=== PATIENT | female | born 1935 | race Two or more races ===

== ENCOUNTER → 2016-09-16 | Outpatient (CLI) | payer MEDICARE, MEDICAID | END | disposition home or self-care (01) | LOC: Rad HDHVI 11:10 | PROVIDERS: ATTEND Internal Medicine Cardiovascular Disease | DX: R06.02 Shortness of breath (principal) | CPT/HCPCS: 93306 ==

== ENCOUNTER → 2016-09-26 | Outpatient (CLI) | payer MEDICARE, MEDICAID ==
[~2016-09-26] VITALS: Ht 144.8 cm; Wt 59.0 kg
[~2016-09-26] MED LIST: D5W 5% IV ONE; DIPYRIDAMOLE (5MG/ML) 10 ML VIAL IV ONE; DIPYRIDAMOLE IV ONE
== END | disposition home or self-care (01) ==
LOC: Rad HDHVI 07:36
PROVIDERS: ATTEND Internal Medicine Cardiovascular Disease
DX: R07.9 Chest pain, unspecified (principal); I10 Essential (primary) hypertension; R06.02 Shortness of breath
CPT/HCPCS: 78452; 93005; 96374; 96375; A9500; J1245

== ENCOUNTER → 2018-08-10 | Outpatient (CLI) | payer MEDICARE, MEDICAID | END | disposition home or self-care (01) | LOC: Rad HDHVI 09:38 | PROVIDERS: ATTEND Internal Medicine | DX: I08.1 Rheumatic disorders of both mitral and tricuspid valves (principal); I10 Essential (primary) hypertension | CPT/HCPCS: 93306; 93880 ==

== ENCOUNTER → 2018-08-27 | Outpatient (CLI) | payer MEDICARE, MEDICAID ==
[~2018-08-27] VITALS: Ht 144.8 cm; Wt 58.1 kg
[~2018-08-27] MED LIST changes: +ADENOSINE 49 MG in GIVE UN-DILUTED 0 ML IV ONE; +ADENOSINE 90 MG/30 ML INJ IV ONE; -D5W 5% IV ONE; -DIPYRIDAMOLE (5MG/ML) 10 ML VIAL IV ONE; -DIPYRIDAMOLE IV ONE
[2018-08-27 12:52] LABS: Urine Blood Negative /uL (Negative); Urine Specific Gravity 1.012 (1.001-1.035)
[2018-08-27 12:53] LABS: Basophils # (auto) 0 uL; Basophils % (auto) 0.4 % (0.0-2.0); Eosinophils # (auto) 0 uL; Eosinophils % (auto) 0.7 % (0.0-7.0); Hematocrit 37.2 % (36.0-46.0); Hemoglobin 12.4 g/dL (12.2-16.2); Lymphocytes # (auto) 0.9 uL; Lymphocytes % (auto) 18.7 % (10.0-50.0); Mean Corpuscular Hemoglobin 31.8 pg (28.0-32.0); Mean Corpuscular Hgb Conc. 33.4 g/dL (32.0-36.0); Mean Corpuscular Volume 95.3 fL (80.0-100.0); Monocytes # (auto) 0.3 uL; Monocytes % (auto) 5.9 % (0.0-12.0); Neutrophils # (auto) 3.6 uL; Neutrophils % (auto) 74.3 % (37.0-80.0); Nucleated Red Blood Cells % 0.2 %; Platelet Count (auto) 233 10^3/uL (140-450); White Blood Cell 4.9 10^3/uL (4.4-10.8)
[2018-08-27 13:08] LABS: Potassium 4.2 mmol/L (3.5-5.1)
[2018-08-27 13:16] LABS: Albumin 4.2 g/dL (3.4-5.0); BUN/Creatinine Ratio 24.4; Bilirubin, Total 0.6 mg/dL (0.2-1.0); Calcium 9.7 mg/dL (8.5-10.1); Total Protein 7.7 g/dL (6.4-8.2)
[2018-08-27 13:19] LABS: Free T4 (Free Thyroxine) 1.18 ng/dL (0.89-1.76)
== END | disposition home or self-care (01) ==
LOC: Rad HDHVI 08:28
PROVIDERS: ATTEND Internal Medicine Cardiovascular Disease
DX: I10 Essential (primary) hypertension (principal); E78.5 Hyperlipidemia, unspecified; E03.9 Hypothyroidism, unspecified; E11.9 Type 2 diabetes mellitus without complications; E55.9 Vitamin D deficiency, unspecified; D51.9 Vitamin B12 deficiency anemia, unspecified; D64.9 Anemia, unspecified; N39.0 Urinary tract infection, site not specified; E78.00 Pure hypercholesterolemia, unspecified
CPT/HCPCS: 36415; 78452; 80053; 80061; 81003; 82306; 82607; 83036; 84439; 84443; 85025; 87086; 93005; 96374; 96375; A9500; J0153

== ENCOUNTER → 2019-05-02 | Outpatient (CLI) | payer MEDICARE, MEDICAID ==
[2019-05-02 12:35] LABS: Urine Blood Negative /uL (Negative); Urine Specific Gravity 1.017 (1.001-1.035)
[2019-05-02 12:54] LABS: Basophils # (auto) 0 uL; Basophils % (auto) 0.4 % (0.0-2.0); Eosinophils # (auto) 0 uL; Eosinophils % (auto) 0.8 % (0.0-7.0); Hematocrit 32.9 % (36.0-46.0); Lymphocytes % (auto) 21.1 % (10.0-50.0); Mean Corpuscular Hgb Conc. 33.4 g/dL (32.0-36.0); Mean Corpuscular Volume 95.8 fL (80.0-100.0); Monocytes # (auto) 0.3 uL; Monocytes % (auto) 7.2 % (0.0-12.0); Neutrophils # (auto) 3.2 uL; Neutrophils % (auto) 70.5 % (37.0-80.0); Nucleated Red Blood Cells % 0.1 %; Platelet Count (auto) 226 10^3/uL (140-450); Red Blood Cells 3.43 10^6/uL (4.0-5.20); Red Cell Distribution Width 13.5 % (11.8-14.3); White Blood Cell 4.5 10^3/uL (4.4-10.8)
[2019-05-02 13:01] LABS: Potassium 4.5 mmol/L (3.5-5.1)
[2019-05-02 13:21] LABS: Free T4 (Free Thyroxine) 1.05 ng/dL (0.89-1.76)
[2019-05-02 13:29] LABS: Albumin 3.7 g/dL (3.4-5.0); BUN/Creatinine Ratio 30.4; Bilirubin, Total 0.7 mg/dL (0.2-1.0); Calcium 9.5 mg/dL (8.5-10.1); Total Protein 7.2 g/dL (6.4-8.2)
== END | disposition home or self-care (01) ==
LOC: LAB 09:10
PROVIDERS: ATTEND Internal Medicine
DX: E03.9 Hypothyroidism, unspecified (principal); K90.9 Intestinal malabsorption, unspecified; N39.0 Urinary tract infection, site not specified; D51.9 Vitamin B12 deficiency anemia, unspecified; Z79.899 Other long term (current) drug therapy
CPT/HCPCS: 36415; 80053; 80061; 81003; 82306; 82607; 83036; 84439; 84443; 85025; 87086; 87088; 87186

== ENCOUNTER → 2020-03-28 | Outpatient (CLI) | payer MEDICARE, MEDICAID ==
[~2020-03-28] MED LIST changes: -ADENOSINE 49 MG in GIVE UN-DILUTED 0 ML IV ONE; -ADENOSINE 90 MG/30 ML INJ IV ONE; +IOHEXOL 350 MG/ML 100ML IJ ONE
[2020-03-28 09:45] VITALS: BP 157/64
--- NOTE | 2020-03-28 09:45 | NUR ---
Patient into clinic for scheduled CTA, AAOx4, ambulatory, breathing even and unlabored. Patient is urdu speaking has caregiver for translation at chairside.
--- NOTE | 2020-03-28 10:18 | NUR ---
IV removal IV DC'd with sterile technique, catheter fully intact. Pressure dressing applied to site. Patient tolerated procedure well.
[2020-03-28 10:20] VITALS: BP 161/51
--- NOTE | 2020-03-28 10:20 | NUR ---
[facility] Clinic Discharge Instructions See e-MAR for any mediations given with this visit. Patient education given on disease process. Patient verbalized understanding. Previous labs reviewed. Patient discharged in stable condition with after care instructions and follow up appointment. Note Patient educated to drink plenty of fluids after IV contrast, caregiver and patient verbalized understanding.
== END | disposition home or self-care (01) ==
LOC: Rad HDHVI 03-27 15:20
PROVIDERS: ATTEND Internal Medicine Cardiovascular Disease
DX: K42.0 Umbilical hernia with obstruction, without gangrene (principal); R94.4 Abnormal results of kidney function studies; R10.9 Unspecified abdominal pain; K57.10 Diverticulosis of small intestine without perforation or abscess without bleeding; K44.9 Diaphragmatic hernia without obstruction or gangrene; K43.9 Ventral hernia without obstruction or gangrene; K57.30 Diverticulosis of large intestine without perforation or abscess without bleeding; M47.816 Spondylosis without myelopathy or radiculopathy, lumbar region; K57.90 Diverticulosis of intestine, part unspecified, without perforation or abscess without bleeding; N39.0 Urinary tract infection, site not specified; D51.9 Vitamin B12 deficiency anemia, unspecified; E03.9 Hypothyroidism, unspecified; K90.9 Intestinal malabsorption, unspecified; Z79.899 Other long term (current) drug therapy
CPT/HCPCS: 36415; 74177; 80053; 80061; 82565; 82607; 83036; 84439; 84443; 84520; 85025; G0463; Q9967

== ENCOUNTER → 2020-03-28 | Outpatient (CLI) | payer MEDICARE ==
[2020-03-28 08:46] LABS: Basophils # (auto) 0 10 ^3/uL (0-0.2); Basophils % (auto) 0.4 % (0.0-2.0); Eosinophils # (auto) 0.1 10 ^3/uL (0-0.8); Eosinophils % (auto) 1.2 % (0.0-7.0); Hematocrit 32.1 % (36.0-46.0); Hemoglobin 10.8 g/dL (12.2-16.2); Lymphocytes # (auto) 1.1 10 ^3/uL (0.4-5.4); Lymphocytes % (auto) 21.4 % (10.0-50.0); Mean Corpuscular Hemoglobin 31.9 pg (28.0-32.0); Mean Corpuscular Hgb Conc. 33.6 g/dL (32.0-36.0); Mean Corpuscular Volume 95.1 fL (80.0-100.0); Monocytes # (auto) 0.4 10 ^3/uL (0-1.3); Monocytes % (auto) 7.3 % (0.0-12.0); Neutrophils # (auto) 3.5 10 ^3/uL (1.6-8.6); Neutrophils % (auto) 69.7 % (37.0-80.0); Nucleated Red Blood Cells % 0.1 %; Platelet Count (auto) 266 10^3/uL (140-450); Red Blood Cells 3.37 10^6/uL (4.0-5.20); Red Cell Distribution Width 14.4 % (11.8-14.3)
[2020-03-28 09:16] LABS: Albumin 3.6 g/dL (3.4-5.0); Calcium 9.3 mg/dL (8.5-10.1); Potassium 4.4 mmol/L (3.5-5.1)
[2020-03-28 09:20] LABS: BUN/Creatinine Ratio 28.2; Bilirubin, Total 0.6 mg/dL (0.2-1.0); Total Protein 6.8 g/dL (6.4-8.2)
[2020-03-28 09:27] LABS: Free T4 (Free Thyroxine) 1.28 ng/dL (0.89-1.76)
== END | disposition home or self-care (01) ==
LOC: CANPRECLI → LAB 08:19
PROVIDERS: ATTEND Internal Medicine
DX: E03.9 Hypothyroidism, unspecified (principal); K90.9 Intestinal malabsorption, unspecified; N39.0 Urinary tract infection, site not specified; D51.9 Vitamin B12 deficiency anemia, unspecified; Z00.00 Encounter for general adult medical examination without abnormal findings; Z79.899 Other long term (current) drug therapy
CPT/HCPCS: 36415; 80053; 80061; 82607; 83036; 84439; 84443; 85025

== ENCOUNTER → 2021-02-19 | Outpatient (CLI) | payer MEDICARE, MEDICAID ==
[~2021-02-19] VITALS: Ht 144.8 cm; Wt 54.4 kg
[~2021-02-19] MED LIST changes: +ADENOSINE 46 MG in GIVE UN-DILUTED 0 ML IV ONE; +ADENOSINE 90 MG/30 ML INJ IV ONE; -IOHEXOL 350 MG/ML 100ML IJ ONE
== END | disposition home or self-care (01) ==
LOC: Rad HDHVI 13:16
PROVIDERS: ATTEND Internal Medicine
DX: Z01.810 Encounter for preprocedural cardiovascular examination (principal); I25.10 Atherosclerotic heart disease of native coronary artery without angina pectoris; I10 Essential (primary) hypertension; I34.0 Nonrheumatic mitral (valve) insufficiency; E78.5 Hyperlipidemia, unspecified; Z91.14 Patient's other noncompliance with medication regimen; Z82.49 Family history of ischemic heart disease and other diseases of the circulatory system
CPT/HCPCS: 78452; 93005; 96374; 96375; A9500; J0153

== ENCOUNTER 2021-06-24 06:11 | Inpatient (IN) | payer MEDICARE, MEDICAID ==
[~2021-06-24] VITALS: Ht 142.2 cm; Wt 54.3 kg
[~2021-06-24 06:11] MED LIST changes: -ADENOSINE 46 MG in GIVE UN-DILUTED 0 ML IV ONE; -ADENOSINE 90 MG/30 ML INJ IV ONE; +AZIL40TA3 PO; +FER325T PO; +FOLITAB22 PO; +FURO1TAB31 PO; +MULT-927 PO; +OMEP20TA PO; +POTA1TAB61 PO
[2021-06-24] MEDS ORDERED: ACETAMINOPHEN IV 1000 MG/100ML (10MG/ML) IV ONE (07:30)
[2021-06-24] MEDS ORDERED: PREGABALIN 25 MG CAP PO ONE (07:30)
[2021-06-24] MEDS ORDERED: CELECOXIB 100 MG CAP PO ONE (07:30)
[2021-06-24] MEDS ORDERED: CELECOXIB 100 MG CAP ONE (07:31)
[2021-06-24] MEDS ORDERED: ceFAZolin 1GM/50ML 100 ML IV ONE (07:31)
[2021-06-24] MEDS ORDERED: PREGABALIN CAPSULE 75 MG CAP ONE (07:31)
[2021-06-24] MEDS ORDERED: ACETAMINOPHEN IV 100 ML IV ONE (07:31)
[2021-06-24] MEDS ORDERED: VANCOMYCIN HCL 1000 MG VL ONE (12:46)
[2021-06-24] MEDS ORDERED: TRANEXAMIC ACID 20 ML ONE (12:48)
[2021-06-24] MEDS ORDERED: BUPIVACAINE W/ EPINEPH 0.25% INJ 50ML MDV ONE ×2 (12:48→14:37)
[2021-06-24] MEDS ORDERED: MORPHINE SULF PF 2 MG/2 ML SYRG ONE (12:50)
[2021-06-24] MEDS ORDERED: KETOROLAC TROMETH 30 MG/ML 1ML VIAL ONE ×2 (12:50→14:37)
[2021-06-24] MEDS ORDERED: fentaNYL CITRATE 100 MCG/2 ML VL ONE (13:30)
[2021-06-24] MEDS ORDERED: MIDAZOLAM HCL 2MG/2ML 2ml VIAL (1mg/ml) ONE (13:30)
[2021-06-24] MEDS ORDERED: DexAMETHasone SOD PHOS 10MG/1ML VIAL INJ ONE (13:31)
[2021-06-24] MEDS ORDERED: PROPOFOL 10 MG/ML 20 ML IV ONE (13:31)
[2021-06-24] MEDS ORDERED: ePHEDrine SULFATE 50 MG/ML AMP IV PRN (14:15)
[2021-06-24] MEDS ORDERED: MIDAZOLAM HCL 2MG/2ML 2ml VIAL (1mg/ml) IV PRN (14:15)
[2021-06-24] MEDS ORDERED: MORPHINE SULFATE 4 MG/ML SYR/VIAL IV PRN (14:15)
[2021-06-24] MEDS ORDERED: ONDANSETRON HCL 4 MG/2 ML VIAL IV PRN (14:15)
[2021-06-24] MEDS ORDERED: NITROGLYCERIN 0.4 MG SL TAB SL PRN (15:45)
[2021-06-24] MEDS ORDERED: MORPHINE SULFATE INJECTION 2 MG/ML SYRG IV PRN (15:45)
[2021-06-24] MEDS ORDERED: BISACODYL 5 MG EC TAB PO PRN (15:45)
[2021-06-24] MEDS: LACTATED RINGER'S 1,000 ML IV SCH (15:45)
[2021-06-24] MEDS: ceFAZolin 1GM/50ML 50 ML IV SCH ×2 (16:24→21:44)
[2021-06-24] MEDS ORDERED: ASPI-717 PO (20:38)
[2021-06-24] MEDS: SODIUM CHLOR 0.9% PF (SALINE LOCK) 10ML VIAL/SYR IV SCH (21:44)
[2021-06-24] MEDS: DOCUSATE SOD 100 MG CAP PO SCH (21:44)
[2021-06-24] MEDS: FERROUS SULFATE 325mg EC TAB PO SCH (21:46)
[2021-06-24 22:00] VITALS: BP 121/59
[2021-06-24] MEDS: HYDROcodone-ACET 5/325MG TAB PO PRN (22:55)
[2021-06-25] VITALS (8 sets, daily range): BP systolic 108–127; BP diastolic 56–90
[2021-06-25] MEDS: LACTATED RINGER'S 1,000 ML IV SCH ×3 (01:45→21:31)
[2021-06-25] MEDS: ceFAZolin 1GM/50ML 50 ML IV SCH (03:24)
[2021-06-25 06:04] LABS: Hematocrit 22.8 % (36.0-46.0); Hemoglobin 7.8 g/dL (12.2-16.2)
[2021-06-25] MEDS: SODIUM CHLOR 0.9% PF (SALINE LOCK) 10ML VIAL/SYR IV SCH ×3 (06:23→21:13)
[2021-06-25] MEDS: FERROUS SULFATE 325mg EC TAB PO SCH ×3 (06:24→21:14)
[2021-06-25] MEDS: HYDROcodone-ACET 5/325MG TAB PO PRN (06:24)
[2021-06-25 06:27] LABS: Potassium 4.6 mmol/L (3.5-5.1)
[2021-06-25 06:33] LABS: Albumin 2.4 g/dL (3.4-5.0); Calcium 8.3 mg/dL (8.5-10.1)
[2021-06-25 06:35] LABS: Bilirubin, Total 0.7 mg/dL (0.2-1.0); Total Protein 4.9 g/dL (6.4-8.2)
[2021-06-25] MEDS: PANTOPRAZOLE 40 MG TAB PO SCH (10:00)
[2021-06-25] MEDS: CYANOCOBALAMIN PO SCH (10:00)
[2021-06-25] MEDS: MULTIPLE VITAMINS W/ MINERALS TAB PO SCH (10:00)
[2021-06-25] MEDS: ENOXAPARIN SOD 30 MG/0.3 ML SYRINGE SC SCH (10:00)
[2021-06-25] MEDS: PYRIDOXINE PO SCH (10:00)
[2021-06-25] MEDS: FOLIC ACID PO SCH (10:00)
[2021-06-25] MEDS: POTASSIUM CHL 10 Meq TABLET PO SCH (10:01)
[2021-06-25] MEDS: FUROSEMIDE 40 MG TAB PO SCH (10:01)
[2021-06-25] MEDS: DOCUSATE SOD 100 MG CAP PO SCH ×2 (10:01→21:14)
[2021-06-25] MEDS: HYDROmorphone HCL 2 MG/ML VL IV PRN (14:42)
[2021-06-26] MEDS: HYDROcodone-ACET 5/325MG TAB PO PRN ×2 (04:16→06:47)
[2021-06-26 05:00] VITALS: BP 138/77
[2021-06-26 05:55] LABS: Hematocrit 24.8 % (36.0-46.0); Hemoglobin 8.7 g/dL (12.2-16.2)
[2021-06-26] MEDS: SODIUM CHLOR 0.9% PF (SALINE LOCK) 10ML VIAL/SYR IV SCH ×3 (06:48→20:33)
[2021-06-26] MEDS: FERROUS SULFATE 325mg EC TAB PO SCH ×3 (06:49→20:33)
[2021-06-26] MEDS: LACTATED RINGER'S 1,000 ML IV SCH (07:45)
[2021-06-26 09:00] VITALS: BP 120/59
[2021-06-26] MEDS: DOCUSATE SOD 100 MG CAP PO SCH ×2 (09:45→20:33)
[2021-06-26] MEDS: MULTIPLE VITAMINS W/ MINERALS TAB PO SCH (09:45)
[2021-06-26] MEDS: PANTOPRAZOLE 40 MG TAB PO SCH (09:46)
[2021-06-26] MEDS: FUROSEMIDE 40 MG TAB PO SCH (09:47)
[2021-06-26] MEDS: POTASSIUM CHL 10 Meq TABLET PO SCH (09:47)
[2021-06-26] MEDS: HYDROmorphone HCL 2 MG/ML VL IV PRN (09:49)
[2021-06-26] MEDS: ENOXAPARIN SOD 30 MG/0.3 ML SYRINGE SC SCH (09:50)
[2021-06-26] MEDS: PYRIDOXINE PO SCH (10:00)
[2021-06-26] MEDS: CYANOCOBALAMIN PO SCH (10:00)
[2021-06-26] MEDS: FOLIC ACID PO SCH (10:00)
[2021-06-26] MEDS ORDERED: MORPHINE SULFATE INJECTION 2 MG/ML SYRG IV PRN (11:15)
[2021-06-26 12:54] LABS: Urine Bacteria FEW /hpf (None Seen); Urine Blood 2+ /uL (Negative); Urine Hyaline Cast FEW /lpf (0 - 2); Urine Mucus FEW (None Seen); Urine Specific Gravity 1.007 (1.001-1.035); Urine WBC 1 /hpf (0 - 5)
[2021-06-26 13:00] VITALS: BP 142/60
[2021-06-26] MEDS: ACETAMINOPHEN 325 MG TAB PO PRN ×2 (14:13→20:47)
[2021-06-26 17:00] VITALS: BP 115/61
[2021-06-26 22:00] VITALS: BP 164/88
[2021-06-27 05:00] VITALS: BP 126/60
[2021-06-27] MEDS: SODIUM CHLOR 0.9% PF (SALINE LOCK) 10ML VIAL/SYR IV SCH ×3 (05:25→21:10)
[2021-06-27] MEDS: FERROUS SULFATE 325mg EC TAB PO SCH ×3 (05:35→21:11)
[2021-06-27 06:39] LABS: Basophils # (auto) 0 10 ^3/uL (0-0.2); Basophils % (auto) 0.4 % (0.0-2.0); Eosinophils # (auto) 0.1 10 ^3/uL (0-0.8); Eosinophils % (auto) 0.8 % (0.0-7.0); Hematocrit 25.4 % (36.0-46.0); Hemoglobin 8.9 g/dL (12.2-16.2); Lymphocytes # (auto) 0.6 10 ^3/uL (0.4-5.4); Lymphocytes % (auto) 8.5 % (10.0-50.0); Mean Corpuscular Hemoglobin 33.5 pg (28.0-32.0); Mean Corpuscular Hgb Conc. 35.1 g/dL (32.0-36.0); Mean Corpuscular Volume 95.4 fL (80.0-100.0); Monocytes # (auto) 0.4 10 ^3/uL (0-1.3); Monocytes % (auto) 6.4 % (0.0-12.0); Neutrophils # (auto) 5.6 10 ^3/uL (1.6-8.6); Neutrophils % (auto) 83.9 % (37.0-80.0); Red Blood Cells 2.66 10^6/uL (4.0-5.20); Red Cell Distribution Width 13.8 % (11.8-14.3); White Blood Cell 6.6 10^3/uL (4.4-10.8)
[2021-06-27 06:55] LABS: BUN/Creatinine Ratio 17.2; Calcium 7.9 mg/dL (8.5-10.1); Potassium 3.8 mmol/L (3.5-5.1)
[2021-06-27] MEDS: FOLIC ACID PO SCH (09:13)
[2021-06-27] MEDS: PYRIDOXINE PO SCH (09:13)
[2021-06-27] MEDS: CYANOCOBALAMIN PO SCH (09:13)
[2021-06-27] MEDS: MULTIPLE VITAMINS W/ MINERALS TAB PO SCH (09:14)
[2021-06-27] MEDS: PANTOPRAZOLE 40 MG TAB PO SCH (09:14)
[2021-06-27] MEDS: ENOXAPARIN SOD 30 MG/0.3 ML SYRINGE SC SCH (09:14)
[2021-06-27] MEDS: DOCUSATE SOD 100 MG CAP PO SCH ×2 (09:14→21:11)
[2021-06-27 09:28] VITALS: BP 134/70
[2021-06-27] MEDS: ONDANSETRON HCL 4 MG/2 ML VIAL IV PRN (12:21)
[2021-06-27 12:38] VITALS: BP 138/111
[2021-06-27] MEDS ORDERED: METOPROLOL TARTRATE 25 MG TAB PO ONE (15:15)
[2021-06-27 16:36] VITALS: BP 126/43
[2021-06-27] MEDS: Ensure HIGH Protein Chocolate 8oz Bottle PO SCH (18:15)
[2021-06-27] MEDS: METOPROLOL TARTRATE 25 MG TAB PO SCH (21:12)
[2021-06-27 21:57] VITALS: BP 135/58
[2021-06-28] MEDS: ONDANSETRON HCL 4 MG/2 ML VIAL IV PRN (02:05)
[2021-06-28 05:00] VITALS: BP 138/64
[2021-06-28 05:58] LABS: Basophils # (auto) 0 10 ^3/uL (0-0.2); Basophils % (auto) 0.6 % (0.0-2.0); Eosinophils # (auto) 0 10 ^3/uL (0-0.8); Eosinophils % (auto) 0.9 % (0.0-7.0); Hemoglobin 8.3 g/dL (12.2-16.2); Lymphocytes # (auto) 0.5 10 ^3/uL (0.4-5.4); Lymphocytes % (auto) 8.7 % (10.0-50.0); Mean Corpuscular Hemoglobin 32.9 pg (28.0-32.0); Mean Corpuscular Hgb Conc. 34.6 g/dL (32.0-36.0); Mean Corpuscular Volume 95.2 fL (80.0-100.0); Monocytes # (auto) 0.4 10 ^3/uL (0-1.3); Monocytes % (auto) 7.5 % (0.0-12.0); Neutrophils # (auto) 4.3 10 ^3/uL (1.6-8.6); Neutrophils % (auto) 82.3 % (37.0-80.0); Nucleated Red Blood Cells % 0.1 %; Red Blood Cells 2.52 10^6/uL (4.0-5.20); Red Cell Distribution Width 13.7 % (11.8-14.3); White Blood Cell 5.2 10^3/uL (4.4-10.8)
[2021-06-28] MEDS: SODIUM CHLOR 0.9% PF (SALINE LOCK) 10ML VIAL/SYR IV SCH ×2 (06:16→10:36)
[2021-06-28] MEDS: FERROUS SULFATE 325mg EC TAB PO SCH ×2 (06:16→14:23)
[2021-06-28] MEDS: Ensure HIGH Protein Chocolate 8oz Bottle PO SCH ×2 (08:00→12:04)
[2021-06-28 09:00] VITALS: BP 140/60
[2021-06-28] MEDS: FOLIC ACID PO SCH (10:00)
[2021-06-28] MEDS: CYANOCOBALAMIN PO SCH (10:00)
[2021-06-28] MEDS: PYRIDOXINE PO SCH (10:00)
[2021-06-28] MEDS: MULTIPLE VITAMINS W/ MINERALS TAB PO SCH (10:35)
[2021-06-28] MEDS: DOCUSATE SOD 100 MG CAP PO SCH (10:36)
[2021-06-28] MEDS: PANTOPRAZOLE 40 MG TAB PO SCH (10:36)
[2021-06-28] MEDS: ENOXAPARIN SOD 30 MG/0.3 ML SYRINGE SC SCH (10:36)
[2021-06-28] MEDS: METOPROLOL TARTRATE 25 MG TAB PO SCH (10:37)
[2021-06-28 12:29] VITALS: BP 135/58
[2021-06-28 13:00] VITALS: BP 122/55
== END 2021-06-28 16:00 | disposition home health service (06) | DRG 324 ==
LOC: SUR 06:11 → WEST WING 20:22 → TELE-WESTW 06-25 03:24
PROVIDERS: ADMIT Orthopaedic Surgery Adult Reconstructive Orthopaedic Surgery; ATTEND Internal Medicine
PROC: 8E0YXBZ Computer Assisted Procedure of Lower Extremity (ICD-10-PCS; 2021-06-24)
PROC: 0SR9069 Replacement of Right Hip Joint with Oxidized Zirconium on Polyethylene Synthetic Substitute, Cemented, Open Approach (ICD-10-PCS; principal; 2021-06-24 13:37)
PROC: 30233N1 Transfusion of Nonautologous Red Blood Cells into Peripheral Vein, Percutaneous Approach (ICD-10-PCS; 2021-06-25)
DX: M16.11 Unilateral primary osteoarthritis, right hip (principal); E44.1 Mild protein-calorie malnutrition; D64.9 Anemia, unspecified; I10 Essential (primary) hypertension; Z20.822 Contact with and (suspected) exposure to COVID-19; M21.70 Unequal limb length (acquired), unspecified site
CPT/HCPCS: 36415; 72170; 80048; 80053; 81001; 85014; 85018; 85025; 86850; 86900; 86901; 86920; 93005; 97110; 97116; 97163; 97530; A4565; C1713; C1776; G0378; J0131; J0690; J1100; J1885; J2250; J2405; J2704

== ENCOUNTER → 2021-07-30 | Outpatient (CLI) | payer MEDICARE, MEDICAID ==
[~2021-07-30] MED LIST changes: +ASPI-717 PO
[2021-07-30 15:20] VITALS: BP 118/70
[2021-07-30 15:27] VITALS: BP 149/67
== END | disposition home or self-care (01) ==
LOC: Rad HDHVI 15:14
PROVIDERS: ATTEND Internal Medicine
DX: N13.30 Unspecified hydronephrosis (principal); R94.4 Abnormal results of kidney function studies
CPT/HCPCS: 36415; 82565; 84520; G0463

== ENCOUNTER 2021-08-11 00:24 | Emergency (ER) | payer MEDICARE, MEDICAID ==
[~2021-08-11] VITALS: Ht 142.2 cm; Wt 52.2 kg
[2021-08-11] MEDS ORDERED: HYDROcodone-ACET 5/325MG TAB PO ONE (04:00)
[2021-08-11 04:45] LABS: Basophils # (auto) 0 10 ^3/uL (0-0.2); Basophils % (auto) 0.6 % (0.0-2.0); Eosinophils # (auto) 0.1 10 ^3/uL (0-0.8); Eosinophils % (auto) 0.8 % (0.0-7.0); Hematocrit 30.9 % (36.0-46.0); Hemoglobin 10.2 g/dL (12.2-16.2); Lymphocytes # (auto) 0.8 10 ^3/uL (0.4-5.4); Lymphocytes % (auto) 12.1 % (10.0-50.0); Mean Corpuscular Hemoglobin 31.5 pg (28.0-32.0); Mean Corpuscular Volume 95.5 fL (80.0-100.0); Monocytes # (auto) 0.4 10 ^3/uL (0-1.3); Monocytes % (auto) 6.6 % (0.0-12.0); Neutrophils # (auto) 5.4 10 ^3/uL (1.6-8.6); Neutrophils % (auto) 79.9 % (37.0-80.0); Red Blood Cells 3.23 10^6/uL (4.0-5.20); Red Cell Distribution Width 14.1 % (11.8-14.3); White Blood Cell 6.8 10^3/uL (4.4-10.8)
[2021-08-11 05:14] LABS: Albumin 4.1 g/dL (3.4-5.0); Calcium 9.3 mg/dL (8.5-10.1); Magnesium 2.5 mg/dL (1.6-2.6); Potassium 4.2 mmol/L (3.5-5.1)
[2021-08-11 05:19] LABS: BUN/Creatinine Ratio 34.7; Bilirubin, Total 0.4 mg/dL (0.2-1.0); Total Protein 7.9 g/dL (6.4-8.2)
[2021-08-11 06:00] VITALS: BP 136/78
== END 2021-08-11 06:32 | disposition home or self-care (01) ==
LOC: ER 00:24
DX: S52.511A Displaced fracture of right radial styloid process, initial encounter for closed fracture (principal); S52.611A Displaced fracture of right ulna styloid process, initial encounter for closed fracture; I10 Essential (primary) hypertension; Z79.82 Long term (current) use of aspirin; Z79.899 Other long term (current) drug therapy; W18.39XA Other fall on same level, initial encounter; Y93.89 Activity, other specified; Y92.89 Other specified places as the place of occurrence of the external cause; Y99.8 Other external cause status
CPT/HCPCS: 36415; 70450; 71045; 72125; 72131; 73030; 73060; 73090; 73120; 80053; 83735; 83880; 84484; 85025; 85610

== ENCOUNTER → 2021-09-10 | Outpatient (CLI) | payer MEDICARE, MEDICAID ==
[2021-09-10 15:22] LABS: Basophils # (auto) 0 10 ^3/uL (0-0.2); Basophils % (auto) 0.5 % (0.0-2.0); Eosinophils # (auto) 0 10 ^3/uL (0-0.8); Eosinophils % (auto) 0.9 % (0.0-7.0); Hematocrit 27.7 % (36.0-46.0); Hemoglobin 9.3 g/dL (12.2-16.2); Lymphocytes # (auto) 1.1 10 ^3/uL (0.4-5.4); Lymphocytes % (auto) 23.3 % (10.0-50.0); Mean Corpuscular Hemoglobin 31.5 pg (28.0-32.0); Mean Corpuscular Hgb Conc. 33.6 g/dL (32.0-36.0); Mean Corpuscular Volume 93.7 fL (80.0-100.0); Monocytes # (auto) 0.3 10 ^3/uL (0-1.3); Monocytes % (auto) 6.2 % (0.0-12.0); Neutrophils # (auto) 3.3 10 ^3/uL (1.6-8.6); Neutrophils % (auto) 69.1 % (37.0-80.0); Nucleated Red Blood Cells % 0.1 %; Red Blood Cells 2.96 10^6/uL (4.0-5.20); Red Cell Distribution Width 15.1 % (11.8-14.3); White Blood Cell 4.8 10^3/uL (4.4-10.8)
[2021-09-10 15:29] LABS: Albumin 3.8 g/dL (3.4-5.0); Calcium 9.6 mg/dL (8.5-10.1); Potassium 4.3 mmol/L (3.5-5.1)
[2021-09-10 15:33] LABS: BUN/Creatinine Ratio 28.1; Bilirubin, Total 0.6 mg/dL (0.2-1.0); Total Protein 7.2 g/dL (6.4-8.2)
== END | disposition home or self-care (01) ==
LOC: LAB 12:29
PROVIDERS: ATTEND Internal Medicine
DX: D64.9 Anemia, unspecified (principal)
CPT/HCPCS: 36415; 80053; 85025

== ENCOUNTER 2021-10-01 20:11 | Inpatient (IN) | payer MEDICARE, MEDICAID ==
[~2021-10-01] VITALS: Ht 30.5 cm; Wt 51.0 kg
[~2021-10-01 20:11] MED LIST changes: -ACET-1156 PO; -MECL25TA18 PO
[2021-10-01 22:00] VITALS: BP 131/58
[2021-10-01] MEDS ORDERED: PNEUMOCOCCAL VACC POLYS 25 MCG/0.5 ML VIAL IM ONE (23:30)
[2021-10-01] MEDS ORDERED: INFLUENZA QUAD 2021-2022 0.5 ML SYRG IM ONE (23:30)
[2021-10-02] MEDS ORDERED: NITROGLYCERIN 0.4 MG SL TAB SL PRN (00:30)
[2021-10-02] MEDS ORDERED: MORPHINE SULFATE INJECTION 2 MG/ML SYRG IV PRN (00:30)
[2021-10-02] MEDS ORDERED: MECL25TA18 PO (00:44)
[2021-10-02] MEDS ORDERED: ACET-1156 PO (00:46)
[2021-10-02] MEDS: SOD CHL 0.45% 1,000 ML IV SCH ×2 (01:30→12:50)
[2021-10-02 05:00] VITALS: BP 136/82
[2021-10-02 08:26] LABS: Basophils # (auto) 0 10 ^3/uL (0-0.2); Basophils % (auto) 0.8 % (0.0-2.0); Eosinophils # (auto) 0.1 10 ^3/uL (0-0.8); Eosinophils % (auto) 2.1 % (0.0-7.0); Hematocrit 27.5 % (36.0-46.0); Hemoglobin 9.3 g/dL (12.2-16.2); Lymphocytes % (auto) 33.5 % (10.0-50.0); Mean Corpuscular Hemoglobin 30.9 pg (28.0-32.0); Mean Corpuscular Hgb Conc. 33.9 g/dL (32.0-36.0); Mean Corpuscular Volume 91.1 fL (80.0-100.0); Monocytes # (auto) 0.3 10 ^3/uL (0-1.3); Monocytes % (auto) 9.4 % (0.0-12.0); Neutrophils # (auto) 1.6 10 ^3/uL (1.6-8.6); Neutrophils % (auto) 54.2 % (37.0-80.0); Nucleated Red Blood Cells % 0.1 %; Red Blood Cells 3.02 10^6/uL (4.0-5.20); Red Cell Distribution Width 14.8 % (11.8-14.3)
[2021-10-02 08:40] LABS: Potassium 4.5 mmol/L (3.5-5.1)
[2021-10-02 08:48] LABS: INR 1.03 (0.9-1.15); Partial Thromboplastin Time 24.5 sec (23.6-33.0)
[2021-10-02 08:52] LABS: Albumin 3.2 g/dL (3.4-5.0); BUN/Creatinine Ratio 33.3; Bilirubin, Total 0.6 mg/dL (0.2-1.0)
[2021-10-02 09:00] VITALS: BP 143/61
[2021-10-02] MEDS: LOSARTAN POTASSIUM 50 MG TAB PO SCH (09:16)
[2021-10-02] MEDS ORDERED: ACETAMINOPHEN 500 MG TAB PO PRN (10:15)
[2021-10-02] MEDS ORDERED: LISINOPRIL 10 MG TAB PO ONE (10:15)
[2021-10-02] MEDS ORDERED: LIDOCAINE 2%HCL (LOCAL ANESTH.) INJ 20ML MDV ONE (11:52)
[2021-10-02] MEDS ORDERED: fentaNYL CITRATE 100 MCG/2 ML VL ONE (11:54)
[2021-10-02] MEDS ORDERED: MIDAZOLAM HCL 2MG/2ML 2ml VIAL (1mg/ml) ONE (11:54)
[2021-10-02] MEDS ORDERED: VANCOMYCIN HCL 1000 MG VL ONE (11:55)
[2021-10-02] MEDS ORDERED: VANCOMYCIN 1GM/250ML 250 ML IV ONE (11:55)
[2021-10-02 14:45] VITALS: BP 130/71
[2021-10-02 17:00] VITALS: BP 123/55
[2021-10-02 22:00] VITALS: BP 120/58
[2021-10-03] MEDS: SOD CHL 0.45% 1,000 ML IV SCH ×3 (02:10→05:05)
[2021-10-03 05:00] VITALS: BP 117/55
[2021-10-03 07:50] LABS: Basophils # (auto) 0 10 ^3/uL (0-0.2); Basophils % (auto) 0.5 % (0.0-2.0); Eosinophils # (auto) 0 10 ^3/uL (0-0.8); Hematocrit 27.3 % (36.0-46.0); Hemoglobin 9.2 g/dL (12.2-16.2); Lymphocytes # (auto) 0.8 10 ^3/uL (0.4-5.4); Lymphocytes % (auto) 19.4 % (10.0-50.0); Mean Corpuscular Hemoglobin 30.8 pg (28.0-32.0); Mean Corpuscular Hgb Conc. 33.7 g/dL (32.0-36.0); Mean Corpuscular Volume 91.4 fL (80.0-100.0); Monocytes # (auto) 0.4 10 ^3/uL (0-1.3); Monocytes % (auto) 8.5 % (0.0-12.0); Neutrophils # (auto) 2.9 10 ^3/uL (1.6-8.6); Neutrophils % (auto) 70.6 % (37.0-80.0); Red Blood Cells 2.99 10^6/uL (4.0-5.20); Red Cell Distribution Width 14.8 % (11.8-14.3); White Blood Cell 4.1 10^3/uL (4.4-10.8)
[2021-10-03 08:13] LABS: Potassium 4.4 mmol/L (3.5-5.1)
[2021-10-03 08:21] LABS: BUN/Creatinine Ratio 25.3; Calcium 8.9 mg/dL (8.5-10.1)
[2021-10-03 09:00] VITALS: BP 106/54
[2021-10-03] MEDS: LOSARTAN POTASSIUM 50 MG TAB PO SCH (09:37)
[2021-10-03] MEDS ORDERED: LISINOPRIL 10 MG TAB PO SCH (10:00)
[2021-10-03 13:00] VITALS: BP 114/70
[2021-10-03 16:57] VITALS: BP 105/73
[2021-10-03 18:07] VITALS: BP 118/79
== END 2021-10-03 19:57 | disposition home or self-care (01) | DRG 171 ==
LOC: TELE-CENTR 20:26 → TELE-WESTW 10-02 17:05
PROVIDERS: ADMIT Internal Medicine; ATTEND Internal Medicine
PROC: 0JH606Z Insertion of Pacemaker, Dual Chamber into Chest Subcutaneous Tissue and Fascia, Open Approach (ICD-10-PCS; principal; 2021-10-02)
PROC: 02H63JZ Insertion of Pacemaker Lead into Right Atrium, Percutaneous Approach (ICD-10-PCS; 2021-10-02)
PROC: 02HK3JZ Insertion of Pacemaker Lead into Right Ventricle, Percutaneous Approach (ICD-10-PCS; 2021-10-02)
DX: I44.1 Atrioventricular block, second degree (principal); U07.1 COVID-19; I11.0 Hypertensive heart disease with heart failure; I50.42 Chronic combined systolic (congestive) and diastolic (congestive) heart failure; M19.90 Unspecified osteoarthritis, unspecified site; Z23 Encounter for immunization
CPT/HCPCS: 33208; 36415; 71045; 80048; 80053; 85025; 85610; 85730; 86850; 86900; 86901; 87426; 93005; 99152; 99153; C1785; G0378; J2250

== ENCOUNTER → 2021-10-01 | Outpatient (CLI) | payer MEDICARE, MEDICAID ==
[~2021-10-01] MED LIST changes: +ACET-1156 PO; +MECL25TA18 PO
[2021-10-01 15:28] LABS: % Iron Saturation 38.3 % (15-50)
[2021-10-01 15:36] LABS: Ferritin 128.3 ng/mL (10-322)
[2021-10-01 15:55] LABS: Carcinoembryonic Antigen < 0.50 ng/mL (<5.0 OR =)
== END | disposition home or self-care (01) ==
LOC: Rad HDHVI 12:08
PROVIDERS: ATTEND Internal Medicine
DX: G31.9 Degenerative disease of nervous system, unspecified (principal); I67.2 Cerebral atherosclerosis; C79.31 Secondary malignant neoplasm of brain; I44.1 Atrioventricular block, second degree; D64.9 Anemia, unspecified; I67.82 Cerebral ischemia; R97.8 Other abnormal tumor markers; R94.5 Abnormal results of liver function studies
CPT/HCPCS: 36415; 70450; 82378; 82728; 83540; 83550; 85045

== ENCOUNTER → 2022-02-13 | Outpatient (CLI) | payer MEDICARE, MEDICAID ==
[~2022-02-13] MED LIST changes: +ACET-1156 PO; +MECL25TA18 PO
== END | disposition home or self-care (01) ==
LOC: Rad HDHVI 12:51
PROVIDERS: ATTEND Internal Medicine
DX: R07.9 Chest pain, unspecified (principal)
CPT/HCPCS: 71046

== ENCOUNTER → 2022-02-26 | Outpatient (CLI) | payer MEDICARE, MEDICAID ==
[~2022-02-26] MED LIST changes: +ACETAMINOPHEN 500 MG TAB PO ONE; +ADENOSINE 90 MG/30 ML INJ IV ONE
== END | disposition home or self-care (01) ==
LOC: Rad HDHVI 12:51
PROVIDERS: ATTEND Internal Medicine
DX: R07.89 Other chest pain (principal); I10 Essential (primary) hypertension; E78.5 Hyperlipidemia, unspecified; Z82.49 Family history of ischemic heart disease and other diseases of the circulatory system; Z95.0 Presence of cardiac pacemaker
CPT/HCPCS: 78452; 93005; 96374; 96375; A9500; J0153

== ENCOUNTER → 2022-06-23 | Outpatient (CLI) | payer MEDICARE, MEDICAID ==
[~2022-06-23] MED LIST changes: -ACETAMINOPHEN 500 MG TAB PO ONE; -ADENOSINE 90 MG/30 ML INJ IV ONE
[2022-06-23 10:55] LABS: Basophils # (auto) 0 10 ^3/uL (0-0.2); Basophils % (auto) 0.4 % (0.0-2.0); Eosinophils # (auto) 0 10 ^3/uL (0-0.8); Eosinophils % (auto) 0.6 % (0.0-7.0); Hematocrit 29.3 % (36.0-46.0); Hemoglobin 9.8 g/dL (12.2-16.2); Lymphocytes # (auto) 0.8 10 ^3/uL (0.4-5.4); Lymphocytes % (auto) 15.3 % (10.0-50.0); Mean Corpuscular Hemoglobin 32.9 pg (28.0-32.0); Mean Corpuscular Hgb Conc. 33.5 g/dL (32.0-36.0); Mean Corpuscular Volume 98.4 fL (80.0-100.0); Monocytes # (auto) 0.3 10 ^3/uL (0-1.3); Monocytes % (auto) 5.5 % (0.0-12.0); Neutrophils # (auto) 4.2 10 ^3/uL (1.6-8.6); Neutrophils % (auto) 78.2 % (37.0-80.0); Red Blood Cells 2.98 10^6/uL (4.0-5.20); Red Cell Distribution Width 13.7 % (11.8-14.3); White Blood Cell 5.4 10^3/uL (4.4-10.8)
[2022-06-23 10:59] LABS: Albumin 3.6 g/dL (3.4-5.0); Calcium 9.3 mg/dL (8.5-10.1); Potassium 5.3 mmol/L (3.5-5.1)
[2022-06-23 11:03] LABS: BUN/Creatinine Ratio 32.9; Bilirubin, Total 0.4 mg/dL (0.2-1.0); Total Protein 6.7 g/dL (6.4-8.2)
== END | disposition home or self-care (01) ==
LOC: LAB 10:00
PROVIDERS: ATTEND Internal Medicine
DX: I49.5 Sick sinus syndrome (principal)
CPT/HCPCS: 36415; 80053; 85025

== ENCOUNTER → 2022-07-17 | Outpatient (CLI) | payer MEDICARE, MEDICAID ==
[2022-07-17 11:10] LABS: Basophils # (auto) 0 10 ^3/uL (0-0.2); Basophils % (auto) 0.6 % (0.0-2.0); Eosinophils # (auto) 0 10 ^3/uL (0-0.8); Eosinophils % (auto) 0.7 % (0.0-7.0); Hematocrit 29.5 % (36.0-46.0); Lymphocytes # (auto) 1.1 10 ^3/uL (0.4-5.4); Lymphocytes % (auto) 20.6 % (10.0-50.0); Mean Corpuscular Hemoglobin 33.1 pg (28.0-32.0); Mean Corpuscular Hgb Conc. 33.9 g/dL (32.0-36.0); Mean Corpuscular Volume 97.8 fL (80.0-100.0); Monocytes # (auto) 0.3 10 ^3/uL (0-1.3); Monocytes % (auto) 6.7 % (0.0-12.0); Neutrophils # (auto) 3.7 10 ^3/uL (1.6-8.6); Neutrophils % (auto) 71.4 % (37.0-80.0); Red Blood Cells 3.02 10^6/uL (4.0-5.20); Red Cell Distribution Width 14.1 % (11.8-14.3); White Blood Cell 5.2 10^3/uL (4.4-10.8)
[2022-07-17 11:34] LABS: Albumin 3.6 g/dL (3.4-5.0); Potassium 4.8 mmol/L (3.5-5.1)
[2022-07-17 11:38] LABS: Bilirubin, Total 0.4 mg/dL (0.2-1.0); Total Protein 6.7 g/dL (6.4-8.2)
[2022-07-17 11:41] LABS: BUN/Creatinine Ratio 29.3
== END | disposition home or self-care (01) ==
LOC: LAB 10:36
PROVIDERS: ATTEND Internal Medicine
DX: I10 Essential (primary) hypertension (principal); R19.5 Other fecal abnormalities; D64.9 Anemia, unspecified
CPT/HCPCS: 36415; 80053; 85025

== ENCOUNTER → 2022-07-23 | Outpatient (CLI) | payer MEDICARE, MEDICAID | END | disposition home or self-care (01) | LOC: LAB 09:27 | PROVIDERS: ATTEND Internal Medicine | DX: I10 Essential (primary) hypertension (principal); R19.5 Other fecal abnormalities; D64.9 Anemia, unspecified | CPT/HCPCS: 82270 ==

== ENCOUNTER → 2022-09-15 | Outpatient (CLI) | payer MEDICARE, MEDICAID ==
[2022-09-15 12:38] LABS: Albumin 3.7 g/dL (3.4-5.0); Calcium 9.3 mg/dL (8.5-10.1); Potassium 4.7 mmol/L (3.5-5.1)
[2022-09-15 12:46] LABS: Bilirubin, Total 0.5 mg/dL (0.2-1.0); Total Protein 6.5 g/dL (6.4-8.2)
== END | disposition home or self-care (01) ==
LOC: LAB 09:54
PROVIDERS: ATTEND Internal Medicine
DX: I10 Essential (primary) hypertension (principal)
CPT/HCPCS: 36415; 80053

== ENCOUNTER → 2022-10-09 | Outpatient (CLI) | payer MEDICARE, MEDICAID ==
[2022-10-09 12:01] LABS: Basophils # (auto) 0 10 ^3/uL (0-0.2); Basophils % (auto) 0.4 % (0.0-2.0); Eosinophils # (auto) 0 10 ^3/uL (0-0.8); Eosinophils % (auto) 0.5 % (0.0-7.0); Hematocrit 29.7 % (36.0-46.0); Hemoglobin 10.1 g/dL (12.2-16.2); Lymphocytes # (auto) 1.1 10 ^3/uL (0.4-5.4); Lymphocytes % (auto) 23.2 % (10.0-50.0); Mean Corpuscular Hemoglobin 33.3 pg (28.0-32.0); Mean Corpuscular Hgb Conc. 34.1 g/dL (32.0-36.0); Mean Corpuscular Volume 97.6 fL (80.0-100.0); Monocytes # (auto) 0.4 10 ^3/uL (0-1.3); Monocytes % (auto) 7.7 % (0.0-12.0); Neutrophils # (auto) 3.2 10 ^3/uL (1.6-8.6); Neutrophils % (auto) 68.2 % (37.0-80.0); Red Blood Cells 3.04 10^6/uL (4.0-5.20); Red Cell Distribution Width 13.8 % (11.8-14.3); White Blood Cell 4.7 10^3/uL (4.4-10.8)
[2022-10-09 12:06] LABS: % Iron Saturation 34.8 % (15-50)
== END | disposition home or self-care (01) ==
LOC: LAB 08:56
PROVIDERS: ATTEND Internal Medicine
DX: D64.9 Anemia, unspecified (principal)
CPT/HCPCS: 36415; 83540; 83550; 85025; 85045

== ENCOUNTER → 2022-11-27 | Outpatient (CLI) | payer MEDICARE, MEDICAID ==
[2022-11-27 12:00] LABS: Basophils # (auto) 0 10 ^3/uL (0-0.2); Basophils % (auto) 0.5 % (0.0-2.0); Eosinophils # (auto) 0 10 ^3/uL (0-0.8); Eosinophils % (auto) 0.5 % (0.0-7.0); Hematocrit 30.7 % (36.0-46.0); Hemoglobin 10.4 g/dL (12.2-16.2); Lymphocytes # (auto) 1.4 10 ^3/uL (0.4-5.4); Mean Corpuscular Hemoglobin 32.5 pg (28.0-32.0); Mean Corpuscular Volume 95.5 fL (80.0-100.0); Monocytes # (auto) 0.6 10 ^3/uL (0-1.3); Monocytes % (auto) 7.8 % (0.0-12.0); Neutrophils % (auto) 71.2 % (37.0-80.0); Nucleated Red Blood Cells % 0.1 %; Red Blood Cells 3.21 10^6/uL (4.0-5.20); Red Cell Distribution Width 14.6 % (11.8-14.3); White Blood Cell 7.1 10^3/uL (4.4-10.8)
[2022-11-27 12:44] LABS: % Iron Saturation 14.4 % (15-50)
[2022-11-27 12:48] LABS: Cholesterol 214 mg/dL (< 200); HDL Cholesterol 74 mg/dL (40-59); LDL Cholesterol 124 mg/dL (< 100); Triglycerides 219 mg/dL (< 150)
== END | disposition home or self-care (01) ==
LOC: LAB 11:40
PROVIDERS: ATTEND Internal Medicine Cardiovascular Disease
DX: E11.9 Type 2 diabetes mellitus without complications (principal); I10 Essential (primary) hypertension; D64.9 Anemia, unspecified; R00.2 Palpitations; R53.1 Weakness; R30.0 Dysuria; D51.3 Other dietary vitamin B12 deficiency anemia; E55.9 Vitamin D deficiency, unspecified
CPT/HCPCS: 36415; 80061; 83540; 83550; 84443; 85025; 85045

== ENCOUNTER → 2022-12-24 | Outpatient (CLI) | payer MEDICARE, MEDICAID ==
[~2022-12-24] MED LIST changes: +FUROSEMIDE 40 MG/4 ML VIAL IV ONE; +FUROSEMIDE 40 MG/4 ML VIAL ONE; +POTASSIUM CHL 20 Meq TABLET PO ONE; +SODIUM FERR GLUC 62.5MG/5ML 125 MG in SODIUM CHL 0.9% 100 ML IV ONE; +SODIUM FERRIC GLUC CPLEX 62.5MG/5ML VIAL IV ONE
[2022-12-24 13:00] VITALS: BP 152/80
[2022-12-24 14:45] VITALS: BP 147/63
== END | disposition home or self-care (01) ==
LOC: CHF HDHVI 13:00
PROVIDERS: ATTEND Internal Medicine Cardiovascular Disease
DX: D50.9 Iron deficiency anemia, unspecified (principal); I10 Essential (primary) hypertension; E11.9 Type 2 diabetes mellitus without complications
CPT/HCPCS: 96365; 96375; G0463; J1940; J2916

== ENCOUNTER → 2022-12-26 | Outpatient (CLI) | payer MEDICARE, MEDICAID ==
[~2022-12-26] MED LIST changes: -FUROSEMIDE 40 MG/4 ML VIAL IV ONE; -FUROSEMIDE 40 MG/4 ML VIAL ONE; -POTASSIUM CHL 20 Meq TABLET PO ONE
[2022-12-26 08:52] VITALS: BP 149/49
[2022-12-26 10:04] VITALS: BP 127/55
== END | disposition home or self-care (01) ==
LOC: CHF HDHVI 08:46
PROVIDERS: ATTEND Internal Medicine Cardiovascular Disease
DX: D50.9 Iron deficiency anemia, unspecified (principal); I10 Essential (primary) hypertension; E11.9 Type 2 diabetes mellitus without complications
CPT/HCPCS: 96365; G0463; J2916; 96360

== ENCOUNTER → 2022-12-30 | Outpatient (CLI) | payer MEDICARE, MEDICAID ==
[2022-12-30 09:05] VITALS: BP 168/79
[2022-12-30 09:30] VITALS: BP 125/50
[2022-12-30 10:43] VITALS: BP 124/52
== END | disposition home or self-care (01) ==
LOC: CHF HDHVI 09:25
PROVIDERS: ATTEND Internal Medicine Cardiovascular Disease
DX: D50.9 Iron deficiency anemia, unspecified (principal); R53.83 Other fatigue; I10 Essential (primary) hypertension; E11.9 Type 2 diabetes mellitus without complications
CPT/HCPCS: 96365; G0463; J2916

== ENCOUNTER → 2023-01-02 | Outpatient (CLI) | payer MEDICARE, MEDICAID ==
[2023-01-02 09:05] VITALS: BP 139/47
[2023-01-02 10:26] VITALS: BP 127/54
== END | disposition home or self-care (01) ==
LOC: CHF HDHVI 09:02
PROVIDERS: ATTEND Internal Medicine Cardiovascular Disease
DX: D50.9 Iron deficiency anemia, unspecified (principal); R53.83 Other fatigue; I10 Essential (primary) hypertension; E11.9 Type 2 diabetes mellitus without complications
CPT/HCPCS: 96365; G0463; J2916

== ENCOUNTER → 2023-01-06 | Outpatient (CLI) | payer MEDICARE, MEDICAID ==
[~2023-01-06] VITALS: Ht 30.5 cm; Wt 0.5 kg
[2023-01-06 09:13] VITALS: BP 166/57
[2023-01-06 10:30] VITALS: BP 142/66
== END | disposition home or self-care (01) ==
LOC: CHF HDHVI 09:09
PROVIDERS: ATTEND Internal Medicine Cardiovascular Disease
DX: D50.9 Iron deficiency anemia, unspecified (principal); R53.83 Other fatigue; I10 Essential (primary) hypertension; E11.9 Type 2 diabetes mellitus without complications
CPT/HCPCS: 96365; G0463; J1642; J2916

== ENCOUNTER → 2023-01-07 | Outpatient (CLI) | payer MEDICARE, MEDICAID ==
[2023-01-07 09:05] VITALS: BP 127/64
[2023-01-07 10:14] VITALS: BP 140/65
== END | disposition home or self-care (01) ==
LOC: CHF HDHVI 08:55
PROVIDERS: ATTEND Internal Medicine Cardiovascular Disease
DX: D50.9 Iron deficiency anemia, unspecified (principal); R53.83 Other fatigue; I10 Essential (primary) hypertension; E11.9 Type 2 diabetes mellitus without complications; R00.2 Palpitations; R53.1 Weakness
CPT/HCPCS: 93925; 96365; G0463; J2916

== ENCOUNTER → 2023-01-21 | Outpatient (CLI) | payer MEDICARE, MEDICAID ==
[~2023-01-21] MED LIST changes: -SODIUM FERR GLUC 62.5MG/5ML 125 MG in SODIUM CHL 0.9% 100 ML IV ONE; -SODIUM FERRIC GLUC CPLEX 62.5MG/5ML VIAL IV ONE
[2023-01-21 10:15] LABS: Basophils # (auto) 0 10 ^3/uL (0-0.2); Basophils % (auto) 0.6 % (0.0-2.0); Eosinophils # (auto) 0 10 ^3/uL (0-0.8); Eosinophils % (auto) 0.9 % (0.0-7.0); Hematocrit 30.8 % (36.0-46.0); Hemoglobin 10.2 g/dL (12.2-16.2); Lymphocytes # (auto) 1.2 10 ^3/uL (0.4-5.4); Lymphocytes % (auto) 21.7 % (10.0-50.0); Mean Corpuscular Hgb Conc. 33.2 g/dL (32.0-36.0); Mean Corpuscular Volume 96.6 fL (80.0-100.0); Monocytes # (auto) 0.4 10 ^3/uL (0-1.3); Neutrophils # (auto) 3.7 10 ^3/uL (1.6-8.6); Neutrophils % (auto) 69.8 % (37.0-80.0); Nucleated Red Blood Cells % 0.1 %; Red Blood Cells 3.19 10^6/uL (4.0-5.20); Red Cell Distribution Width 14.5 % (11.8-14.3); White Blood Cell 5.4 10^3/uL (4.4-10.8)
[2023-01-21 10:55] LABS: BUN/Creatinine Ratio 33.3 (10.0-20.0); Calcium 9.7 mg/dL (8.5-10.1)
== END | disposition home or self-care (01) ==
LOC: LAB 09:56
PROVIDERS: ATTEND Internal Medicine Cardiovascular Disease
DX: I10 Essential (primary) hypertension (principal); D64.9 Anemia, unspecified
CPT/HCPCS: 36415; 80048; 85025

== ENCOUNTER → 2023-01-23 | Outpatient (CLI) | payer MEDICARE, MEDICAID ==
[2023-01-23 10:34] LABS: Potassium 5.3 mmol/L (3.5-5.1)
[2023-01-23 10:47] LABS: BUN/Creatinine Ratio 32.6 (10.0-20.0); Calcium 9.5 mg/dL (8.5-10.1)
== END | disposition home or self-care (01) ==
LOC: LAB 09:14
PROVIDERS: ATTEND Internal Medicine Cardiovascular Disease
DX: E87.5 Hyperkalemia (principal)
CPT/HCPCS: 36415; 80048

== ENCOUNTER → 2023-01-26 | Outpatient (CLI) | payer MEDICAID ==
[2023-01-26 10:43] LABS: Potassium 5.1 mmol/L (3.5-5.1)
[2023-01-26 11:10] LABS: BUN/Creatinine Ratio 29.3 (10.0-20.0)
== END | disposition home or self-care (01) ==
LOC: LAB 09:14
PROVIDERS: ATTEND Internal Medicine Cardiovascular Disease
DX: E87.5 Hyperkalemia (principal)
CPT/HCPCS: 36415; 80048

== ENCOUNTER → 2023-01-28 | Outpatient (CLI) | payer MEDICARE, MEDICAID ==
[~2023-01-28] MED LIST changes: +CYANOCOBALAMIN (B-12) 1000 MCG/1 ML VIAL IM ONE; +CYANOCOBALAMIN (B-12) 1000 MCG/1 ML VIAL ONE
[2023-01-28 09:12] VITALS: BP 127/42
[2023-01-28 09:19] VITALS: BP 122/52
== END | disposition home or self-care (01) ==
LOC: CHF HDHVI 09:01
PROVIDERS: ATTEND Internal Medicine Cardiovascular Disease
DX: E87.5 Hyperkalemia (principal); E78.5 Hyperlipidemia, unspecified; R60.9 Edema, unspecified; I10 Essential (primary) hypertension; D64.9 Anemia, unspecified; E11.9 Type 2 diabetes mellitus without complications; R53.83 Other fatigue
CPT/HCPCS: 96372; G0463; J3420

== ENCOUNTER → 2023-02-11 | Outpatient (CLI) | payer MEDICARE, MEDICAID ==
[~2023-02-11] MED LIST changes: -ACET-1156 PO; +ACET-1881 PO; -CYANOCOBALAMIN (B-12) 1000 MCG/1 ML VIAL IM ONE; -CYANOCOBALAMIN (B-12) 1000 MCG/1 ML VIAL ONE; +MECL1TAB32 PO; -MECL25TA18 PO
[2023-02-11 10:01] LABS: BUN/Creatinine Ratio 32.5 (10.0-20.0)
== END | disposition home or self-care (01) ==
LOC: LAB 09:06
PROVIDERS: ATTEND Internal Medicine Cardiovascular Disease
DX: I10 Essential (primary) hypertension (principal)
CPT/HCPCS: 36415; 80048

== ENCOUNTER → 2023-02-18 | Outpatient (CLI) | payer MEDICARE, MEDICAID ==
[2023-02-18 08:45] VITALS: BP 121/40
[2023-02-18 09:50] VITALS: BP 118/49
== END | disposition home or self-care (01) ==
LOC: CHF HDHVI 08:39
PROVIDERS: ATTEND Internal Medicine Cardiovascular Disease
DX: E87.5 Hyperkalemia (principal); R60.9 Edema, unspecified
CPT/HCPCS: G0463

== ENCOUNTER → 2023-04-15 | Outpatient (CLI) | payer MEDICARE, MEDICAID ==
[2023-04-15 08:19] LABS: Potassium 3.7 mmol/L (3.5-5.1)
[2023-04-15 08:29] LABS: BUN/Creatinine Ratio 31.7 (10.0-20.0); Calcium 8.2 mg/dL (8.5-10.1)
== END | disposition home or self-care (01) ==
LOC: LAB 07:40
PROVIDERS: ATTEND Internal Medicine Cardiovascular Disease
DX: I10 Essential (primary) hypertension (principal)
CPT/HCPCS: 36415; 80048

== ENCOUNTER → 2023-04-29 | Outpatient (CLI) | payer MEDICARE, MEDICAID | END | disposition home or self-care (01) | LOC: Rad HDHVI 15:18 | PROVIDERS: ATTEND Internal Medicine Cardiovascular Disease | DX: M25.511 Pain in right shoulder (principal); M19.011 Primary osteoarthritis, right shoulder | CPT/HCPCS: 73030 ==

== ENCOUNTER → 2023-08-25 | Outpatient (CLI) | payer MEDICARE, MEDICAID ==
[2023-08-25 12:12] LABS: Basophils # (auto) 0 10 ^3/uL (0-0.2); Basophils % (auto) 0.7 % (0.0-2.0); Eosinophils # (auto) 0 10 ^3/uL (0-0.8); Eosinophils % (auto) 0.4 % (0.0-7.0); Hematocrit 31.7 % (36.0-46.0); Hemoglobin 10.7 g/dL (12.2-16.2); Lymphocytes % (auto) 18.2 % (10.0-50.0); Mean Corpuscular Hemoglobin 33.1 pg (28.0-32.0); Mean Corpuscular Hgb Conc. 33.8 g/dL (32.0-36.0); Mean Corpuscular Volume 97.8 fL (80.0-100.0); Monocytes # (auto) 0.4 10 ^3/uL (0-1.3); Monocytes % (auto) 6.3 % (0.0-12.0); Neutrophils # (auto) 4.2 10 ^3/uL (1.6-8.6); Neutrophils % (auto) 74.4 % (37.0-80.0); Red Blood Cells 3.24 10^6/uL (4.0-5.20); Red Cell Distribution Width 13.8 % (11.8-14.3); White Blood Cell 5.6 10^3/uL (4.4-10.8)
[2023-08-25 12:27] LABS: Urine Blood Negative /uL (Negative); Urine Clarity Clear (Clear); Urine Protein, UAD Negative (Negative); Urine Specific Gravity 1.008 (1.001-1.035); Urine Urobilinogen Normal (Negative)
[2023-08-25 12:46] LABS: Urine Color Straw (Yellow)
[2023-08-25 12:49] LABS: Alanine Aminotransferase 21 U/L (7-40); Albumin 4.4 g/dL (3.2-4.8); Alkaline Phosphatase 99 U/L (46-116); Anion Gap 9 (5-15); Aspartate Aminotransferase 16 U/L (13-40); BUN/Creatinine Ratio 23.7 (10.0-20.0); Blood Urea Nitrogen 32 mg/dL (9-23); Calcium 9.5 mg/dL (8.5-10.1); Carbon Dioxide 29 mmol/L (20-30); Chloride 104 mmol/L (98-107); Cholesterol 226 mg/dL (< 200); Glucose 92 mg/dL (74-106); LDL Cholesterol 151 mg/dL (< 100); Potassium 4.1 mmol/L (3.5-5.1); Sodium 142 mmol/L (136-145); Triglycerides 163 mg/dL (< 150)
[2023-08-25 12:50] LABS: Bilirubin, Total 0.7 mg/dL (0.2-1.0); HDL Cholesterol 61 mg/dL (40-59); Total Protein 6.6 g/dL (5.7-8.2)
[2023-08-25 12:51] LABS: Free T4 (Free Thyroxine) 1.27 ng/dL (0.89-1.76)
== END | disposition home or self-care (01) ==
LOC: LAB 11:41
PROVIDERS: ATTEND Internal Medicine Cardiovascular Disease
DX: I10 Essential (primary) hypertension (principal); D51.3 Other dietary vitamin B12 deficiency anemia; D64.9 Anemia, unspecified; E11.9 Type 2 diabetes mellitus without complications; E55.9 Vitamin D deficiency, unspecified; R00.2 Palpitations; R53.1 Weakness; R30.0 Dysuria
CPT/HCPCS: 36415; 80053; 80061; 81003; 82607; 83036; 84439; 84443; 85025

== ENCOUNTER → 2023-08-25 | Outpatient (CLI) | payer MEDICARE, MEDICAID | END | disposition home or self-care (01) | LOC: Rad HDHVI 10:36 | PROVIDERS: ATTEND Internal Medicine Cardiovascular Disease | DX: I08.0 Rheumatic disorders of both mitral and aortic valves (principal); I10 Essential (primary) hypertension; E78.5 Hyperlipidemia, unspecified | CPT/HCPCS: 93306 ==

== ENCOUNTER → 2024-02-22 | Outpatient (CLI) | payer MEDICARE, MEDICAID ==
[2024-02-22] VITALS (12 sets, daily range): BP systolic 122–176; BP diastolic 43–66; PULSE 65–69; RESP 16; O2SAT 96
[~2024-02-22] MED LIST changes: +MECL-90 PO; -MECL1TAB32 PO; +POTA-215 PO; -POTA1TAB61 PO
[2024-02-22] MEDS: DOBUTamine 1000MCG/ML 250 ML IV SCH (10:15)
[2024-02-22] MEDS: DOBUTamine 1000MCG/ML 250 ML IV ONE (10:31)
[2024-02-22] MEDS: BUMETANIDE INJECTION 10 ML ONE (14:46)
[2024-02-22] MEDS: BUMETANIDE 2.5mg/10ml (0.25 mg/ml) INJ IV ONE (14:48)
== END | disposition home or self-care (01) ==
LOC: CHF HDHVI 10:18
PROVIDERS: ATTEND Internal Medicine Cardiovascular Disease
DX: I50.23 Acute on chronic systolic (congestive) heart failure (principal)
CPT/HCPCS: 96365; 96366; 96375; G0463; J1250; 96372

== ENCOUNTER → 2024-02-22 | Outpatient (CLI) | payer MEDICARE, MEDICAID ==
[2024-02-22 12:40] LABS: Anion Gap 4 (5-15); Calcium 9.8 mg/dL (8.5-10.1); Carbon Dioxide 24 mmol/L (20-30); Chloride 112 mmol/L (98-107); Potassium 4.8 mmol/L (3.5-5.1); Sodium 140 mmol/L (136-145)
[2024-02-22 12:46] LABS: BUN/Creatinine Ratio 26.9 (10.0-20.0); Blood Urea Nitrogen 36 mg/dL (9-23); Glucose 87 mg/dL (74-106)
== END | disposition home or self-care (01) ==
LOC: LAB 09:51
PROVIDERS: ATTEND Internal Medicine Cardiovascular Disease
DX: I50.23 Acute on chronic systolic (congestive) heart failure (principal)
CPT/HCPCS: 36415; 80048; 83880

== ENCOUNTER → 2024-02-26 | Outpatient (CLI) | payer MEDICARE, MEDICAID ==
[2024-02-26] VITALS (11 sets, daily range): BP systolic 121–152; BP diastolic 43–83; PULSE 65–75; RESP 16; O2SAT 99
[2024-02-26] MEDS: DOBUTamine 1000MCG/ML 250 ML IV ONE ×2 (09:05→09:18)
[2024-02-26] MEDS: BUMETANIDE INJECTION 10 ML ONE (12:46)
[2024-02-26] MEDS: BUMETANIDE 2.5mg/10ml (0.25 mg/ml) INJ IV ONE (12:48)
== END | disposition home or self-care (01) ==
LOC: CHF HDHVI 08:54
PROVIDERS: ATTEND Internal Medicine Cardiovascular Disease
DX: I50.23 Acute on chronic systolic (congestive) heart failure (principal)
CPT/HCPCS: 96365; 96366; 96375; G0463; J1250

== ENCOUNTER → 2024-03-02 | Outpatient (CLI) | payer MEDICARE, MEDICAID ==
[2024-03-02] VITALS (12 sets, daily range): BP systolic 109–134; BP diastolic 39–63; PULSE 65–67; RESP 16–18; O2SAT 99
[2024-03-02] MEDS: DOBUTamine 1000MCG/ML 250 ML IV ONE ×2 (08:39→08:53)
[2024-03-02] MEDS: BUMETANIDE 2.5mg/10ml (0.25 mg/ml) INJ IV ONE (10:45)
[2024-03-02] MEDS: BUMETANIDE INJECTION 10 ML ONE (10:57)
== END | disposition home or self-care (01) ==
LOC: CHF HDHVI 08:25
PROVIDERS: ATTEND Internal Medicine Cardiovascular Disease
DX: I11.0 Hypertensive heart disease with heart failure (principal); I50.23 Acute on chronic systolic (congestive) heart failure; R60.9 Edema, unspecified; E11.9 Type 2 diabetes mellitus without complications; E78.5 Hyperlipidemia, unspecified; D51.9 Vitamin B12 deficiency anemia, unspecified
CPT/HCPCS: 96365; 96366; 96375; G0463; J1250; 96374

== ENCOUNTER → 2024-03-08 | Outpatient (CLI) | payer MEDICARE, MEDICAID ==
[2024-03-08] VITALS (11 sets, daily range): BP systolic 114–160; BP diastolic 50–71; PULSE 65–72; RESP 16; O2SAT 99
[2024-03-08] MEDS: DOBUTamine 1000MCG/ML 250 ML IV ONE ×2 (09:02→09:17)
[2024-03-08] MEDS: BUMETANIDE 1mg/4ml VIAL (0.25mg/ml) ONE (11:17)
[2024-03-08] MEDS: BUMETANIDE 2.5mg/10ml (0.25 mg/ml) INJ IV ONE (11:45)
== END | disposition home or self-care (01) ==
LOC: CHF HDHVI 08:55
PROVIDERS: ATTEND Internal Medicine Cardiovascular Disease
DX: I11.0 Hypertensive heart disease with heart failure (principal); I50.9 Heart failure, unspecified; E78.5 Hyperlipidemia, unspecified; E11.9 Type 2 diabetes mellitus without complications
CPT/HCPCS: 96365; 96366; 96375; G0463; J1250; J3490

== ENCOUNTER → 2024-03-15 | Outpatient (CLI) | payer MEDICARE, MEDICAID ==
[2024-03-15] VITALS (11 sets, daily range): BP systolic 105–162; BP diastolic 46–75; PULSE 64–71; RESP 16; O2SAT 94
[2024-03-15] MEDS: DOBUTamine 1000MCG/ML 250 ML IV ONE ×2 (09:17→09:42)
[2024-03-15] MEDS: BUMETANIDE INJECTION 10 ML ONE (12:18)
[2024-03-15] MEDS: BUMETANIDE 2.5mg/10ml (0.25 mg/ml) INJ IV ONE (13:00)
[2024-03-15] MEDS: ACETAMINOPHEN 500 MG TAB PO ONE ×2 (13:02)
== END | disposition home or self-care (01) ==
LOC: CHF HDHVI 09:01
PROVIDERS: ATTEND Internal Medicine Cardiovascular Disease
DX: I11.0 Hypertensive heart disease with heart failure (principal); I50.23 Acute on chronic systolic (congestive) heart failure; E11.9 Type 2 diabetes mellitus without complications; E78.5 Hyperlipidemia, unspecified; D51.9 Vitamin B12 deficiency anemia, unspecified
CPT/HCPCS: 96365; 96366; 96375; G0463; J1250

== ENCOUNTER → 2024-03-17 | Outpatient (CLI) | payer MEDICARE, MEDICAID ==
[2024-03-17] VITALS (12 sets, daily range): BP systolic 113–135; BP diastolic 42–67; PULSE 65–68; RESP 16; O2SAT 97
[2024-03-17] MEDS: DOBUTamine 1000MCG/ML 250 ML IV ONE ×2 (08:52→09:19)
[2024-03-17] MEDS: BUMETANIDE 2.5mg/10ml (0.25 mg/ml) INJ IV ONE (11:30)
[2024-03-17] MEDS: BUMETANIDE INJECTION 10 ML ONE (11:36)
== END | disposition home or self-care (01) ==
LOC: CHF HDHVI 08:48
PROVIDERS: ATTEND Internal Medicine Cardiovascular Disease
DX: I11.0 Hypertensive heart disease with heart failure (principal); I50.23 Acute on chronic systolic (congestive) heart failure; E78.5 Hyperlipidemia, unspecified; E11.9 Type 2 diabetes mellitus without complications
CPT/HCPCS: 96365; 96366; 96375; G0463; J1250

== ENCOUNTER → 2024-03-21 | Outpatient (CLI) | payer MEDICARE, MEDICAID ==
[2024-03-21 10:35] LABS: Basophils # (auto) 0 10 ^3/uL (0-0.2); Basophils % (auto) 0.7 % (0.0-2.0); Eosinophils # (auto) 0 10 ^3/uL (0-0.8); Eosinophils % (auto) 0.5 % (0.0-7.0); Hematocrit 30.5 % (36.0-46.0); Hemoglobin 10.4 g/dL (12.2-16.2); Lymphocytes % (auto) 21.4 % (10.0-50.0); Mean Corpuscular Hemoglobin 32.6 pg (28.0-32.0); Mean Corpuscular Volume 95.7 fL (80.0-100.0); Monocytes # (auto) 0.3 10 ^3/uL (0-1.3); Monocytes % (auto) 7.5 % (0.0-12.0); Neutrophils # (auto) 3.3 10 ^3/uL (1.6-8.6); Neutrophils % (auto) 69.9 % (37.0-80.0); Red Blood Cells 3.19 10^6/uL (4.0-5.20); Red Cell Distribution Width 14.3 % (11.8-14.3); White Blood Cell 4.7 10^3/uL (4.4-10.8)
[2024-03-21 11:04] LABS: Urine Blood Negative /uL (Negative); Urine Clarity Clear (Clear); Urine Protein, UAD Negative (Negative); Urine Specific Gravity 1.006 (1.001-1.035); Urine Urobilinogen Normal (Negative)
[2024-03-21 11:05] LABS: Urine Color Light-Yellow (Yellow)
[2024-03-21 11:22] LABS: Alanine Aminotransferase 14 U/L (7-40); Albumin 4.1 g/dL (3.2-4.8); Alkaline Phosphatase 89 U/L (46-116); Anion Gap 6 (5-15); Aspartate Aminotransferase 11 U/L (13-40); BUN/Creatinine Ratio 20.8 (10.0-20.0); Bilirubin, Total 0.4 mg/dL (0.2-1.0); Blood Urea Nitrogen 27 mg/dL (9-23); Calcium 9.9 mg/dL (8.7-10.4); Carbon Dioxide 26 mmol/L (20-30); Chloride 109 mmol/L (98-107); Glucose 95 mg/dL (74-106); Magnesium 1.5 mg/dL (1.6-2.6); Potassium 4.9 mmol/L (3.5-5.1); Sodium 141 mmol/L (136-145); Total Protein 6.2 g/dL (5.7-8.2)
== END | disposition home or self-care (01) ==
LOC: LAB 10:17
PROVIDERS: ATTEND Internal Medicine Cardiovascular Disease
DX: I11.0 Hypertensive heart disease with heart failure (principal); I50.43 Acute on chronic combined systolic (congestive) and diastolic (congestive) heart failure; D64.9 Anemia, unspecified
CPT/HCPCS: 36415; 80053; 81003; 83735; 83880; 85025; 87086

== ENCOUNTER → 2024-12-20 | Outpatient (CLI) | payer MEDICARE, MEDICAID ==
[2024-12-20 11:37] LABS: Basophils # (auto) 0 10 ^3/uL (0-0.2); Basophils % (auto) 0.5 % (0.0-2.0); Eosinophils # (auto) 0 10 ^3/uL (0-0.8); Eosinophils % (auto) 0.8 % (0.0-7.0); Hematocrit 30.5 % (36.0-46.0); Hemoglobin 10.2 g/dL (12.2-16.2); Lymphocytes % (auto) 18.5 % (10.0-50.0); Mean Corpuscular Hemoglobin 31.6 pg (28.0-32.0); Mean Corpuscular Hgb Conc. 33.4 g/dL (32.0-36.0); Mean Corpuscular Volume 94.6 fL (80.0-100.0); Monocytes # (auto) 0.4 10 ^3/uL (0-1.3); Monocytes % (auto) 7.6 % (0.0-12.0); Neutrophils % (auto) 72.6 % (37.0-80.0); Nucleated Red Blood Cells % 0.1 %; Platelet Count (auto) 242 10^3/uL (140-450); Red Blood Cells 3.22 10^6/uL (4.0-5.20); White Blood Cell 5.5 10^3/uL (4.4-10.8)
[2024-12-20 11:49] LABS: Anion Gap 7 (5-15); Carbon Dioxide 28 mmol/L (20-31); Potassium 4.5 mmol/L (3.5-5.1); Sodium 143 mmol/L (136-145)
[2024-12-20 11:50] LABS: Calcium 10.1 mg/dL (8.7-10.4)
[2024-12-20 11:54] LABS: Glucose 88 mg/dL (74-106)
[2024-12-20 11:55] LABS: BUN/Creatinine Ratio 34.4 (10.0-20.0); Magnesium 1.8 mg/dL (1.6-2.6)
[2024-12-20 11:58] LABS: Blood Urea Nitrogen 43 mg/dL (9-23); Chloride 108 mmol/L (98-107)
== END | disposition home or self-care (01) ==
LOC: LAB 11:04
PROVIDERS: ATTEND Internal Medicine Cardiovascular Disease
DX: I10 Essential (primary) hypertension (principal); I49.9 Cardiac arrhythmia, unspecified; D64.9 Anemia, unspecified
CPT/HCPCS: 36415; 80048; 83735; 85025

== ENCOUNTER → 2025-03-08 | Outpatient (CLI) | payer MEDICARE, MEDICAID ==
[~2025-03-08] MED LIST changes: +IOHEXOL 350 MG/ML 100ML IJ ONE; +READI-CAT 2 (BARIUM SULF)(VANILLA SMOOTHIE) 450ML ONE
[2025-03-08 11:30] VITALS: BP 182/81; PULSE 65; RESP 16
[2025-03-08 14:07] VITALS: BP 189/74; PULSE 66; RESP 16
--- NOTE | 2025-03-08 19:26 | DVH ---
EXAM: CT CT ABD PELVIS W CON-ORAL IV HISTORY: DIVERTICULITIS TECHNIQUE: Volumetric multidetector CT images of the abdomen and pelvis were obtained after the admin istration of intravenous contrast. All CT scans at this facility use dose modulation, iterative recon struction, and/or weight based dosing when appropriate to reduce radiation dose to as low as reasonab ly achievable. COMPARISON: None FINDINGS: [LOWER CHEST]: The partially visualized lung bases are clear without a pleural effusion. Left anterio r chest cardiac device. [LIVER]: Hypoattenuating lesions of the liver with possible minimal marginal enhancement which may re present cavernous hemangiomas, incompletely characterized. Consider further evaluation with nonemerg ent CT versus MRI liver protocol if clinically indicated. [GALLBLADDER AND BILIARY TREE]: Layering cholelithiasis and/or biliary sludge. [SPLEEN]: Unremarkable. [PANCREAS]: Fatty atrophy, which may be seen in the setting of underlying metabolic derangement such as diabetes. [ADRENAL GLANDS]: Unremarkable [KIDNEYS]: No hydronephrosis. No nephroureterolithiasis. Cyst of the left kidney. Small size of the k idneys. [BLADDER]: Decompressed small calcifications anterior to the decompressed bladder, which may be seque lae of prior inflammation. [REPRODUCTIVE ORGANS]: Unremarkable. [BOWEL/MESENTERY]: Large sliding hiatal hernia. Possible air-fluid level in a duodenal diverticulum. Severe sigmoid diverticulosis without definitive CT evidence of acute diverticulitis. [ASCITES]: Absent [LYMPHADENOPATHY]: No pathologically enlarged lymph nodes by CT size criteria [VASCULATURE]: No aneurysmal dilatation. Calcification of the celiac and superior mesenteric artery o rigins. [ABDOMINAL WALL]: Small bowel and fat containing left direct inguinal hernia with 3.1 cm neck [MUSCULOSKELETAL]: No acute fracture or aggressive focal osseous lesion. Multifocal degenerative garcía ge of the visualized spine. Right hip arthroplasty. Likely chronic superior endplate height loss of T 12 and L1 and T9. IMPRESSION: 1. Severe sigmoid diverticulosis without definitive CT evidence of acute diverticulitis. Correlate fo r low-grade diverticulitis. No visualized pericolonic abscess. No intraperitoneal free air.
== END | disposition home or self-care (01) ==
LOC: Rad HDHVI 11:13
PROVIDERS: ATTEND Internal Medicine Cardiovascular Disease
DX: N28.1 Cyst of kidney, acquired (principal); K57.30 Diverticulosis of large intestine without perforation or abscess without bleeding; K55.1 Chronic vascular disorders of intestine; K40.90 Unilateral inguinal hernia, without obstruction or gangrene, not specified as recurrent; K44.9 Diaphragmatic hernia without obstruction or gangrene; K57.92 Diverticulitis of intestine, part unspecified, without perforation or abscess without bleeding; K86.89 Other specified diseases of pancreas; N32.89 Other specified disorders of bladder; N27.1 Small kidney, bilateral; K76.9 Liver disease, unspecified; M47.816 Spondylosis without myelopathy or radiculopathy, lumbar region; Z96.641 Presence of right artificial hip joint
CPT/HCPCS: 74177; G0463; Q9967

== ENCOUNTER 2025-05-17 12:19 | Outpatient (CLI) | payer MEDICARE, MEDICAID ==
[2025-05-17 12:15] VITALS: BP 142/81; PULSE 85; RESP 20; O2SAT 95
[~2025-05-17 12:19] MED LIST changes: -IOHEXOL 350 MG/ML 100ML IJ ONE; -READI-CAT 2 (BARIUM SULF)(VANILLA SMOOTHIE) 450ML ONE
[2025-05-17] MEDS: TRIAMCINOLONE 40MG/ML 1ML VIAL ONE (12:31)
[2025-05-17] MEDS: TESTOSTERONE CYPIONATE 200 MG/ML 1ML VIAL IM ONE ×2 (12:32→12:40)
[2025-05-17] MEDS: CYANOCOBALAMIN (B-12) 1000 MCG/1 ML VIAL ONE (12:32)
[2025-05-17] MEDS: CYANOCOBALAMIN (B-12) 1000 MCG/1 ML VIAL IM ONE (12:36)
[2025-05-17] MEDS: TRIAMCINOLONE 40MG/ML 1ML VIAL IM ONE (12:38)
[2025-05-17 12:46] VITALS: BP 132/61; PULSE 92; RESP 20; O2SAT 95
== END 2025-05-17 17:00 | disposition home or self-care (01) ==
LOC: CHF HDHVI 12:19
PROVIDERS: ATTEND Internal Medicine Cardiovascular Disease
DX: D64.9 Anemia, unspecified (principal); R42 Dizziness and giddiness; R64 Cachexia; I11.0 Hypertensive heart disease with heart failure; I50.43 Acute on chronic combined systolic (congestive) and diastolic (congestive) heart failure; E11.9 Type 2 diabetes mellitus without complications; E78.5 Hyperlipidemia, unspecified; E03.9 Hypothyroidism, unspecified; M19.011 Primary osteoarthritis, right shoulder; K86.89 Other specified diseases of pancreas; N32.89 Other specified disorders of bladder; I25.10 Atherosclerotic heart disease of native coronary artery without angina pectoris; Z95.0 Presence of cardiac pacemaker; Z79.899 Other long term (current) drug therapy; Z87.440 Personal history of urinary (tract) infections; Z96.641 Presence of right artificial hip joint; R53.1 Weakness; R97.8 Other abnormal tumor markers
CPT/HCPCS: 96372; G0463; J1071; J3301; J3420

== ENCOUNTER 2025-06-28 13:52 | Inpatient (IN) | payer MEDICARE, MEDICAID ==
[~2025-06-28] VITALS: Ht 132.1 cm; Wt 52.8 kg
--- NOTE | 2025-06-28 14:38 | ED.PDOC ---
History of Present Illness HPI Comments 89F who is danish speaking was BIBA w/ prior MHx HTN, DM, Bed Bound; SHx of colostomy bag, suprapubic catheter places, Pacemaker and the c/c of confusion. Family called 911 at a [facility] due from the pt having confusion associated w/ cloudy urine for the past week. Family on scene report the pt having a bladder infection 1 month ago and going to [place]. Family note that Jevon Albarran stated on the pt's Pacemaker not working correctly. En rout to the ED the pt has a HR of 120-130 AFIB. Denies any other symptoms at this time. Denies chills, fever, N/V/D, SOB, CP. Denies any other associated symptom's, modifiers, or recent injuries or sick contact at this time. Chief Complaint: Palpitations Time Seen by MD: 14:30 Reviewed Notes: Nurses Notes, Medications, Allergies Allergies: Coded Allergies: NO KNOWN ALLERGIES (Unverified , 09/26/16) Home Meds Reported Medications Acetaminophen (Acetaminophen) 325 Mg Tab, 650 MG PO HS for 30 Days, MG 0 Refills 10/02/21 Meclizine Hcl (Meclizine Hcl) 25 Mg Tab, 25 MG PO BIDP PRN for DIZZINESS for 30 Days, MG 10/02/21 Aspirin Buffered (Quinten Carb-Mag (Aspirin 325 mg) 1 Tab Tab, 1 TAB PO, TAB 06/24/21 Omeprazole (Gnp Omeprazole) 20 Mg Tab, 20 MG PO, TAB 06/20/21 Ferrous Sulfate (FERROUS SULFATE) 325 Mg Tb, 325 MG PO, TAB 06/20/21 Potassium Chloride (Klor-Con M10) 10 Meq Tab, 10 MEQ PO, TAB 06/20/21 Folic Ejut-Lxpiutdneg-Ckcivvje (Folbic) Tab, 1 TAB PO, TAB 06/20/21 Folic Wpvr-Ylpejzxawz-Wucwwdkg (Folbic) Tab, 1 TAB PO DAILY, #90 TAB 3 Refills 06/20/21 Multiple Vitamins W/ Minerals (Centrum Silver 50+Women) 1 Tab Tab, 1 TAB PO, TAB 06/20/21 Furosemide (Lasix) 40 Mg Tab, 40 MG PO, TAB 06/20/21 Azilsartan Medoxomil-Chlorthal (Edarbyclor 40-25 mg) 1 Tab Tab, 1 TAB PO, TAB 06/20/21 Information Source: Patient Mode of Arrival: EMS Severity: Moderate Timing: Days Duration: Since onset, Days Prehospital treatment: None Past Medical History PAST MEDICAL HISTORY: Arthritis, DM, HTN Past Medical History (Other): Bed Bound Surgical History: Pacemaker Surgical History (Other): Suprapubic Catheter, colonostomy bag UPPER DOUBLER History: No Pertinent UPPER DOUBLER History Family History Family History: Reviewed,noncontributory to illness, Unknown Social History Smoker: Non-Smoker Alcohol: Denies ETOH Use Drugs: Denies Drug Use Lives In: Home Constitutional: reports: others (confusion, cloudy urine); denies: chills, diaphoresis, fatigue, fever, malaise, sweats, weakness EENTM: denies: blurred vision, double vision, ear bleeding, ear discharge, ear drainage, ear pain, ear ringing, eye pain, eye redness, hearing loss, mouth pain, mouth swelling, nasal discharge, nose bleeding, nose congestion, nose pain, photophobia, tearing, throat pain, throat swelling, voice changes, others Respiratory: denies: cough, hemoptysis, orthopnea, SOB at rest, shortness of breath, SOB with excertion, stridor, wheezing, others Cardiovascular: denies: chest pain, dizzy spells, diaphoresis, Dyspnea on exertion, edema, irregular heart beat, left arm pain, lightheadedness, palpitations, PND, syncope, others Gastrointestinal: denies: abdomen distended, abdominal pain, blood streaked bowels, constipated, diarrhea, dysphagia, difficulty swallowing, hematemesis, melena, nausea, poor appetite, poor fluid intake, rectal bleeding, rectal pain, vomiting, others Genitourinary: denies: abnormal vagina bleeding, burning, dyspareunia, dysuria, flank pain, frequency, hematuria, incontinence, pain, , vagina discharge, urgency, others Neurological: denies: dizziness, fainting, headache, left sided numbness, left sided weakness, numbness, paresthesia, pre-existing deficit, right sided numbness, right sided weakness, seizure, speech problems, tingling, tremors, weakness, others Musculoskeletal: denies: back pain, gout, joint pain, joint swelling, muscle pain, muscle stiffness, neck pain, others Integumetry: denies: bruises, change in color, change in hair/nails, dryness, laceration, lesions, lumps, rash, wounds, others Allergic/Immunocompromised: denies: Difficulty Healing, Frequent Infections, Hives, Itching, others Hematologic/Lymphatic: denies: anemia, blood clots, easy bleeding, easy bruising, swollen glands, others Endocrine: denies: excessive hunger, excessive sweating, excessive thirst, excessive urination, flushing, intolerance to cold, intolerance to heat, unexplained weight gain, unexplained weight loss, others Psychiatric: denies: anxiety, bipolar disorder, depression, hopeless, panic disorder, schizophrenia, sleepless, suicidal, others All Other Systems: Reviewed and Negative Physical Exam General Appearance: Moderate Distress, Obese HEENT: Normal ENT Inspection, Pharynx Normal, TMs Normal Neck: Full Range of Motion, Non-Tender, Normal, Normal Inspection Respiratory: Chest Non-Tender, Lungs Clear, No Accessory Muscle Use, No Respiratory Distress, Normal Breath Sounds Cardiovascular: No Edema, No JVD, No Murmur, No Gallop, Normal Peripheral Pulses, Regular Rate/Rhythm Breast Exam: Deferred Gastrointestinal: No Organomegaly, No Pulsatile Mass, Normal Bowel Sounds, Soft, Other (Colostomy bag in place as well as a suprapubic catheter) Genitalia: Deferred Pelvic: Deferred Rectal: Deferred Extremities: No calf tenderness, Normal capillary refill, No pedal edema Musculoskeletal : Apperance: Normal Neurologic: after school program director II-XII nml as Tested, Motor Weakness, Normal Affect, Normal Mood, No Sensory Deficits Cerebellar Function: Normal Reflexes: Normal Skin: Dry, Pallor, Warm Lymphatic: No Adenopathy Was a procedure done? Was a procedure done?: No Differential Dx Considerations may include: Sepsis, generalized weakness, electrolyte imbalance, dehydration X-Ray, Labs, Meds, VS Vital Signs Date Time Temp Pulse Resp B/P (MAP) Pulse Ox O2 Delivery O2 Flow Rate FiO2 06/28/25 13:56 97.6 136 18 112/87 94 97.6 Lab Test 06/28/25 14:45 Range/Units White Blood Count 7.7 4.4-10.8 10^3/uL Red Blood Count 3.51 L 4.0-5.20 10^6/uL Hemoglobin 11.2 L 12.2-16.2 g/dL Hematocrit 33.8 L 36.0-46.0 % Mean Corpuscular Volume 96.4 80.0-100.0 fL Mean Corpuscular Hemoglobin 31.9 28.0-32.0 pg Mean Corpuscular Hemoglobin Concent 33.1 32.0-36.0 g/dL Red Cell Distribution Width 18.5 H 11.8-14.3 % Platelet Count 297 140-450 10^3/uL Mean Platelet Volume 7.3 6.9-10.8 fL Neutrophils (%) (Auto) 78.6 37.0-80.0 % Lymphocytes (%) (Auto) 15.3 10.0-50.0 % Monocytes (%) (Auto) 5.1 0.0-12.0 % Eosinophils (%) (Auto) 0.5 0.0-7.0 % Basophils (%) (Auto) 0.5 0.0-2.0 % Neutrophils # (Auto) 6.0 1.6-8.6 10 ^3/uL Lymphocytes # (Auto) 1.2 0.4-5.4 10 ^3/uL Monocytes # (Auto) 0.4 0-1.3 10 ^3/uL Eosinophils # (Auto) 0 0-0.8 10 ^3/uL Basophils # (Auto) 0 0-0.2 10 ^3/uL Nucleated Red Blood Cells 0.0 % Sodium Level 139 136-145 mmol/L Potassium Level 3.9 3.5-5.1 mmol/L Chloride Level 104 98-107 mmol/L Carbon Dioxide Level 19 L 20-31 mmol/L Anion Gap 16 H 5-15 Blood Urea Nitrogen 27 H 9-23 mg/dL Creatinine 0.97 0.550-1.02 mg/dL Glomerular Filtration Rate Calc 56 >90 mL/min BUN/Creatinine Ratio 27.8 H 10.0-20.0 Serum Glucose 97 74-106 mg/dL Lactic Acid Level 1.3 0.4-2.0 mmol/L Calcium Level 9.5 8.7-10.4 mg/dL IV Hep-Lock was established The patient's CBC is within normal limits The chemistry panel shows a CO2 level of 19 The BUN is 27 the creatinine is 0.97 The patient's urine test is pending The patient will be admitted at this time Chest x-ray shows: IMPRESSION: Left basilar opacity, likely atelectasis/ small pleural effusion. At this time, there is a concern that this may be an ammonia. The patient will be started on vancomycin as well as Levaquin Images Reviewed?: Images reviewed and evaluated by me Time of 1ST Reevaluation: 15:00 Reevaluation 1ST: Unchanged Patient Education/Counseling: Diagnosis, Treatment, Prognosis Family Education/Counseling: No Family Present SEPSIS Sepsis Screen Physician Orders Chest Portable (06/28/25 14:34) Heplock Iv (06/28/25 14:34) Dump Grounds Checker (06/28/25 14:34) Blood Pressure (06/28/25 14:34) Pulse Oximetry (06/28/25 14:34) Sodium Chloride 0.9% (06/28/25 14:45) Urinalysis (06/28/25 14:34) Electrocardigram (06/28/25 14:34) Blood Culture (06/28/25 14:34) Vital Signs Date Time Temp Pulse Resp B/P (MAP) Pulse Ox O2 Delivery O2 Flow Rate FiO2 06/28/25 13:56 97.6 136 18 112/87 94 97.6 Laboratory Tests Test 06/28/25 14:45 Lactic Acid Level 1.3 mmol/L (0.4-2.0) White Blood Count 7.7 10^3/uL (4.4-10.8) Departure 1 Departure Time of Disposition: 16:59 Impression: Primary Impression: Left lower lobe pneumonia Qualified Codes: J18.9 - Pneumonia, unspecified organism Disposition: 09 ADMITTED INPATIENT Admit to: [facility] Condition: Fair Critical Care Note Critical Care Time?: Yes (45 min-critical care time only) Stability Stability form required: Yes Unstable for transfer: Telemetry monitoring (Telemetry monitoring required), ED Physician Assesment (Clinical assesment) Heart Score Heart Score: Heart Score Response (Comments) Value History Moderate Suspicious 1 EKG Normal 0 Age >65 2 Risk Factors 1 or 2 risk factors 1 Troponin N/A 0 Total 4 I personally scribed for PAULO VILLAFUERTE MD ([email or web address]) on 06/28/25 at 14:38. Electronically submitted by Robinson Orozco ([email or web address]). PAULO VILLAFUERTE MD Jun 28, 2025 14:38
[2025-06-28 15:38] LABS: Hematocrit 33.8 % (36.0-46.0); Hemoglobin 11.2 g/dL (12.2-16.2); Mean Corpuscular Hemoglobin 31.9 pg (28.0-32.0); Mean Corpuscular Volume 96.4 fL (80.0-100.0); Nucleated Red Blood Cells % 0.0 %
[2025-06-28 15:43] LABS: Chloride 104 mmol/L (98-107); Potassium 3.9 mmol/L (3.5-5.1); Sodium 139 mmol/L (136-145)
[2025-06-28 15:44] LABS: Calcium 9.5 mg/dL (8.7-10.4)
[2025-06-28 15:45] LABS: Anion Gap 16 (5-15); Carbon Dioxide 19 mmol/L (20-31)
[2025-06-28 15:49] LABS: BUN/Creatinine Ratio 27.8 (10.0-20.0); Glucose 97 mg/dL (74-106)
[2025-06-28 15:50] LABS: Blood Urea Nitrogen 27 mg/dL (9-23)
--- NOTE | 2025-06-28 16:33 | DVH ---
CLINICAL HISTORY: weakness TECHNIQUE: Single view of the chest was obtained. COMPARISON: ECHOCARDIOGRAM STANDARD on DOS: 04/05/25, XRAY CHEST 1 VIEW on DOS: 04/01/25, XRAY CHEST AP PORTABLE on DOS: 03/15/25, XRAY CHEST AP PORTABLE on DOS: 03/15/25, CHEST TWO VIEWS ROUTINE on DOS: FINDINGS: The heart size and pulmonary vasculature are normal. There is a left basilar opacity. There is a dual lead left chest wall pacing device. IMPRESSION: Left basilar opacity, likely atelectasis/ small pleural effusion.
[2025-06-28] MEDS: SODIUM CHLORIDE 0.9% 1,000 ML IV ONE (17:00)
[2025-06-28 17:33] VITALS: PULSE 113; RESP 23; O2SAT 98
[2025-06-28 18:17] LABS: Urine Budding Yeast MANY /hpf (None Seen); Urine Protein, UAD 1+ (Negative); Urine WBC Clumps PRESENT /hpf (None Seen)
[2025-06-28] MEDS: VANCOMYCIN 1GM/250ML KIT 250 ML IV ONE (18:20)
[2025-06-28 21:01] VITALS: PULSE 112; RESP 18; O2SAT 99
[2025-06-28] MEDS ORDERED: HYDROcodone-ACET 5/325MG TAB PO PRN (22:15)
[2025-06-28] MEDS ORDERED: ONDANSETRON HCL 4 MG/2 ML VIAL IV PRN (22:15)
[2025-06-28] MEDS ORDERED: MECLIZINE HCL 25 MG TAB PO PRN (22:15)
[2025-06-28] MEDS: NYSTATIN-TRIAMCINOLONE TOPICAL CRE 15GM TOP ONE (22:30)
[2025-06-28 23:01] LABS: Alanine Aminotransferase 18.0 U/L (7-40); Albumin 3.5 g/dL (3.2-4.8); Alkaline Phosphatase 101.0 U/L (46-116); Bilirubin, Direct 0.3 mg/dL (<0.3); Bilirubin, Total 0.6 mg/dL (0.2-1.0); Total Protein 6.0 g/dL (5.7-8.2)
--- NOTE | 2025-06-28 23:47 | DVHHPRES ---
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 Patient is Nepali- speaking and translation was done by her daughter who was with her. The patient's daughter reports that today the patient went to Dr. Zazueta, who is her primary care physician for outpatient visit and was told that the patient is dehydrated and to visit the emergency room. She also reports that the patient has been in a detention for the past 1 month due to colostomy bag placement and sacral wound ([facility]) and the past week when she visited, the patient has been increasingly confused ( different from her baseline as patient sees her grandchildren when they are not there and has been saying things that make no sense). As per the daughter, patient underwent a colonoscopy in [facility], and during the procedure, her mother' s colon ripped which is why a colostomy bag has been placed since March 15, 2025 and patient was given TPN for a long while. Right now the patient has low appetite and is only able to take soft food and ensure. Patient also went to [place] 1 month ago due to bladder infection and was told there that she had a fungal infection of the heart. This was the reason why the patient also had gone to follow up with Dr. Zazueta. En route to the ED the patient had heart rate of 120-130 AFib. Patient denies any chills, fever, nausea, vomiting, diarrhea, shortness of breath or chest pain. She has not had any sick contacts recently. She reports the Spann's catheter gets changed but can not remember when the last time it was done. Patient is tachycardic on admission with pulse of 136, respiratory rate 21, temperature 97.9, blood pressure 111/41 mmHg, SpO2 99% on room air. Chest x-ray shows left basilar obesity, likely atelectasis /small pleural effusion. We are admitting the patient for further evaluation and treatment. Past medical history: As stated above past surgical history: Right hip arthroplasty, family history: Reviewed and noncontributory to the management of this case Social history: denies smoking, alcohol, and illicit drugs Allergies: Levofloxacin PCP: Dr. Zazueta Code status: Do not resuscitate, okay to intubate and give medicines as well as shock Review of Systems Constitutional: No: Fever, Chills, Sweats, Weakness, Malaise, Other Eyes: No: Pain, Vision change, Conjunctivae inflammation, Eyelid inflammation, Other, Redness ENT: No: Ear pain, Ear discharge, Nose pain, Nose discharge, Nose congestion, Mouth pain, Mouth swelling, Throat pain, Throat swelling, Other Respiratory: No: Cough, Dry, Shortness of breath, SOB with excertion, Wheezing, Hemoptysis, Pleuritic Pain, Sputum, Wheezing, Other Cardiovascular: No: Chest Pain, Palpitations, Orthopnea, Paroxysmal Noc. Dyspnea, Edema, Lt Headedness, Other Genitourinary: No Dysuria, No Frequency, No Incontinence, No Hematuria, No Retention; Other (Cloudy urine in Spann's catheter) Musculoskeletal: No: other, neck pain, shoulder pain, arm pain, back pain, hand pain, leg pain, foot pain Skin: No: Rash, Lesions, Jaundice, Bruising, Other Neurological: Confusion; No: Weakness, Numbness, Incoordination, Change in speech, Seizures, Other Allergies: Coded Allergies: Levofloxacin (Verified Allergy, Unknown, 06/28/25) Medications Current Medications Medications Dose Ordered Sig/Cristy Route Start Time Stop Time Status Last Admin Dose Admin Acetaminophen/ Hydrocodone Bitart 1 tab Q4HP PRN PO 06/28/25 22:15 Ondansetron HCl 4 mg Q4HP PRN IV 06/28/25 22:15 Acetaminophen 650 mg Q6HP PRN PO 06/28/25 22:15 Enoxaparin Sodium 50 mg Q12HR SC 06/29/25 10:00 Ceftriaxone Sodium 50 ml @ 100 mls/hr DAILY@09 IV 06/29/25 09:00 Ferrous Sulfate 325 mg DAILY PO 06/29/25 10:00 Meclizine HCl 25 mg BIDP PRN PO 06/28/25 22:15 Enteral Nutritional Formula 240 ml BIDWM PO 06/29/25 08:00 Aspirin 81 mg DAILY PO 06/29/25 10:00 Pantoprazole Sodium 40 mg DAILY IV 06/29/25 10:00 Exam Vital Signs Vital Signs Date Time Temp Pulse Resp B/P (MAP) Pulse Ox O2 Delivery O2 Flow Rate FiO2 06/28/25 23:00 113 17 107/44 (65) 97 06/28/25 21:01 Room Air* 0 21 06/28/25 19:30 97.9 97.9 Exam Pt is lying on bed General Appearance: Alert, Oriented X3, Cooperative, Not in acute distress HEENT: Atraumatic, Mucous membranes moist/pink Respiratory: Clear to auscultation, Normal air movement, No added sounds Cardiovascular: Regular rate, Normal S1, Normal S2, No murmurs Abdominal: Active bowel sounds, Soft, no distention, presence of colostomy bag draining stool Extremities: No edema, Normal pulses, No tenderness/swelling Skin: No Significant rash, except past surgical scars, presence of Spann's Neuro: Normal speech, sensorimotor deficits none Psych/Mental Status: Mental status NL, Mood NL Labs/Xrays Labs Test 06/28/25 17:16 06/28/25 14:45 Range/Units Urine Color Yellow Yellow Urine Clarity Ex.turbid Clear Urine pH 5.5 5.0-9.0 Urine Specific Foster 1.017 1.001-1.035 Urine Protein 1+ H Negative Urine Ketones Trace Negative Urine Blood Negative Negative /uL Urine Nitrite Negative Negative Urine Bilirubin Negative Negative Urine Urobilinogen Normal Negative mg/dL Urine Leukocyte Esterase 3+ Negative /uL Urine RBC <1 0 - 4 /hpf Urine WBC Clumps Present None Seen /hpf Urine Microscopic WBC 574 H 0-5 /HPF Urine Squamous Epithelial Cells Few <5 /hpf Urine Calcium Oxalate Crystals Few None Seen Urine Bacteria Few H None Seen /hpf Urine Yeast (Budding) Many None Seen /hpf Urine Glucose Normal Normal mg/dL White Blood Count 7.7 4.4-10.8 10^3/uL Red Blood Count 3.51 L 4.0-5.20 10^6/uL Hemoglobin 11.2 L 12.2-16.2 g/dL Hematocrit 33.8 L 36.0-46.0 % Mean Corpuscular Volume 96.4 80.0-100.0 fL Mean Corpuscular Hemoglobin 31.9 28.0-32.0 pg Mean Corpuscular Hemoglobin Concent 33.1 32.0-36.0 g/dL Red Cell Distribution Width 18.5 H 11.8-14.3 % Platelet Count 297 140-450 10^3/uL Mean Platelet Volume 7.3 6.9-10.8 fL Neutrophils (%) (Auto) 78.6 37.0-80.0 % Lymphocytes (%) (Auto) 15.3 10.0-50.0 % Monocytes (%) (Auto) 5.1 0.0-12.0 % Eosinophils (%) (Auto) 0.5 0.0-7.0 % Basophils (%) (Auto) 0.5 0.0-2.0 % Neutrophils # (Auto) 6.0 1.6-8.6 10 ^3/uL Lymphocytes # (Auto) 1.2 0.4-5.4 10 ^3/uL Monocytes # (Auto) 0.4 0-1.3 10 ^3/uL Eosinophils # (Auto) 0 0-0.8 10 ^3/uL Basophils # (Auto) 0 0-0.2 10 ^3/uL Nucleated Red Blood Cells 0.0 % Sodium Level 139 136-145 mmol/L Potassium Level 3.9 3.5-5.1 mmol/L Chloride Level 104 98-107 mmol/L Carbon Dioxide Level 19 L 20-31 mmol/L Anion Gap 16 H 5-15 Blood Urea Nitrogen 27 H 9-23 mg/dL Creatinine 0.97 0.550-1.02 mg/dL Glomerular Filtration Rate Calc 56 >90 mL/min BUN/Creatinine Ratio 27.8 H 10.0-20.0 Serum Glucose 97 74-106 mg/dL Lactic Acid Level 1.3 0.4-2.0 mmol/L Calcium Level 9.5 8.7-10.4 mg/dL Total Bilirubin 0.6 0.2-1.0 mg/dL Direct Bilirubin 0.3 <0.3 mg/dL Aspartate Amino Transferase (AST) 30 13-40 U/L Alanine Aminotransferase (ALT) 18 7-40 U/L Alkaline Phosphatase 101 46-116 U/L Total Protein 6.0 5.7-8.2 g/dL Albumin 3.5 3.2-4.8 g/dL SEPSIS Sepsis Screen Date sepsis recognized/suspect: Jun 28, 2025 Time Sepsis recognized/suspect: 1929 Recent Procedure: No On Antibiotic Therapy: Yes Respiratory Rate >20: No Heart Rate >90: Yes Temp<36 C (96.8 F) or >38.3 C: No SBP <90 or MAP <65 mmHG: No New Acute Mental Status Change: No Is the patient on CPAP, BIPAP,: No Physician Orders Admit (06/28/25 22:11) Code Status (06/28/25 22:11) Hydrocodone-Acet 5/325mg Tab (Turin 5/32 (06/28/25 22:15) Ondansetron Hcl (Zofran) (06/28/25 22:15) Complete Blood Count (06/29/25 04:00) Comprehensive Metabolic Panel (06/29/25 04:00) Condition: Unstable (06/28/25 22:11) Acetaminophen Tablet (Tylenol Tablet) (06/28/25 22:15) Notify Md Of Changes From Base (06/28/25 22:11) Stat Ekg For Chest Pain (06/28/25 22:11) Supervisor Lead Burning For 24 Hours (06/28/25 22:11) Enoxaparin Sodium (Lovenox) (06/29/25 10:00) Ok To Change Spann (06/28/25 22:11) Urine Bacterial Culture (06/28/25 22:11) Communication Order (06/28/25 22:11) Ceftriaxone 1gm/50ml (Rocephin) (06/29/25 09:00) Echo 2d Mode Cardiac Dop (06/28/25 22:11) * Cardiology Consult (06/28/25 22:11) * Wound Consult (06/28/25 ) Pureed (06/29/25 Breakfast) Ferrous Sulfate Tablet (06/29/25 10:00) Meclizine Tablet (Antivert Tablet) (06/28/25 22:15) Nutritional Supplements (Ensure High Pro (06/29/25 08:00) Aspirin Tablet (06/29/25 10:00) Pantoprazole (Protonix) (06/29/25 10:00) Vital Signs Date Time Temp Pulse Resp B/P (MAP) Pulse Ox O2 Delivery O2 Flow Rate FiO2 06/28/25 23:00 113 17 107/44 (65) 97 06/28/25 22:00 110 06/28/25 21:01 112 18 99 Room Air* 0 21 06/28/25 21:00 107 19 99/42 (61) 97 06/28/25 19:30 97.9 112 18 111/41 (64) 99 97.9 06/28/25 17:33 113 23 98 Room Air* 0 21 06/28/25 17:33 98.1 114 21 137/61 (86) 99 98.1 06/28/25 17:15 131 Laboratory Tests Test 06/28/25 14:45 Lactic Acid Level 1.3 mmol/L (0.4-2.0) White Blood Count 7.7 10^3/uL (4.4-10.8) Medications Medications Dose Ordered Sig/Cristy Route Start Time Stop Time Status Last Admin Dose Admin Ceftriaxone Sodium 50 ml @ 100 mls/hr ONCE ONCE IV 06/28/25 18:00 06/28/25 18:29 DC 06/28/25 17:54 100 MLS/HR Sodium Chloride 1,000 ml @ 150 mls/hr Q6H40M ONCE IV 06/28/25 14:45 06/28/25 21:24 DC 06/28/25 17:00 150 MLS/HR Vancomycin HCl 250 ml @ 250 mls/hr ONCE ONCE IV 06/28/25 17:15 06/28/25 18:14 DC 06/28/25 18:20 250 MLS/HR Assessment/Plan Assessment/Plan #Sepsis due to UTI -Change Spann's catheter -Urinary culture -blood culture -lactic acid 1.3 -ceftriaxone 1 g IV daily -Fluid 1000 mL bolus given -ondansetron 4 mg q.4 PRN IV -pain management with acetaminophen 650 mg q.6 PRN per orally and Turin 5/325 mg q.4 PRN -ct abd/pelvis without contrast, pending #atrial fibrillation with RVR #status post pacemaker dual leads #chronic systolic/diastolic heart failure, not under exacerbation -ekg -consulted cardiology/ Dr. Zazueta -repeat echo as last echo was done on 08/25/2023 #H/o bowel perforation due to colonoscopy s/p colostomy # hypertension - medication held now as BP is normal # type 2 diabetes mellitus - A1c, pending - insulin held for now as serum glucose was 97 #normocytic, normochromic anemia - monitor H&H - continued home medication ferrous sulfate #left small pleural effusion -Seen in chest x-ray - MRSA screen #sacral wound stage I present on admission -Wound consult done -nystatin tamsulosin topical cream daily GI prophylaxis: pantoprazole 40 mg IV daily DVT prophylaxis: Therapeutic dose Lovenox subcutaneously given daily twice a day Diet: pureed diet, ensure powder Goals of care discussed with the patient for more than 27 minutes: DNR status Case discussed with Dr. Miller, patient and nurse. Plan discussed with: Patient, Daughter My Orders Orders - NAHOMI DUARTE RESIDENT Procedure Category Date Status Time Admit ADMIT 06/28/25 Transmitted 22:11 Code Status CODE 06/28/25 Transmitted 22:11 Hydrocodone-Acet PHA 06/28/25 In Process 5/325mg Tab (Turin 22:15 Ondansetron Hcl PHA 06/28/25 In Process (Zofran) 22:15 Complete Blood Count LAB 06/29/25 Verified 04:00 Comprehensive LAB 06/29/25 Verified Metabolic Panel 04:00 Condition: Unstable MARCELO 06/28/25 In Process 22:11 Acetaminophen Tablet PHA 06/28/25 In Process (Tylenol Tablet) 22:15 Notify Of Changes MARCELO 06/28/25 In Process From Base 22:11 Stat Ekg For Chest MARCELO 06/28/25 In Process Pain 22:11 Supervisor Lead Burning For MARCELO 06/28/25 In Process 24 Hours 22:11 Enoxaparin Sodium PHA 06/29/25 In Process (Lovenox) 10:00 Ok To Change Spann ORDERS 06/28/25 Transmitted 22:11 Urine Bacterial KEAGAN 06/28/25 In Process Culture 22:11 Communication Order ORDERS 06/28/25 Transmitted 22:11 Ceftriaxone 1gm/50ml PHA 06/29/25 In Process (Rocephin) 09:00 Echo 2d Mode Cardiac US 06/28/25 Logged DOP 22:11 * Cardiology Consult CONS 06/28/25 Transmitted 22:11 * Wound Consult CONS 06/28/25 Transmitted Pureed DIET 06/29/25 Transmitted Breakfast Ferrous Sulfate Tablet PHA 06/29/25 In Process 10:00 Meclizine Tablet PHA 06/28/25 In Process (Antivert Tablet) 22:15 Nutritional PHA 06/29/25 In Process Supplements (Ensure 08:00 Aspirin Tablet PHA 06/29/25 In Process 10:00 Pantoprazole PHA 06/29/25 In Process (Protonix) 10:00 Date of Service: Jun 29, 2025 Billing Provider: ASHLEIGH MILLER MD Common Visit Codes: 40710-SVHXOEU INP/OBS CARE (HIGH) Secondary Visit Codes: [id number] CARE PLAN 30 MINUTES NAHOMI DUARTE RESIDENT Jun 28, 2025 23:47 FAYE WEINSTEIN RESIDENT Jun 29, 2025 08:14 ASHLEIGH MILLER MD Jun 29, 2025 08:45
[2025-06-29] MEDS: SODIUM CHLORIDE 0.9% 1,000 ML IV ONE (04:06)
[2025-06-29 07:44] LABS: Hematocrit 29.8 % (36.0-46.0); Hemoglobin 9.9 g/dL (12.2-16.2); Mean Corpuscular Hemoglobin 32.1 pg (28.0-32.0); Mean Corpuscular Volume 96.9 fL (80.0-100.0); Nucleated Red Blood Cells % 0.1 %
--- NOTE | 2025-06-29 07:51 | DVHPN2 ---
Progress Note - Dictate Date Seen: Jun 29, 2025 Medical Necessity Reason Pt with a Central, PICC or Fol: Yes The following are medically ne: Spann Catheter Subjective PT WELL KNOWN TO ME WITH SSS S/P PPI DIABETES VASCULOPATHY ANTIONE NOW UNDERWENT COLONOSCOPY AT AN OUTSIDE FACILITY COMPLICATED BY PERFORATION REQUIRING COLOSTOMY NOW WITH RECURRENT UTI DECUB ULCER SEVERELY MALNOURISHED CACHECTIC SEVERE VOL DEPLETION AND CLINICAL PRESENTATION FOR SEPSIS vital signs Vital Sign Date Time Temp Pulse Resp B/P (MAP) Pulse Ox O2 Delivery O2 Flow Rate FiO2 06/29/25 01:28 Room Air* 0 21 06/28/25 23:00 113 17 107/44 (65) 97 06/28/25 19:30 97.9 97.9 Total Intake and Output 06/28/25 06/28/25 06/29/25 15:00 23:00 07:00 Intake Total 400 ml 1200 ml Output Total 2500 ml Balance 400 ml -1300 ml medications Current Medications Medications Dose Ordered Sig/Cristy Route Start Time Stop Time Status Last Admin Dose Admin Acetaminophen/ Hydrocodone Bitart 1 tab Q4HP PRN PO 06/28/25 22:15 Ondansetron HCl 4 mg Q4HP PRN IV 06/28/25 22:15 Acetaminophen 650 mg Q6HP PRN PO 06/28/25 22:15 Enoxaparin Sodium 50 mg Q12HR SC 06/29/25 10:00 Ceftriaxone Sodium 50 ml @ 100 mls/hr DAILY@09 IV 06/29/25 09:00 Ferrous Sulfate 325 mg DAILY PO 06/29/25 10:00 Meclizine HCl 25 mg BIDP PRN PO 06/28/25 22:15 Enteral Nutritional Formula 240 ml BIDWM PO 06/29/25 08:00 Aspirin 81 mg DAILY PO 06/29/25 10:00 Pantoprazole Sodium 40 mg DAILY IV 06/29/25 10:00 laboratory and microbiology Test 06/29/25 05:32 Range/Units Serum Glucose Pending Problem List SSS S/P PPI DIABETES VASCULOPATHY ANTIONE NOW UNDERWENT COLONOSCOPY AT AN OUTSIDE FACILITY COMPLICATED BY PERFORATION REQUIRING COLOSTOMY NOW WITH RECURRENT UTI DECUB ULCER SEVERELY MALNOURISHED CACHECTIC SEVERE VOL DEPLETION AND CLINICAL PRESENTATION FOR SEPSIS INABILITY TO MOUNT AN WBC RESPONSE/ IMMUNOSUPPRESSED BACTERIAL AND YEAST INFECTION Assessment/Plan IV FLUID CONTROL AFIB 'TREAT BOTH BACTERIAL AND YEAST INFECTION NUTRITIONAL SUPPLEMENT PT ECHO WOUND CARE Plan discussed with: Patient, Daughter Critical Care Time(min): 35 YASMEEN CHAVEZ MD Jun 29, 2025 07:51
[2025-06-29 07:58] LABS: Alanine Aminotransferase 14 U/L (7-40); Anion Gap 13 (5-15); BUN/Creatinine Ratio 23.1 (10.0-20.0); Bilirubin, Total 0.4 mg/dL (0.2-1.0); Blood Urea Nitrogen 21 mg/dL (9-23); Calcium 8.8 mg/dL (8.7-10.4); Glucose 74 mg/dL (74-106); Sodium 139 mmol/L (136-145)
[2025-06-29] MEDS: Ensure HIGH Protein Chocolate 8oz Bottle PO SCH ×2 (08:00→10:54)
[2025-06-29 08:38] LABS: Carbon Dioxide 17 mmol/L (20-31); Chloride 109 mmol/L (98-107); Potassium 3.3 mmol/L (3.5-5.1)
[2025-06-29 08:39] LABS: Albumin 3.0 g/dL (3.2-4.8); Total Protein 5.4 g/dL (5.7-8.2)
[2025-06-29 09:00] VITALS: BP 104/63; PULSE 102; RESP 18; TEMP 98.2; O2SAT 97
--- NOTE | 2025-06-29 09:00 | DVH ---
CLINICAL INFORMATION: Abdominal pain. TECHNIQUE: Axial CT images of the abdomen and pelvis were obtained without IV contrast. Coronal and s agittal reformatted images were obtained, reviewed, and stored. Evaluation of the parenchymal organs is limited without IV contrast. Evaluation of the bowel and mesentery is limited without oral contras t. All CT scans at this medical facility are performed using dose modulation techniques as appropriat e to a performed exam including the following: Automated exposure control was utilized; adjustment of the MA and/or KV according to patient size; and use of iterative reconstruction technique. CTDIvol = 7.01 mGy DLP = 302.24 mGy-cm COMPARISON: CT ABDOMEN + PELVIS WITHOUT CONTRAST on DOS: 03/30/25, CT ABDOMEN + PELVIS WITH CONTRAST o n DOS: 03/29/25, CT ABDOMEN + PELVIS WITHOUT CONTRAST on DOS: 03/15/25 FINDINGS: Motion artifact limits evaluation. There is also prominent beam hardening artifact limitin g evaluation, particularly in the pelvis. Lung bases: Atelectasis in the lung bases. Partially visualized large hiatal hernia. Partially visual ized moderate cardiomegaly and pacemaker leads. Moderate coronary artery calcification and dense mitr al annular calcification. Liver: Grossly unremarkable in its noncontrast enhanced appearance. No abnormal density or focal lesi on identified. Biliary: Pneumobilia. Multiple calcified gallstones and likely sludge in the gallbladder. Spleen: Unremarkable. Pancreas: Moderate atrophy. Adrenal glands: Unremarkable. No mass. Kidneys: No hydronephrosis. No renal or ureteral calculi. 3.3 cm fluid density lesion in the left kid yadi, likely a cyst. Aorta/Vascular: Dense atherosclerotic calcification. No abdominal aortic aneurysm. Lymph nodes: No mass or lymphadenopathy identified given the limitations of the exam. Bowel/mesentery: Nonspecific nondilated fluid-filled small bowel loops. No small bowel obstruction. N o free air or free fluid visualized. Appendix is not visualized. No Pelvic organs: There are calcifications in the uterus. Bladder: Spann catheter extends into the bladder. Abdominal wall: Open surgical wound in the ventral pelvic body wall subcutaneous tissues with closure of the underlying fascia, new compared to the prior exam. There is a surgical drain extending throug h the right lower ventral abdominal wall into the right hemipelvis. Left lower quadrant colostomy aga in noted. Bones: No evidence of acute fracture. Chronic appearing compression fractures of the T9, T12, and L1 vertebral bodies with up to 50% loss of height. There appears to be slight progressive loss of height in the L1 vertebral body compared to the prior CT with increased sclerosis. The T12 and T9 compressi on fractures appear stable. Mild grade 1 anterolisthesis of L4 on L5 is unchanged. Prominent Schmorl' s node at the superior endplate of L4 is unchanged. Postsurgical changes of prior right total hip art hroplasty with associated beam hardening artifact which limits evaluation of adjacent structures. IMPRESSION: 1. Interval postsurgical changes as described above. 2. Nonspecific nondilated fluid-filled small bowel loops. Findings may be seen with ileus or enteriti s in the appropriate clinical setting. No small bowel obstruction. 3. No free air or free fluid. 4. Cholelithiasis and pneumobilia. 5. Large hiatal hernia. 6. Chronic appearing compression fractures in the lower thoracic and upper lumbar spine with slight p rogressive loss of height of the L1 compression fracture compared to the prior exam and increased scl erosis. 7. Additional findings as detailed above
[2025-06-29] MEDS: SODIUM CHLORIDE 0.9% 1,000 ML IV SCH (10:00)
[2025-06-29] MEDS: AMIODARONE HCL 200 MG TAB PO SCH (10:27)
[2025-06-29] MEDS: ENOXAPARIN SOD 100 MG/1 ML SYRINGE SC SCH (10:27)
[2025-06-29] MEDS: PANTOPRAZOLE 40 MG/10 ML VIAL INJ IV SCH (10:27)
[2025-06-29] MEDS: FERROUS SULFATE 325mg EC TAB PO SCH (10:37)
[2025-06-29] MEDS: POTASSIUM EFFERVESENT TAB 25 MEQ PO ONE (10:50)
[2025-06-29] MEDS: MEROPENEM 1GM IVPB 50 ML IV ONE (12:58)
[2025-06-29] MEDS: DOXYCYCLINE 100MG/100ML 100 ML IV SCH (12:58)
[2025-06-29 13:00] VITALS: BP 114/57; PULSE 92; RESP 17; TEMP 98.8; O2SAT 100
[2025-06-29] MEDS: MICAFUNGIN SODIUM 100 MG in SODIUM CHL 0.9% 100 ML IV SCH (13:20)
[2025-06-29] MEDS ORDERED: MEROPENEM 1GM IVPB 50 ML IV SCH (14:00)
[2025-06-29 15:56] LABS: Alkaline Phosphatase 85 U/L (46-116)
[2025-06-29 17:00] VITALS: BP 101/80; PULSE 107; RESP 18; TEMP 98.8; O2SAT 99
[2025-06-29] MEDS: ACETAMINOPHEN 325 MG TAB PO PRN (17:46)
[2025-06-29 20:00] VITALS: PULSE 89; PULSE 94
[2025-06-29 20:48] VITALS: BP 114/81; PULSE 89; RESP 18; TEMP 98.9; O2SAT 99
--- NOTE | 2025-06-29 22:56 | DVHPNRES ---
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 Patient is Ecuadorean-speaking and translation was done by her daughter who was with her. The patient's daughter reports that today the patient went to Dr. Zazueta, who is her primary care physician for outpatient visit and was told that the patient is dehydrated and to visit the emergency room. She also reports that the patient has been in a shelter for the past 1 month due to colostomy bag placement and sacral wound ([facility]) and the past week when she visited, the patient has been increasingly confused ( different from her baseline as patient sees her grandchildren when they are not there and has been saying things that make no sense). As per the daughter, patient underwent a colonoscopy in [facility], and during the procedure, her mother' s colon ripped which is why a colostomy bag has been placed since March 15, 2025 and patient was given TPN for a long while. Right now the patient has low appetite and is only able to take soft food and ensure. Patient also went to [place] 1 month ago due to bladder infection and was told there that she had a fungal infection of the heart. This was the reason why the patient also had gone to follow up with Dr. Zazueta. En route to the ED the patient had heart rate of 120-130 AFib. Patient denies any chills, fever, nausea, vomiting, diarrhea, shortness of breath or chest pain. She has not had any sick contacts recently. She reports the Spann's catheter gets changed but can not remember when the last time it was done. Chest x-ray shows left basilar obesity, likely atelectasis /small pleural effusion. Past medical history: As stated above past surgical history: Right hip arthroplasty, family history: Reviewed and noncontributory to the management of this case Social history: denies smoking, alcohol, and illicit drugs Allergies: Levofloxacin PCP: Dr. Zazueta Code status: Do not resuscitate, okay to intubate and give medicines as well as shock Constitutional: No: Fever, Chills, Sweats, Weakness, Malaise Eyes: No: Pain, Vision change, Conjunctivae inflammation, Eyelid inflammation, Other, Redness ENT: No: Ear pain, Ear discharge, Nose pain, Nose discharge, Nose congestion, Mouth pain, Mouth swelling, Throat pain, Throat swelling Respiratory: No: Cough, Dry, Shortness of breath, SOB with excertion, Wheezing, Hemoptysis, Pleuritic Pain, Sputum, Wheezing Cardiovascular: No: Chest Pain, Palpitations, Orthopnea, Paroxysmal Noc. Dyspnea, Edema, Lt Headedness Genitourinary: No Dysuria, No Frequency, No Incontinence, No Hematuria, No Retention; Other (Cloudy urine in Spann's catheter) Musculoskeletal: No: other, neck pain, shoulder pain, arm pain, back pain, hand pain, leg pain, foot pain Skin: No: Rash, Lesions, Jaundice, Bruising Neurological: Confusion; No: Weakness, Numbness, Incoordination, Change in speech, Seizures Allergies: Coded Allergies: Levofloxacin (Verified Allergy, Unknown, 06/28/25) Objective vital signs Vital Sign Date Time Temp Pulse Resp B/P (MAP) Pulse Ox O2 Delivery O2 Flow Rate FiO2 06/29/25 20:48 98.9 89 18 114/81 (92) 99 98.9 06/29/25 20:00 Room Air* 0 21 Total Intake and Output 06/29/25 06/29/25 06/29/25 02:30 10:30 18:30 Intake Total 400 ml 1200 ml 200 ml Output Total 2500 ml 325 ml Balance 400 ml -1300 ml -125 ml medications Current Medications Medications Dose Ordered Sig/Cristy Route Start Time Stop Time Status Last Admin Dose Admin Acetaminophen/ Hydrocodone Bitart 1 tab Q4HP PRN PO 06/28/25 22:15 Ondansetron HCl 4 mg Q4HP PRN IV 06/28/25 22:15 Acetaminophen 650 mg Q6HP PRN PO 06/28/25 22:15 06/29/25 17:46 650 MG Enoxaparin Sodium 50 mg Q12HR SC 06/29/25 10:00 06/29/25 21:16 50 MG Ferrous Sulfate 325 mg DAILY PO 06/29/25 10:00 06/29/25 10:37 325 MG Meclizine HCl 25 mg BIDP PRN PO 06/28/25 22:15 Enteral Nutritional Formula 240 ml BIDWM PO 06/29/25 08:00 06/29/25 18:00 240 ML Pantoprazole Sodium 40 mg DAILY IV 06/29/25 10:00 06/29/25 10:27 40 MG Micafungin Sodium 100 mg/Sodium Chloride 100 ml @ 100 mls/hr DAILY IV 06/29/25 10:00 06/29/25 13:20 100 MLS/HR Amiodarone HCl 400 mg Q12HR PO 06/29/25 10:00 06/29/25 21:16 400 MG Enteral Nutritional Formula 240 ml TIDWM PO 06/29/25 08:00 06/29/25 13:04 240 ML Meropenem 50 ml @ 17 mls/hr Q8HR IV 06/29/25 14:00 UNV Sodium Chloride 1,000 ml @ 75 mls/hr [id number] IV 06/29/25 10:00 06/29/25 10:00 75 MLS/HR Doxycycline Hyclate 100 ml @ 50 mls/hr Q12H IV 06/29/25 10:00 06/29/25 21:14 50 MLS/HR Meropenem 50 ml @ 17 mls/hr Q12H IV 06/29/25 23:00 Examination Pt is lying on bed. Patient has a grade 1 sacral ulcer. General Appearance: Alert, Oriented X3, Cooperative, Not in acute distress HEENT: Atraumatic, Mucous membranes moist/pink Respiratory: Clear to auscultation, Normal air movement, No added sounds Cardiovascular: Regular rate, Normal S1, Normal S2, No murmurs Abdominal: Active bowel sounds, Soft, no distention, presence of colostomy bag draining stool with 2 drains Extremities: No edema, Normal pulses, No tenderness/swelling Skin: No Significant rash, except past surgical scars, presence of Spann's Neuro: Normal speech, sensorimotor deficits none Psych/Mental Status: Mental status NL, Mood NL Nurse was present as industrial chemicals supervisor during the examination laboratory and microbiology Laboratory Tests 06/29/25 05:32 Test 10/23/25 05:32 Range/Units Serum Glucose 74 74-106 mg/dL Microbiology Date/Time Source Procedure Growth Status 06/29/25 05:29 Nose MRSA Screen - Final Complete 06/28/25 14:45 Blood Blood Culture - Preliminary NO GROWTH AFTER 24 HOURS OF INCUBATION. Resulted Labs and/or images reviewed: Labs reviewed by me, Image(s) reviewed by me Problem List/Assessment/Plan Problem List/Assessment/Plan #Septicemia due to pneumonia,,,gram positive vs negative -CXR showed Left basilar opacity, likely atelectasis/ small pleural effusion. # Complicated cystitis -U/A showed UTI Urinary culture -no growth till now -blood culture -started on meropenem -IV fluids continued -ondansetron 4 mg q.4 PRN IV -pain management with acetaminophen 650 mg q.6 PRN per orally and [place] 5/325 mg q.4 PRN -ct abd/pelvis without contrast showed ileus/enteritis, cholelithiasis -the patient on micafungin #Atrial fibrillation with RVR #status post pacemaker dual leads #chronic systolic/diastolic heart failure, not under exacerbation -patient being followed up by Dr. Zazueta -Echo report pending #H/o bowel perforation due to colonoscopy s/p colostomy # Hypertensive heart disease - medication held now as BP is normal # Type 2 diabetes mellitus hyperglycemia and neuropathy - A1c, pending - insulin held for now as serum glucose was 97 #Normocytic, normochromic anemia - monitor H&H - continued home medication ferrous sulfate #Pulmonary edema -Seen in chest x-ray - MRSA screen #Sacral wound stage I present on admission -Wound consult done -nystatin topical cream daily GI prophylaxis: pantoprazole 40 mg IV daily DVT prophylaxis: Therapeutic dose Lovenox subcutaneously given daily twice a day Diet: pureed diet, ensure powder Goals of care: Full code, discussed for >23 minutes Plan discussed with Dr Miller Plan discussed with: Patient, Daughter Date of Service: Jun 29, 2025 Billing Provider: ASHLEIGH MILLER MD Common Visit Codes: [id number] INP/OBS CARE(HIGH) CARMELITA ALATORRE RESIDENT Jun 29, 2025 22:56
[2025-06-29] MEDS: MEROPENEM 500MG IVPB 50 ML IV SCH (23:22)
[2025-06-30] VITALS (10 sets, daily range): BP systolic 117–190; BP diastolic 60–87; PULSE 56–114; RESP 15–19; TEMP 97.5–98.6; O2SAT 96–99
[2025-06-30 07:01] LABS: Hematocrit 27.7 % (36.0-46.0); Hemoglobin 9.1 g/dL (12.2-16.2); Mean Corpuscular Hemoglobin 32.1 pg (28.0-32.0); Mean Corpuscular Volume 97.2 fL (80.0-100.0); Nucleated Red Blood Cells % 0.1 %
[2025-06-30 07:15] LABS: Anion Gap 13 (5-15); Calcium 8.9 mg/dL (8.7-10.4); Potassium 3.7 mmol/L (3.5-5.1); Sodium 139 mmol/L (136-145)
[2025-06-30 07:21] LABS: BUN/Creatinine Ratio 22.2 (10.0-20.0); Blood Urea Nitrogen 18 mg/dL (9-23); Glucose 87 mg/dL (74-106)
[2025-06-30 07:22] LABS: Carbon Dioxide 17 mmol/L (20-31); Chloride 109 mmol/L (98-107)
[2025-06-30 10:36] LABS: INR 1.08 (0.9-1.15); Partial Thromboplastin Time 32.0 SEC (24.5-34.5); Prothrombin Time 11.4 sec (9.3-11.8)
[2025-06-30 11:10] LABS: Iron 18.0 ug/dL (50-170)
[2025-06-30 11:16] LABS: Total Iron Binding Capacity 118.0 ug/dL (250-425)
--- NOTE | 2025-06-30 14:33 | DVHPN2 ---
Progress Note - Dictate Date Seen: Jun 30, 2025 Medical Necessity Reason Pt with a Central, PICC or Fol: Yes The following are medically ne: Spann Catheter Subjective PT WELL KNOWN TO ME WITH SSS S/P PPI DIABETES VASCULOPATHY ANTIONE NOW UNDERWENT COLONOSCOPY AT AN OUTSIDE FACILITY COMPLICATED BY PERFORATION REQUIRING COLOSTOMY NOW WITH RECURRENT UTI DECUB ULCER SEVERELY MALNOURISHED CACHECTIC SEVERE VOL DEPLETION AND CLINICAL PRESENTATION FOR SEPSIS vital signs Vital Sign Date Time Temp Pulse Resp B/P (MAP) Pulse Ox O2 Delivery O2 Flow Rate FiO2 06/30/25 09:00 97.9 83 17 122/67 (85) 98 97.9 06/30/25 08:00 Room Air* 0 21 Total Intake and Output 06/29/25 06/29/25 06/30/25 15:00 23:00 07:00 Intake Total 200 ml 600 ml 270 ml Output Total 325 ml 700 ml Balance 200 ml 275 ml -430 ml medications Current Medications Medications Dose Ordered Sig/Cristy Route Start Time Stop Time Status Last Admin Dose Admin Acetaminophen/ Hydrocodone Bitart 1 tab Q4HP PRN PO 06/28/25 22:15 Ondansetron HCl 4 mg Q4HP PRN IV 06/28/25 22:15 Acetaminophen 650 mg Q6HP PRN PO 06/28/25 22:15 06/29/25 17:46 650 MG Enoxaparin Sodium 50 mg Q12HR SC 06/29/25 10:00 Hold 06/30/25 09:56 50 MG Ferrous Sulfate 325 mg DAILY PO 06/29/25 10:00 06/30/25 09:55 325 MG Meclizine HCl 25 mg BIDP PRN PO 06/28/25 22:15 Enteral Nutritional Formula 240 ml BIDWM PO 06/29/25 08:00 06/30/25 09:57 240 ML Pantoprazole Sodium 40 mg DAILY IV 06/29/25 10:00 06/30/25 09:55 40 MG Micafungin Sodium 100 mg/Sodium Chloride 100 ml @ 100 mls/hr DAILY IV 06/29/25 10:00 06/29/25 13:20 100 MLS/HR Amiodarone HCl 400 mg Q12HR PO 06/29/25 10:00 06/30/25 09:55 400 MG Enteral Nutritional Formula 240 ml TIDWM PO 06/29/25 08:00 06/30/25 12:18 240 ML Meropenem 50 ml @ 17 mls/hr Q8HR IV 06/29/25 14:00 UNV Sodium Chloride 1,000 ml @ 75 mls/hr [id number] IV 06/29/25 10:00 06/30/25 12:53 75 MLS/HR Doxycycline Hyclate 100 ml @ 50 mls/hr Q12H IV 06/29/25 10:00 06/30/25 09:55 50 MLS/HR Meropenem 50 ml @ 17 mls/hr Q12H IV 06/29/25 23:00 06/30/25 13:12 17 MLS/HR laboratory and microbiology Laboratory Tests 06/30/25 06:14 Test 06/30/25 06:14 Range/Units Serum Glucose 87 74-106 mg/dL Problem List SSS S/P PPI DIABETES VASCULOPATHY ANTIONE NOW UNDERWENT COLONOSCOPY AT AN OUTSIDE FACILITY COMPLICATED BY PERFORATION REQUIRING COLOSTOMY NOW WITH RECURRENT UTI DECUB ULCER SEVERELY MALNOURISHED CACHECTIC SEVERE VOL DEPLETION AND CLINICAL PRESENTATION FOR SEPSIS INABILITY TO MOUNT AN WBC RESPONSE/ IMMUNOSUPPRESSED BACTERIAL AND YEAST INFECTION Assessment/Plan IV FLUID CONTROL AFIB 'TREAT BOTH BACTERIAL AND YEAST INFECTION NUTRITIONAL SUPPLEMENT PT ECHO WOUND CARE CT ABD PELVIS Nonspecific nondilated fluid-filled small bowel loops. Findings may be seen with ileus or enteritis in the appropriate clinical setting. No small bowel obstruction. No free air or free fluid. Cholelithiasis and pneumobilia. Large hiatal hernia. Chronic appearing compression fractures in the lower thoracic and upper lumbar spine with slight progressive loss of height of the L1 compression fracture compared to the prior exam and increased sclerosis. START IRON WITH EPOGEN Dietary Evaluation Review Comments: 1) Consider Ensure enlive 240ml TID 2) Monitor PO intake, lab values, weight trend, and I/O Expected Outcomes/Goals: Intake to meet >75% estimated needs Fu 3-5 days Plan discussed with: Patient, Daughter YASMEEN CHAVEZ MD Jun 30, 2025 14:33
[2025-06-30] MEDS ORDERED: PATIENTS OWN MEDICATION (EPOGEN 10,000 UNITS) SUBCUT ONE (14:45)
[2025-06-30] MEDS: EPOETIN ALFA-EPBX 10,000 UNIT/1ML VIAL SC ONE (16:39)
--- NOTE | 2025-06-30 16:51 | DVHPNRES ---
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 Patient is Belgian-speaking and translation was done by her daughter who was with her. The patient's daughter reports that today the patient went to Dr. Zazueta, who is her primary care physician for outpatient visit and was told that the patient is dehydrated and to visit the emergency room. She also reports that the patient has been in a correction for the past 1 month due to colostomy bag placement and sacral wound ([facility]) and the past week when she visited, the patient has been increasingly confused ( different from her baseline as patient sees her grandchildren when they are not there and has been saying things that make no sense). As per the daughter, patient underwent a colonoscopy in [facility], and during the procedure, her mother' s colon ripped which is why a colostomy bag has been placed since March 15, 2025 and patient was given TPN for a long while. Right now the patient has low appetite and is only able to take soft food and ensure. Patient also went to [place] 1 month ago due to bladder infection and was told there that she had a fungal infection of the heart. This was the reason why the patient also had gone to follow up with Dr. Zazueta. En route to the ED the patient had heart rate of 120-130 AFib. Patient denies any chills, fever, nausea, vomiting, diarrhea, shortness of breath or chest pain. She has not had any sick contacts recently. She reports the Spann's catheter gets changed but can not remember when the last time it was done. Chest x-ray shows left basilar obesity, likely atelectasis /small pleural effusion. Past medical history: As stated above past surgical history: Right hip arthroplasty, family history: Reviewed and noncontributory to the management of this case Social history: denies smoking, alcohol, and illicit drugs Allergies: Levofloxacin PCP: Dr. Zazueta Code status: Modified code including intubation, ACLS drugs/vasopressors, BiPAP, cardioversion Constitutional: No: Fever, Chills, Sweats, Weakness, Malaise Eyes: No: Pain, Vision change, Conjunctivae inflammation, Eyelid inflammation, Other, Redness ENT: No: Ear pain, Ear discharge, Nose pain, Nose discharge, Nose congestion, Mouth pain, Mouth swelling, Throat pain, Throat swelling Respiratory: No: Cough, Dry, Shortness of breath, SOB with excertion, Wheezing, Hemoptysis, Pleuritic Pain, Sputum, Wheezing Cardiovascular: No: Chest Pain, Palpitations, Orthopnea, Paroxysmal Noc. Dyspnea, Edema, Lt Headedness Genitourinary: No Dysuria, No Frequency, No Incontinence, No Hematuria, No Retention; Other (Cloudy urine in Spann's catheter) Musculoskeletal: No: other, neck pain, shoulder pain, arm pain, back pain, hand pain, leg pain, foot pain Skin: No: Rash, Lesions, Jaundice, Bruising Neurological: Confusion; No: Weakness, Numbness, Incoordination, Change in speech, Seizures Allergies: Coded Allergies: Levofloxacin (Verified Allergy, Unknown, 06/28/25) 06/30/25- patient was seen at bedside. All labs and charts were reviewed . A new colostomy bag was placed on the patient. IV antibiotics were continued. Stool occult, iron panel, ferritin were ordered. Goals of care were discussed with the family they stated they want modified resuscitative measures. Surgical consult was done for the patient and they recommended to keep the patient NPO and start her on TPN to reduce the stool burden. Objective vital signs Vital Sign Date Time Temp Pulse Resp B/P (MAP) Pulse Ox O2 Delivery O2 Flow Rate FiO2 06/30/25 13:00 97.7 114 16 132/71 (91) 99 97.7 06/30/25 08:00 Room Air* 0 21 Total Intake and Output 06/29/25 06/29/25 06/30/25 15:00 23:00 07:00 Intake Total 200 ml 600 ml 270 ml Output Total 325 ml 700 ml Balance 200 ml 275 ml -430 ml medications Current Medications Medications Dose Ordered Sig/Cristy Route Start Time Stop Time Status Last Admin Dose Admin Acetaminophen/ Hydrocodone Bitart 1 tab Q4HP PRN PO 06/28/25 22:15 Ondansetron HCl 4 mg Q4HP PRN IV 06/28/25 22:15 Acetaminophen 650 mg Q6HP PRN PO 06/28/25 22:15 06/29/25 17:46 650 MG Enoxaparin Sodium 50 mg Q12HR SC 06/29/25 10:00 Hold 06/30/25 09:56 50 MG Ferrous Sulfate 325 mg DAILY PO 06/29/25 10:00 06/30/25 09:55 325 MG Meclizine HCl 25 mg BIDP PRN PO 06/28/25 22:15 Pantoprazole Sodium 40 mg DAILY IV 06/29/25 10:00 06/30/25 09:55 40 MG Micafungin Sodium 100 mg/Sodium Chloride 100 ml @ 100 mls/hr DAILY IV 06/29/25 10:00 06/30/25 16:17 100 MLS/HR Amiodarone HCl 400 mg Q12HR PO 06/29/25 10:00 06/30/25 09:55 400 MG Meropenem 50 ml @ 17 mls/hr Q8HR IV 06/29/25 14:00 UNV Sodium Chloride 1,000 ml @ 75 mls/hr [id number] IV 06/29/25 10:00 06/30/25 12:53 75 MLS/HR Doxycycline Hyclate 100 ml @ 50 mls/hr Q12H IV 06/29/25 10:00 06/30/25 09:55 50 MLS/HR Meropenem 50 ml @ 17 mls/hr Q12H IV 06/29/25 23:00 06/30/25 13:12 17 MLS/HR Iron Sucrose 110 ml @ 110 mls/hr DAILY@1200 IV 07/01/25 12:00 07/05/25 12:59 Examination Pt is lying on bed. Patient has a grade 1 sacral ulcer. Bruises seen all over the body. General Appearance: Alert, Oriented X3, Cooperative, Not in acute distress HEENT: Atraumatic, Mucous membranes moist/pink Respiratory: Clear to auscultation, Normal air movement, No added sounds Cardiovascular: Regular rate, Normal S1, Normal S2, No murmurs Abdominal: Active bowel sounds, Soft, no distention, presence of colostomy bag draining stool with 2 drains Extremities: No edema, Normal pulses, No tenderness/swelling Skin: No Significant rash, except past surgical scars, presence of Spann's Neuro: Normal speech, sensorimotor deficits none Psych/Mental Status: Mental status NL, Mood NL Nurse was present as [id number] tank driver during the examination laboratory and microbiology Laboratory Tests 06/30/25 06:14 Test 06/30/25 06:14 Range/Units Serum Glucose 87 74-106 mg/dL Microbiology Date/Time Source Procedure Growth Status 06/29/25 05:29 Nose MRSA Screen - Final Complete 06/28/25 17:16 Urine - Spann [place] Urine Culture - Preliminary Resulted 06/28/25 14:45 Blood Blood Culture - Preliminary NO GROWTH AFTER 48 HOURS OF INCUBATION. Resulted Labs and/or images reviewed: Labs reviewed by me, Image(s) reviewed by me Problem List/Assessment/Plan Problem List/Assessment/Plan #Septicemia due to aspiration pneumonia # Complicated cystitis -U/A showed UTI Urinary culture -no growth till now -blood culture -started on meropenem -IV fluids continued -ondansetron 4 mg q.4 PRN IV -pain management with acetaminophen 650 mg q.6 PRN per orally and [place] 5/325 mg q.4 PRN -ct abd/pelvis without contrast showed ileus/enteritis, cholelithiasis -the patient on micafungin #Atrial fibrillation with RVR #status post pacemaker dual leads #chronic systolic/diastolic heart failure, not under exacerbation -patient being followed up by Dr. 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 H/o bowel perforation due to colonoscopy s/p colostomy # Hypertensive heart disease - medication held now as BP is normal # Type 2 diabetes mellitus hyperglycemia and neuropathy - A1c, pending - insulin held for now as serum glucose was 97 #Normocytic, normochromic anemia - monitor H&H - continued home medication ferrous sulfate #Pulmonary edema -Seen in chest x-ray - MRSA screen #Sacral wound stage I present on admission -Wound consult done -nystatin topical cream daily GI prophylaxis: pantoprazole 40 mg IV daily DVT prophylaxis: Therapeutic dose Lovenox subcutaneously given daily twice a day Diet: pureed diet, ensure powder Goals of care: Full code, discussed for >23 minutes Plan discussed with Plan discussed with: Patient Dietary Evaluation Review Comments: 1) Consider Ensure enlive 240ml TID 2) Monitor PO intake, lab values, weight trend, and I/O Expected Outcomes/Goals: Intake to meet >75% estimated needs Fu 3-5 days Date of Service: Jun 30, 2025 Billing Provider: TOSHIA MCQUEEN MD Common Visit Codes: [id number] INP/OBS CARE(HIGH) Date of Service: Jun 30, 2025 Billing Provider: TOSHIA MQCUEEN MD Common Visit Codes: [id number] INP/OBS CARE(HIGH) CARMELITA ALATORRE RESIDENT Jun 30, 2025 16:51 TOSHIA MCQUEEN MD Jun 30, 2025 22:29
--- NOTE | 2025-06-30 17:12 | DVHINCON2 ---
Date of service: Jun 30, 2025 Referring Physician Vaibhavdous Reason for Consultation History of colonic perforation History of colostomy History of Present Illness The patient is an 89-year-old female with a past medical history significant for hypertension, diabetes, history of pacemaker, history of CHF, who underwent a colonoscopy several months ago at an outside facility and had a perforation. Patient is status post colostomy. Patient was admitted with a UTI, possible sepsis. She has a history of decubitus ulcer, history of hiatal hernia. Per the patient's family member at bedside she has not been herself as of late and is having memory issues. Patient also noted to have issues with the colostomy and her family member states that the colostomy is not where the stool is coming from anymore but from an area nearby, likely indicative of fistula. There has not been any significant blood per the ostomy bag. Patient noted to have pneumonia. GI consultation was obtained for evaluation. Past Medical History As above Past Surgical History As above History of hip surgery on the right Family History: FH: heart attack G8 SISTER Family History Not a good historian Social History No current tobacco alcohol or recreational drug use Allergies: Coded Allergies: Levofloxacin (Verified Allergy, Unknown, 06/28/25) Home Meds Reported Medications Acetaminophen (Acetaminophen) 325 Mg Tab, 650 MG PO HS for 30 Days, MG 0 Refills 10/02/21 Meclizine Hcl (Meclizine Hcl) 25 Mg Tab, 25 MG PO BIDP PRN for DIZZINESS for 30 Days, MG 10/02/21 Aspirin Buffered (Quinten Carb-Mag (Aspirin 325 mg) 1 Tab Tab, 1 TAB PO, TAB 06/24/21 Omeprazole (Gnp Omeprazole) 20 Mg Tab, 20 MG PO, TAB 06/20/21 Ferrous Sulfate (FERROUS SULFATE) 325 Mg Tb, 325 MG PO, TAB 06/20/21 Potassium Chloride (Klor-Con M10) 10 Meq Tab, 10 MEQ PO, TAB 06/20/21 Folic Kaxu-Hgasrkfoss-Okqfmzqk (Folbic) Tab, 1 TAB PO, TAB 06/20/21 Folic Genr-Huzfpztddp-Plzwbmbr (Folbic) Tab, 1 TAB PO DAILY, #90 TAB 3 Refills 06/20/21 Multiple Vitamins W/ Minerals (Centrum Silver 50+Women) 1 Tab Tab, 1 TAB PO, TAB 06/20/21 Furosemide (Lasix) 40 Mg Tab, 40 MG PO, TAB 06/20/21 Azilsartan Medoxomil-Chlorthal (Edarbyclor 40-25 mg) 1 Tab Tab, 1 TAB PO, TAB 06/20/21 Current Medications Current Medications Medications (Trade) Dose Ordered Sig/Cristy Route PRN Reason Start Time Stop Time Status Last Admin Meropenem 50 ml @ 17 mls/hr Q12H IV 06/29/25 23:00 06/30/25 13:12 Iron Sucrose 110 ml @ 110 mls/hr DAILY@1200 IV 07/01/25 12:00 07/05/25 12:59 Review of Systems As per HPI Vital Signs Vital Signs Date Time Temp Pulse Resp B/P (MAP) Pulse Ox O2 Delivery O2 Flow Rate FiO2 06/30/25 13:00 97.7 114 16 132/71 (91) 99 97.7 06/30/25 08:00 Room Air* 0 21 Physical Exam Alert elderly female lying in bed no distress chronically ill-appearing NC/AT EOMI PERRLA Regular rate and rhythm Soft mild tenderness to palpation, ostomy bag in place No clubbing cyanosis or edema Labs/Diagnostic Data Labs Test 06/30/25 06:14 06/29/25 05:32 06/28/25 17:16 06/28/25 14:45 Range/Units White Blood Count 4.7 4.4-10.8 10^3/uL Red Blood Count 2.85 L 4.0-5.20 10^6/uL Hemoglobin 9.1 L 12.2-16.2 g/dL Hematocrit 27.7 L 36.0-46.0 % Mean Corpuscular Volume 97.2 80.0-100.0 fL Mean Corpuscular Hemoglobin 32.1 H 28.0-32.0 pg Mean Corpuscular Hemoglobin Concent 33.0 32.0-36.0 g/dL Red Cell Distribution Width 18.3 H 11.8-14.3 % Platelet Count 228 140-450 10^3/uL Mean Platelet Volume 7.2 6.9-10.8 fL Neutrophils (%) (Auto) 69.7 37.0-80.0 % Lymphocytes (%) (Auto) 21.1 10.0-50.0 % Monocytes (%) (Auto) 7.0 0.0-12.0 % Eosinophils (%) (Auto) 1.4 0.0-7.0 % Basophils (%) (Auto) 0.8 0.0-2.0 % Neutrophils # (Auto) 3.3 1.6-8.6 10 ^3/uL Lymphocytes # (Auto) 1.0 0.4-5.4 10 ^3/uL Monocytes # (Auto) 0.3 0-1.3 10 ^3/uL Eosinophils # (Auto) 0.1 0-0.8 10 ^3/uL Basophils # (Auto) 0 0-0.2 10 ^3/uL Nucleated Red Blood Cells 0.1 % Prothrombin Time 11.4 9.3-11.8 sec Prothrombin Time INR 1.08 0.9-1.15 Activated Partial Thromboplast Time 32.0 24.5-34.5 SEC Sodium Level 139 136-145 mmol/L Potassium Level 3.7 3.5-5.1 mmol/L Chloride Level 109 H 98-107 mmol/L Carbon Dioxide Level 17 L 20-31 mmol/L Anion Gap 13 5-15 Blood Urea Nitrogen 18 9-23 mg/dL Creatinine 0.81 0.550-1.02 mg/dL Glomerular Filtration Rate Calc 70 >90 mL/min BUN/Creatinine Ratio 22.2 H 10.0-20.0 Serum Glucose 87 74-106 mg/dL Calcium Level 8.9 8.7-10.4 mg/dL Iron Level 18 L 50-170 ug/dL Total Iron Binding Capacity 118 L 250-425 ug/dL Percent Iron Saturation 15.3 15-50 % Ferritin 318.2 H 10-291 ng/mL Hemoglobin A1c 4.6 <5.7 % A1C Magnesium Level 1.9 1.6-2.6 mg/dL Total Bilirubin 0.4 0.2-1.0 mg/dL Aspartate Amino Transferase (AST) 26 13-40 U/L Alanine Aminotransferase (ALT) 14 7-40 U/L Alkaline Phosphatase 85 46-116 U/L Total Protein 5.4 L 5.7-8.2 g/dL Albumin 3.0 L 3.2-4.8 g/dL Urine Color Yellow Yellow Urine Clarity Ex.turbid Clear Urine pH 5.5 5.0-9.0 Urine Specific [place] 1.017 1.001-1.035 Urine Protein 1+ H Negative Urine Ketones Trace Negative Urine Blood Negative Negative /uL Urine Nitrite Negative Negative Urine Bilirubin Negative Negative Urine Urobilinogen Normal Negative mg/dL Urine Leukocyte Esterase 3+ Negative /uL Urine RBC <1 0 - 4 /hpf Urine WBC Clumps Present None Seen /hpf Urine Microscopic WBC 574 H 0-5 /HPF Urine Squamous Epithelial Cells Few <5 /hpf Urine Calcium Oxalate Crystals Few None Seen Urine Bacteria Few H None Seen /hpf Urine Yeast (Budding) Many None Seen /hpf Urine Glucose Normal Normal mg/dL Lactic Acid Level 1.3 0.4-2.0 mmol/L Direct Bilirubin 0.3 <0.3 mg/dL Microbiology Date/Time Source Procedure Growth Status 06/29/25 05:29 Nose MRSA Screen - Final Complete 06/28/25 17:16 Urine - [place] Urine Culture - Preliminary Resulted 06/28/25 14:45 Blood Blood Culture - Preliminary NO GROWTH AFTER 48 HOURS OF INCUBATION. Resulted Problems(with codes): (1) Radial styloid fracture (2) Distal radial epiphysitis (3) Fall (4) Left lower lobe pneumonia Plan/Recommendation 1. Continue with current medications 2. Obtain surgical consultation for evaluation. Not sure that the patient is a good surgical candidate for anything at this time however if she has ostomy issues and possible fistula surgical evaluation would be helpful. 3. Anti-reflux precautions 4. No endoscopy or colonoscopy indicated this time Plan discussed with: BIA Wills MD Jun 30, 2025 17:12
--- NOTE | 2025-06-30 17:34 | DVHINCON2 ---
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 According to the daughter who has power of fine wire drawer, patient has had an open wound and stool leakage from the wounds approximately a week after surgery and there was no stool output from the colostomy site. Past Medical History As mentioned Past Surgical History Please see HPI Family History: FH: heart attack G8 SISTER Family History Noncontributory Social History No alcohol, tobacco, IV drug use Allergies: Coded Allergies: Levofloxacin (Verified Allergy, Unknown, 06/28/25) Home Meds Reported Medications Acetaminophen (Acetaminophen) 325 Mg Tab, 650 MG PO HS for 30 Days, MG 0 Refills 10/02/21 Meclizine Hcl (Meclizine Hcl) 25 Mg Tab, 25 MG PO BIDP PRN for DIZZINESS for 30 Days, MG 10/02/21 Aspirin Buffered (Quinten Carb-Mag (Aspirin 325 mg) 1 Tab Tab, 1 TAB PO, TAB 06/24/21 Omeprazole (Gnp Omeprazole) 20 Mg Tab, 20 MG PO, TAB 06/20/21 Ferrous Sulfate (FERROUS SULFATE) 325 Mg Tb, 325 MG PO, TAB 06/20/21 Potassium Chloride (Klor-Con M10) 10 Meq Tab, 10 MEQ PO, TAB 06/20/21 Folic Gykn-Vvaqzdimvq-Bhejtkbw (Folbic) Tab, 1 TAB PO, TAB 06/20/21 Folic Ilgc-Qwolxlbvbn-Takrhbyg (Folbic) Tab, 1 TAB PO DAILY, #90 TAB 3 Refills 06/20/21 Multiple Vitamins W/ Minerals (Centrum Silver 50+Women) 1 Tab Tab, 1 TAB PO, TAB 06/20/21 Furosemide (Lasix) 40 Mg Tab, 40 MG PO, TAB 06/20/21 Azilsartan Medoxomil-Chlorthal (Edarbyclor 40-25 mg) 1 Tab Tab, 1 TAB PO, TAB 06/20/21 Current Medications Current Medications Medications (Trade) Dose Ordered Sig/Cristy Route PRN Reason Start Time Stop Time Status Last Admin Meropenem 50 ml @ 17 mls/hr Q12H IV 06/29/25 23:00 06/30/25 13:12 Iron Sucrose 110 ml @ 110 mls/hr DAILY@1200 IV 07/01/25 12:00 07/05/25 12:59 Vital Signs Vital Signs Date Time Temp Pulse Resp B/P (MAP) Pulse Ox O2 Delivery O2 Flow Rate FiO2 06/30/25 13:00 97.7 114 16 132/71 (91) 99 97.7 06/30/25 08:00 Room Air* 0 21 Physical Exam GEN: Elderly female in no acute distress. HEENT: Normocephalic atraumatic. Moist mucous membranes. Anicteric sclerae. CV: RRR Respiratory: Coarse breath sounds ABD: There is a proximally 10 by 10 cm open wound covered in fecal material. However once the fecal material it was removed, there was relatively clean granulation tissue underneath. There is a drain in the right lateral edge of the wound with fecal material in the bulb. The exact source of the fecal leakage is unknown however the two area most likely are around the drain which has been in place since March or at the left lateral edge next to the previous colostomy site which now has been closed up. CT of the abdomen and pelvis: Abdominal wall: Open surgical wound in the ventral pelvic body wall subcutaneous tissues with closure of the underlying fascia, new compared to the prior exam. There is a surgical drain extending through the right lower ventral abdominal wall into the right hemipelvis. Left lower quadrant colostomy again noted. 1. Interval postsurgical changes as described above. 2. Nonspecific nondilated fluid-filled small bowel loops. Findings may be seen with ileus or enteritis in the appropriate clinical setting. No small bowel obstruction. 3. No free air or free fluid. 4. Cholelithiasis and pneumobilia. 5. Large hiatal hernia. 6. Chronic appearing compression fractures in the lower thoracic and upper lumbar spine with slight progressive loss of height of the L1 compression fracture compared to the prior exam and increased sclerosis. Labs/Diagnostic Data Labs Test 06/30/25 06:14 06/29/25 05:32 06/28/25 17:16 06/28/25 14:45 Range/Units White Blood Count 4.7 4.4-10.8 10^3/uL Red Blood Count 2.85 L 4.0-5.20 10^6/uL Hemoglobin 9.1 L 12.2-16.2 g/dL Hematocrit 27.7 L 36.0-46.0 % Mean Corpuscular Volume 97.2 80.0-100.0 fL Mean Corpuscular Hemoglobin 32.1 H 28.0-32.0 pg Mean Corpuscular Hemoglobin Concent 33.0 32.0-36.0 g/dL Red Cell Distribution Width 18.3 H 11.8-14.3 % Platelet Count 228 140-450 10^3/uL Mean Platelet Volume 7.2 6.9-10.8 fL Neutrophils (%) (Auto) 69.7 37.0-80.0 % Lymphocytes (%) (Auto) 21.1 10.0-50.0 % Monocytes (%) (Auto) 7.0 0.0-12.0 % Eosinophils (%) (Auto) 1.4 0.0-7.0 % Basophils (%) (Auto) 0.8 0.0-2.0 % Neutrophils # (Auto) 3.3 1.6-8.6 10 ^3/uL Lymphocytes # (Auto) 1.0 0.4-5.4 10 ^3/uL Monocytes # (Auto) 0.3 0-1.3 10 ^3/uL Eosinophils # (Auto) 0.1 0-0.8 10 ^3/uL Basophils # (Auto) 0 0-0.2 10 ^3/uL Nucleated Red Blood Cells 0.1 % Prothrombin Time 11.4 9.3-11.8 sec Prothrombin Time INR 1.08 0.9-1.15 Activated Partial Thromboplast Time 32.0 24.5-34.5 SEC Sodium Level 139 136-145 mmol/L Potassium Level 3.7 3.5-5.1 mmol/L Chloride Level 109 H 98-107 mmol/L Carbon Dioxide Level 17 L 20-31 mmol/L Anion Gap 13 5-15 Blood Urea Nitrogen 18 9-23 mg/dL Creatinine 0.81 0.550-1.02 mg/dL Glomerular Filtration Rate Calc 70 >90 mL/min BUN/Creatinine Ratio 22.2 H 10.0-20.0 Serum Glucose 87 74-106 mg/dL Calcium Level 8.9 8.7-10.4 mg/dL Iron Level 18 L 50-170 ug/dL Total Iron Binding Capacity 118 L 250-425 ug/dL Percent Iron Saturation 15.3 15-50 % Ferritin 318.2 H 10-291 ng/mL Hemoglobin A1c 4.6 <5.7 % A1C Magnesium Level 1.9 1.6-2.6 mg/dL Total Bilirubin 0.4 0.2-1.0 mg/dL Aspartate Amino Transferase (AST) 26 13-40 U/L Alanine Aminotransferase (ALT) 14 7-40 U/L Alkaline Phosphatase 85 46-116 U/L Total Protein 5.4 L 5.7-8.2 g/dL Albumin 3.0 L 3.2-4.8 g/dL Urine Color Yellow Yellow Urine Clarity Ex.turbid Clear Urine pH 5.5 5.0-9.0 Urine Specific [place] 1.017 1.001-1.035 Urine Protein 1+ H Negative Urine Ketones Trace Negative Urine Blood Negative Negative /uL Urine Nitrite Negative Negative Urine Bilirubin Negative Negative Urine Urobilinogen Normal Negative mg/dL Urine Leukocyte Esterase 3+ Negative /uL Urine RBC <1 0 - 4 /hpf Urine WBC Clumps Present None Seen /hpf Urine Microscopic WBC 574 H 0-5 /HPF Urine Squamous Epithelial Cells Few <5 /hpf Urine Calcium Oxalate Crystals Few None Seen Urine Bacteria Few H None Seen /hpf Urine Yeast (Budding) Many None Seen /hpf Urine Glucose Normal Normal mg/dL Lactic Acid Level 1.3 0.4-2.0 mmol/L Direct Bilirubin 0.3 <0.3 mg/dL Microbiology Date/Time Source Procedure Growth Status 06/29/25 05:29 Nose MRSA Screen - Final Complete 06/28/25 17:16 Urine - [place] Urine Culture - Preliminary Resulted 06/28/25 14:45 Blood Blood Culture - Preliminary NO GROWTH AFTER 48 HOURS OF INCUBATION. 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 Previous colostomy site has been closed up Plan/Recommendation 1. This is a very complicated case. I think the 1st treatment she would be focused on minimizing the stool burden. We will keep the patient NPO and started on TPN. Hopefully this will minimize the output from the colocutaneous fistula. Because the previous colostomy site has now closed up, the colocutaneous fistula opening is the only draining opening for the patient. However by controlling the output and minimizing it, hopefully the open wound we will heal up and closed. Realistically, I think the only viable solution we will end up being a surgical re-exploration and given her another colostomy to establish a permanent exit for the luminal contents. However she is currently DNR status with the family only agreed to intubation and IV meds. Plan discussed with: Daughter JOLENE HOLDEN Wilmer MILLER Jun 30, 2025 17:34
[2025-06-30] MEDS ORDERED: TPN PER PHARMACY 0 ML IV SCH (18:45)
[2025-06-30] MEDS ORDERED: DEXTROSE (50%) 50ML SYRG IV SCH (19:00)
[2025-06-30] MEDS: AMINO ACID INFUSION IN D10W 1,000 ML IV SCH (23:26)
[2025-07-01] VITALS (9 sets, daily range): BP systolic 104–144; BP diastolic 59–87; PULSE 75–109; RESP 16–17; TEMP 97.3–98.1; O2SAT 97–99
[2025-07-01] MEDS: ACCU-CHEK COMFORT CURVE STRIP VI SCH
[2025-07-01] MEDS: InsuLIN REG 1unit/0.01ml Soln (100units/ml) SC SCH (01:30)
[2025-07-01 06:47] LABS: Hematocrit 26.7 % (36.0-46.0); Hemoglobin 8.9 g/dL (12.2-16.2); Mean Corpuscular Hemoglobin 32.0 pg (28.0-32.0); Mean Corpuscular Volume 96.3 fL (80.0-100.0); Nucleated Red Blood Cells % 0.1 %
[2025-07-01 07:08] LABS: Alanine Aminotransferase 13 U/L (7-40); Alkaline Phosphatase 78 U/L (46-116); Anion Gap 11 (5-15); BUN/Creatinine Ratio 21.8 (10.0-20.0); Blood Urea Nitrogen 17 mg/dL (9-23); Sodium 138 mmol/L (136-145); Triglycerides 136 mg/dL (< 150)
[2025-07-01 07:10] LABS: Albumin 2.9 g/dL (3.2-4.8); Bilirubin, Total 0.3 mg/dL (0.2-1.0); Calcium 8.7 mg/dL (8.7-10.4); Carbon Dioxide 19 mmol/L (20-31); Chloride 108 mmol/L (98-107); Glucose 128 mg/dL (74-106); Magnesium 1.5 mg/dL (1.6-2.6); Potassium 3.2 mmol/L (3.5-5.1); Total Protein 5.2 g/dL (5.7-8.2)
[2025-07-01] MEDS: POTASSIUM CHL 20MEQ/100ML 100 ML IV SCH (08:28)
[2025-07-01] MEDS: MAGNESIUM SULFATE 1GM/100ML 100 ML IV SCH (08:29)
--- NOTE | 2025-07-01 11:52 | DVHPN2 ---
Progress Note - Dictate Date Seen: Jul 01, 2025 Medical Necessity Reason Pt with a Central, PICC or Fol: No The following are medically ne: Spann Catheter Subjective E: no major events o/n. no complaints. vital signs Vital Sign Date Time Temp Pulse Resp B/P (MAP) Pulse Ox O2 Delivery O2 Flow Rate FiO2 07/01/25 09:00 98.1 84 16 141/73 (95) 97 98.1 07/01/25 08:00 Room Air* 0 21 Total Intake and Output 06/30/25 06/30/25 07/01/25 15:00 23:00 07:00 Intake Total 100 ml 270 ml 200 ml Output Total 250 ml 555 ml Balance 100 ml 20 ml -355 ml medications Current Medications Medications Dose Ordered Sig/Cristy Route Start Time Stop Time Status Last Admin Dose Admin Acetaminophen/ Hydrocodone Bitart 1 tab Q4HP PRN PO 06/28/25 22:15 Ondansetron HCl 4 mg Q4HP PRN IV 06/28/25 22:15 Acetaminophen 650 mg Q6HP PRN PO 06/28/25 22:15 06/29/25 17:46 650 MG Enoxaparin Sodium 50 mg Q12HR SC 06/29/25 10:00 Hold 06/30/25 09:56 50 MG Ferrous Sulfate 325 mg DAILY PO 06/29/25 10:00 07/01/25 09:17 325 MG Meclizine HCl 25 mg BIDP PRN PO 06/28/25 22:15 Pantoprazole Sodium 40 mg DAILY IV 06/29/25 10:00 07/01/25 09:17 40 MG Micafungin Sodium 100 mg/Sodium Chloride 100 ml @ 100 mls/hr DAILY IV 06/29/25 10:00 06/30/25 16:17 100 MLS/HR Amiodarone HCl 400 mg Q12HR PO 06/29/25 10:00 07/01/25 09:17 400 MG Meropenem 50 ml @ 17 mls/hr Q8HR IV 06/29/25 14:00 UNV Sodium Chloride 1,000 ml @ 75 mls/hr [id number] IV 06/29/25 10:00 06/30/25 12:53 75 MLS/HR Doxycycline Hyclate 100 ml @ 50 mls/hr Q12H IV 06/29/25 10:00 06/30/25 21:07 50 MLS/HR Meropenem 50 ml @ 17 mls/hr Q12H IV 06/29/25 23:00 06/30/25 23:22 17 MLS/HR Iron Sucrose 110 ml @ 110 mls/hr DAILY@1200 IV 07/01/25 12:00 07/05/25 12:59 Amino Acids 0 ml @ 0 mls/hr PER PHARMACY IV 06/30/25 18:45 Amino Acids/ Electrolytes/ Dextrose 1,000 ml @ 41 mls/hr DAILY@2200 IV 06/30/25 22:00 06/30/25 23:26 41 MLS/HR Diagnostic Test (Pha) 1 strip Q6HR 07/01/25 00:00 07/01/25 06:00 1 STRIP Insulin Human Regular FOLLOW SLIDING SCALE Q6HR SC 07/01/25 00:00 07/01/25 06:33 2 UNITS Dextrose 50 ml UD IV 06/30/25 19:00 objective GEN: NAD ABD: feculent drainage from abdominal wound unchanged. 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 Previous colostomy site has been closed up P: 1. family wants higher level of care for possible surgery Dietary Evaluation Review Comments: 1) Consider Ensure enlive 240ml TID 2) Monitor PO intake, lab values, weight trend, and I/O Expected Outcomes/Goals: Intake to meet >75% estimated needs Fu 3-5 days Plan discussed with: Patient, Daughter JOLENE HOLDEN MD Jul 01, 2025 11:51
[2025-07-01] MEDS: MAGNESIUM SULFATE 1GM/100ML 100 ML IV ONE (12:15)
[2025-07-01] MEDS: IRON SUCROSE COMPLEX 110 ML IV SCH (12:23)
--- NOTE | 2025-07-01 16:02 | DVHPNRES ---
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 Patient is Citizen Of [place]-speaking and translation was done by her daughter who was with her. The patient's daughter reports that today the patient went to Dr. Zazueta, who is her primary care physician for outpatient visit and was told that the patient is dehydrated and to visit the emergency room. She also reports that the patient has been in a fdc for the past 1 month due to colostomy bag placement and sacral wound ([facility]) and the past week when she visited, the patient has been increasingly confused ( different from her baseline as patient sees her grandchildren when they are not there and has been saying things that make no sense). As per the daughter, patient underwent a colonoscopy in [facility], and during the procedure, her mother' s colon ripped which is why a colostomy bag has been placed since March 15, 2025 and patient was given TPN for a long while. Right now the patient has low appetite and is only able to take soft food and ensure. Patient also went to [place] 1 month ago due to bladder infection and was told there that she had a fungal infection of the heart. This was the reason why the patient also had gone to follow up with Dr. Zazueta. En route to the ED the patient had heart rate of 120-130 AFib. Patient denies any chills, fever, nausea, vomiting, diarrhea, shortness of breath or chest pain. She has not had any sick contacts recently. She reports the Spann's catheter gets changed but can not remember when the last time it was done. Chest x-ray shows left basilar obesity, likely atelectasis /small pleural effusion. Past medical history: As stated above past surgical history: Right hip arthroplasty, family history: Reviewed and noncontributory to the management of this case Social history: denies smoking, alcohol, and illicit drugs Allergies: Levofloxacin PCP: Dr. Zazueta Code status: Modified code including intubation, ACLS drugs/vasopressors, BiPAP, cardioversion Constitutional: No: Fever, Chills, Sweats, Weakness, Malaise Eyes: No: Pain, Vision change, Conjunctivae inflammation, Eyelid inflammation, Other, Redness ENT: No: Ear pain, Ear discharge, Nose pain, Nose discharge, Nose congestion, Mouth pain, Mouth swelling, Throat pain, Throat swelling Respiratory: No: Cough, Dry, Shortness of breath, SOB with excertion, Wheezing, Hemoptysis, Pleuritic Pain, Sputum, Wheezing Cardiovascular: No: Chest Pain, Palpitations, Orthopnea, Paroxysmal Noc. Dyspnea, Edema, Lt Headedness Genitourinary: No Dysuria, No Frequency, No Incontinence, No Hematuria, No Retention; Other (Cloudy urine in Spann's catheter) Musculoskeletal: No: other, neck pain, shoulder pain, arm pain, back pain, hand pain, leg pain, foot pain Skin: No: Rash, Lesions, Jaundice, Bruising Neurological: Confusion; No: Weakness, Numbness, Incoordination, Change in speech, Seizures Allergies: Coded Allergies: Levofloxacin (Verified Allergy, Unknown, 06/28/25) 06/30/25- patient was seen at bedside. All labs and charts were reviewed . A new colostomy bag was placed on the patient. IV antibiotics were continued. Stool occult, iron panel, ferritin were ordered. Goals of care were discussed with the family they stated they want modified resuscitative measures. Surgical consult was done for the patient and they recommended to keep the patient NPO and start her on TPN to reduce the stool burden. 07/01/25- the patient was seen at bedside today. All labs and charts were reviewed. Potassium, phosphate and magnesium were repleted. IV antibiotics were continued. Surgical follow up was done and transfer to higher level of care was recommended for possible reexploration and new colostomy. manager office services consult for the same was placed. Pending response from them. Objective vital signs Vital Sign Date Time Temp Pulse Resp B/P (MAP) Pulse Ox O2 Delivery O2 Flow Rate FiO2 07/01/25 13:00 97.5 83 16 139/73 (95) 99 97.5 07/01/25 08:00 Room Air* 0 21 Total Intake and Output 06/30/25 06/30/25 07/01/25 15:00 23:00 07:00 Intake Total 100 ml 270 ml 200 ml Output Total 250 ml 555 ml Balance 100 ml 20 ml -355 ml medications Current Medications Medications Dose Ordered Sig/Cristy Route Start Time Stop Time Status Last Admin Dose Admin Acetaminophen/ Hydrocodone Bitart 1 tab Q4HP PRN PO 06/28/25 22:15 Ondansetron HCl 4 mg Q4HP PRN IV 06/28/25 22:15 Acetaminophen 650 mg Q6HP PRN PO 06/28/25 22:15 06/29/25 17:46 650 MG Enoxaparin Sodium 50 mg Q12HR SC 06/29/25 10:00 Hold 06/30/25 09:56 50 MG Ferrous Sulfate 325 mg DAILY PO 06/29/25 10:00 07/01/25 09:17 325 MG Meclizine HCl 25 mg BIDP PRN PO 06/28/25 22:15 Pantoprazole Sodium 40 mg DAILY IV 06/29/25 10:00 07/01/25 09:17 40 MG Micafungin Sodium 100 mg/Sodium Chloride 100 ml @ 100 mls/hr DAILY IV 06/29/25 10:00 07/01/25 11:20 100 MLS/HR Amiodarone HCl 400 mg Q12HR PO 06/29/25 10:00 07/01/25 09:17 400 MG Meropenem 50 ml @ 17 mls/hr Q8HR IV 06/29/25 14:00 UNV Sodium Chloride 1,000 ml @ 75 mls/hr [id number] IV 06/29/25 10:00 06/30/25 12:53 75 MLS/HR Doxycycline Hyclate 100 ml @ 50 mls/hr Q12H IV 06/29/25 10:00 07/01/25 13:25 50 MLS/HR Meropenem 50 ml @ 17 mls/hr Q12H IV 06/29/25 23:00 07/01/25 11:00 17 MLS/HR Iron Sucrose 110 ml @ 110 mls/hr DAILY@1200 IV 07/01/25 12:00 07/05/25 12:59 07/01/25 12:23 110 MLS/HR Amino Acids 0 ml @ 0 mls/hr PER PHARMACY IV 06/30/25 18:45 Amino Acids/ Electrolytes/ Dextrose 1,000 ml @ 41 mls/hr DAILY@2200 IV 06/30/25 22:00 07/02/25 21:59 06/30/25 23:26 41 MLS/HR Diagnostic Test (Pha) 1 strip Q6HR 07/01/25 00:00 07/01/25 06:00 1 STRIP Insulin Human Regular FOLLOW SLIDING SCALE Q6HR SC 07/01/25 00:00 07/01/25 06:33 2 UNITS Dextrose 50 ml UD IV 06/30/25 19:00 Examination Pt is lying on bed. Patient has a grade 1 sacral ulcer. Bruises seen all over the body. General Appearance: Alert, Oriented X3, Cooperative, Not in acute distress HEENT: Atraumatic, Mucous membranes moist/pink Respiratory: Clear to auscultation, Normal air movement, No added sounds Cardiovascular: Regular rate, Normal S1, Normal S2, No murmurs Abdominal: Active bowel sounds, Soft, no distention, presence of colostomy bag draining stool with 2 drains Extremities: No edema, Normal pulses, No tenderness/swelling Skin: No Significant rash, except past surgical scars, presence of Spann's Neuro: Normal speech, sensorimotor deficits none Psych/Mental Status: Mental status NL, Mood NL Nurse was present as technicians and trades workers during the examination laboratory and microbiology Laboratory Tests 07/01/25 05:10 Test 07/01/25 05:10 Range/Units Serum Glucose 128 H 74-106 mg/dL Microbiology Date/Time Source Procedure Growth Status 06/29/25 05:29 Nose MRSA Screen - Final Complete 06/28/25 17:16 Urine - Spann Port Urine Culture - Preliminary Resulted 06/28/25 14:45 Blood Blood Culture - Preliminary NO GROWTH AFTER 72 HOURS OF INCUBATION. Resulted Labs and/or images reviewed: Labs reviewed by me, Image(s) reviewed by me Problem List/Assessment/Plan Problem List/Assessment/Plan #Septicemia due to aspiration pneumonia # Acute complicated cystitis -U/A showed UTI Urinary culture -no growth till now -blood culture no growth after 72 hrs -started on meropenem on 06/29/25 -IV fluids continued -ondansetron 4 mg q.4 PRN IV -pain management with acetaminophen 650 mg q.6 PRN per orally and [place] 5/325 mg q.4 PRN -ct abd/pelvis without contrast showed ileus/enteritis, cholelithiasis -micafungin 100mg iv daily -TPN per pharmacy #Atrial fibrillation with RVR #status post pacemaker dual leads #chronic systolic/diastolic heart failure, not under exacerbation -patient being followed up by Dr. 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 - MRSA screen #Sacral wound stage I present on admission -Wound consult done -nystatin topical cream daily GI prophylaxis: pantoprazole 40 mg IV daily DVT prophylaxis: Therapeutic dose Lovenox subcutaneously given daily twice a day Diet: NPO, on TPN Goals of care: Full code, discussed for >23 minutes Plan discussed with Dr Mcqueen ATTENDING NOTE: Per daughter, she has paperwork from [facility] where the patient had surgery for her perforate bowel that patient need to be seen in tertiary hospital for further management of her colocutaneous fistula draining into the abdominal open wound. Appreciate Dr Farr input. Will put in request to transfer to higher level of care for colorectal surgeon. Plan discussed with: Patient, Daughter My Orders My Orders Orders - CARMELITA ALATORRE RESIDENT Procedure Category Date Status Time * Camera Supervisor CONS 07/01/25 Transmitted Consult Dietary Evaluation Review Comments: 1) Consider Ensure enlive 240ml TID 2) Monitor PO intake, lab values, weight trend, and I/O Expected Outcomes/Goals: Intake to meet >75% estimated needs Fu 3-5 days Date of Service: Jul 01, 2025 Billing Provider: TOSHIA MCQUEEN MD Common Visit Codes: [id number] INP/OBS CARE(HIGH) CARMELITA ALATORRE Jul 01, 2025 16:02 TOSHIA MCQUEEN MD Jul 01, 2025 17:56
[2025-07-01] MEDS: POTASSIUM PHOSPHATE 44 MEQ in D5W 5% 250 ML IV ONE (17:55)
[2025-07-02] VITALS (7 sets, daily range): BP systolic 122–142; BP diastolic 61–71; PULSE 77–87; RESP 16–18; TEMP 97.6–98.6; O2SAT 96–99
[2025-07-02 06:32] LABS: Hematocrit 26.7 % (36.0-46.0); Hemoglobin 8.8 g/dL (12.2-16.2); Mean Corpuscular Hemoglobin 31.7 pg (28.0-32.0); Mean Corpuscular Volume 96.3 fL (80.0-100.0); Nucleated Red Blood Cells % 0.0 %
[2025-07-02 06:46] LABS: Alkaline Phosphatase 75 U/L (46-116); Anion Gap 13 (5-15); BUN/Creatinine Ratio 22.4 (10.0-20.0); Blood Urea Nitrogen 15 mg/dL (9-23); Glucose 91 mg/dL (74-106); Magnesium 2.0 mg/dL (1.6-2.6); Potassium 4.1 mmol/L (3.5-5.1); Sodium 139 mmol/L (136-145)
[2025-07-02 06:51] LABS: Alanine Aminotransferase < 9 U/L (7-40); Albumin 2.8 g/dL (3.2-4.8); Bilirubin, Total 0.3 mg/dL (0.2-1.0); Calcium 8.3 mg/dL (8.7-10.4); Carbon Dioxide 17 mmol/L (20-31); Chloride 109 mmol/L (98-107); Total Protein 5.2 g/dL (5.7-8.2)
[2025-07-02] MEDS: diphenhydrAMINE HCL 50 MG/1 ML VL IV ONE (09:37)
--- NOTE | 2025-07-02 11:44 | DVHDSRES ---
Discharge Summary Date of Admission Resident Creating Document: JACOB REDMAN RESIDENT Jun 28, 2025 at 22:11 Date of Discharge: Jul 02, 2025 Admitting Diagnosis Generalized weakness in the setting of sepsis likely due to left-sided pneumonia and complicated UTI Wounds: Patient has colostomy bag in the abdomen. No additional significant wounds. Labs/Diagnostic Data: Laboratory Results Test 07/02/25 06:19 07/02/25 04:21 07/01/25 05:10 06/30/25 16:49 POC Glucose 111 mg/dl (70-106) White Blood Count 4.7 10^3/uL (4.4-10.8) Red Blood Count 2.78 10^6/uL (4.0-5.20) Hemoglobin 8.8 g/dL (12.2-16.2) Hematocrit 26.7 % (36.0-46.0) Mean Corpuscular Volume 96.3 fL (80.0-100.0) Mean Corpuscular Hemoglobin 31.7 pg (28.0-32.0) Mean Corpuscular Hemoglobin Concent 32.9 g/dL (32.0-36.0) Red Cell Distribution Width 18.3 % (11.8-14.3) Platelet Count 242 10^3/uL (140-450) Mean Platelet Volume 6.9 fL (6.9-10.8) Neutrophils (%) (Auto) 66.4 % (37.0-80.0) Lymphocytes (%) (Auto) 23.4 % (10.0-50.0) Monocytes (%) (Auto) 8.4 % (0.0-12.0) Eosinophils (%) (Auto) 1.3 % (0.0-7.0) Basophils (%) (Auto) 0.5 % (0.0-2.0) Neutrophils # (Auto) 3.2 10 ^3/uL (1.6-8.6) Lymphocytes # (Auto) 1.1 10 ^3/uL (0.4-5.4) Monocytes # (Auto) 0.4 10 ^3/uL (0-1.3) Eosinophils # (Auto) 0.1 10 ^3/uL (0-0.8) Basophils # (Auto) 0 10 ^3/uL (0-0.2) Nucleated Red Blood Cells 0.0 % Sodium Level 139 mmol/L (136-145) Potassium Level 4.1 mmol/L (3.5-5.1) Chloride Level 109 mmol/L (98-107) Carbon Dioxide Level 17 mmol/L (20-31) Anion Gap 13 (5-15) Blood Urea Nitrogen 15 mg/dL (9-23) Creatinine 0.67 mg/dL (0.550-1.02) Glomerular Filtration Rate Calc 84 mL/min (>90) BUN/Creatinine Ratio 22.4 (10.0-20.0) Serum Glucose 91 mg/dL (74-106) Calcium Level 8.3 mg/dL (8.7-10.4) Phosphorus Level 3.4 mg/dL (2.4-5.1) Magnesium Level 2.0 mg/dL (1.6-2.6) Total Bilirubin 0.3 mg/dL (0.2-1.0) Aspartate Amino Transferase (AST) 13 U/L (13-40) Alanine Aminotransferase (ALT) < 9 U/L (7-40) Alkaline Phosphatase 75 U/L (46-116) Total Protein 5.2 g/dL (5.7-8.2) Albumin 2.8 g/dL (3.2-4.8) Triglycerides Level 136 mg/dL (< 150) Stool Occult Blood Negative (Negative) Stool Occult Blood Sample #3 (Negative) Test 06/30/25 06:14 06/29/25 05:32 06/28/25 17:16 06/28/25 14:45 Prothrombin Time 11.4 sec (9.3-11.8) Prothrombin Time INR 1.08 (0.9-1.15) Activated Partial Thromboplast Time 32.0 SEC (24.5-34.5) Iron Level 18 ug/dL (50-170) Total Iron Binding Capacity 118 ug/dL (250-425) Percent Iron Saturation 15.3 % (15-50) Ferritin 318.2 ng/mL (10-291) Hemoglobin A1c 4.6 % A1C (<5.7) Urine Color Yellow (Yellow) Urine Clarity Ex.turbid (Clear) Urine pH 5.5 (5.0-9.0) Urine Specific [place] 1.017 (1.001-1.035) Urine Protein 1+ (Negative) Urine Ketones Trace (Negative) Urine Blood Negative /uL (Negative) Urine Nitrite Negative (Negative) Urine Bilirubin Negative (Negative) Urine Urobilinogen Normal mg/dL (Negative) Urine Leukocyte Esterase 3+ /uL (Negative) Urine RBC <1 /hpf (0 - 4) Urine WBC Clumps Present /hpf (None Seen) Urine Microscopic WBC 574 /HPF (0-5) Urine Squamous Epithelial Cells Few /hpf (<5) Urine Calcium Oxalate Crystals Few (None Seen) Urine Bacteria Few /hpf (None Seen) Urine Yeast (Budding) Many /hpf (None Seen) Urine Glucose Normal mg/dL (Normal) Lactic Acid Level 1.3 mmol/L (0.4-2.0) Direct Bilirubin 0.3 mg/dL (<0.3) Other Laboratory Tests 07/02/25 04:21 Brief Hx & Hospital Course: This is 89-year-old female with past medical history of hypertension, diabetes mellitus, bilateral knee osteoarthritis, chronic systolic/ diastolic heart failure, recurrent UTI, COVID in 2021, 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 The patient's daughter reports that before admission, the patient went to Dr. Zazueta, who is her primary care physician for outpatient visit and was told that the patient is dehydrated and to visit the emergency room. She also reported that the patient has been in a fpc for the past 1 month due to colostomy bag placement and sacral wound ([facility]). As per the daughter, patient underwent a colonoscopy in [facility], and during the procedure, her mother' s colon ripped which is why a colostomy bag has been placed since March 15, 2025 and patient was given TPN for a long while. Upon admission chest xray showed possible left-sided pleural effusion associated with possible aspiration pneumonia. Urinalysis also came back suggesting complicated UTI which urine cultures are showing Enterococcus. Patient was started on IV meropenem and doxycycline as well as micafungin for possible fungal infection reported by his PCP in the past. Colostomy bag was replaced during hospitalization and clean by nurse and wound nurse as well. Surgery was consulted which recommended patient need colorectal surgery, family requested transfer to higher level of care. Social service was consulted and transferred to higher level of care was placed. [facility] seem to have accepted the patient for colorectal surgery Patient is currently hemodynamically stable, patient today denies fever/chills, abdominal pain, chest pain, shortness of breath or any other associated symptoms. Patient will be transferred to higher level of care for further assessment and management. Medications will be continued upon discharge. Consults/Reason for consult Surgical consult GI consult Operations or Procedures CLINICAL HISTORY: weakness TECHNIQUE: Single view of the chest was obtained. COMPARISON: ECHOCARDIOGRAM STANDARD on DOS: 04/05/25, XRAY CHEST 1 VIEW on DOS: 04/01/25, XRAY CHEST AP PORTABLE on DOS: 03/15/25, XRAY CHEST AP PORTABLE on DOS: 03/15/25, CHEST TWO VIEWS ROUTINE on DOS: 02/13/22 FINDINGS: The heart size and pulmonary vasculature are normal. There is a left basilar opacity. There is a dual lead left chest wall pacing device. IMPRESSION: Left basilar opacity, likely atelectasis/ small pleural effusion. CLINICAL INFORMATION: Abdominal pain. TECHNIQUE: Axial CT images of the abdomen and pelvis were obtained without IV contrast. Coronal and sagittal reformatted images were obtained, reviewed, and stored. Evaluation of the parenchymal organs is limited without IV contrast. Evaluation of the bowel and mesentery is limited without oral contrast. All CT scans at this medical facility are performed using dose modulation techniques as appropriate to a performed exam including the following: Automated exposure control was utilized; adjustment of the MA and/or KV according to patient size; and use of iterative reconstruction technique. CTDIvol = 7.01 mGy DLP = 302.24 mGy-cm COMPARISON: CT ABDOMEN + PELVIS WITHOUT CONTRAST on DOS: 03/30/25, CT ABDOMEN + PELVIS WITH CONTRAST on DOS: 03/29/25, CT ABDOMEN + PELVIS WITHOUT CONTRAST on DOS: 03/15/25 FINDINGS: Motion artifact limits evaluation. There is also prominent beam hardening artifact limiting evaluation, particularly in the pelvis. Lung bases: Atelectasis in the lung bases. Partially visualized large hiatal hernia. Partially visualized moderate cardiomegaly and pacemaker leads. Moderate coronary artery calcification and dense mitral annular calcification. Liver: Grossly unremarkable in its noncontrast enhanced appearance. No abnormal density or focal lesion identified. Biliary: Pneumobilia. Multiple calcified gallstones and likely sludge in the gallbladder. Spleen: Unremarkable. Pancreas: Moderate atrophy. Adrenal glands: Unremarkable. No mass. Kidneys: No hydronephrosis. No renal or ureteral calculi. 3.3 cm fluid density lesion in the left kidney, likely a cyst. Aorta/Vascular: Dense atherosclerotic calcification. No abdominal aortic aneurysm. Lymph nodes: No mass or lymphadenopathy identified given the limitations of the exam. Bowel/mesentery: Nonspecific nondilated fluid-filled small bowel loops. No small bowel obstruction. No free air or free fluid visualized. Appendix is not visualized. No Pelvic organs: There are calcifications in the uterus. Bladder: Spann catheter extends into the bladder. Abdominal wall: Open surgical wound in the ventral pelvic body wall subcutaneous tissues with closure of the underlying fascia, new compared to the prior exam. There is a surgical drain extending through the right lower ventral abdominal wall into the right hemipelvis. Left lower quadrant colostomy again noted. Bones: No evidence of acute fracture. Chronic appearing compression fractures of the T9, T12, and L1 vertebral bodies with up to 50% loss of height. There appears to be slight progressive loss of height in the L1 vertebral body compared to the prior CT with increased sclerosis. The T12 and T9 compression fractures appear stable. Mild grade 1 anterolisthesis of L4 on L5 is unchanged. Prominent Schmorl's node at the superior endplate of L4 is unchanged. Postsurgical changes of prior right total hip arthroplasty with associated beam hardening artifact which limits evaluation of adjacent structures. IMPRESSION: 1. Interval postsurgical changes as described above. 2. Nonspecific nondilated fluid-filled small bowel loops. Findings may be seen with ileus or enteritis in the appropriate clinical setting. No small bowel obstruction. 3. No free air or free fluid. 4. Cholelithiasis and pneumobilia. 5. Large hiatal hernia. 6. Chronic appearing compression fractures in the lower thoracic and upper lumbar spine with slight progressive loss of height of the L1 compression fracture compared to the prior exam and increased sclerosis. 7. Additional findings as detailed above Condition at Discharge: Higher Level of Care Final Diagnosis/Problems List Sepsis due to aspiration pneumonia Acute complicated cystitis Atrial fibrillation with RVR chronic systolic/diastolic heart failure, not under exacerbation Hx of fungal infection on the heart? 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 Normocytic, normochromic anemia Left sided Pleural effusion Sacral wound stage I present on admission Discharge Disposition: Acute Care Facility Discharge Instruct/Medications Follow Up/Referral: F/U with PCP after discharge from [facility] Medications: Cont meds upon ransfer to [facility] Scheduled Acetaminophen (Acetaminophen), 650 MG PO HS, (Reported) Folic Byyn-Pqvvihlkgv-Gljiygju (Folbic), 1 TAB PO DAILY, (Reported) Scheduled PRN Meclizine Hcl (Meclizine Hcl), 25 MG PO BIDP PRN for DIZZINESS, (Reported) Miscellaneous Medications Aspirin Buffered (Quinten Carb-Mag (Aspirin 325 mg), 1 TAB PO, (Reported) Azilsartan Medoxomil-Chlorthal (Edarbyclor 40-25 mg), 1 TAB PO, (Reported) Ferrous Sulfate (Ferrous Sulfate), 325 MG PO, (Reported) Folic Hitm-Eajxqtnyyj-Siftbcnh (Folbic), 1 TAB PO, (Reported) Furosemide (Lasix), 40 MG PO, (Reported) Multiple Vitamins W/ Minerals (Centrum Silver 50+Women), 1 TAB PO, (Reported) Omeprazole (Gnp Omeprazole), 20 MG PO, (Reported) Potassium Chloride (Klor-Con M10), 10 MEQ PO, (Reported) Discharge Statement: "Patient was advised to return to the ER or call 911 if any headaches, dizziness, shortness of breath, chest pain, abdominal pain, bleeding, fevers, or worsening of medical condition. Patient was counseled about treatment plan, medications, possible side effects, patientverbalized understanding. All questions were answered to the best of my ability. This discharge took greater then 30 minutes in planning, reviewing documentation, counseling the patient, and discussing with other team members." ASSESSMENT ASSESSMENT Assessment Date of Service: Jul 02, 2025 Billing Provider: TOSHIA MCQUEEN MD Common Visit Codes: 67171-OYW/OBS DISCH DAY >30min JACOB REDMAN RESIDENT Jul 02, 2025 11:44 TOSHIA MCQUEEN MD Jul 02, 2025 23:36
--- NOTE | 2025-07-03 11:51 | ECG ---
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
== END 2025-07-02 18:00 | disposition short-term general hospital (02) | DRG 871 ==
LOC: EDBD 13:52 → ER 14:01 → OVERFLOW 22:11 → TELE-CENTR 23:45
PROVIDERS: ADMIT Internal Medicine; ATTEND Internal Medicine
PROC: 0T2BX0Z Change Drainage Device in Bladder, External Approach (ICD-10-PCS; principal; 2025-06-29)
DX: A41.81 Sepsis due to Enterococcus (principal); J18.9 Pneumonia, unspecified organism; J69.0 Pneumonitis due to inhalation of food and vomit; I50.42 Chronic combined systolic (congestive) and diastolic (congestive) heart failure; K63.2 Fistula of intestine; N30.00 Acute cystitis without hematuria; J98.11 Atelectasis; J90 Pleural effusion, not elsewhere classified; I48.91 Unspecified atrial fibrillation; I11.0 Hypertensive heart disease with heart failure; B37.9 Candidiasis, unspecified; E11.65 Type 2 diabetes mellitus with hyperglycemia; D64.9 Anemia, unspecified; Z79.899 Other long term (current) drug therapy; M17.0 Bilateral primary osteoarthritis of knee; Z66 Do not resuscitate; Z82.49 Family history of ischemic heart disease and other diseases of the circulatory system; Z86.16 Personal history of COVID-19; Z87.440 Personal history of urinary (tract) infections; Z93.3 Colostomy status; Z95.0 Presence of cardiac pacemaker; E11.40 Type 2 diabetes mellitus with diabetic neuropathy, unspecified; E86.0 Dehydration; S31.000A Unspecified open wound of lower back and pelvis without penetration into retroperitoneum, initial encounter; X58.XXXA Exposure to other specified factors, initial encounter; Y93.89 Activity, other specified; Y92.89 Other specified places as the place of occurrence of the external cause; Y99.8 Other external cause status
CPT/HCPCS: 36415; 71045; 74176; 80048; 80053; 80076; 81001; 82270; 82728; 82962; 83036; 83540; 83550; 83605; 83735; 84100; 84478; 85025; 85610; 85730; 87040; 87081; 87086; 93005; 93306; 96361; 96365; 96368; 97110; 97163; 99291; G0378; J1756; J1815; J1956; J2185; J2248; J2470; J3480; J7060

== ENCOUNTER 2025-07-08 11:59 | Inpatient (IN) | payer MEDICARE, MEDICAID ==
[~2025-07-08] VITALS: Ht 142.2 cm; Wt 52.2 kg
[2025-07-08 19:00] VITALS: BP 134/78; PULSE 95; RESP 16; O2SAT 100
[2025-07-08 19:43] VITALS: PULSE 99; RESP 17; O2SAT 98
[2025-07-08 20:00] VITALS: PULSE 99; RESP 17; O2SAT 98
[2025-07-08] MEDS ORDERED: MORPHINE SULFATE INJ 2 MG/ml SYRG IV PRN (20:30)
--- NOTE | 2025-07-08 20:39 | DVHHPRES ---
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 Patient was sent back to original center to evaluate discharge to specialized nursing facility versus home health. Currently has no new complaints. 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 Surgical history: 03/2025 colon resection with colostomy bag post colonoscopy, right hip surgery, 2020 pacemaker placement Family history: Noncontributory Social history: Lives in [place] before colon resection she was living with daughter, since March 2025 she has been living in assisted living facility. Next of kin is daughter. Denies current tobacco, alcohol and other drug abuse Allergies: Levofloxacin Home medication: Fluconazole, apixaban, folic acid, furosemide, multivitamins PCP: Dr. Zazueta Patient seen and examined at bedside. Currently has no new complaints. Patient admitted for further evaluation and planning on discharge disposition. Past Medical History Per HPI Past Surgical History Per HPI Family History Per HPI Past Social History Per HPI Review of Systems Review of Systems Per HPI Allergies: Coded Allergies: Levofloxacin (Verified Allergy, Unknown, 06/28/25) Medications Current Medications Medications Dose Ordered Sig/Cristy Route Start Time Stop Time Status Last Admin Dose Admin Acetaminophen 325 mg Q4HP PRN PO 07/08/25 20:30 UNV Morphine Sulfate 2 mg Q4HPRN PRN IV 07/08/25 20:30 UNV Fluconazole 400 mg HS PO 07/09/25 22:00 UNV Enoxaparin Sodium 50 mg Q12HR SC 07/08/25 22:00 UNV Ferrous Sulfate 325 mg BIDWM PO 07/09/25 08:00 UNV Famotidine 20 mg DAILY PO 07/09/25 10:00 UNV Lidocaine 1 patch DAILY TOP 07/09/25 10:00 UNV Multivitamins 1 tab DAILY PO 07/09/25 10:00 UNV Mirtazapine 15 mg HS PO 07/08/25 22:00 UNV Olanzapine 2.5 mg DAILY PO 07/09/25 10:00 UNV Metoprolol Succinate 50 mg DAILY PO 07/09/25 10:00 UNV Exam Exam Patient lying in bed, in no acute distress General: Lucid, afebrile, mucosae are moist Cardiovascular: Normal S1 and S2. No murmurs, gallops or rubs. Pacemaker generator in left subclavian region Respiratory: Normal ventilation mechanics. Clear lung sounds on auscultation Abdomen: Soft, nontender, no organomegaly, reduced bowel sounds, colostomy bag occupying lower quadrants with feces loss pericolostomy bag from colorectal fistula tract. MSK/skin: Mobilizes 4 limbs. Skin is dry and warm. Sacral decubitus ulcer grade 1 present on admission Neurological: Oriented in 3 spheres. No motor no sensitive deficits. Pupils are isocoric and reactive SEPSIS Sepsis Screen Physician Orders Vitamin D, 25-Hydroxy (07/08/25 20:14) Vitamin B12 (07/08/25 20:14) Urinalysis (07/08/25 20:14) Thyroid Stimulating Hormone (07/08/25 20:14) Phosphorus (07/08/25 20:14) PTPTT (07/08/25 20:14) Magnesium (07/08/25 20:14) Lipid Panel (07/08/25 20:14) Lipase (07/08/25 20:14) Lactic Acid W/ Reflex Order (07/08/25 20:14) Drug Screen (07/08/25 20:14) Complete Blood Count (07/08/25 20:14) Comprehensive Metabolic Panel (07/08/25 20:14) Blood Culture (07/08/25 20:14) Urine Bacterial Culture (07/08/25 20:14) Respiratory Culture W/ Gs (07/08/25 20:14) Chest Xray 1 View (07/08/25 20:14) Admit (07/08/25 20:18) Code Status (07/08/25 20:18) Acetaminophen Tablet (Tylenol Tablet) (07/08/25 20:30) Cardiac Diet-2gna,Lofat,Lochol (07/09/25 Breakfast) Morphine Sulfate Injection (07/08/25 20:30) Oxygen By Nasal Cannula (07/08/25 20:18) Stat Ekg For Chest Pain (07/08/25 20:18) Notify Md Of Changes From Base (07/08/25 20:18) Dairy Farmworker For 24 Hours (07/08/25 20:18) Emergency Dysrhythmia Protocol (07/08/25 20:18) Rhythm Strips Once Every Shift (07/08/25 20:18) Fluconazole Tablet (Diflucan Tablet) (07/09/25 22:00) Fluconazole Tablet (Diflucan Tablet) (07/08/25 20:30) Enoxaparin Sodium (Lovenox) (07/08/25 22:00) Ferrous Sulfate Tablet (07/09/25 08:00) Famotidine Tablet (Pepcid Tablet) (07/09/25 10:00) Lidocaine 5% Topical Patch (Lidoderm 5% (07/08/25 20:30) Lidocaine 5% Topical Patch (Lidoderm 5% (07/09/25 10:00) Multiple Vitamin Tablet (Mvi Tab) (07/09/25 10:00) Mirtazapine Tablet (Remeron Tablet) (07/08/25 22:00) Olanzapine Tablet (Zyprexa Tablet) (07/09/25 10:00) Metoprolol Xl Succinate (Toprol Xl) (07/09/25 10:00) Assessment/Plan Assessment/Plan ASSESSMENT 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 She was evaluated by colorectal surgeon to repair colorectal cutaneous fistulas, who determined the patient's to fail to receive surgery at this point. Decided conservative management. Patient was transferred back to original Center to determine discharge disposition. Physical therapy on board to determine whether patient should be discharged to SNF we will with home health. Continue with fluconazole Ordered panculture Ordered laboratory workup Currently patient on pureed diet/ensure Ordered Spann placement Goals of care discussed with patient and family (both daughters) for over 26 minutes: Patient is a modified code (no chest compressions, defibrillations or cardioversion, she agrees with rest of ACLS maneuvers including endotracheal intubation, BiPAP, ACLS drugs) Discussed plan with Dr. Miller, patient, family and nurses: Patient currently on telemetry status. Evaluating discharge disposition, PT evaluation underway. Patient has poor prognosis, have discussed with family. Plan discussed with: Patient, Daughter, Other (Nurses) My Orders Orders - RADHA RING RESIDENT Procedure Category Date Status Time Vitamin D, 25-Hydroxy LAB 07/08/25 Logged 20:14 Vitamin B12 LAB 07/08/25 Logged 20:14 Urinalysis LAB 07/08/25 Logged 20:14 Thyroid Stimulating LAB 07/08/25 Logged Hormone 20:14 Phosphorus LAB 07/08/25 Logged 20:14 PTPTT LAB 07/08/25 Logged 20:14 Magnesium LAB 07/08/25 Logged 20:14 Lipid Panel LAB 07/08/25 Logged 20:14 Lipase LAB 07/08/25 Logged 20:14 Lactic Acid W/ Reflex LAB 07/08/25 Logged Order 20:14 Drug Screen LAB 07/08/25 Logged 20:14 Complete Blood Count LAB 07/08/25 Logged 20:14 Comprehensive LAB 07/08/25 Logged Metabolic Panel 20:14 Blood Culture KEAGAN 07/08/25 Logged 20:14 Urine Bacterial KEAGAN 07/08/25 Logged Culture 20:14 Respiratory Culture KEAGAN 07/08/25 Logged W/ Gs 20:14 Chest Xray 1 View XY 07/08/25 Logged 20:14 Admit ADMIT 07/08/25 Transmitted 20:18 Code Status CODE 07/08/25 Transmitted 20:18 Acetaminophen Tablet PHA 07/08/25 Logged (Tylenol Tablet) 20:30 Cardiac DIET 07/09/25 Transmitted Diet-2gna,Lofat,Lochol Breakfast Morphine Sulfate PHA 07/08/25 Logged Injection 20:30 Oxygen By Nasal RT 07/08/25 Transmitted Cannula 20:18 Stat Ekg For Chest MARCELO 07/08/25 In Process Pain 20:18 Notify Of Changes MARCELO 07/08/25 In Process From Base 20:18 Dairy Farmworker For MARCELO 07/08/25 In Process 24 Hours 20:18 Emergency Dysrhythmia MARCELO 07/08/25 In Process Protocol 20:18 Rhythm Strips Once BANNER 07/08/25 In Process Every Shift 20:18 Fluconazole Tablet PHA 07/09/25 Logged (Diflucan Tablet) 22:[address] [facility] 07/08/25 Logged (Diflucan Tablet) 20:30 Enoxaparin Sodium PHA 07/08/25 Logged (Lovenox) 22:00 Ferrous Sulfate Tablet PHA 07/09/25 Logged 08:00 Famotidine Tablet PHA 07/09/25 Logged (Pepcid Tablet) 10:00 Lidocaine 5% Topical PHA 07/08/25 Logged Patch (Lidoderm 5% 20:30 Lidocaine 5% Topical PHA 07/09/25 Logged Patch (Lidoderm 5% 10:00 Multiple Vitamin PHA 07/09/25 Logged Tablet (Mvi Tab) 10:[address] Mirta[address] [facility] 07/08/25 Logged (Remeron Tablet) 22:00 Olanzapine Tablet PHA 07/09/25 Logged (Zyprexa Tablet) 10:00 Metoprolol Xl PHA 07/09/25 Logged Succinate (Toprol Xl) 10:00 Date of Service: Jul 08, 2025 Billing Provider: ASHLEIGH MILLER MD Common Visit Codes: [id number] INP/OBS CARE (HIGH) Secondary Visit Codes: [id number] CARE PLAN 30 MINUTES RADHA RING RESIDENT Jul 08, 2025 20:39
[2025-07-08 21:00] VITALS: BP 114/83; PULSE 99; RESP 17; TEMP 97.2; O2SAT 98
--- NOTE | 2025-07-08 21:15 | DVH ---
CHEST RADIOGRAPH Indication: SOB Technique: Single frontal view of the chest was obtained COMPARISON: XY CHEST PORTABLE on DOS: 06/28/25 FINDINGS: Lines and Tubes: Dual-lead pacemaker again noted overlying left chest wall. Lungs: Mild subsegmental atelectasis/consolidation at left lung base which was also present on the pr ior chest x-ray from 06/28/25. Right lung is clear. Pleura: No pleural effusion or pneumothorax. Cardiomediastinal contours: Unremarkable IMPRESSION: Mild subsegmental atelectasis/consolidation at left lung base which was also present on the prior art st x-ray from 06/28/25.
[2025-07-08] MEDS: LIDOCAINE 5% TOPICAL PATCH TOP ONE (22:02)
[2025-07-08] MEDS: ENOXAPARIN SOD 100 MG/1 ML SYRINGE SC SCH (22:02)
[2025-07-08] MEDS: FLUCONAZOLE 100 MG TAB PO ONE (22:03)
[2025-07-08] MEDS: MIRTAZAPINE 30 MG TAB PO SCH (22:03)
[2025-07-08 22:21] LABS: Hematocrit 32.8 % (36.0-46.0); Hemoglobin 10.7 g/dL (12.2-16.2); INR 1.0 (0.9-1.15); Mean Corpuscular Hemoglobin 32.2 pg (28.0-32.0); Mean Corpuscular Volume 98.6 fL (80.0-100.0); Nucleated Red Blood Cells % 0.1 %; Partial Thromboplastin Time 26.8 SEC (24.5-34.5); Prothrombin Time 10.6 sec (9.3-11.8)
[2025-07-08 22:22] LABS: Alanine Aminotransferase 15 U/L (7-40); Anion Gap 12 (5-15); BUN/Creatinine Ratio 11.3 (10.0-20.0); Blood Urea Nitrogen 11 mg/dL (9-23); Calcium 8.8 mg/dL (8.7-10.4); Carbon Dioxide 21 mmol/L (20-31); Glucose 96 mg/dL (74-106); Potassium 3.8 mmol/L (3.5-5.1); Sodium 144 mmol/L (136-145); Total Protein 5.9 g/dL (5.7-8.2); Triglycerides 133 mg/dL (< 150)
[2025-07-08 22:23] LABS: Albumin 3.2 g/dL (3.2-4.8); Alkaline Phosphatase 121 U/L (46-116); Chloride 111 mmol/L (98-107); Magnesium 1.6 mg/dL (1.6-2.6)
[2025-07-08 22:24] LABS: Cholesterol 168 mg/dL (< 200)
[2025-07-08 22:25] LABS: Bilirubin, Total 0.3 mg/dL (0.2-1.0); HDL Cholesterol 37 mg/dL (40-59)
[2025-07-08] MEDS: ACETAMINOPHEN 325 MG TAB PO PRN (22:32)
[2025-07-08 22:35] LABS: Lipase 47 U/L (12-53)
[2025-07-09] VITALS (8 sets, daily range): BP systolic 121–152; BP diastolic 65–92; PULSE 76–101; RESP 14–20; TEMP 97.2–98.2; O2SAT 98–100
[2025-07-09] MEDS ORDERED: POTASSIUM PHOSPHATE 22 MEQ in SODIUM CHL 0.9% 100 ML IV ONE (06:15)
[2025-07-09] MEDS: MAGNESIUM SULFATE 1GM/100ML 100 ML IV SCH ×2 (06:46→13:17)
[2025-07-09 08:04] LABS: Hematocrit 29.4 % (36.0-46.0); Hemoglobin 9.8 g/dL (12.2-16.2); Mean Corpuscular Hemoglobin 32.2 pg (28.0-32.0); Mean Corpuscular Volume 96.9 fL (80.0-100.0); Nucleated Red Blood Cells % 0.0 %
[2025-07-09 08:13] LABS: Potassium 3.6 mmol/L (3.5-5.1); Sodium 143 mmol/L (136-145)
[2025-07-09 08:14] LABS: Anion Gap 11 (5-15); Carbon Dioxide 21 mmol/L (20-31)
[2025-07-09 08:15] LABS: Calcium 8.8 mg/dL (8.7-10.4)
[2025-07-09 08:19] LABS: BUN/Creatinine Ratio 13.5 (10.0-20.0); Blood Urea Nitrogen 13 mg/dL (9-23); Glucose 96 mg/dL (74-106)
[2025-07-09 08:21] LABS: Chloride 111 mmol/L (98-107)
[2025-07-09] MEDS: FAMOTIDINE 20 MG TAB PO SCH (11:46)
[2025-07-09] MEDS: METOPROLOL SUCCINATE XL 50 MG TAB PO SCH (11:46)
[2025-07-09] MEDS: MULTIPLE VITAMIN TAB PO SCH (11:47)
[2025-07-09] MEDS: FERROUS SULFATE 325mg EC TAB PO SCH (11:47)
[2025-07-09] MEDS: OLANZapine 5 MG TAB PO SCH (11:48)
[2025-07-09] MEDS: Ensure HIGH Protein Chocolate 8oz Bottle PO SCH (13:18)
[2025-07-09] MEDS: LIDOCAINE 5% TOPICAL PATCH TOP SCH (13:18)
--- NOTE | 2025-07-09 16:18 | DVHPNRES ---
Progress Note Date Seen: Jul 09, 2025 Resident Creating Document: CARMELITA ALATORRE RESIDENT Medical Necessity Reason Pt with a Central, PICC or Fol: No Subjective Review of Systems Pily Jarrell is a 89-year-old female patient with past medical history of hypertension, diabetes mellitus, bilateral knee osteoarthritis, chronic systolic/ diastolic heart failure, recurrent UTI, COVID in 2021, second-degree AV block status post pacemaker placed on 2021, colostomy bag who presented to the ED after being transferred from higher level of care ([place]) for evaluation of a colocutaneous fistula by colorectal surgeon, but she was evaluated to be not a good surgical candidate due to multiple comorbidities. She was sent back to original center to evaluate discharge home with home health or SNF for nutritional support. She has no new complaints at this time. 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 Surgical history: 03/2025 colon resection with colostomy bag post colonoscopy, right hip surgery, 2020 pacemaker placement Family history: Noncontributory Social history: Lives in [place] before colon resection she was living with daughter, since March 2025 she has been living in assisted living facility. Next of kin is daughter. Denies current tobacco, alcohol and other drug abuse Allergies: Levofloxacin Home medication: Fluconazole, apixaban, folic acid, furosemide, multivitamins PCP: Dr. Zazueta Patient seen and examined at bedside. Patient is alert and oriented to time, place person and responding to all questions. Eyes: No Pain, No Vision change, No Conjunctivae inflammation, No Eyelid inflammation, No Redness ENT: No Ear pain, No Ear discharge, No Nose pain, No Nose discharge, No Nose congestion, No Mouth pain, No Mouth swelling, No Throat pain, No Throat swelling Cardiovascular: No Chest Pain, No Palpitations, No Orthopnea, No Paroxysmal No Dyspnea, No Edema, No Lt Headedness Respiratory: No Cough, No Dry, No Shortness of breath, No SOB with exertion, No Wheezing, No Hemoptysis, No Pleuritic Pain, No Sputum Gastrointestinal: No Nausea, No Vomiting, No Abdominal Pain, No Diarrhea, No Constipation, No Melena, No Hematochezia Genitourinary: No Dysuria, No Frequency, No Incontinence, No Hematuria, No Retention Objective vital signs Vital Sign Date Time Temp Pulse Resp B/P (MAP) Pulse Ox O2 Delivery O2 Flow Rate FiO2 07/09/25 13:00 98.2 101 20 129/75 (93) 98 98.2 07/08/25 20:00 Room Air* 0 21 Total Intake and Output 07/08/25 07/08/25 07/09/25 15:00 23:00 07:00 Intake Total 200 ml Balance 200 ml medications Current Medications Medications Dose Ordered Sig/Cristy Route Start Time Stop Time Status Last Admin Dose Admin Acetaminophen 325 mg Q4HP PRN PO 07/08/25 20:30 07/09/25 11:45 325 MG Morphine Sulfate 2 mg Q4HPRN PRN IV 07/08/25 20:30 Fluconazole 400 mg HS PO 07/09/25 22:00 Enoxaparin Sodium 50 mg Q12HR SC 07/08/25 22:00 07/09/25 11:46 50 MG Ferrous Sulfate 325 mg BIDWM PO 07/09/25 08:00 07/09/25 11:47 325 MG Famotidine 20 mg DAILY PO 07/09/25 10:00 07/09/25 11:46 20 MG Lidocaine 1 patch DAILY TOP 07/09/25 10:00 07/09/25 13:18 1 PATCH Multivitamins 1 tab DAILY PO 07/09/25 10:00 07/09/25 11:47 1 TAB Mirtazapine 15 mg HS PO 07/08/25 22:00 07/08/25 22:03 15 MG Olanzapine 2.5 mg DAILY PO 07/09/25 10:00 07/09/25 11:48 2.5 MG Metoprolol Succinate 50 mg DAILY PO 07/09/25 10:00 07/09/25 11:46 50 MG Enteral Nutritional Formula 240 ml TIDWM PO 07/09/25 12:00 07/09/25 13:18 240 ML Examination Patient lying in bed, in no acute distress. General: Lucid, afebrile, mucosae are moist Cardiovascular: Normal S1 and S2. No murmurs, gallops or rubs. Pacemaker generator in left subclavian region Respiratory: Normal ventilation mechanics. Clear lung sounds on auscultation Abdomen: Soft, nontender, no organomegaly, reduced bowel sounds, colostomy bag with 2 drains occupying lower quadrants with feces loss MSK/skin: Mobilizes 4 limbs. Skin is dry and warm. Sacral decubitus ulcer grade 1 present on admission Neurological: Oriented in 3 spheres. No motor no sensitive deficits. Pupils are isocoric and reactive laboratory and microbiology Laboratory Tests 07/09/25 07:51 Test 07/09/25 07:51 Range/Units Serum Glucose 96 74-106 mg/dL Microbiology Date/Time Source Procedure Growth Status 07/08/25 22:20 Nose MRSA Screen - Final Complete Labs and/or images reviewed: Labs reviewed by me, Image(s) reviewed by me Problem List/Assessment/Plan Problem List/Assessment/Plan #[place]-cutaneous fistula #History of perforated colon status post colectomy and colostomy bag placement -continue with colostomy care #History of infective endocarditis probably secondary to candidemia on chronic fluconazole -continue fluconazole #Atrial fibrillation with RVR #chronic systolic/diastolic heart failure, not under exacerbation #status post permanent pacemaker placement #Hypertensive heart disease -continue metoprolol 50mg po daily #Bilateral knee osteoarthritis -pain medication as needed #History of aspiration pneumonia #Sacral wound stage 1, present on admission -Partially bed-bound -wound care consult #Dyslipidemia #Normocytic, normochromic anemia -continue ferrous sulphate 325 mg po #History of Diabetes mellitus -HbA1c on 06/29/25 is 4.6 -monitor blood glucose #Failure to thrive -started ensure 240ml tid Goals of care: Full code, discussed for >23 minutes Plan discussed with patient Plan discussed with Dr Mcqueen Plan discussed with: Patient Dietary Evaluation Review Comments: 1) Consider changing Ensure High Protein to Glucerna tid 2) Encourage optimal PO intake 3) Initiate vitamin C @ 500 mg bid for 7 days 4) Follow-up with gastroenterology and cardiology 5) Continue to monitor I&O, labs, and skin integrity Expected Outcomes/Goals: 1) appetite and labs to improve 2) GI symptoms to improve 3) f/u in 3-5 days Date of Service: Jul 09, 2025 Billing Provider: TOSHIA MCQUEEN MD Common Visit Codes: [id number] INP/OBS CARE(HIGH) CARMELITA ALATORRE RESIDENT Jul 09, 2025 16:18 TOSHIA MCQUEEN MD Jul 09, 2025 22:33
[2025-07-09] MEDS: POTASSIUM PHOSPHATE 22 MEQ in SODIUM CHL 0.9% 100 ML IV ONE (17:52)
[2025-07-09] MEDS: FLUCONAZOLE 100 MG TAB PO SCH (22:07)
[2025-07-10] VITALS (7 sets, daily range): BP systolic 100–143; BP diastolic 61–96; PULSE 83–110; RESP 18–21; TEMP 97–98; O2SAT 96–99
[2025-07-10 07:55] LABS: Hematocrit 27.9 % (36.0-46.0); Hemoglobin 9.2 g/dL (12.2-16.2); Mean Corpuscular Hemoglobin 32.3 pg (28.0-32.0); Mean Corpuscular Volume 98.2 fL (80.0-100.0); Nucleated Red Blood Cells % 0.0 %
[2025-07-10 08:15] LABS: Potassium 3.8 mmol/L (3.5-5.1); Sodium 143 mmol/L (136-145)
[2025-07-10 08:16] LABS: Anion Gap 10 (5-15); Carbon Dioxide 22 mmol/L (20-31)
[2025-07-10 08:18] LABS: Calcium 8.7 mg/dL (8.7-10.4); Chloride 111 mmol/L (98-107)
[2025-07-10 08:21] LABS: Glucose 82 mg/dL (74-106)
[2025-07-10 08:22] LABS: BUN/Creatinine Ratio 14.6 (10.0-20.0); Blood Urea Nitrogen 12 mg/dL (9-23)
[2025-07-10] MEDS: Ensure HIGH Protein Chocolate 8oz Bottle PO SCH (12:00)
--- NOTE | 2025-07-10 16:20 | DVHPNRES ---
Progress Note Date Seen: Jul 10, 2025 Resident Creating Document: CARMELITA ALATORRE RESIDENT Medical Necessity Reason Pt with a Central, PICC or Fol: No Subjective Review of Systems Pily Jarrell is a 89-year-old female patient with past medical history of hypertension, diabetes mellitus, bilateral knee osteoarthritis, chronic systolic/ diastolic heart failure, recurrent UTI, COVID in 2021, second-degree AV block status post pacemaker placed on 2021, colostomy bag who presented to the ED after being transferred from higher level of care ([place]) for evaluation of a colocutaneous fistula by colorectal surgeon, but she was evaluated to be not a good surgical candidate due to multiple comorbidities. She was sent back to original center to evaluate discharge home with home health or SNF for nutritional support. She has no new complaints at this time. 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 Surgical history: 03/2025 colon resection with colostomy bag post colonoscopy, right hip surgery, 2020 pacemaker placement Family history: Noncontributory Social history: Lives in [place] before colon resection she was living with daughter, since March 2025 she has been living in assisted living facility. Next of kin is daughter. Denies current tobacco, alcohol and other drug abuse Allergies: Levofloxacin Home medication: Fluconazole, apixaban, folic acid, furosemide, multivitamins PCP: Dr. Zazueta Patient seen and examined at bedside. Patient is alert and oriented to time, place person and responding to all questions. Eyes: No Pain, No Vision change, No Conjunctivae inflammation, No Eyelid inflammation, No Redness ENT: No Ear pain, No Ear discharge, No Nose pain, No Nose discharge, No Nose congestion, No Mouth pain, No Mouth swelling, No Throat pain, No Throat swelling Cardiovascular: No Chest Pain, No Palpitations, No Orthopnea, No Paroxysmal No Dyspnea, No Edema, No Lt Headedness Respiratory: No Cough, No Dry, No Shortness of breath, No SOB with exertion, No Wheezing, No Hemoptysis, No Pleuritic Pain, No Sputum Gastrointestinal: No Nausea, No Vomiting, No Abdominal Pain, No Diarrhea, No Constipation, No Melena, No Hematochezia Genitourinary: No Dysuria, No Frequency, No Incontinence, No Hematuria, No Retention 07/10/25- The patient was seen at bedside today. Patient has low phosphorus of 2, it was repleted with potassium phosphate 22mEq. resident services manager was consulted for home health for PT, safety evaluation, colostomy care and management of medication and oral intake, colostomy bag supplies and air loss mattress. Orthopedic consult was placed for possible corticosteroid injection for bilateral knee osteoarthritis. Objective vital signs Vital Sign Date Time Temp Pulse Resp B/P (MAP) Pulse Ox O2 Delivery O2 Flow Rate FiO2 07/10/25 13:00 97.7 92 21 140/82 (101) 97 97.7 07/10/25 08:00 Room Air* 0 21 Total Intake and Output 07/09/25 07/09/25 07/10/25 15:00 23:00 07:00 Intake Total 1380 ml 100 ml Balance 1380 ml 100 ml medications Current Medications Medications Dose Ordered Sig/Cristy Route Start Time Stop Time Status Last Admin Dose Admin Acetaminophen 325 mg Q4HP PRN PO 07/08/25 20:30 07/09/25 11:45 325 MG Morphine Sulfate 2 mg Q4HPRN PRN IV 07/08/25 20:30 Fluconazole 400 mg HS PO 07/09/25 22:00 07/09/25 22:07 400 MG Ferrous Sulfate 325 mg BIDWM PO 07/09/25 08:00 07/10/25 10:55 325 MG Famotidine 20 mg DAILY PO 07/09/25 10:00 07/10/25 10:54 20 MG Lidocaine 1 patch DAILY TOP 07/09/25 10:00 07/10/25 11:34 1 PATCH Multivitamins 1 tab DAILY PO 07/09/25 10:00 07/10/25 10:54 1 TAB Mirtazapine 15 mg HS PO 07/08/25 22:00 07/09/25 22:08 15 MG Olanzapine 2.5 mg DAILY PO 07/09/25 10:00 07/09/25 11:48 2.5 MG Metoprolol Succinate 50 mg DAILY PO 07/09/25 10:00 07/10/25 10:59 50 MG Enteral Nutritional Formula 240 ml TIDWM PO 07/10/25 12:00 07/10/25 12:00 240 ML Enoxaparin Sodium 50 mg Q12HR SC 07/10/25 22:00 Examination Patient lying in bed, in no acute distress. General: Lucid, afebrile, mucosae are moist Cardiovascular: Normal S1 and S2. No murmurs, gallops or rubs. Pacemaker generator in left subclavian region Respiratory: Normal ventilation mechanics. Clear lung sounds on auscultation Abdomen: Soft, nontender, no organomegaly, reduced bowel sounds, colostomy bag occupying lower quadrants with no feces collection MSK/skin: Mobilizes 4 limbs. Skin is dry and warm. Sacral decubitus ulcer grade 1 present on admission Neurological: Oriented in 3 spheres. No motor no sensitive deficits. Pupils are isocoric and reactive. laboratory and microbiology Laboratory Tests 07/10/25 07:36 Test 07/10/25 07:36 Range/Units Serum Glucose 82 74-106 mg/dL Microbiology Date/Time Source Procedure Growth Status 07/08/25 22:20 Nose MRSA Screen - Final Complete 07/08/25 21:32 Blood Blood Culture - Preliminary NO GROWTH AFTER 24 HOURS OF INCUBATION. Resulted Labs and/or images reviewed: Labs reviewed by me, Image(s) reviewed by me Problem List/Assessment/Plan Problem List/Assessment/Plan #[place]-cutaneous fistula #History of perforated colon status post colectomy and colostomy bag placement -continue with colostomy care -social services specialist consult placed for health with PT, safety evaluation, colostomy care and management of medication and oral intake, colostomy bag supplies and air loss mattress -CT abdomen without contrast ordered #History of infective endocarditis probably secondary to candidemia on chronic fluconazole -continue fluconazole #Atrial fibrillation with RVR #chronic systolic/diastolic heart failure, not under exacerbation #status post permanent pacemaker placement #Hypertensive heart disease -continue metoprolol 50mg po daily #Bilateral knee osteoarthritis -pain medication as needed -orthopedic consult ordered for possible corticosteroid injection #History of aspiration pneumonia #Sacral wound stage 1, present on admission -Partially bed-bound -wound care consult #Dyslipidemia #Normocytic, normochromic anemia -continue ferrous sulphate 325 mg po #Hypophosphatemia -ordered potassium phosphate 22 mEq #Diabetes mellitus,controlled -HbA1c on 06/29/25 is 4.6 -monitor blood glucose #Failure to thrive -started ensure 240ml tid Goals of care: Full code, discussed for >23 minutes Plan discussed with patient Plan discussed with Dr Alcaraz Plan discussed with: Patient, Daughter My Orders My Orders Orders - CARMELITA ALATORRE Procedure Category Date Status Time Pt Request For Service PT 07/10/25 Logged 06:45 * Field Instructor CONS 07/10/25 Transmitted Consult * Field Instructor CONS 07/10/25 Transmitted Consult * Field Instructor CONS 07/10/25 Transmitted Consult 15:08 * Field Instructor CONS 07/10/25 Transmitted Consult 15:33 Dietary Evaluation Review Comments: 1) Consider changing Ensure High Protein to Glucerna tid 2) Encourage optimal PO intake 3) Initiate vitamin C @ 500 mg bid for 7 days 4) Follow-up with gastroenterology and cardiology 5) Continue to monitor I&O, labs, and skin integrity Expected Outcomes/Goals: 1) appetite and labs to improve 2) GI symptoms to improve 3) f/u in 3-5 days Date of Service: Jul 10, 2025 Billing Provider: CANDELARIO LYNN MD Common Visit Codes: [id number] INP/OBS CARE(HIGH) CARMELITA ALATORRE RESIDENT Jul 10, 2025 16:20
--- NOTE | 2025-07-10 17:30 | DVH ---
CLINICAL HISTORY: acute removal of LEONARD drain, acute abd pain TECHNIQUE: CT of the abdomen and pelvis was performed without intravenous contrast. This exam was per formed according to our departmental dose optimization program. Up-to-date CT equipment and radiation dose reduction techniques are utilized as appropriate. CTDI: 8.3 DLP: 430.56 WID: COMPARISON: CT CT AB PEL WO CON-NO ORAL OR IV on DOS: 06/29/25 FINDINGS: Lower Thorax: Linear bibasilar scarring or atelectasis. Small left pleural effusion. There is a ash aleah pack in the left anterior chest wall with a dual lead pacemaker with lead tips terminating in the right atrial appendage and right ventricle. Moderate mitral annular calcifications. Calcified medias tinal lymph nodes. Mild cardiomegaly. Small to moderate-sized hiatal hernia. Mild aortic valve and m ild coronary artery calcifications. Liver and Biliary system: Normal-sized liver. There is a small well-defined hypodensity in segment 3 of the liver not optimally evaluated without intravenous contrast, although unchanged. Cholelithiasis in a normal caliber gallbladder. There is no biliary ductal dilatation. Spleen: Unremarkable. Adrenal Glands and Kidneys: Normal adrenal glands. Unchanged hypodense lesion in the midpole left kid yadi likely a cyst although not optimally evaluated without intravenous contrast. Slightly small bilat eral kidneys. No hydronephrosis or nephrolithiasis. Pancreas and Retroperitoneum: Atrophic pancreas. No retroperitoneal lymphadenopathy. Aorta and Major Vessels: Aortoiliac vessels are normal in caliber with mild calcified atherosclerotic plaque. Bowel, Mesentery and Peritoneal space: Removal of the drain that was previously seen from Right abdom inal approach. There is a Issa's pouch. There is mild colonic diverticulosis. Normal caliber juan david ining small and large bowel loops. There is a colostomy in the low abdominal wall to the left of midl ine. There is a left lower quadrant anterior abdominal wall hernia containing nonobstructed left lowe r quadrant small bowel loops (series 601, image 41). No free air or fluid collection. Pelvis: Moderate distention of the urinary bladder. There is an atrophic uterus and ovaries. Myometri al vascular calcifications. No pelvic lymphadenopathy. Abdominal wall and Osseous Structures: There is dehiscence of the pelvic anterior abdominal wall with defect measures approximately 7.9 cm transverse on series 5, image 130. Prior right hip arthroplasty . Chondrocalcinosis of the bilateral hips and pubic symphysis in the bilateral sacroiliac joints. Gra de 1 anterolisthesis at L4-L5 and L5-S1. There is a moderate height loss compression fracture of L1 w ith sclerosis of the vertebral body. Moderate chronic appearing compression fractures at T9 and T12. Multilevel lower thoracic and lumbar spondylosis. IMPRESSION: 1. Removal of right lower quadrant drain. No drainable fluid collection. 2. There is a low left anterior abdominal wall colostomy and a Issa's pouch. No bowel obstruction . 3. Dehiscence of the infraumbilical anterior abdominal wall with defect measuring at least 7.9 cm tra nsverse. 4. Subacute appearing moderate height loss compression fracture of L1 with greater than 50% height lo ss. Chronic appearing Moderate height loss compression fractures of T9 and T12. 5. Cholelithiasis. 6. Mild cardiomegaly. At least mild aortic valve and coronary artery calcifications. 7. Moderate-sized hiatal hernia.
[2025-07-10] MEDS: POTASSIUM PHOSPHATE 22 MEQ in SODIUM CHL 0.9% 100 ML IV ONE (18:06)
--- NOTE | 2025-07-10 18:46 | DVHINCON2 ---
Consult Note Consult Consult Note Subjective : The patient is admitted for colostomy bag complications. She also reports bilateral knee pain, which she describes as chronic in nature. She has a known history of bilateral knee osteoarthritis. She denies any new injury, falls, or acute trauma. She reports no ambulation for the past three months due to colostomy-related complications. No worsening of pain is noted with passive or active knee range of motion. Objective: General: Alert, oriented, wheelchair-bound / non-ambulatory. Knee Examination: Inspection: No erythema, no deformity. Minimal edema noted bilaterally. Palpation: Tenderness to palpation along the medial joint line bilaterally. Warmth: Present over both knees. Range of Motion (ROM): Reduced; approximately 0 to 90, limited secondary to pain. Strength: Weakness of bilateral knees noted during extension and flexion testing, consistent with chronic disuse and pain limitation. Neurovascular: Grossly intact distally. Pulses palpable. Capillary refill <2 seconds. Skin: Intact, no lesions or ulcerations. Imaging: Bilateral knee X-rays ordered today to assess for progression of osteoarthritis. Assessment : 1. Chronic bilateral knee osteoarthritis 2. Non-ambulatory status x3 months secondary to colostomy-related complications 3. Colostomy bag malfunction (primary admission diagnosis) Plan : Awaiting bilateral knee X-ray results, ordered. Bed side Nurse to contact Ortho once Bilateral knee xray are completed and available for review. Continue pain management per hospitalist at this time Physical therapy evaluation for ROM exercises, strengthening, and transfer safety once medically cleared. Positioning and offloading precautions to prevent pressure ulcers and joint contractures. Consider intraarticular corticosteroid injection or viscosupplementation once medically stable and cleared by hospitalist and indicated based on Xray and exam. Follow-up after imaging to review findings and adjust treatment plan. Plan discussed with: Patient, Other (bedside nurse) Visit Coding Surgery Date of Service if different f: Jul 10, 2025 Billing Provider: ATTILA IBANEZ Surgery Visit Codes: [id number] - INP CONSULT <55 MIN ATTILA IBANEZ Jul 10, 2025 18:46
--- NOTE | 2025-07-10 20:45 | DVH ---
EXAM: XY R KNEE 3V XRAY INDICATION: eval for bilateral knee pain TECHNIQUE: 3 views of the right knee COMPARISON: XY L KNEE 3V XRAY on DOS: 07/10/25 FINDINGS/IMPRESSION: No radiographic evidence of an acute osseous abnormality. There is no acute fracture, osseous malalig nment, or aggressive focal osseous lesion. Severe lateral weight-bearing compartment joint space loss . Tricompartmental marginal osteophytosis. Severe patellofemoral compartment joint space loss. Mild -to-moderate medial weight-bearing compartment joint space loss. Vascular calcifications. Diffusely d ecreased bone mineral density. Intra-articular bodies in the suprapatellar recess.
--- NOTE | 2025-07-10 20:46 | DVH ---
EXAM: XY L KNEE 3V XRAY INDICATION: eval for bilateral knee pain TECHNIQUE: 3 views of the left knee COMPARISON: XY R KNEE 3V XRAY on DOS: 07/10/25 FINDINGS/IMPRESSION: No radiographic evidence of an acute osseous abnormality. There is no acute fracture, osseous malalig nment, or aggressive focal osseous lesion. Medial and lateral weight-bearing compartment joint space loss with chondrocalcinosis. Tricompartmental marginal osteophytosis. Trace suprapatellar knee joint effusion.
[2025-07-10] MEDS: ENOXAPARIN SOD 60 MG/0.6 ML SYRINGE SC SCH (22:13)
[2025-07-11] VITALS (8 sets, daily range): BP systolic 126–151; BP diastolic 69–88; PULSE 92–107; RESP 16–20; TEMP 97.8–98.7; O2SAT 97–99
[2025-07-11 06:32] LABS: Hematocrit 28.3 % (36.0-46.0); Hemoglobin 9.5 g/dL (12.2-16.2); Mean Corpuscular Hemoglobin 32.2 pg (28.0-32.0); Mean Corpuscular Volume 96.1 fL (80.0-100.0); Nucleated Red Blood Cells % 0.0 %
[2025-07-11 06:46] LABS: Calcium 8.8 mg/dL (8.7-10.4); Potassium 4.1 mmol/L (3.5-5.1); Sodium 143 mmol/L (136-145)
[2025-07-11 06:47] LABS: Anion Gap 11 (5-15); Carbon Dioxide 22 mmol/L (20-31)
[2025-07-11 06:52] LABS: Glucose 82 mg/dL (74-106)
[2025-07-11 06:53] LABS: BUN/Creatinine Ratio 13.6 (10.0-20.0); Blood Urea Nitrogen 11 mg/dL (9-23); Chloride 110 mmol/L (98-107)
--- NOTE | 2025-07-11 18:42 | DVHPNRES ---
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 She was sent back to original center to evaluate discharge home with home health or SNF for nutritional support. She has no new complaints at this time. 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 Surgical history: 03/2025 colon resection with colostomy bag post colonoscopy, right hip surgery, 2020 pacemaker placement Family history: Noncontributory Social history: Lives in [place] before colon resection she was living with daughter, since March 2025 she has been living in assisted living facility. Next of kin is daughter. Denies current tobacco, alcohol and other drug abuse Allergies: Levofloxacin Home medication: Fluconazole, apixaban, folic acid, furosemide, multivitamins PCP: Dr. Zazueta Patient seen and examined at bedside. Patient is alert and oriented to time, place person and responding to all questions. Eyes: No Pain, No Vision change, No Conjunctivae inflammation, No Eyelid inflammation, No Redness ENT: No Ear pain, No Ear discharge, No Nose pain, No Nose discharge, No Nose congestion, No Mouth pain, No Mouth swelling, No Throat pain, No Throat swelling Cardiovascular: No Chest Pain, No Palpitations, No Orthopnea, No Paroxysmal No Dyspnea, No Edema, No Lt Headedness Respiratory: No Cough, No Dry, No Shortness of breath, No SOB with exertion, No Wheezing, No Hemoptysis, No Pleuritic Pain, No Sputum Gastrointestinal: No Nausea, No Vomiting, No Abdominal Pain, No Diarrhea, No Constipation, No Melena, No Hematochezia Genitourinary: No Dysuria, No Frequency, No Incontinence, No Hematuria, No Retention 07/10/25- The patient was seen at bedside today. Patient has low phosphorus of 2, it was repleted with potassium phosphate 22mEq. career services representative was consulted for home health for PT, safety evaluation, colostomy care and management of medication and oral intake, colostomy bag supplies and air loss mattress. Orthopedic consult was placed for possible corticosteroid injection for bilateral knee osteoarthritis. 07/11/25- patient was seen at bedside today. All labs, charts vitals were reviewed. Bilateral knee Xrays showed no radiographic evidence of an acute osseous abnormality. There is no acute fracture, osseous malalignment, or aggressive focal osseous lesion, medial and lateral weight-bearing compartment joint space loss with chondrocalcinosis, tricompartmental marginal osteophytosis, trace suprapatellar knee joint effusion. Wound care was consulted to evaluate the sacral wound. The patient will be discharged home once her colostomy bag is arranged. Objective vital signs Vital Sign Date Time Temp Pulse Resp B/P (MAP) Pulse Ox O2 Delivery O2 Flow Rate FiO2 07/11/25 17:00 98.0 92 20 126/75 (92) 98 98.0 07/11/25 07:59 Room Air* 0 21 Total Intake and Output 07/10/25 07/10/25 07/11/25 15:00 23:00 07:00 Intake Total 300 ml 100 ml Output Total 100 ml Balance 300 ml 0 ml medications Current Medications Medications Dose Ordered Sig/Cristy Route Start Time Stop Time Status Last Admin Dose Admin Acetaminophen 325 mg Q4HP PRN PO 07/08/25 20:30 07/09/25 11:45 325 MG Morphine Sulfate 2 mg Q4HPRN PRN IV 07/08/25 20:30 Fluconazole 400 mg HS PO 07/09/25 22:00 07/10/25 22:03 400 MG Ferrous Sulfate 325 mg BIDWM PO 07/09/25 08:00 07/11/25 18:01 325 MG Famotidine 20 mg DAILY PO 07/09/25 10:00 07/11/25 10:12 20 MG Lidocaine 1 patch DAILY TOP 07/09/25 10:00 07/11/25 10:12 1 PATCH Multivitamins 1 tab DAILY PO 07/09/25 10:00 07/11/25 10:11 1 TAB Mirtazapine 15 mg HS PO 07/08/25 22:00 07/10/25 22:03 15 MG Olanzapine 2.5 mg DAILY PO 07/09/25 10:00 07/11/25 10:12 2.5 MG Metoprolol Succinate 50 mg DAILY PO 07/09/25 10:00 07/11/25 10:12 50 MG Enteral Nutritional Formula 240 ml TIDWM PO 07/10/25 12:00 07/11/25 18:01 240 ML Enoxaparin Sodium 50 mg Q12HR SC 07/10/25 22:00 07/10/25 22:13 50 MG Examination Patient lying in bed, in no acute distress. General: Lucid, afebrile, mucosae are moist Cardiovascular: Normal S1 and S2. No murmurs, gallops or rubs. Pacemaker generator in left subclavian region Respiratory: Normal ventilation mechanics. Clear lung sounds on auscultation Abdomen: Soft, nontender, no organomegaly, reduced bowel sounds, colostomy bag occupying lower quadrants with no feces collection MSK/skin: Mobilizes 4 limbs. Skin is dry and warm. Sacral decubitus ulcer grade 1 present on admission Neurological: Oriented in 3 spheres. No motor no sensitive deficits. Pupils are isocoric and reactive. laboratory and microbiology Laboratory Tests 07/11/25 05:23 Test 07/11/25 05:23 Range/Units Serum Glucose 82 74-106 mg/dL Microbiology Date/Time Source Procedure Growth Status 07/08/25 22:20 Nose MRSA Screen - Final Complete 07/08/25 21:32 Blood Blood Culture - Preliminary NO GROWTH AFTER 48 HOURS OF INCUBATION. 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 Removal of right lower quadrant drain. No drainable fluid collection. 2. There is a low left anterior abdominal wall colostomy and a Issa's pouch. No bowel obstruction. 3. Dehiscence of the infraumbilical anterior abdominal wall with defect measuring at least 7.9 cm transverse. 4. Subacute appearing moderate height loss compression fracture of L1 with greater than 50% height loss. Chronic appearing Moderate height loss compression fractures of T9 and T12. 5. Cholelithiasis. 6. Mild cardiomegaly. At least mild aortic valve and coronary artery calcifications. 7. Moderate-sized hiatal hernia. #History of infective endocarditis probably secondary to candidemia on chronic fluconazole -continue fluconazole #Atrial fibrillation with RVR #chronic systolic/diastolic heart failure, not under exacerbation #status post permanent pacemaker placement #Hypertensive heart disease -continue metoprolol 50mg po daily #Bilateral knee osteoarthritis -pain medication as needed -orthopedic consult ordered for possible corticosteroid injection -Bilateral knee Xrays showed no radiographic evidence of an acute osseous abnormality, there is no acute fracture, osseous malalignment, or aggressive focal osseous lesion, medial and lateral weight-bearing compartment joint space loss with chondrocalcinosis, tricompartmental marginal osteophytosis and trace suprapatellar knee joint effusion. #Sacral wound stage 1, present on admission -Partially bed-bound -wound care consult placed #Dyslipidemia #Normocytic, normochromic anemia -continue ferrous sulphate 325 mg po #Hypophosphatemia -ordered potassium phosphate 22 mEq #Diabetes mellitus,controlled -HbA1c on 06/29/25 is 4.6 -monitor blood glucose #Failure to thrive -started ensure 240ml tid Goals of care: Full code, discussed for >23 minutes Plan discussed with patient Plan discussed with Dr Alcaraz Plan discussed with: Patient, Daughter My Orders My Orders Orders - CARMELITA ALATORRE RESIDENT Procedure Category Date Status Time * Data Management Specialist CONS 07/11/25 Transmitted Consult 18:29 Dietary Evaluation Review Comments: 1) Consider changing Ensure High Protein to Glucerna tid 2) Encourage optimal PO intake 3) Initiate vitamin C @ 500 mg bid for 7 days 4) Follow-up with gastroenterology and cardiology 5) Continue to monitor I&O, labs, and skin integrity Expected Outcomes/Goals: 1) appetite and labs to improve 2) GI symptoms to improve 3) f/u in 3-5 days Date of Service: Jul 11, 2025 Billing Provider: CANDELARIO LYNN MD Common Visit Codes: [id number] INP/OBS CARE(HIGH) CARMELITA ALATORRE RESIDENT Jul 11, 2025 18:42
[2025-07-12] VITALS (7 sets, daily range): BP systolic 120–152; BP diastolic 66–87; PULSE 77–100; RESP 14–19; TEMP 97.7–98.5; O2SAT 95–98
[2025-07-12 07:05] LABS: Anion Gap 11 (5-15); Carbon Dioxide 22 mmol/L (20-31); Hematocrit 28.6 % (36.0-46.0); Hemoglobin 9.6 g/dL (12.2-16.2); Mean Corpuscular Hemoglobin 32.5 pg (28.0-32.0); Mean Corpuscular Volume 96.9 fL (80.0-100.0); Nucleated Red Blood Cells % 0.0 %; Potassium 4.1 mmol/L (3.5-5.1); Sodium 142 mmol/L (136-145)
[2025-07-12 07:07] LABS: Calcium 9.2 mg/dL (8.7-10.4)
[2025-07-12 07:11] LABS: BUN/Creatinine Ratio 17.4 (10.0-20.0); Blood Urea Nitrogen 15 mg/dL (9-23); Glucose 92 mg/dL (74-106)
[2025-07-12 07:14] LABS: Chloride 109 mmol/L (98-107)
--- NOTE | 2025-07-12 16:50 | DVHPN2 ---
Progress Note - Dictate Date Seen: Jul 11, 2025 Medical Necessity Reason Pt with a Central, PICC or Fol: No Subjective PT WELL KNOWN TO ME WITH SSS S/P PPI DIABETES VASCULOPATHY ANTIONE NOW UNDERWENT COLONOSCOPY AT AN OUTSIDE FACILITY COMPLICATED BY PERFORATION REQUIRING COLOSTOMY NOW WITH RECURRENT UTI DECUB ULCER SEVERELY MALNOURISHED CACHECTIC SEVERE VOL DEPLETION AND CLINICAL PRESENTATION FOR SEPSIS ENDOCARDITIS? COLO CUTANEOUS FISTULA vital signs Vital Sign Date Time Temp Pulse Resp B/P (MAP) Pulse Ox O2 Delivery O2 Flow Rate FiO2 07/12/25 12:42 98.3 77 15 131/77 (95) 98 98.3 07/12/25 08:00 Room Air* 0 21 Total Intake and Output 07/11/25 07/11/25 07/12/25 15:00 23:00 07:00 Intake Total 680 ml 100 ml Balance 680 ml 100 ml medications Current Medications Medications Dose Ordered Sig/Cristy Route Start Time Stop Time Status Last Admin Dose Admin Acetaminophen 325 mg Q4HP PRN PO 07/08/25 20:30 07/09/25 11:45 325 MG Morphine Sulfate 2 mg Q4HPRN PRN IV 07/08/25 20:30 Ferrous Sulfate 325 mg BIDWM PO 07/09/25 08:00 07/12/25 09:55 325 MG Lidocaine 1 patch DAILY TOP 07/09/25 10:00 07/12/25 09:56 1 PATCH Multivitamins 1 tab DAILY PO 07/09/25 10:00 07/12/25 09:55 1 TAB Mirtazapine 15 mg HS PO 07/08/25 22:00 07/11/25 21:25 15 MG Olanzapine 2.5 mg DAILY PO 07/09/25 10:00 07/12/25 09:56 2.5 MG Metoprolol Succinate 50 mg DAILY PO 07/09/25 10:00 07/12/25 10:03 50 MG Enteral Nutritional Formula 240 ml TIDWM PO 07/10/25 12:00 07/12/25 08:00 240 ML Enoxaparin Sodium 50 mg Q12HR SC 07/10/25 22:00 07/12/25 09:56 50 MG Fluconazole 200 mg HS PO 07/12/25 22:00 Famotidine 20 mg Q48H PO 07/14/25 10:00 laboratory and microbiology Laboratory Tests 07/12/25 05:58 Test 07/12/25 05:58 Range/Units Serum Glucose 92 74-106 mg/dL Problem List SSS S/P PPI DIABETES VASCULOPATHY ANTIONE NOW UNDERWENT COLONOSCOPY AT AN OUTSIDE FACILITY COMPLICATED BY PERFORATION REQUIRING COLOSTOMY NOW WITH RECURRENT UTI DECUB ULCER SEVERELY MALNOURISHED CACHECTIC SEVERE VOL DEPLETION AND CLINICAL PRESENTATION FOR SEPSIS INABILITY TO MOUNT AN WBC RESPONSE/ IMMUNOSUPPRESSED BACTERIAL AND YEAST INFECTION CUTANEOUS COLONIC FISTULA I Assessment/Plan IV FLUID CONTROL AFIB 'TREAT BOTH BACTERIAL AND YEAST INFECTION CONSIDER TPN FOR MANAGEMENT OF FISTULA PT WOUND CARE/ STAGE I DECUB CT ABD PELVIS 1. Removal of right lower quadrant drain. No drainable fluid collection. 2. There is a low left anterior abdominal wall colostomy and a Issa's pouch. No bowel obstruction. 3. Dehiscence of the infraumbilical anterior abdominal wall with defect measuring at least 7.9 cm transverse. 4. Subacute appearing moderate height loss compression fracture of L1 with greater than 50% height loss. Chronic appearing Moderate height loss compression fractures of T9 and T12. 5. Cholelithiasis. 6. Mild cardiomegaly. At least mild aortic valve and coronary artery calcifications. 7. Moderate-sized hiatal hernia. Dietary Evaluation Review Comments: 1) Consider changing Ensure High Protein to Glucerna tid 2) Encourage optimal PO intake 3) Initiate vitamin C @ 500 mg bid for 7 days 4) Follow-up with gastroenterology and cardiology 5) Continue to monitor I&O, labs, and skin integrity Expected Outcomes/Goals: 1) appetite and labs to improve 2) GI symptoms to improve 3) f/u in 3-5 days Plan discussed with: Patient, Daughter YASMEEN CHAVEZ MD Jul 12, 2025 16:50
--- NOTE | 2025-07-12 16:55 | DVHPN2 ---
Progress Note - Dictate Date Seen: Jul 12, 2025 Medical Necessity Reason Pt with a Central, PICC or Fol: No Subjective PT WELL KNOWN TO ME WITH SSS S/P PPI DIABETES VASCULOPATHY ANTIONE NOW UNDERWENT COLONOSCOPY AT AN OUTSIDE FACILITY COMPLICATED BY PERFORATION REQUIRING COLOSTOMY NOW WITH RECURRENT UTI DECUB ULCER SEVERELY MALNOURISHED CACHECTIC SEVERE VOL DEPLETION AND CLINICAL PRESENTATION FOR SEPSIS ENDOCARDITIS? COLO CUTANEOUS FISTULA vital signs Vital Sign Date Time Temp Pulse Resp B/P (MAP) Pulse Ox O2 Delivery O2 Flow Rate FiO2 07/12/25 12:42 98.3 77 15 131/77 (95) 98 98.3 07/12/25 08:00 Room Air* 0 21 Total Intake and Output 07/11/25 07/11/25 07/12/25 15:00 23:00 07:00 Intake Total 680 ml 100 ml Balance 680 ml 100 ml medications Current Medications Medications Dose Ordered Sig/Cristy Route Start Time Stop Time Status Last Admin Dose Admin Acetaminophen 325 mg Q4HP PRN PO 07/08/25 20:30 07/09/25 11:45 325 MG Morphine Sulfate 2 mg Q4HPRN PRN IV 07/08/25 20:30 Ferrous Sulfate 325 mg BIDWM PO 07/09/25 08:00 07/12/25 09:55 325 MG Lidocaine 1 patch DAILY TOP 07/09/25 10:00 07/12/25 09:56 1 PATCH Multivitamins 1 tab DAILY PO 07/09/25 10:00 07/12/25 09:55 1 TAB Mirtazapine 15 mg HS PO 07/08/25 22:00 07/11/25 21:25 15 MG Olanzapine 2.5 mg DAILY PO 07/09/25 10:00 07/12/25 09:56 2.5 MG Metoprolol Succinate 50 mg DAILY PO 07/09/25 10:00 07/12/25 10:03 50 MG Enteral Nutritional Formula 240 ml TIDWM PO 07/10/25 12:00 07/12/25 08:00 240 ML Enoxaparin Sodium 50 mg Q12HR SC 07/10/25 22:00 07/12/25 09:56 50 MG Fluconazole 200 mg HS PO 07/12/25 22:00 Famotidine 20 mg Q48H PO 07/14/25 10:00 laboratory and microbiology Laboratory Tests 07/12/25 05:58 Test 07/12/25 05:58 Range/Units Serum Glucose 92 74-106 mg/dL Problem List SSS S/P PPI DIABETES VASCULOPATHY ANTIONE NOW UNDERWENT COLONOSCOPY AT AN OUTSIDE FACILITY COMPLICATED BY PERFORATION REQUIRING COLOSTOMY NOW WITH RECURRENT UTI DECUB ULCER SEVERELY MALNOURISHED CACHECTIC SEVERE VOL DEPLETION AND CLINICAL PRESENTATION FOR SEPSIS INABILITY TO MOUNT AN WBC RESPONSE/ IMMUNOSUPPRESSED BACTERIAL AND YEAST INFECTION CUTANEOUS COLONIC FISTULA I Assessment/Plan IV FLUID CONTROL AFIB 'TREAT BOTH BACTERIAL AND YEAST INFECTION CONSIDER TPN FOR MANAGEMENT OF FISTULA PT WOUND CARE/ STAGE I DECUB CT ABD PELVIS 1. Removal of right lower quadrant drain. No drainable fluid collection. 2. There is a low left anterior abdominal wall colostomy and a Issa's pouch. No bowel obstruction. 3. Dehiscence of the infraumbilical anterior abdominal wall with defect measuring at least 7.9 cm transverse. 4. Subacute appearing moderate height loss compression fracture of L1 with greater than 50% height loss. Chronic appearing Moderate height loss compression fractures of T9 and T12. 5. Cholelithiasis. 6. Mild cardiomegaly. At least mild aortic valve and coronary artery calcifications. 7. Moderate-sized hiatal hernia. NO CT EVIDENCE FOR FISTULA Dietary Evaluation Review Comments: 1) Consider changing Ensure High Protein to Glucerna tid 2) Encourage optimal PO intake 3) Initiate vitamin C @ 500 mg bid for 7 days 4) Follow-up with gastroenterology and cardiology 5) Continue to monitor I&O, labs, and skin integrity Expected Outcomes/Goals: 1) appetite and labs to improve 2) GI symptoms to improve 3) f/u in 3-5 days Plan discussed with: Patient YASMEEN CHAVEZ MD Jul 12, 2025 16:55
--- NOTE | 2025-07-12 20:10 | DVHDSRES ---
Discharge Summary Date of Admission Resident Creating Document: CARMELITA ALATORRE RESIDENT Jul 08, 2025 at 19:09 Date of Discharge: Jul 12, 2025 Admitting Diagnosis Colocutaneous fistula, failure to thrive Labs/Diagnostic Data: Laboratory Results Test 07/12/25 05:58 07/10/25 07:36 07/08/25 21:32 White Blood Count 4.6 10^3/uL (4.4-10.8) Red Blood Count 2.95 10^6/uL (4.0-5.20) Hemoglobin 9.6 g/dL (12.2-16.2) Hematocrit 28.6 % (36.0-46.0) Mean Corpuscular Volume 96.9 fL (80.0-100.0) Mean Corpuscular Hemoglobin 32.5 pg (28.0-32.0) Mean Corpuscular Hemoglobin Concent 33.6 g/dL (32.0-36.0) Red Cell Distribution Width 18.5 % (11.8-14.3) Platelet Count 336 10^3/uL (140-450) Mean Platelet Volume 6.8 fL (6.9-10.8) Neutrophils (%) (Auto) 67.5 % (37.0-80.0) Lymphocytes (%) (Auto) 22.2 % (10.0-50.0) Monocytes (%) (Auto) 7.8 % (0.0-12.0) Eosinophils (%) (Auto) 1.8 % (0.0-7.0) Basophils (%) (Auto) 0.7 % (0.0-2.0) Neutrophils # (Auto) 3.1 10 ^3/uL (1.6-8.6) Lymphocytes # (Auto) 1.0 10 ^3/uL (0.4-5.4) Monocytes # (Auto) 0.4 10 ^3/uL (0-1.3) Eosinophils # (Auto) 0.1 10 ^3/uL (0-0.8) Basophils # (Auto) 0 10 ^3/uL (0-0.2) Nucleated Red Blood Cells 0.0 % Sodium Level 142 mmol/L (136-145) Potassium Level 4.1 mmol/L (3.5-5.1) Chloride Level 109 mmol/L (98-107) Carbon Dioxide Level 22 mmol/L (20-31) Anion Gap 11 (5-15) Blood Urea Nitrogen 15 mg/dL (9-23) Creatinine 0.86 mg/dL (0.550-1.02) Glomerular Filtration Rate Calc 65 mL/min (>90) BUN/Creatinine Ratio 17.4 (10.0-20.0) Serum Glucose 92 mg/dL (74-106) Calcium Level 9.2 mg/dL (8.7-10.4) Phosphorus Level 2.0 mg/dL (2.4-5.1) Prothrombin Time 10.6 sec (9.3-11.8) Prothrombin Time INR 1.00 (0.9-1.15) Activated Partial Thromboplast Time 26.8 SEC (24.5-34.5) Lactic Acid Level 1.4 mmol/L (0.4-2.0) Magnesium Level 1.6 mg/dL (1.6-2.6) Total Bilirubin 0.3 mg/dL (0.2-1.0) Aspartate Amino Transferase (AST) 20 U/L (13-40) Alanine Aminotransferase (ALT) 15 U/L (7-40) Alkaline Phosphatase 121 U/L (46-116) Total Protein 5.9 g/dL (5.7-8.2) Albumin 3.2 g/dL (3.2-4.8) Triglycerides Level 133 mg/dL (< 150) Cholesterol Level 168 mg/dL (< 200) LDL Cholesterol 115 mg/dL (< 100) HDL Cholesterol 37 mg/dL (40-59) Lipase 47 U/L (12-53) Vitamin B12 Level 936 pg/mL (211-911) Vitamin D 25-Hydroxy 65.3 ng/mL (30.0-100) Thyroid Stimulating Hormone (TSH) 3.21 uIU/mL (0.55-4.78) Other Laboratory Tests 07/12/25 05:58 Brief Hx & Hospital Course: Pily Jarrell is an 89-year-old female patient with past medical history of hypertension, diabetes mellitus, bilateral knee osteoarthritis, chronic diastolic heart failure, recurrent UTI, COVID in 2021, Afib,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 She was sent back to original center to evaluate discharge home with home health or SNF for nutritional support. During the course of hospitalization, she had low phosphorus which was repleted with potassium phosphate. Bilateral knee Xrays showed no radiographic evidence of an acute osseous abnormality. There is no acute fracture, osseous malalignment, or aggressive focal osseous lesion, medial and lateral weight-bearing compartment joint space loss with chondrocalcinosis, tricompartmental marginal osteophytosis, trace suprapatellar knee joint effusion. financial services technician was consulted for home health for PT, safety evaluation, colostomy care and management of medication and oral intake, colostomy bag supplies and air loss mattress. Patient will be discharged home with home health once supplies are arranged. Patient will follow up with PCP. 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 Surgical history: 03/2025 colon resection with colostomy bag post colonoscopy, right hip surgery, 2020 pacemaker placement Family history: Noncontributory Social history: Lives in [place] before colon resection she was living with daughter, since March 2025 she has been living in assisted living facility. Next of kin is daughter. Denies current tobacco, alcohol and other drug abuse Allergies: Levofloxacin Home medication: Fluconazole, apixaban, folic acid, furosemide, multivitamins PCP: Dr. Zazueta Operations or Procedures 1.PROCEDURE(s): CXR1 - CHEST XRAY 1 VIEW REASON: SOB ORDER NUMBER(s): [id number], ACCESSION NUMBER(s): [id number] CHEST RADIOGRAPH Indication: SOB Technique: Single frontal view of the chest was obtained COMPARISON: XY CHEST PORTABLE on DOS: 06/28/25 FINDINGS: Lines and Tubes: Dual-lead pacemaker again noted overlying left chest wall. Lungs: Mild subsegmental atelectasis/consolidation at left lung base which was also present on the prior chest x-ray from 06/28/25. Right lung is clear. Pleura: No pleural effusion or pneumothorax. Cardiomediastinal contours: Unremarkable IMPRESSION: Mild subsegmental atelectasis/consolidation at left lung base which was also present on the prior chest x-ray from 06/28/25. 2.PROCEDURE(s): ABD2C - ABDOMEN WITHOUT CONTRAST REASON: acute removal of LEONARD drain, acute abd pain ORDER NUMBER(s): [id number], ACCESSION NUMBER(s): [id number] CLINICAL HISTORY: acute removal of LEONARD drain, acute abd pain TECHNIQUE: CT of the abdomen and pelvis was performed without intravenous contrast. This exam was performed according to our departmental dose optimization program. Up-to-date CT equipment and radiation dose reduction techniques are utilized as appropriate. CTDI: 8.3 DLP: 430.56 WID: COMPARISON: CT CT AB PEL WO CON-NO ORAL OR IV on DOS: 06/29/25 FINDINGS: Lower Thorax: Linear bibasilar scarring or atelectasis. Small left pleural effusion. There is a battery pack in the left anterior chest wall with a dual lead pacemaker with lead tips terminating in the right atrial appendage and right ventricle. Moderate mitral annular calcifications. Calcified mediastinal lymph nodes. Mild cardiomegaly. Small to moderate-sized hiatal hernia. Mild aortic valve and mild coronary artery calcifications. Liver and Biliary system: Normal-sized liver. There is a small well-defined hypodensity in segment 3 of the liver not optimally evaluated without intravenous contrast, although unchanged. Cholelithiasis in a normal caliber gallbladder. There is no biliary ductal dilatation. Spleen: Unremarkable. Adrenal Glands and Kidneys: Normal adrenal glands. Unchanged hypodense lesion in the midpole left kidney likely a cyst although not optimally evaluated without intravenous contrast. Slightly small bilateral kidneys. No hydronephrosis or nephrolithiasis. Pancreas and Retroperitoneum: Atrophic pancreas. No retroperitoneal lymphadenopathy. Aorta and Major Vessels: Aortoiliac vessels are normal in caliber with mild calcified atherosclerotic plaque. Bowel, Mesentery and Peritoneal space: Removal of the drain that was previously seen from Right abdominal approach. There is a Issa's pouch. There is mild colonic diverticulosis. Normal caliber remaining small and large bowel loops. There is a colostomy in the low abdominal wall to the left of midline. There is a left lower quadrant anterior abdominal wall hernia containing nonobstructed left lower quadrant small bowel loops (series 601, image 41). No free air or fluid collection. Pelvis: Moderate distention of the urinary bladder. There is an atrophic uterus and ovaries. Myometrial vascular calcifications. No pelvic lymphadenopathy. Abdominal wall and Osseous Structures: There is dehiscence of the pelvic anterior abdominal wall with defect measures approximately 7.9 cm transverse on series 5, image 130. Prior right hip arthroplasty. Chondrocalcinosis of the bilateral hips and pubic symphysis in the bilateral sacroiliac joints. Grade 1 anterolisthesis at L4-L5 and L5-S1. There is a moderate height loss compression fracture of L1 with sclerosis of the vertebral body. Moderate chronic appearing compression fractures at T9 and T12. Multilevel lower thoracic and lumbar spondylosis. IMPRESSION: 1. Removal of right lower quadrant drain. No drainable fluid collection. 2. There is a low left anterior abdominal wall colostomy and a Issa's pouch. No bowel obstruction. 3. Dehiscence of the infraumbilical anterior abdominal wall with defect measuring at least 7.9 cm transverse. 4. Subacute appearing moderate height loss compression fracture of L1 with greater than 50% height loss. Chronic appearing Moderate height loss compression fractures of T9 and T12. 5. Cholelithiasis. 6. Mild cardiomegaly. At least mild aortic valve and coronary artery calcifications. 7. Moderate-sized hiatal hernia. 3.PROCEDURE(s): RKN3 - R KNEE 3V XRAY REASON: eval for bilateral knee pain ORDER NUMBER(s): [id number], ACCESSION NUMBER(s): [id number] EXAM: XY R KNEE 3V XRAY INDICATION: eval for bilateral knee pain TECHNIQUE: 3 views of the right knee COMPARISON: XY L KNEE 3V XRAY on DOS: 07/10/25 FINDINGS/IMPRESSION: No radiographic evidence of an acute osseous abnormality. There is no acute fracture, osseous malalignment, or aggressive focal osseous lesion. Severe lateral weight-bearing compartment joint space loss. Tricompartmental marginal osteophytosis. Severe patellofemoral compartment joint space loss. Giai-ea-ofkswkan medial weight-bearing compartment joint space loss. Vascular calcifications. Diffusely decreased bone mineral density. Intra-articular bodies in the suprapatellar recess. 4.PROCEDURE(s): LKNE3 - L KNEE 3V XRAY REASON: eval for bilateral knee pain ORDER NUMBER(s): [id number], ACCESSION NUMBER(s): [id number] EXAM: XY L KNEE 3V XRAY INDICATION: eval for bilateral knee pain TECHNIQUE: 3 views of the left knee COMPARISON: XY R KNEE 3V XRAY on DOS: 07/10/25 FINDINGS/IMPRESSION: No radiographic evidence of an acute osseous abnormality. There is no acute fracture, osseous malalignment, or aggressive focal osseous lesion. Medial and lateral weight-bearing compartment joint space loss with chondrocalcinosis. Tricompartmental marginal osteophytosis. Trace suprapatellar knee joint effusion. Condition at Discharge: Fair Final Diagnosis/Problems List [place]-cutaneous fistula after perforated colon status post colectomy and colostomy bag placement infective endocarditis Chronic Atrial fibrillation Chronic diastolic heart failure with EF>65%, not under exacerbation status post permanent pacemaker placement Hypertensive heart disease Bilateral knee osteoarthritis Sacral wound stage 1, present on admission Dyslipidemia Normocytic, normochromic anemia Hypophosphatemia,resolved Diabetes mellitus,controlled Failure to thrive Discharge Disposition: Home with Health Services Discharge Instruct/Medications Diet: Cardiac 2g Na,low cholest Activity: No Restrictions, As Tolerated Follow Up/Referral: follow up with PCP in 2 weeks Scheduled Acetaminophen (Acetaminophen), 650 MG PO HS, (Reported) Folic Trux-Cifvtjapof-Iffyydpi (Folbic), 1 TAB PO DAILY, (Reported) Scheduled PRN Meclizine Hcl (Meclizine Hcl), 25 MG PO BIDP PRN for DIZZINESS, (Reported) Miscellaneous Medications Aspirin Buffered (Quinten Carb-Mag (Aspirin 325 mg), 1 TAB PO, (Reported) Azilsartan Medoxomil-Chlorthal (Edarbyclor 40-25 mg), 1 TAB PO, (Reported) Ferrous Sulfate (Ferrous Sulfate), 325 MG PO, (Reported) Folic Tbip-Gsftekedgo-Amabuaye (Folbic), 1 TAB PO, (Reported) Furosemide (Lasix), 40 MG PO, (Reported) Multiple Vitamins W/ Minerals (Centrum Silver 50+Women), 1 TAB PO, (Reported) Omeprazole (Gnp Omeprazole), 20 MG PO, (Reported) Potassium Chloride (Klor-Con M10), 10 MEQ PO, (Reported) Discharge Statement: "Patient was advised to return to the ER or call 911 if any headaches, dizziness, shortness of breath, chest pain, abdominal pain, bleeding, fevers, or worsening of medical condition. Patient was counseled about treatment plan, medications, possible side effects, patientverbalized understanding. All questions were answered to the best of my ability. This discharge took greater then 30 minutes in planning, reviewing documentation, counseling the patient, and discussing with other team members." ASSESSMENT ASSESSMENT Assessment [place]-cutaneous fistula History of perforated colon status post colectomy and colostomy bag placement Atrial fibrillation with RVR chronic systolic/diastolic heart failure, not under exacerbation status post permanent pacemaker placement Hypertensive heart disease Bilateral knee osteoarthritis Sacral wound stage 1, present on admission Normocytic, normochromic anemia Hypophosphatemia Diabetes mellitus,controlled Failure to thrive Date of Service: Jul 12, 2025 Billing Provider: ASHLEIGH SHORT MD Common Visit Codes: 50492-VGK/OBS DISCH DAY >30min CARMELITA ALATORRE RESIDENT Jul 12, 2025 20:10
[2025-07-12] MEDS: FLUCONAZOLE 100 MG TAB PO SCH (21:37)
[2025-07-13 01:00] VITALS: BP 116/71; PULSE 102; RESP 16; TEMP 97.8; O2SAT 98
[2025-07-13 05:00] VITALS: BP 140/83; PULSE 72; RESP 16; TEMP 98.3; O2SAT 98
--- NOTE | 2025-07-13 08:39 | DVHPN2 ---
Progress Note - Dictate Date Seen: Jul 13, 2025 Medical Necessity Reason Pt with a Central, PICC or Fol: No Subjective PT WELL KNOWN TO ME WITH SSS S/P PPI DIABETES VASCULOPATHY ANTIONE NOW UNDERWENT COLONOSCOPY AT AN OUTSIDE FACILITY COMPLICATED BY PERFORATION REQUIRING COLOSTOMY NOW WITH RECURRENT UTI DECUB ULCER SEVERELY MALNOURISHED CACHECTIC SEVERE VOL DEPLETION AND CLINICAL PRESENTATION FOR SEPSIS ENDOCARDITIS? COLO CUTANEOUS FISTULA vital signs Vital Sign Date Time Temp Pulse Resp B/P (MAP) Pulse Ox O2 Delivery O2 Flow Rate FiO2 07/13/25 05:00 98.3 72 16 140/83 (102) 98 98.3 07/12/25 20:00 Room Air* 0 21 Total Intake and Output 07/12/25 07/12/25 07/13/25 15:00 23:00 07:00 Intake Total 500 ml 250 ml Balance 500 ml 250 ml medications Current Medications Medications Dose Ordered Sig/Cristy Route Start Time Stop Time Status Last Admin Dose Admin Acetaminophen 325 mg Q4HP PRN PO 07/08/25 20:30 07/09/25 11:45 325 MG Morphine Sulfate 2 mg Q4HPRN PRN IV 07/08/25 20:30 Ferrous Sulfate 325 mg BIDWM PO 07/09/25 08:00 07/12/25 18:20 325 MG Lidocaine 1 patch DAILY TOP 07/09/25 10:00 07/12/25 09:56 1 PATCH Multivitamins 1 tab DAILY PO 07/09/25 10:00 07/12/25 09:55 1 TAB Mirtazapine 15 mg HS PO 07/08/25 22:00 07/12/25 21:37 15 MG Olanzapine 2.5 mg DAILY PO 07/09/25 10:00 07/12/25 09:56 2.5 MG Metoprolol Succinate 50 mg DAILY PO 07/09/25 10:00 07/12/25 10:03 50 MG Enteral Nutritional Formula 240 ml TIDWM PO 07/10/25 12:00 07/12/25 18:20 240 ML Enoxaparin Sodium 50 mg Q12HR SC 07/10/25 22:00 07/12/25 21:37 50 MG Fluconazole 200 mg HS PO 07/12/25 22:00 07/12/25 21:37 200 MG Famotidine 20 mg Q48H PO 07/14/25 10:00 laboratory and microbiology Laboratory Tests 07/12/25 05:58 Test 07/12/25 05:58 Range/Units Serum Glucose 92 74-106 mg/dL Problem List SSS S/P PPI DIABETES VASCULOPATHY ANTIONE NOW UNDERWENT COLONOSCOPY AT AN OUTSIDE FACILITY COMPLICATED BY PERFORATION REQUIRING COLOSTOMY NOW WITH RECURRENT UTI DECUB ULCER SEVERELY MALNOURISHED CACHECTIC SEVERE VOL DEPLETION AND CLINICAL PRESENTATION FOR SEPSIS INABILITY TO MOUNT AN WBC RESPONSE/ IMMUNOSUPPRESSED BACTERIAL AND YEAST INFECTION CUTANEOUS COLONIC FISTULA I Assessment/Plan IV FLUID CONTROL AFIB 'TREAT BOTH BACTERIAL AND YEAST INFECTION CONSIDER TPN FOR MANAGEMENT OF FISTULA PT WOUND CARE/ STAGE I DECUB CT ABD PELVIS 1. Removal of right lower quadrant drain. No drainable fluid collection. 2. There is a low left anterior abdominal wall colostomy and a Issa's pouch. No bowel obstruction. 3. Dehiscence of the infraumbilical anterior abdominal wall with defect measuring at least 7.9 cm transverse. 4. Subacute appearing moderate height loss compression fracture of L1 with greater than 50% height loss. Chronic appearing Moderate height loss compression fractures of T9 and T12. 5. Cholelithiasis. 6. Mild cardiomegaly. At least mild aortic valve and coronary artery calcifications. 7. Moderate-sized hiatal hernia. NO CT EVIDENCE FOR FISTULA NUTRITIONAL SUPPOST CX NEGATIVE FAILURE TO THRIVE CONSIDER HORMONE REPLACEMENT THERAOU Dietary Evaluation Review Comments: 1) Consider changing Ensure High Protein to Glucerna tid 2) Encourage optimal PO intake 3) Initiate vitamin C @ 500 mg bid for 7 days 4) Follow-up with gastroenterology and cardiology 5) Continue to monitor I&O, labs, and skin integrity Expected Outcomes/Goals: 1) appetite and labs to improve 2) GI symptoms to improve 3) f/u in 3-5 days Plan discussed with: Patient, Daughter YASMEEN CHAVEZ MD Jul 13, 2025 08:39
[2025-07-13 09:00] VITALS: BP 134/76; PULSE 89; RESP 16; TEMP 97.4; O2SAT 99
--- NOTE | 2025-07-13 10:31 | DVHPNRES ---
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 She was sent back to original center to evaluate discharge home with home health or SNF for nutritional support. She has no new complaints at this time. 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 Surgical history: 03/2025 colon resection with colostomy bag post colonoscopy, right hip surgery, 2020 pacemaker placement Family history: Noncontributory Social history: Lives in [place] before colon resection she was living with daughter, since March 2025 she has been living in assisted living facility. Next of kin is daughter. Denies current tobacco, alcohol and other drug abuse Allergies: Levofloxacin Home medication: Fluconazole, apixaban, folic acid, furosemide, multivitamins PCP: Dr. Zazueta Patient seen and examined at bedside. Patient is alert and oriented to time, place person and responding to all questions. Eyes: No Pain, No Vision change, No Conjunctivae inflammation, No Eyelid inflammation, No Redness ENT: No Ear pain, No Ear discharge, No Nose pain, No Nose discharge, No Nose congestion, No Mouth pain, No Mouth swelling, No Throat pain, No Throat swelling Cardiovascular: No Chest Pain, No Palpitations, No Orthopnea, No Paroxysmal No Dyspnea, No Edema, No Lt Headedness Respiratory: No Cough, No Dry, No Shortness of breath, No SOB with exertion, No Wheezing, No Hemoptysis, No Pleuritic Pain, No Sputum Gastrointestinal: No Nausea, No Vomiting, No Abdominal Pain, No Diarrhea, No Constipation, No Melena, No Hematochezia Genitourinary: No Dysuria, No Frequency, No Incontinence, No Hematuria, No Retention 07/10/25- The patient was seen at bedside today. Patient has low phosphorus of 2, it was repleted with potassium phosphate 22mEq. social and human services assistant was consulted for home health for PT, safety evaluation, colostomy care and management of medication and oral intake, colostomy bag supplies and air loss mattress. Orthopedic consult was placed for possible corticosteroid injection for bilateral knee osteoarthritis. 07/11/25- patient was seen at bedside today. All labs, charts vitals were reviewed. Bilateral knee Xrays showed no radiographic evidence of an acute osseous abnormality. There is no acute fracture, osseous malalignment, or aggressive focal osseous lesion, medial and lateral weight-bearing compartment joint space loss with chondrocalcinosis, tricompartmental marginal osteophytosis, trace suprapatellar knee joint effusion. Wound care was consulted to evaluate the sacral wound. The patient will be discharged home once her colostomy bag is arranged. 07/12/25- patient was seen at bedside today. All labs and charts were reviewed. Continued with the same management. Patient was seen by Dr. Zazueta who is her PCP. 07/13/25- The patient was seen at bedside today. All charts were reviewed. Patient was discharged home with home health in a stable condition. Objective vital signs Vital Sign Date Time Temp Pulse Resp B/P (MAP) Pulse Ox O2 Delivery O2 Flow Rate FiO2 07/13/25 09:28 89 134/76 07/13/25 09:00 97.4 16 99 97.4 07/12/25 20:00 Room Air* 0 21 Total Intake and Output 07/12/25 07/12/25 07/13/25 15:00 23:00 07:00 Intake Total 500 ml 250 ml Balance 500 ml 250 ml medications Current Medications Medications Dose Ordered Sig/Cristy Route Start Time Stop Time Status Last Admin Dose Admin Acetaminophen 325 mg Q4HP PRN PO 07/08/25 20:30 07/09/25 11:45 325 MG Morphine Sulfate 2 mg Q4HPRN PRN IV 07/08/25 20:30 Ferrous Sulfate 325 mg BIDWM PO 07/09/25 08:00 07/13/25 09:25 325 MG Lidocaine 1 patch DAILY TOP 07/09/25 10:00 07/13/25 09:41 1 PATCH Multivitamins 1 tab DAILY PO 07/09/25 10:00 07/13/25 09:25 1 TAB Mirtazapine 15 mg HS PO 07/08/25 22:00 07/12/25 21:37 15 MG Olanzapine 2.5 mg DAILY PO 07/09/25 10:00 07/13/25 09:28 2.5 MG Metoprolol Succinate 50 mg DAILY PO 07/09/25 10:00 07/13/25 09:28 50 MG Enteral Nutritional Formula 240 ml TIDWM PO 07/10/25 12:00 07/13/25 08:00 240 ML Enoxaparin Sodium 50 mg Q12HR SC 07/10/25 22:00 07/13/25 09:25 50 MG Fluconazole 200 mg HS PO 07/12/25 22:00 07/12/25 21:37 200 MG Famotidine 20 mg Q48H PO 07/14/25 10:00 Examination Patient lying in bed, in no acute distress. General: Lucid, afebrile, mucosae are moist Cardiovascular: Normal S1 and S2. No murmurs, gallops or rubs. Pacemaker generator in left subclavian region Respiratory: Normal ventilation mechanics. Clear lung sounds on auscultation Abdomen: Soft, nontender, no organomegaly, reduced bowel sounds, colostomy bag occupying lower quadrants with no feces collection MSK/skin: Mobilizes 4 limbs. Skin is dry and warm. Sacral decubitus ulcer grade 1 present on admission Neurological: Oriented in 3 spheres. No motor no sensitive deficits. Pupils are isocoric and reactive. laboratory and microbiology Laboratory Tests 07/12/25 05:58 Test 07/12/25 05:58 Range/Units Serum Glucose 92 74-106 mg/dL Microbiology Date/Time Source Procedure Growth Status 07/08/25 22:20 Nose MRSA Screen - Final Complete 07/08/25 21:32 Blood Blood Culture - Preliminary NO GROWTH AFTER 72 HOURS OF INCUBATION. 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 No bowel obstruction. - Dehiscence of the infraumbilical anterior abdominal wall with defect measuring at least 7.9 cm transverse. #infective endocarditis probably secondary to candidemia on chronic fluconazole -continue fluconazole #Atrial fibrillation with RVR #chronic systolic/diastolic heart failure, not under exacerbation #status post permanent pacemaker placement #Hypertensive heart disease -continue metoprolol 50mg po daily #Bilateral knee osteoarthritis -pain medication as needed -orthopedic consult ordered for possible corticosteroid injection -Bilateral knee Xrays showed no radiographic evidence of an acute osseous abnormality, there is no acute fracture, osseous malalignment, or aggressive focal osseous lesion, medial and lateral weight-bearing compartment joint space loss with chondrocalcinosis, tricompartmental marginal osteophytosis and trace suprapatellar knee joint effusion. #Sacral wound stage 1, present on admission -Partially bed-bound -wound care consult placed #Dyslipidemia #Normocytic, normochromic anemia -continue ferrous sulphate 325 mg po #Hypophosphatemia -ordered potassium phosphate 22 mEq #Diabetes mellitus,controlled -HbA1c on 06/29/25 is 4.6 -monitor blood glucose #Failure to thrive -started ensure 240ml tid Goals of care: Full code, discussed for >23 minutes Plan discussed with patient Plan discussed with Dr Miller Plan discussed with: Patient My Orders My Orders Orders - CARMELITA ALATORRE RESIDENT Procedure Category Date Status Time * Wound Consult CONS 07/12/25 Transmitted Dietary Evaluation Review Comments: 1) Consider changing Ensure High Protein to Glucerna tid 2) Encourage optimal PO intake 3) Initiate vitamin C @ 500 mg bid for 7 days 4) Follow-up with gastroenterology and cardiology 5) Continue to monitor I&O, labs, and skin integrity Expected Outcomes/Goals: 1) appetite and labs to improve 2) GI symptoms to improve 3) f/u in 3-5 days Date of Service: Jul 13, 2025 Billing Provider: ASHLEIGH MILLER MD Common Visit Codes: [id number] INP/OBS CARE(HIGH) LANDRYCARMELITA BARRERAUR RESIDENT Jul 13, 2025 10:31
[2025-07-13 13:00] VITALS: BP 125/83; PULSE 103; RESP 16; TEMP 97.4; O2SAT 98
[2025-07-13] MEDS ORDERED: METO-289 PO (13:58)
[2025-07-13] MEDS ORDERED: FLUC200T50 PO (13:58)
[2025-07-13] MEDS ORDERED: FAMO20TA10 PO (13:58)
[2025-07-13] MEDS ORDERED: OLAN1TAB7 PO (13:58)
[2025-07-13] MEDS ORDERED: MIRT-93 PO (13:58)
[2025-07-13 17:00] VITALS: BP 130/83; PULSE 92; RESP 16; TEMP 97.3; O2SAT 98
[2025-07-14] MEDS ORDERED: FAMOTIDINE 20 MG TAB PO SCH (10:00)
== END 2025-07-13 18:00 | disposition home health service (06) | DRG 393 ==
LOC: WEST WING 19:09 → TELE-WESTW 07-09 00:33 → WEST WING 07-12 10:15
PROVIDERS: ADMIT Internal Medicine; ATTEND Internal Medicine
DX: K63.2 Fistula of intestine (principal); I33.0 Acute and subacute infective endocarditis; K63.1 Perforation of intestine (nontraumatic); I44.2 Atrioventricular block, complete; L89.151 Pressure ulcer of sacral region, stage 1; I50.42 Chronic combined systolic (congestive) and diastolic (congestive) heart failure; K94.03 Colostomy malfunction; R62.7 Adult failure to thrive; I11.0 Hypertensive heart disease with heart failure; E83.39 Other disorders of phosphorus metabolism; F44.4 Conversion disorder with motor symptom or deficit; B96.89 Other specified bacterial agents as the cause of diseases classified elsewhere; D64.9 Anemia, unspecified; E11.9 Type 2 diabetes mellitus without complications; M48.54XA Collapsed vertebra, not elsewhere classified, thoracic region, initial encounter for fracture; M48.56XA Collapsed vertebra, not elsewhere classified, lumbar region, initial encounter for fracture; K60.40 Rectal fistula, unspecified; M17.0 Bilateral primary osteoarthritis of knee; E78.5 Hyperlipidemia, unspecified; I25.10 Atherosclerotic heart disease of native coronary artery without angina pectoris; M11.252 Other chondrocalcinosis, left hip; M11.251 Other chondrocalcinosis, right hip; M25.461 Effusion, right knee; K80.20 Calculus of gallbladder without cholecystitis without obstruction; K44.9 Diaphragmatic hernia without obstruction or gangrene; I48.0 Paroxysmal atrial fibrillation; Z87.440 Personal history of urinary (tract) infections; Z87.01 Personal history of pneumonia (recurrent); Z79.01 Long term (current) use of anticoagulants; Z95.0 Presence of cardiac pacemaker; Z88.1 Allergy status to other antibiotic agents; Z90.49 Acquired absence of other specified parts of digestive tract; Z74.01 Bed confinement status; Z68.26 Body mass index [BMI] 26.0-26.9, adult
CPT/HCPCS: 36415; 71045; 73562; 74150; 80048; 80053; 80061; 82306; 82607; 83605; 83690; 83735; 84100; 84443; 85025; 85610; 85730; 87040; 87081; 97163; G0378

== ENCOUNTER 2025-07-20 15:41 | Inpatient (IN) | payer MEDICARE, MEDICAID ==
[~2025-07-20] VITALS: Ht 142.2 cm; Wt 60.0 kg
[~2025-07-20 15:41] MED LIST changes: -ACET-1881 PO; -AZIL40TA3 PO; +FAMO20TA10 PO; +FLUC200T50 PO; -FURO1TAB31 PO; -MECL-90 PO; +METO-289 PO; +MIRT-93 PO; +OLAN1TAB7 PO; -OMEP20TA PO; -POTA-215 PO
[2025-07-20 18:30] VITALS: BP 110/57; PULSE 84; RESP 14; TEMP 97.5; O2SAT 97
[2025-07-20 19:23] LABS: Hematocrit 33.8 % (36.0-46.0); Hemoglobin 10.9 g/dL (12.2-16.2); Mean Corpuscular Hemoglobin 31.6 pg (28.0-32.0); Mean Corpuscular Volume 97.8 fL (80.0-100.0); Nucleated Red Blood Cells % 0.1 %
--- NOTE | 2025-07-20 19:32 | DVH ---
CHEST RADIOGRAPH REASON FOR EXAM: Pain COMPARISON: XY CHEST XRAY 1 VIEW on DOS: 07/08/25, XY CHEST PORTABLE on DOS: 06/28/25, XRAY CHEST 1 VIEW on DOS: 04/01/25, XRAY CHEST AP PORTABLE on DOS: 03/15/25, XRAY CHEST AP PORTABLE on DOS: 03/15/25 TECHNIQUE: One view of the chest is provided FINDINGS: The cardiomediastinal silhouette is stable. There is a 2 lead cardiac pacer. There is aortic atherosclerosis. There is similar appearance of subsegmental airspace disease at the left lung base, likely atelectasis. There is no significant pleural effusion. There is no pneumothorax no acute osseous abnormality is identified. IMPRESSION: Similar appearance of left basilar subsegmental airspace disease, likely atelectasis.
[2025-07-20 19:37] LABS: Alanine Aminotransferase 31 U/L (7-40); Albumin 3.4 g/dL (3.2-4.8); Anion Gap 13 (5-15); BUN/Creatinine Ratio 42.7 (10.0-20.0); Calcium 9.5 mg/dL (8.7-10.4); Carbon Dioxide 21 mmol/L (20-31); Chloride 107 mmol/L (98-107); Glucose 103 mg/dL (74-106); Potassium 4.0 mmol/L (3.5-5.1); Sodium 141 mmol/L (136-145); Total Protein 5.8 g/dL (5.7-8.2)
[2025-07-20 19:44] LABS: Alkaline Phosphatase 123 U/L (46-116); Bilirubin, Total 0.2 mg/dL (0.2-1.0); Blood Urea Nitrogen 41 mg/dL (9-23)
[2025-07-20 20:00] VITALS: PULSE 95; RESP 16; O2SAT 99
[2025-07-20 21:00] VITALS: BP 100/59; PULSE 95; RESP 16; TEMP 98.1; O2SAT 99
[2025-07-20] MEDS ORDERED: CLINIMIX PER PHARMACY 0 ML IV SCH (21:15)
[2025-07-20] MEDS: FLUCONAZOLE 200MG/100ML 100 ML IV ONE (21:23)
[2025-07-20] MEDS ORDERED: AMINO ACID INFUSION IN D10W 1,000 ML IV SCH (22:00)
[2025-07-21] VITALS (8 sets, daily range): BP systolic 110–130; BP diastolic 60–74; PULSE 63–100; RESP 14–18; TEMP 97.4–98.8; O2SAT 96–99
[2025-07-21] MEDS: AMINO ACID INFUSION IN D10W 1,000 ML IV SCH ×2 (01:35→21:50)
[2025-07-21 06:31] LABS: Alanine Aminotransferase 31 U/L (7-40); Anion Gap 15 (5-15); BUN/Creatinine Ratio 37.0 (10.0-20.0); Calcium 9.7 mg/dL (8.7-10.4); Carbon Dioxide 20 mmol/L (20-31); Chloride 106 mmol/L (98-107); Magnesium 1.8 mg/dL (1.6-2.6); Sodium 141 mmol/L (136-145); Total Protein 6.6 g/dL (5.7-8.2)
[2025-07-21 06:32] LABS: Albumin 3.7 g/dL (3.2-4.8)
[2025-07-21 06:34] LABS: Alkaline Phosphatase 123 U/L (46-116); Bilirubin, Total 0.3 mg/dL (0.2-1.0); Blood Urea Nitrogen 34 mg/dL (9-23); Glucose 106 mg/dL (74-106); Potassium 3.4 mmol/L (3.5-5.1)
[2025-07-21] MEDS: FLUCONAZOLE 200MG/100ML 100 ML IV SCH (09:40)
--- NOTE | 2025-07-21 13:09 | DVHPN2 ---
Progress Note - Dictate Date Seen: Jul 21, 2025 Medical Necessity Reason Pt with a Central, PICC or Fol: Yes The following are medically ne: Spann Catheter Subjective SSS S/P PPI DIABETES VASCULOPATHY ANTIONE NOW UNDERWENT COLONOSCOPY AT AN OUTSIDE FACILITY COMPLICATED BY PERFORATION REQUIRING COLOSTOMY NOW WITH RECURRENT UTI DECUB ULCER SEVERELY MALNOURISHED CACHECTIC SEVERE VOL DEPLETION AND CLINICAL PRESENTATION FOR SEPSIS ENDOCARDITIS? COLO CUTANEOUS FISTULA I vital signs Vital Sign Date Time Temp Pulse Resp B/P (MAP) Pulse Ox O2 Delivery O2 Flow Rate FiO2 07/21/25 09:00 97.9 63 16 116/71 (86) 99 97.9 07/20/25 20:00 Room Air* 0 21 Total Intake and Output 07/20/25 07/20/25 07/21/25 15:00 23:00 07:00 Intake Total 150 ml Output Total 550 ml Balance -400 ml medications Current Medications Medications Dose Ordered Sig/Cristy Route Start Time Stop Time Status Last Admin Dose Admin Fluconazole 100 ml @ 100 mls/hr DAILY IV 07/21/25 10:00 07/21/25 09:40 100 MLS/HR Ceftriaxone Sodium 50 ml @ 100 mls/hr DAILY@09 IV 07/21/25 09:00 07/21/25 08:43 100 MLS/HR Amino Acids 0 ml @ 0 mls/hr PER PHARMACY IV 07/20/25 21:15 Amino Acids/ Electrolytes/ Dextrose 1,000 ml @ 41 mls/hr DAILY@0130 IV 07/21/25 01:30 07/21/25 01:35 41 MLS/HR laboratory and microbiology Laboratory Tests 07/21/25 05:18 07/20/25 19:08 Test 07/21/25 05:18 Range/Units Serum Glucose 106 74-106 mg/dL Problem List SSS S/P PPI DIABETES VASCULOPATHY ANTIONE NOW UNDERWENT COLONOSCOPY AT AN OUTSIDE FACILITY COMPLICATED BY PERFORATION REQUIRING COLOSTOMY NOW WITH RECURRENT UTI DECUB ULCER SEVERELY MALNOURISHED CACHECTIC SEVERE VOL DEPLETION AND CLINICAL PRESENTATION FOR SEPSIS INABILITY TO MOUNT AN WBC RESPONSE/ IMMUNOSUPPRESSED BACTERIAL AND YEAST INFECTION CUTANEOUS COLONIC FISTULA HX OF FUNGAL ENDOCARDITIS Assessment/Plan IV FLUID CONTROL AFIB 'TREAT BOTH BACTERIAL AND YEAST INFECTION CONSIDER TPN FOR MANAGEMENT OF FISTULA PT WOUND CARE/ STAGE I DECUB CT ABD PELVIS 1. Removal of right lower quadrant drain. No drainable fluid collection. 2. There is a low left anterior abdominal wall colostomy and a Issa's pouch. No bowel obstruction. 3. Dehiscence of the infraumbilical anterior abdominal wall with defect measuring at least 7.9 cm transverse. 4. Subacute appearing moderate height loss compression fracture of L1 with greater than 50% height loss. Chronic appearing Moderate height loss compression fractures of T9 and T12. 5. Cholelithiasis. 6. Mild cardiomegaly. At least mild aortic valve and coronary artery calcifications. 7. Moderate-sized hiatal hernia. NO CT EVIDENCE FOR FISTULA NUTRITIONAL SUPPOST CX NEGATIVE FAILURE TO THRIVE CONSIDER HORMONE REPLACEMENT THERAPY ECHO TO RULE OUT ENDOCARDITIS Plan discussed with: Patient Critical Care Time(min): 35 YASMEEN CHAVEZ MD Jul 21, 2025 13:09
--- NOTE | 2025-07-21 14:47 | DVHSR ---
APPROVED REPORT EXAM: Two-dimensional and M-mode echocardiogram with Doppler and color Doppler. Blood Pressure: 110/60 mmHg INDICATION Heart Function RISK FACTORS Height: 4'8, DIMENSIONS LVDd 4.0 (3.8-5.7cm) LA (2D) 3.2 (1.9-4.0cm) Aortic Root 2.5 (2.0-3.7cm) LVDs 2.3 (2.5-4.0cm) LA (MM) (1.9-4.0cm) Aortic Cusp Exc 1.4 (1.5-2.0cm) EF (%) 72.0 (55-70%) Rt. Atrium (1.9-4.0cm) Asc. Aorta 2.8 cm IVSd 1.4 (0.7-1.1cm) RV (D) (1.8-2.4cm) PWd 0.9 (0.7-1.1cm) Mitral Valve Mitral Mitral Stenosis A wave m/s MV Peak GR. 96mmHg E/A ratio 0.0 2D MVA cm2 Aortic Valve Aortic Valve Aortic Stenosis V1 0.95m/s AO Mean GR. 2mmHg V2 1.06m/s AO Peak GR. 4mmHg LVOT Diameter 1.8 (1.8-2.4cm) Doppler STEPHANIE 2.28cm2 Pulmonic Valve V2 1.29m/s Other Information Technically limited study due to body habitus. Conclusion conc lvh mod mac mild av calcification no obvious vegetation seen in mitral, aortc valves
[2025-07-21 14:56] LABS: INR 0.97 (0.9-1.15); Partial Thromboplastin Time 26.7 SEC (24.5-34.5); Prothrombin Time 10.3 sec (9.3-11.8)
[2025-07-21] MEDS ORDERED: DEXTROSE (50%) 50ML SYRG IV SCH (22:00)
[2025-07-22] VITALS (7 sets, daily range): BP systolic 105–122; BP diastolic 64–82; PULSE 58–114; RESP 15–18; TEMP 96.7–98.4; O2SAT 98–99
[2025-07-22] MEDS: ACCU-CHEK COMFORT CURVE STRIP VI SCH
[2025-07-22] MEDS: POTASSIUM PHOSPHATE 26.4 MEQ in SODIUM CHL 0.9% 100 ML IV ONE (00:39)
[2025-07-22] MEDS: InsuLIN REG 1unit/0.01ml Soln (100units/ml) SC SCH (00:44)
[2025-07-22 08:01] LABS: Alanine Aminotransferase 26 U/L (7-40); Albumin 3.3 g/dL (3.2-4.8); Alkaline Phosphatase 110 U/L (46-116); Anion Gap 13 (5-15); BUN/Creatinine Ratio 30.5 (10.0-20.0); Calcium 9.2 mg/dL (8.7-10.4); Potassium 3.5 mmol/L (3.5-5.1); Sodium 140 mmol/L (136-145); Total Protein 6.1 g/dL (5.7-8.2)
[2025-07-22 08:03] LABS: Blood Urea Nitrogen 29 mg/dL (9-23); Carbon Dioxide 19 mmol/L (20-31); Chloride 108 mmol/L (98-107); Glucose 140 mg/dL (74-106)
[2025-07-22 08:04] LABS: Bilirubin, Total 0.2 mg/dL (0.2-1.0); Magnesium 1.4 mg/dL (1.6-2.6); Triglycerides 224 mg/dL (< 150)
[2025-07-22] MEDS: MAGNESIUM SULFATE 1GM/100ML 100 ML IV ONE (14:12)
[2025-07-22 15:55] LABS: Urine Protein, UAD TRACE (Negative)
[2025-07-23] VITALS (8 sets, daily range): BP systolic 98–131; BP diastolic 54–88; PULSE 90–105; RESP 14–18; TEMP 97.2–100.8; O2SAT 96–99
[2025-07-23 09:09] LABS: Alanine Aminotransferase 24 U/L (7-40); Alkaline Phosphatase 104 U/L (46-116); Anion Gap 12 (5-15); BUN/Creatinine Ratio 27.7 (10.0-20.0); Calcium 9.1 mg/dL (8.7-10.4); Magnesium 1.7 mg/dL (1.6-2.6); Sodium 136 mmol/L (136-145); Total Protein 5.7 g/dL (5.7-8.2)
[2025-07-23 09:11] LABS: Albumin 3.2 g/dL (3.2-4.8); Bilirubin, Total 0.2 mg/dL (0.2-1.0); Blood Urea Nitrogen 23 mg/dL (9-23); Carbon Dioxide 17 mmol/L (20-31); Chloride 107 mmol/L (98-107); Glucose 148 mg/dL (74-106); Potassium 3.1 mmol/L (3.5-5.1)
[2025-07-23] MEDS: POTASSIUM CHL 20MEQ/100ML 100 ML IV SCH (11:30)
[2025-07-23] MEDS ORDERED: POTASSIUM PHOSPHATE 26.4 MEQ in SODIUM CHL 0.9% 100 ML IV ONE (11:30)
[2025-07-23] MEDS ORDERED: TPN PER PHARMACY 0 ML IV SCH (11:30)
[2025-07-23] MEDS ORDERED: POTASSIUM CHL 20 Meq TABLET PO ONE (16:45)
[2025-07-23] MEDS ORDERED: POTASSIUM EFFERVESENT TAB 25 MEQ PO ONE (17:00)
[2025-07-23] MEDS: POTASSIUM EFFERVESENT TAB 25 MEQ PO ONE (17:17)
[2025-07-24] VITALS (8 sets, daily range): BP systolic 107–119; BP diastolic 58–80; PULSE 72–109; RESP 15–18; TEMP 97–97.8; O2SAT 98–99
[2025-07-24 06:21] LABS: Alanine Aminotransferase 27 U/L (7-40); Anion Gap 11 (5-15); BUN/Creatinine Ratio 29.7 (10.0-20.0); Blood Urea Nitrogen 22 mg/dL (9-23); Calcium 9.4 mg/dL (8.7-10.4); Chloride 106 mmol/L (98-107); Magnesium 1.8 mg/dL (1.6-2.6); Potassium 4.4 mmol/L (3.5-5.1); Sodium 137 mmol/L (136-145); Total Protein 6.1 g/dL (5.7-8.2)
[2025-07-24 06:22] LABS: Albumin 3.4 g/dL (3.2-4.8)
[2025-07-24 06:24] LABS: Alkaline Phosphatase 123 U/L (46-116); Bilirubin, Total 0.3 mg/dL (0.2-1.0); Carbon Dioxide 20 mmol/L (20-31); Glucose 127 mg/dL (74-106)
[2025-07-24] MEDS ORDERED: POTASSIUM PHOSPHATE 44 MEQ in D5W 5% 250 ML IV ONE (11:00)
--- NOTE | 2025-07-24 13:40 | DVHPN2 ---
Progress Note - Dictate Date Seen: Jul 22, 2025 Medical Necessity Reason Pt with a Central, PICC or Fol: Yes The following are medically ne: Spann Catheter Subjective SSS S/P PPI DIABETES VASCULOPATHY ANTIONE NOW UNDERWENT COLONOSCOPY AT AN OUTSIDE FACILITY COMPLICATED BY PERFORATION REQUIRING COLOSTOMY NOW WITH RECURRENT UTI DECUB ULCER SEVERELY MALNOURISHED CACHECTIC SEVERE VOL DEPLETION AND CLINICAL PRESENTATION FOR SEPSIS ENDOCARDITIS? COLO CUTANEOUS FISTULA I vital signs Vital Sign Date Time Temp Pulse Resp B/P (MAP) Pulse Ox O2 Delivery O2 Flow Rate FiO2 07/24/25 13:00 97.8 94 16 119/71 (87) 99 97.8 07/24/25 08:00 Room Air* 0 21 Total Intake and Output 07/23/25 07/23/25 07/24/25 15:00 23:00 07:00 Intake Total 483 ml 328 ml Balance 483 ml 328 ml medications Current Medications Medications Dose Ordered Sig/Cristy Route Start Time Stop Time Status Last Admin Dose Admin Fluconazole 100 ml @ 100 mls/hr DAILY IV 07/21/25 10:00 07/24/25 10:06 100 MLS/HR Ceftriaxone Sodium 50 ml @ 100 mls/hr DAILY@09 IV 07/21/25 09:00 07/24/25 09:20 100 MLS/HR Amino Acids/ Electrolytes/ Dextrose 1,000 ml @ 41 mls/hr DAILY@2200 IV 07/21/25 18:52 07/24/25 19:00 07/23/25 22:32 41 MLS/HR Diagnostic Test (Pha) 1 strip Q6HR 07/22/25 00:00 07/24/25 11:36 1 STRIP Insulin Human Regular FOLLOW SLIDING SCALE Q6HR SC 07/22/25 00:00 07/24/25 06:00 2 UNITS Dextrose 50 ml UD IV 07/21/25 22:00 Amino Acids 0 ml @ 0 mls/hr PER PHARMACY IV 07/23/25 11:30 Fat Emulsion Intravenous 50 ml/ Sodium Acetate 20 meq/Potassium Phosphate 20 meq/ Calcium Gluconate 2.3 meq/Magnesium Sulfate 8 meq/ Multivitamins 10 ml/Chromium/ Copper/Manganese/ Zinc 1 ml/Sodium Phosphate 10 meq/ Amino Acids/ Dextrose/Purified Water 784.9917 ml @ 32 mls/hr [id number] IV 07/24/25 22:00 07/25/25 21:59 laboratory and microbiology Laboratory Tests 07/24/25 05:07 07/20/25 19:08 Test 07/24/25 05:07 Range/Units Serum Glucose 127 H 74-106 mg/dL Problem List SSS S/P PPI DIABETES VASCULOPATHY ANTIONE NOW UNDERWENT COLONOSCOPY AT AN OUTSIDE FACILITY COMPLICATED BY PERFORATION REQUIRING COLOSTOMY NOW WITH RECURRENT UTI DECUB ULCER SEVERELY MALNOURISHED CACHECTIC SEVERE VOL DEPLETION AND CLINICAL PRESENTATION FOR SEPSIS INABILITY TO MOUNT AN WBC RESPONSE/ IMMUNOSUPPRESSED BACTERIAL AND YEAST INFECTION CUTANEOUS COLONIC FISTULA HX OF FUNGAL ENDOCARDITIS Assessment/Plan IV FLUID CONTROL AFIB 'TREAT BOTH BACTERIAL AND YEAST INFECTION CONSIDER TPN FOR MANAGEMENT OF FISTULA PT WOUND CARE/ STAGE [address] ABD PELVIS 1. Removal of right lower quadrant drain. No drainable fluid collection. 2. There is a low left anterior abdominal wall colostomy and a Issa's pouch. No bowel obstruction. 3. Dehiscence of the infraumbilical anterior abdominal wall with defect measuring at least 7.9 cm transverse. 4. Subacute appearing moderate height loss compression fracture of L1 with greater than 50% height loss. Chronic appearing Moderate height loss compression fractures of T9 and T12. 5. Cholelithiasis. 6. Mild cardiomegaly. At least mild aortic valve and coronary artery calcifications. 7. Moderate-sized hiatal hernia. NO CT EVIDENCE FOR FISTULA NUTRITIONAL SUPPOST CX NEGATIVE FAILURE TO THRIVE CONSIDER HORMONE REPLACEMENT THERAPY ECHO TO RULE OUT ENDOCARDITIS Dietary Evaluation Review Comments: Nutrition Recommendation 1) Advance diet as medically feasible 2) Jose 1 pk BID 3) Continue PN supplementation 4) Monitor PO intake, lab values, weight trend, and I/O Expected Outcomes/Goals: Wound to improve FU 2-3 days Plan discussed with: Patient Critical Care Time(min): 35 YASMEEN CHAVEZ MD Jul 24, 2025 13:40
--- NOTE | 2025-07-24 13:42 | DVHPN2 ---
Progress Note - Dictate Date Seen: Jul 24, 2025 Medical Necessity Reason Pt with a Central, PICC or Fol: Yes The following are medically ne: Spann Catheter Subjective SSS S/P PPI DIABETES VASCULOPATHY ANTIONE NOW UNDERWENT COLONOSCOPY AT AN OUTSIDE FACILITY COMPLICATED BY PERFORATION REQUIRING COLOSTOMY NOW WITH RECURRENT UTI DECUB ULCER SEVERELY MALNOURISHED CACHECTIC SEVERE VOL DEPLETION AND CLINICAL PRESENTATION FOR SEPSIS ENDOCARDITIS? COLO CUTANEOUS FISTULA I vital signs Vital Sign Date Time Temp Pulse Resp B/P (MAP) Pulse Ox O2 Delivery O2 Flow Rate FiO2 07/24/25 13:00 97.8 94 16 119/71 (87) 99 97.8 07/24/25 08:00 Room Air* 0 21 Total Intake and Output 07/23/25 07/23/25 07/24/25 15:00 23:00 07:00 Intake Total 483 ml 328 ml Balance 483 ml 328 ml medications Current Medications Medications Dose Ordered Sig/Cristy Route Start Time Stop Time Status Last Admin Dose Admin Fluconazole 100 ml @ 100 mls/hr DAILY IV 07/21/25 10:00 07/24/25 10:06 100 MLS/HR Ceftriaxone Sodium 50 ml @ 100 mls/hr DAILY@09 IV 07/21/25 09:00 07/24/25 09:20 100 MLS/HR Amino Acids/ Electrolytes/ Dextrose 1,000 ml @ 41 mls/hr DAILY@2200 IV 07/21/25 18:52 07/24/25 19:00 07/23/25 22:32 41 MLS/HR Diagnostic Test (Pha) 1 strip Q6HR 07/22/25 00:00 07/24/25 11:36 1 STRIP Insulin Human Regular FOLLOW SLIDING SCALE Q6HR SC 07/22/25 00:00 07/24/25 06:00 2 UNITS Dextrose 50 ml UD IV 07/21/25 22:00 Amino Acids 0 ml @ 0 mls/hr PER PHARMACY IV 07/23/25 11:30 Fat Emulsion Intravenous 50 ml/ Sodium Acetate 20 meq/Potassium Phosphate 20 meq/ Calcium Gluconate 2.3 meq/Magnesium Sulfate 8 meq/ Multivitamins 10 ml/Chromium/ Copper/Manganese/ Zinc 1 ml/Sodium Phosphate 10 meq/ Amino Acids/ Dextrose/Purified Water 784.9917 ml @ 32 mls/hr [id number] IV 07/24/25 22:00 07/25/25 21:59 laboratory and microbiology Laboratory Tests 07/24/25 05:07 07/20/25 19:08 Test 07/24/25 05:07 Range/Units Serum Glucose 127 H 74-106 mg/dL Problem List SSS S/P PPI DIABETES VASCULOPATHY ANTIONE NOW UNDERWENT COLONOSCOPY AT AN OUTSIDE FACILITY COMPLICATED BY PERFORATION REQUIRING COLOSTOMY NOW WITH RECURRENT UTI DECUB ULCER SEVERELY MALNOURISHED CACHECTIC SEVERE VOL DEPLETION AND CLINICAL PRESENTATION FOR SEPSIS INABILITY TO MOUNT AN WBC RESPONSE/ IMMUNOSUPPRESSED BACTERIAL AND YEAST INFECTION CUTANEOUS COLONIC FISTULA HX OF FUNGAL ENDOCARDITIS Assessment/Plan IV FLUID CONTROL AFIB 'TREAT BOTH BACTERIAL AND YEAST INFECTION CONSIDER TPN FOR MANAGEMENT OF FISTULA PT WOUND CARE/ STAGE [address] ABD PELVIS 1. Removal of right lower quadrant drain. No drainable fluid collection. 2. There is a low left anterior abdominal wall colostomy and a Issa's pouch. No bowel obstruction. 3. Dehiscence of the infraumbilical anterior abdominal wall with defect measuring at least 7.9 cm transverse. 4. Subacute appearing moderate height loss compression fracture of L1 with greater than 50% height loss. Chronic appearing Moderate height loss compression fractures of T9 and T12. 5. Cholelithiasis. 6. Mild cardiomegaly. At least mild aortic valve and coronary artery calcifications. 7. Moderate-sized hiatal hernia. NO CT EVIDENCE FOR FISTULA NUTRITIONAL SUPPOST CX NEGATIVE FAILURE TO THRIVE CONSIDER HORMONE REPLACEMENT THERAPY ECHO TO RULE OUT ENDOCARDITIS ECHO NO VEGETATION NOTED CONSIDER [facility] CENTRAL ACCESS FOR TPN UNABLE TO PLACE PICC LINE SECONDARY TO SMALL CALIBER OF VEINS Dietary Evaluation Review Comments: Nutrition Recommendation 1) Advance diet as medically feasible 2) Jose 1 pk BID 3) Continue PN supplementation 4) Monitor PO intake, lab values, weight trend, and I/O Expected Outcomes/Goals: Wound to improve FU 2-3 days Plan discussed with: Patient, Daughter Critical Care Time(min): 35 YASMEEN CHAVEZ MD Jul 24, 2025 13:42
[2025-07-24 19:04] LABS: Hematocrit 31.5 % (36.0-46.0); Hemoglobin 10.6 g/dL (12.2-16.2); Mean Corpuscular Hemoglobin 32.2 pg (28.0-32.0); Mean Corpuscular Volume 95.8 fL (80.0-100.0); Nucleated Red Blood Cells % 0.1 %
[2025-07-24 19:24] LABS: INR 0.96 (0.9-1.15); Partial Thromboplastin Time 27.3 SEC (24.5-34.5); Prothrombin Time 10.2 sec (9.3-11.8)
[2025-07-24 19:27] LABS: Alanine Aminotransferase 28 U/L (7-40); Albumin 3.3 g/dL (3.2-4.8); Anion Gap 10 (5-15); BUN/Creatinine Ratio 32.9 (10.0-20.0); Calcium 9.6 mg/dL (8.7-10.4); Carbon Dioxide 20 mmol/L (20-31); Chloride 107 mmol/L (98-107); Potassium 3.9 mmol/L (3.5-5.1); Sodium 137 mmol/L (136-145); Total Protein 5.9 g/dL (5.7-8.2)
[2025-07-24 19:29] LABS: Alkaline Phosphatase 128 U/L (46-116); Bilirubin, Total 0.2 mg/dL (0.2-1.0); Blood Urea Nitrogen 24 mg/dL (9-23); Glucose 141 mg/dL (74-106)
[2025-07-24] MEDS: AMINO ACID INFUSION IN D10W 1,000 ML IV SCH (21:46)
[2025-07-25] VITALS (7 sets, daily range): BP systolic 116–139; BP diastolic 58–75; PULSE 80–101; RESP 16–18; TEMP 97.7–98.8; O2SAT 96–100
[2025-07-25 06:31] LABS: Alanine Aminotransferase 26 U/L (7-40); Anion Gap 11 (5-15); BUN/Creatinine Ratio 32.4 (10.0-20.0); Calcium 9.5 mg/dL (8.7-10.4); Carbon Dioxide 20 mmol/L (20-31); Chloride 106 mmol/L (98-107); Potassium 3.8 mmol/L (3.5-5.1); Sodium 137 mmol/L (136-145); Total Protein 6.0 g/dL (5.7-8.2)
[2025-07-25 06:32] LABS: Albumin 3.3 g/dL (3.2-4.8)
[2025-07-25 06:38] LABS: Alkaline Phosphatase 128 U/L (46-116); Bilirubin, Total 0.2 mg/dL (0.2-1.0); Blood Urea Nitrogen 23 mg/dL (9-23); Glucose 130 mg/dL (74-106); Magnesium 1.6 mg/dL (1.6-2.6)
--- NOTE | 2025-07-25 11:12 | DVHINCON2 ---
Date of service: Jul 25, 2025 Family History: FH: heart attack G8 SISTER FH: heart attack G8 SISTER Allergies: Coded Allergies: Levofloxacin (Verified Allergy, Unknown, 06/28/25) Home Meds Active Scripts Famotidine (PEPCID TABLET) 20 Mg Tb, 1 TAB PO BID for 30 Days, #60 TAB Prov:[facility]25 Mirtazapine (Remeron) 15 Mg Tab, 1 TAB PO QPM for 30 Days, #30 TAB 2 [facility]25 Metoprolol Succinate (Metoprolol Succinate Er) 50 Mg Tab, 1 TAB PO DAILY for 30 Days, #30 TAB 3 Refills Prov[facility] 07/13/25 Olanzapine (OLANZAPINE) 5 Mg Tab, 2.5 TAB PO DAILY for 30 Days, #15 TAB 2 Refills Prov[facility] 07/13/25 Fluconazole (Fluconazole) 200 Mg Tab, 200 MG PO HS for 30 Days, #30 TAB Prov[facility] 07/13/25 Reported Medications Aspirin Buffered (Quinten Carb-Mag (Aspirin 325 mg) 1 Tab Tab, 1 TAB PO, TAB 06/24/21 Ferrous Sulfate (FERROUS SULFATE) 325 Mg Tb, 325 MG PO, TAB 06/20/21 Folic Wwdq-Ikwvnppyep-Fowlcscu (Folbic) Tab, 1 TAB PO DAILY, #90 TAB 3 Refills 06/20/21 Multiple Vitamins W/ Minerals (Centrum Silver 50+Women) 1 Tab Tab, 1 TAB PO, TAB 06/20/21 Current Medications Current Medications Medications (Trade) Dose Ordered Sig/Cristy Route PRN Reason Start Time Stop Time Status Last Admin Fat Emulsion Intravenous 50 ml/ Sodium Acetate 20 meq/Potassium Phosphate 20 meq/ Calcium Gluconate 2.3 meq/Magnesium Sulfate 8 meq/ Multivitamins 10 ml/Chromium/ Copper/Manganese/ Zinc 1 ml/Sodium Phosphate 10 meq/ Amino Acids/ Dextrose/Purified Water 784.9917 ml @ 32 mls/hr [id number] IV 07/24/25 22:00 07/25/25 21:59 Cancel Amino Acids/ Electrolytes/ Dextrose 1,000 ml @ 41 mls/hr DAILY@2200 IV 07/24/25 22:00 07/24/25 21:46 Fat Emulsion Intravenous 50 ml/ Potassium Phosphate 22 meq/ Magnesium Sulfate 8 meq/ Multivitamins 10 ml/Chromium/ Copper/Manganese/ Zinc 1 ml/Sodium Acetate 20 meq/ Amino Acids/ Dextrose/Purified Water 1,328 ml @ 55 mls/hr [id number] IV 07/25/25 22:00 07/26/25 21:59 Vital Signs Vital Signs Date Time Temp Pulse Resp B/P (MAP) Pulse Ox O2 Delivery O2 Flow Rate FiO2 07/25/25 08:42 98.8 80 16 139/70 (93) 96 98.8 07/24/25 20:00 Room Air* 0 21 Labs/Diagnostic Data Labs Test 07/25/25 05:39 07/25/25 05:34 07/24/25 18:46 07/22/25 15:20 Range/Units Sodium Level 137 136-145 mmol/L Potassium Level 3.8 3.5-5.1 mmol/L Chloride Level 106 98-107 mmol/L Carbon Dioxide Level 20 20-31 mmol/L Anion Gap 11 5-15 Blood Urea Nitrogen 23 9-23 mg/dL Creatinine 0.71 0.550-1.02 mg/dL Glomerular Filtration Rate Calc 82 >90 mL/min BUN/Creatinine Ratio 32.4 H 10.0-20.0 Serum Glucose 130 H 74-106 mg/dL Calcium Level 9.5 8.7-10.4 mg/dL Phosphorus Level 1.5 L 2.4-5.1 mg/dL Magnesium Level 1.6 1.6-2.6 mg/dL Total Bilirubin 0.2 0.2-1.0 mg/dL Aspartate Amino Transferase (AST) 32 13-40 U/L Alanine Aminotransferase (ALT) 26 7-40 U/L Alkaline Phosphatase 128 H 46-116 U/L Total Protein 6.0 5.7-8.2 g/dL Albumin 3.3 3.2-4.8 g/dL POC Glucose 136 H 70-106 mg/dl White Blood Count 5.5 4.4-10.8 10^3/uL Red Blood Count 3.29 L 4.0-5.20 10^6/uL Hemoglobin 10.6 L 12.2-16.2 g/dL Hematocrit 31.5 L 36.0-46.0 % Mean Corpuscular Volume 95.8 80.0-100.0 fL Mean Corpuscular Hemoglobin 32.2 H 28.0-32.0 pg Mean Corpuscular Hemoglobin Concent 33.6 32.0-36.0 g/dL Red Cell Distribution Width 17.3 H 11.8-14.3 % Platelet Count 211 140-450 10^3/uL Mean Platelet Volume 7.6 6.9-10.8 fL Neutrophils (%) (Auto) 69.1 37.0-80.0 % Lymphocytes (%) (Auto) 15.8 10.0-50.0 % Monocytes (%) (Auto) 7.7 0.0-12.0 % Eosinophils (%) (Auto) 6.8 0.0-7.0 % Basophils (%) (Auto) 0.6 0.0-2.0 % Neutrophils # (Auto) 3.8 1.6-8.6 10 ^3/uL Lymphocytes # (Auto) 0.9 0.4-5.4 10 ^3/uL Monocytes # (Auto) 0.4 0-1.3 10 ^3/uL Eosinophils # (Auto) 0.4 0-0.8 10 ^3/uL Basophils # (Auto) 0 0-0.2 10 ^3/uL Nucleated Red Blood Cells 0.1 % Prothrombin Time 10.2 9.3-11.8 sec Prothrombin Time INR 0.96 0.9-1.15 Activated Partial Thromboplast Time 27.3 24.5-34.5 SEC Urine Color Yellow Yellow Urine Clarity Clear Clear Urine pH 5.5 5.0-9.0 Urine Specific [place] 1.020 1.001-1.035 Urine Protein Trace H Negative Urine Ketones Negative Negative Urine Blood Negative Negative /uL Urine Nitrite Negative Negative Urine Bilirubin Negative Negative Urine Urobilinogen Normal Negative mg/dL Urine Leukocyte Esterase Negative Negative /uL Urine RBC 1 0 - 4 /hpf Urine Microscopic WBC 3 0-5 /HPF Urine Squamous Epithelial Cells Few <5 /hpf Urine Bacteria Few H None Seen /hpf Urine Glucose Normal Normal mg/dL Test 07/22/25 06:18 Range/Units Triglycerides Level 224 H < 150 mg/dL Assessment 89 year old frail female with body covered with echymoses, I am requested to place a Portacath. daughter at bedside. patient has a left arm PICC, i explained Portacath placement and risks and complications in great detail. Plan discussed with: Patient, Daughter MIKE PINK MD Jul 25, 2025 11:12
--- NOTE | 2025-07-25 14:04 | DVHPN2 ---
Progress Note - Dictate Date Seen: Jul 25, 2025 Medical Necessity Reason Pt with a Central, PICC or Fol: Yes The following are medically ne: Spann Catheter Subjective SSS S/P PPI DIABETES VASCULOPATHY ANTIONE NOW UNDERWENT COLONOSCOPY AT AN OUTSIDE FACILITY COMPLICATED BY PERFORATION REQUIRING COLOSTOMY NOW WITH RECURRENT UTI DECUB ULCER SEVERELY MALNOURISHED CACHECTIC SEVERE VOL DEPLETION AND CLINICAL PRESENTATION FOR SEPSIS ENDOCARDITIS? COLO CUTANEOUS FISTULA I vital signs Vital Sign Date Time Temp Pulse Resp B/P (MAP) Pulse Ox O2 Delivery O2 Flow Rate FiO2 07/25/25 13:00 98.0 99 16 121/66 (84) 99 98.0 07/24/25 20:00 Room Air* 0 21 Total Intake and Output 07/24/25 07/24/25 07/25/25 15:00 23:00 07:00 Intake Total 200 ml 0 ml 175 ml Balance 200 ml 0 ml 175 ml medications Current Medications Medications Dose Ordered Sig/Cristy Route Start Time Stop Time Status Last Admin Dose Admin Fluconazole 100 ml @ 100 mls/hr DAILY IV 07/21/25 10:00 07/25/25 12:27 100 MLS/HR Ceftriaxone Sodium 50 ml @ 100 mls/hr DAILY@09 IV 07/21/25 09:00 07/25/25 11:27 100 MLS/HR Diagnostic Test (Pha) 1 strip Q6HR 07/22/25 00:00 07/25/25 12:27 1 STRIP Insulin Human Regular FOLLOW SLIDING SCALE Q6HR SC 07/22/25 00:00 07/25/25 05:43 2 UNITS Dextrose 50 ml UD IV 07/21/25 22:00 Amino Acids 0 ml @ 0 mls/hr PER PHARMACY IV 07/23/25 11:30 Fat Emulsion Intravenous 50 ml/ Sodium Acetate 20 meq/Potassium Phosphate 20 meq/ Calcium Gluconate 2.3 meq/Magnesium Sulfate 8 meq/ Multivitamins 10 ml/Chromium/ Copper/Manganese/ Zinc 1 ml/Sodium Phosphate 10 meq/ Amino Acids/ Dextrose/Purified Water 784.9917 ml @ 32 mls/hr [id number] IV 07/24/25 22:00 07/25/25 21:59 Cancel Amino Acids/ Electrolytes/ Dextrose 1,000 ml @ 41 mls/hr DAILY@2200 IV 07/24/25 22:00 07/25/25 21:59 07/24/25 21:46 41 MLS/HR Fat Emulsion Intravenous 50 ml/ Potassium Phosphate 22 meq/ Magnesium Sulfate 8 meq/ Multivitamins 10 ml/Chromium/ Copper/Manganese/ Zinc 1 ml/Sodium Acetate 20 meq/ Amino Acids/ Dextrose/Purified Water 1,328 ml @ 55 mls/hr [id number] IV 07/25/25 22:00 07/26/25 21:59 laboratory and microbiology Laboratory Tests 07/25/25 05:39 07/24/25 18:46 Test 07/25/25 05:39 Range/Units Serum Glucose 130 H 74-106 mg/dL Problem List SSS S/P PPI DIABETES VASCULOPATHY ANTIONE NOW UNDERWENT COLONOSCOPY AT AN OUTSIDE FACILITY COMPLICATED BY PERFORATION REQUIRING COLOSTOMY NOW WITH RECURRENT UTI DECUB ULCER SEVERELY MALNOURISHED CACHECTIC SEVERE VOL DEPLETION AND CLINICAL PRESENTATION FOR SEPSIS INABILITY TO MOUNT AN WBC RESPONSE/ IMMUNOSUPPRESSED BACTERIAL AND YEAST INFECTION CUTANEOUS COLONIC FISTULA HX OF FUNGAL ENDOCARDITIS Assessment/Plan IV FLUID CONTROL AFIB 'TREAT BOTH BACTERIAL AND YEAST INFECTION CONSIDER TPN FOR MANAGEMENT OF FISTULA PT WOUND CARE/ STAGE I DECUB CT ABD PELVIS 1. Removal of right lower quadrant drain. No drainable fluid collection. 2. There is a low left anterior abdominal wall colostomy and a Issa's pouch. No bowel obstruction. 3. Dehiscence of the infraumbilical anterior abdominal wall with defect measuring at least 7.9 cm transverse. 4. Subacute appearing moderate height loss compression fracture of L1 with greater than 50% height loss. Chronic appearing Moderate height loss compression fractures of T9 and T12. 5. Cholelithiasis. 6. Mild cardiomegaly. At least mild aortic valve and coronary artery calcifications. 7. Moderate-sized hiatal hernia. NO CT EVIDENCE FOR FISTULA NUTRITIONAL SUPPOST CX NEGATIVE FAILURE TO THRIVE CONSIDER HORMONE REPLACEMENT THERAPY ECHO TO RULE OUT ENDOCARDITIS ECHO NO VEGETATION NOTED CONSIDER TALHA CENTRAL ACCESS FOR TPN UNABLE TO PLACE PICC LINE SECONDARY TO SMALL CALIBER OF VEINS morris cath insertion Dietary Evaluation Review Comments: Nutrition Recommendation 1) Advance diet as medically feasible 2) Jose 1 pk BID 3) Continue PN supplementation 4) Monitor PO intake, lab values, weight trend, and I/O Expected Outcomes/Goals: Wound to improve FU 2-3 days Plan discussed with: Patient, Daughter Critical Care Time(min): 35 YASMEEN CHAVEZ MD Jul 25, 2025 14:04
[2025-07-25] MEDS: SODIUM PHOSPHATES 24 MEQ in SODIUM CHL 0.9% 100 ML IV ONE (22:08)
[2025-07-25] MEDS: PPN PER PHARMACY IV NR (22:08)
[2025-07-26] VITALS (7 sets, daily range): BP systolic 108–130; BP diastolic 60–78; PULSE 88–105; RESP 12–21; TEMP 97.5–98.3; O2SAT 97–100
[2025-07-26 05:52] LABS: Alanine Aminotransferase 35 U/L (7-40); Albumin 3.2 g/dL (3.2-4.8); Anion Gap 14 (5-15); BUN/Creatinine Ratio 33.8 (10.0-20.0); Calcium 9.1 mg/dL (8.7-10.4); Sodium 140 mmol/L (136-145); Total Protein 5.8 g/dL (5.7-8.2)
[2025-07-26 05:58] LABS: Alkaline Phosphatase 137 U/L (46-116); Bilirubin, Total 0.2 mg/dL (0.2-1.0); Blood Urea Nitrogen 23 mg/dL (9-23); Carbon Dioxide 18 mmol/L (20-31); Chloride 108 mmol/L (98-107); Glucose 127 mg/dL (74-106); Magnesium 1.6 mg/dL (1.6-2.6); Potassium 3.3 mmol/L (3.5-5.1)
[2025-07-26] MEDS ORDERED: POTASSIUM CHL 20MEQ/100ML 100 ML IV ONE (10:15)
[2025-07-26] MEDS: MAGNESIUM SULFATE 1GM/100ML 100 ML IV ONE (11:40)
[2025-07-26] MEDS: ceFAZolin 2 GM/D5W50ml 50 ML IV ONE (13:26)
[2025-07-26] MEDS: ceFAZolin 1GM VL ONE (13:47)
[2025-07-26] MEDS: HEPARIN 1,000 UNITS/ml 1ML VIAL ONE (13:52)
[2025-07-26] MEDS: HEPARIN SODIUM (PORCINE) 5000 UNITS/ML 1ML VIAL ONE (13:52)
--- NOTE | 2025-07-26 13:52 | DVHPN2 ---
Progress Note - Dictate Date Seen: Jul 26, 2025 Medical Necessity Reason Pt with a Central, PICC or Fol: Yes The following are medically ne: Spann Catheter Subjective SSS S/P PPI DIABETES VASCULOPATHY ANTIONE NOW UNDERWENT COLONOSCOPY AT AN OUTSIDE FACILITY COMPLICATED BY PERFORATION REQUIRING COLOSTOMY NOW WITH RECURRENT UTI DECUB ULCER SEVERELY MALNOURISHED CACHECTIC SEVERE VOL DEPLETION AND CLINICAL PRESENTATION FOR SEPSIS ENDOCARDITIS? COLO CUTANEOUS FISTULA I vital signs Vital Sign Date Time Temp Pulse Resp B/P (MAP) Pulse Ox O2 Delivery O2 Flow Rate FiO2 07/26/25 09:19 98.0 105 21 130/78 (95) 99 98.0 07/26/25 08:00 Room Air* 0 21 Total Intake and Output 07/25/25 07/25/25 07/26/25 15:00 23:00 07:00 Intake Total 1530 ml 645 ml Balance 1530 ml 645 ml medications Current Medications Medications Dose Ordered Sig/Cristy Route Start Time Stop Time Status Last Admin Dose Admin Fluconazole 100 ml @ 100 mls/hr DAILY IV 07/21/25 10:00 07/26/25 10:02 100 MLS/HR Ceftriaxone Sodium 50 ml @ 100 mls/hr DAILY@09 IV 07/21/25 09:00 07/26/25 08:28 100 MLS/HR Diagnostic Test (Pha) 1 strip Q6HR 07/22/25 00:00 07/26/25 12:16 1 STRIP Insulin Human Regular FOLLOW SLIDING SCALE Q6HR SC 07/22/25 00:00 07/26/25 12:34 4 UNITS Dextrose 50 ml UD IV 07/21/25 22:00 Amino Acids 0 ml @ 0 mls/hr PER PHARMACY IV 07/23/25 11:30 Fat Emulsion Intravenous 50 ml/ Sodium Acetate 20 meq/Potassium Phosphate 20 meq/ Calcium Gluconate 2.3 meq/Magnesium Sulfate 8 meq/ Multivitamins 10 ml/Chromium/ Copper/Manganese/ Zinc 1 ml/Sodium Phosphate 10 meq/ Amino Acids/ Dextrose/Purified Water 784.9917 ml @ 32 mls/hr [id number] IV 07/24/25 22:00 07/25/25 21:59 Cancel Fat Emulsion Intravenous 50 ml/ Potassium Phosphate 22 meq/ Magnesium Sulfate 8 meq/ Multivitamins 10 ml/Chromium/ Copper/Manganese/ Zinc 1 ml/Sodium Acetate 20 meq/ Amino Acids/ Dextrose/Purified Water 1,328 ml @ 55 mls/hr [id number] IV 07/25/25 22:00 07/26/25 21:59 07/25/25 22:08 55 MLS/HR Fat Emulsion Intravenous 50 ml/ Potassium Acetate 20 meq/Magnesium Sulfate 12 meq/ Multivitamins 10 ml/Chromium/ Copper/Manganese/ Zinc 1 ml/Amino Acids/Dextrose/ Purified Water 1,574 ml @ 65 mls/hr [id number] IV 07/26/25 22:00 07/27/25 21:59 laboratory and microbiology Laboratory Tests 07/26/25 05:01 07/24/25 18:46 Test 07/26/25 05:01 Range/Units Serum Glucose 127 H 74-106 mg/dL Problem List SSS S/P PPI DIABETES VASCULOPATHY ANTIONE NOW UNDERWENT COLONOSCOPY AT AN OUTSIDE FACILITY COMPLICATED BY PERFORATION REQUIRING COLOSTOMY NOW WITH RECURRENT UTI DECUB ULCER SEVERELY MALNOURISHED CACHECTIC SEVERE VOL DEPLETION AND CLINICAL PRESENTATION FOR SEPSIS INABILITY TO MOUNT AN WBC RESPONSE/ IMMUNOSUPPRESSED BACTERIAL AND YEAST INFECTION CUTANEOUS COLONIC FISTULA HX OF FUNGAL ENDOCARDITIS Assessment/Plan IV FLUID CONTROL AFIB 'TREAT BOTH BACTERIAL AND YEAST INFECTION CONSIDER TPN FOR MANAGEMENT OF FISTULA PT WOUND CARE/ STAGE [address] ABD PELVIS 1. Removal of right lower quadrant drain. No drainable fluid collection. 2. There is a low left anterior abdominal wall colostomy and a Issa's pouch. No bowel obstruction. 3. Dehiscence of the infraumbilical anterior abdominal wall with defect measuring at least 7.9 cm transverse. 4. Subacute appearing moderate height loss compression fracture of L1 with greater than 50% height loss. Chronic appearing Moderate height loss compression fractures of T9 and T12. 5. Cholelithiasis. 6. Mild cardiomegaly. At least mild aortic valve and coronary artery calcifications. 7. Moderate-sized hiatal hernia. NO CT EVIDENCE FOR FISTULA NUTRITIONAL SUPPOST CX NEGATIVE FAILURE TO THRIVE CONSIDER HORMONE REPLACEMENT THERAPY ECHO TO RULE OUT ENDOCARDITIS ECHO NO VEGETATION NOTED CONSIDER TALHA CENTRAL ACCESS FOR TPN UNABLE TO PLACE PICC LINE SECONDARY TO SMALL CALIBER OF VEINS morris cath insertion Dietary Evaluation Review Comments: Nutrition Recommendation 1) Advance diet as medically feasible 2) Jose 1 pk BID 3) Continue PN supplementation 4) Monitor PO intake, lab values, weight trend, and I/O Expected Outcomes/Goals: Wound to improve FU 2-3 days Plan discussed with: Patient Critical Care Time(min): 35 YASMEEN CHAVEZ MD Jul 26, 2025 13:52
[2025-07-26] MEDS ORDERED: ONDANSETRON HCL 4 MG/2 ML VIAL ONE (13:56)
[2025-07-26] MEDS ORDERED: PROPOFOL 10 MG/ML 20 ML IV ONE (13:56)
[2025-07-26] MEDS ORDERED: SODIUM CHLORIDE LOCK 10 ML ONE (13:56)
[2025-07-26] MEDS ORDERED: LIDOCAINE 1% INJ PF 5ML AMP ONE (13:56)
[2025-07-26] MEDS ORDERED: MIDAZOLAM HCL 2MG/2ML 2ml VIAL (1mg/ml) ONE (13:56)
[2025-07-26] MEDS ORDERED: KETAMINE 50mg/ML 1ml syringe ONE (13:56)
[2025-07-26] MEDS ORDERED: fentaNYL CITRATE 100 MCG/2 ML VL ONE (13:56)
[2025-07-26] MEDS ORDERED: MORPHINE SULFATE 4 MG/ML SYR/VIAL IV PRN (14:15)
[2025-07-26] MEDS: ACCU-CHEK COMFORT CURVE STRIP VI ONE (14:15)
[2025-07-26] MEDS ORDERED: HYDROmorphone HCL 2 MG/ML VL/or syr IV PRN ×3 (14:15→15:30)
[2025-07-26] MEDS ORDERED: MORPHINE SULFATE INJ 2 MG/ml SYRG IV PRN (14:15)
[2025-07-26] MEDS ORDERED: METOCLOPRAMIDE HCL 5MG/ml INJ 2ml VIAL IV PRN (14:15)
[2025-07-26] MEDS: BUPIVACAINE HCL 0.25% P/F 10 ML VIAL ONE (15:07)
[2025-07-26] MEDS: Lidocaine/Epinephrine 1%-1:100,000 30ML VL ONE (15:08)
[2025-07-26] MEDS ORDERED: ONDANSETRON HCL 4 MG/2 ML VIAL IV PRN (15:30)
--- NOTE | 2025-07-26 15:36 | DVHOP ---
DATE OF SURGERY: 07/26/2025 PREOPERATIVE DIAGNOSIS: Malnutrition, need for intravenous access. POSTOPERATIVE DIAGNOSIS: Malnutrition, need for intravenous access. SURGEON: Devang Ambriz MD TWO WAY RADIO INSTALLER: Davey Moulton NP ANESTHESIA: Local with IV sedation. ANESTHESIOLOGIST: Dr. Cade PROCEDURE: Insertion of right subclavian Port-A-Cath. DESCRIPTION OF PROCEDURE: Under adequate anesthesia with the patient's skin prepped and draped (please note, the patient's skin is extremely fragile and friable, and tears at the least manipulation. She is covered with ecchymosis despite normal coag studies), the patient's skin was infiltrated with 0.25% Marcaine, 0.5% Xylocaine, and a localizing needle was inserted into the right subclavian vein requiring two passes. The guidewire was passed through the localizing needle. The localizing needle was removed. The guidewire was left in place. The tubing for the Port-A-Cath was foreshortened for the patient's short stature and the tubing had been previously soaked in antibiotic solution and it was heparinized. The introducer peel-away sheath was then advanced over the guidewire. A small incision was made approximately 5 cm caudal to the insertion site and through the small incision, a subcutaneous pocket was developed for the port infusion chamber. The infusion chamber was then connected to the tubing and the tubing was tunneled from the port site to the insertion site. At the insertion site, the tubing was advanced through the peel-away sheath to its final position. The system was heparin flushed using a Sidhu needle. Incisions were irrigated with antibiotic solution. Chest x-ray is ordered at this time and pending at the time of this dictation. The wounds were closed using 3-0 Monocryl sutures, Dermabond glue and Steri-Strips. The patient remained in stable condition throughout the procedure and left the operating room following an accurate needle and sponge count. Family was not in the waiting room. Devang Ambriz MD PF/SUB TID: [id number] RECEIPT: [id number]
--- NOTE | 2025-07-26 16:05 | DVH ---
CHEST RADIOGRAPH Indication: s/p right subclavian portacath insert Technique: Single frontal view of the chest was obtained. Comparison: XY CHEST XRAY 1 VIEW on DOS: 07/20/25 Findings: Left chest wall pacemaker. Right central venous catheter with tip terminating near cavoatrial junction. Mild pulmonary vascular congestion. Left basilar atelectasis. No significant pleural effusion. No pneumothorax. Stable cardiomediastinal silhouette. IMPRESSION: Right central venous catheter insertion. No visible pneumothorax.
[2025-07-26] MEDS: PPN PER PHARMACY IV NR (22:39)
[2025-07-27] VITALS (7 sets, daily range): BP systolic 99–140; BP diastolic 65–93; PULSE 96–109; RESP 18–19; TEMP 97.1–98.9; O2SAT 95–98
[2025-07-27 07:04] LABS: Alanine Aminotransferase 34 U/L (7-40); Anion Gap 11 (5-15); BUN/Creatinine Ratio 50.9 (10.0-20.0); Carbon Dioxide 20 mmol/L (20-31); Chloride 107 mmol/L (98-107); Glucose 96 mg/dL (74-106); Magnesium 2.0 mg/dL (1.6-2.6); Potassium 3.6 mmol/L (3.5-5.1); Sodium 138 mmol/L (136-145)
[2025-07-27 07:12] LABS: Albumin 2.9 g/dL (3.2-4.8); Alkaline Phosphatase 148 U/L (46-116); Bilirubin, Total < 0.2 mg/dL (0.2-1.0); Blood Urea Nitrogen 29 mg/dL (9-23); Calcium 8.5 mg/dL (8.7-10.4); Total Protein 5.1 g/dL (5.7-8.2)
[2025-07-27 12:50] LABS: Triglycerides 204 mg/dL (< 150)
--- NOTE | 2025-07-27 14:05 | DVHPN2 ---
Progress Note Date Seen: Jul 27, 2025 Medical Necessity Reason Pt with a Central, PICC or Fol: Yes The following are medically ne: Spann Catheter Objective vital signs Vital Sign Date Time Temp Pulse Resp B/P (MAP) Pulse Ox O2 Delivery O2 Flow Rate FiO2 07/27/25 09:00 98.1 104 18 99/69 (79) 97 98.1 07/27/25 07:57 Room Air* 0 21 Total Intake and Output 07/26/25 07/26/25 07/27/25 15:00 23:00 07:00 Intake Total 275 ml 660 ml 0 ml Balance 275 ml 660 ml 0 ml medications Current Medications Medications Dose Ordered Sig/Cristy Route Start Time Stop Time Status Last Admin Dose Admin Fluconazole 100 ml @ 100 mls/hr DAILY IV 07/21/25 10:00 07/27/25 09:56 100 MLS/HR Ceftriaxone Sodium 50 ml @ 100 mls/hr DAILY@09 IV 07/21/25 09:00 07/27/25 09:12 100 MLS/HR Diagnostic Test (Pha) 1 strip Q6HR 07/22/25 00:00 07/27/25 11:41 1 STRIP Insulin Human Regular FOLLOW SLIDING SCALE Q6HR SC 07/22/25 00:00 07/26/25 23:57 2 UNITS Dextrose 50 ml UD IV 07/21/25 22:00 Amino Acids 0 ml @ 0 mls/hr PER PHARMACY IV 07/23/25 11:30 Fat Emulsion Intravenous 50 ml/ Sodium Acetate 20 meq/Potassium Phosphate 20 meq/ Calcium Gluconate 2.3 meq/Magnesium Sulfate 8 meq/ Multivitamins 10 ml/Chromium/ Copper/Manganese/ Zinc 1 ml/Sodium Phosphate 10 meq/ Amino Acids/ Dextrose/Purified Water 784.9917 ml @ 32 mls/hr [id number] IV 07/24/25 22:00 07/25/25 21:59 Cancel Fat Emulsion Intravenous 50 ml/ Potassium Acetate 20 meq/Magnesium Sulfate 12 meq/ Multivitamins 10 ml/Chromium/ Copper/Manganese/ Zinc 1 ml/Amino Acids/Dextrose/ Purified Water 1,574 ml @ 65 mls/hr [id number] IV 07/26/25 22:00 07/27/25 21:59 07/26/25 22:39 65 MLS/HR Heparin Sodium (Porcine) 500 units BID IV 07/27/25 10:15 11/20/25 11:52 500 UNITS Fat Emulsion Intravenous 50 ml/ Sodium Acetate 10 meq/Potassium Acetate 30 meq/ Potassium Phosphate 11 meq/ Magnesium Sulfate 10 meq/ Multivitamins 10 ml/Chromium/ Copper/Manganese/ Zinc 1 ml/Amino Acids/Dextrose/ Purified Water 1,336 ml @ 55 mls/hr [id number] IV 07/27/25 22:00 07/28/25 21:59 laboratory and microbiology Laboratory Tests 07/27/25 05:11 07/24/25 18:46 Test 07/27/25 05:11 Range/Units Serum Glucose 96 74-106 mg/dL Problem List/Assessment/Plan Problem List/Assessment/Plan 07/27/25 portacath site ecchymotic( present prior to insertion), wounds clean and well approximated. explained to nurses that the port needs to be flushed according to protocol unless it is being used for continuous infusion. explained that unless the port is properly flushed and heparinized it will occluded and become useless. I will sign off, please recall if needed Plan discussed with: Patient, Other Dietary Evaluation Review Comments: Nutrition Recommendation 1) Advance diet as medically feasible 2) Jose 1 pk BID 3) Continue PN supplementation 4) Monitor PO intake, lab values, weight trend, and I/O Expected Outcomes/Goals: Wound to improve FU 2-3 days MIKE PINK MD Jul 27, 2025 14:05
[2025-07-27] MEDS: HYDROcodone-ACET 10/325MG TAB PO PRN (17:46)
[2025-07-27] MEDS: TPN PER PHARMACY IV NR (22:49)
[2025-07-27] MEDS: ACETAMINOPHEN 325 MG TAB PO PRN (23:25)
[2025-07-28] VITALS (8 sets, daily range): BP systolic 100–134; BP diastolic 59–75; PULSE 81–105; RESP 14–18; TEMP 97.8–98.7; O2SAT 97–100
[2025-07-28 07:49] LABS: Alanine Aminotransferase 28 U/L (7-40); Anion Gap 12 (5-15); BUN/Creatinine Ratio 46.0 (10.0-20.0); Calcium 8.9 mg/dL (8.7-10.4); Chloride 107 mmol/L (98-107); Magnesium 2.0 mg/dL (1.6-2.6); Potassium 3.8 mmol/L (3.5-5.1); Sodium 139 mmol/L (136-145)
[2025-07-28 07:51] LABS: Albumin 2.9 g/dL (3.2-4.8); Alkaline Phosphatase 169 U/L (46-116); Bilirubin, Total 0.2 mg/dL (0.2-1.0); Blood Urea Nitrogen 29 mg/dL (9-23); Carbon Dioxide 20 mmol/L (20-31); Glucose 123 mg/dL (74-106); Total Protein 5.1 g/dL (5.7-8.2)
--- NOTE | 2025-07-28 09:35 | DVHPN2 ---
Progress Note Date Seen: Jul 28, 2025 Medical Necessity Reason Pt with a Central, PICC or Fol: Yes The following are medically ne: Spann Catheter Objective vital signs Vital Sign Date Time Temp Pulse Resp B/P (MAP) Pulse Ox O2 Delivery O2 Flow Rate FiO2 07/28/25 05:00 97.8 105 17 100/72 (81) 98 97.8 07/27/25 20:00 Room Air* 0 21 Total Intake and Output 07/27/25 07/27/25 07/28/25 15:00 23:00 07:00 Intake Total 150 ml 120 ml 450 ml Balance 150 ml 120 ml 450 ml medications Current Medications Medications Dose Ordered Sig/Cristy Route Start Time Stop Time Status Last Admin Dose Admin Fluconazole 100 ml @ 100 mls/hr DAILY IV 07/21/25 10:00 07/27/25 09:56 100 MLS/HR Ceftriaxone Sodium 50 ml @ 100 mls/hr DAILY@09 IV 07/21/25 09:00 07/28/25 09:25 100 MLS/HR Diagnostic Test (Pha) 1 strip Q6HR 07/22/25 00:00 07/28/25 06:05 1 STRIP Insulin Human Regular FOLLOW SLIDING SCALE Q6HR SC 07/22/25 00:00 07/28/25 06:05 2 UNITS Dextrose 50 ml UD IV 07/21/25 22:00 Amino Acids 0 ml @ 0 mls/hr PER PHARMACY IV 07/23/25 11:30 Fat Emulsion Intravenous 50 ml/ Sodium Acetate 20 meq/Potassium Phosphate 20 meq/ Calcium Gluconate 2.3 meq/Magnesium Sulfate 8 meq/ Multivitamins 10 ml/Chromium/ Copper/Manganese/ Zinc 1 ml/Sodium Phosphate 10 meq/ Amino Acids/ Dextrose/Purified Water 784.9917 ml @ 32 mls/hr [id number] IV 07/24/25 22:00 07/25/25 21:59 Cancel Heparin Sodium (Porcine) 500 units BID IV 07/27/25 10:15 07/27/25 11:52 500 UNITS Fat Emulsion Intravenous 50 ml/ Sodium Acetate 10 meq/Potassium Acetate 30 meq/ Potassium Phosphate 11 meq/ Magnesium Sulfate 10 meq/ Multivitamins 10 ml/Chromium/ Copper/Manganese/ Zinc 1 ml/Amino Acids/Dextrose/ Purified Water 1,336 ml @ 55 mls/hr [id number] IV 07/27/25 22:00 07/28/25 21:59 07/27/25 22:49 55 MLS/HR Acetaminophen/ Hydrocodone Bitart 1 tab Q6HP PRN PO 07/27/25 17:30 Acetaminophen 650 mg Q6HP PRN PO 07/27/25 23:15 07/27/25 23:25 650 MG Fat Emulsion Intravenous 50 ml/ Sodium Acetate 10 meq/Sodium Phosphate 10 meq/ Potassium Acetate 30 meq/Potassium Phosphate 33 meq/ Magnesium Sulfate 10 meq/ Multivitamins 10 ml/Chromium/ Copper/Manganese/ Zinc 1 ml/Amino Acids/Dextrose/ Purified Water 1,243.5 ml @ 51 mls/hr [id number] IV 07/28/25 22:00 07/29/25 21:59 laboratory and microbiology Laboratory Tests 07/28/25 05:30 07/24/25 18:46 Test 07/28/25 05:30 Range/Units Serum Glucose 123 H 74-106 mg/dL Problem List/Assessment/Plan Problem List/Assessment/Plan 07/27/25 portacath site ecchymotic( present prior to insertion), wounds clean and well approximated. explained to nurses that the port needs to be flushed according to protocol unless it is being used for continuous infusion. explained that unless the port is properly flushed and heparinized it will occluded and become useless. I will sign off, please recall if needed 07/28/25 awake comfortable, cooperative, wounds OK, Portacath infusing well, will sign off, please recall if needed Plan discussed with: Patient Dietary Evaluation Review Comments: Nutrition Recommendation 1) Advance diet as medically feasible 2) Jose 1 pk BID 3) Continue PN supplementation 4) Monitor PO intake, lab values, weight trend, and I/O Expected Outcomes/Goals: Wound to improve FU 2-3 days MIKE PINK MD Jul 28, 2025 09:35
[2025-07-28] MEDS: SODIUM PHOSPHATES 20 MEQ in SODIUM CHL 0.9% 100 ML IV ONE (12:23)
[2025-07-28] MEDS: TPN PER PHARMACY IV NR (21:36)
[2025-07-29] VITALS (8 sets, daily range): BP systolic 115–128; BP diastolic 56–76; PULSE 85–110; RESP 17–20; TEMP 97.7–98.4; O2SAT 96–99
[2025-07-29 07:38] LABS: Alanine Aminotransferase 24 U/L (7-40); Anion Gap 12 (5-15); BUN/Creatinine Ratio 54.8 (10.0-20.0); Calcium 8.9 mg/dL (8.7-10.4); Carbon Dioxide 22 mmol/L (20-31); Chloride 104 mmol/L (98-107); Magnesium 2.1 mg/dL (1.6-2.6); Potassium 3.7 mmol/L (3.5-5.1); Sodium 138 mmol/L (136-145); Triglycerides 149 mg/dL (< 150)
[2025-07-29 07:45] LABS: Albumin 3.1 g/dL (3.2-4.8); Alkaline Phosphatase 179 U/L (46-116); Bilirubin, Total 0.2 mg/dL (0.2-1.0); Blood Urea Nitrogen 34 mg/dL (9-23); Glucose 147 mg/dL (74-106); Total Protein 5.6 g/dL (5.7-8.2)
[2025-07-29] MEDS: POTASSIUM PHOSPHATE 26.4 MEQ in SODIUM CHL 0.9% 100 ML IV ONE (14:05)
[2025-07-29] MEDS: TPN PER PHARMACY IV NR (22:19)
[2025-07-30] VITALS (8 sets, daily range): BP systolic 108–150; BP diastolic 59–77; PULSE 85–102; RESP 18–20; TEMP 97.4–98.4; O2SAT 67–99
[2025-07-30 14:16] LABS: Alanine Aminotransferase 36 U/L (7-40); Anion Gap 10 (5-15); BUN/Creatinine Ratio 44.3 (10.0-20.0); Calcium 9.0 mg/dL (8.7-10.4); Carbon Dioxide 24 mmol/L (20-31); Chloride 106 mmol/L (98-107); Magnesium 2.1 mg/dL (1.6-2.6); Potassium 4.4 mmol/L (3.5-5.1); Sodium 140 mmol/L (136-145)
[2025-07-30 14:19] LABS: Albumin 2.9 g/dL (3.2-4.8); Alkaline Phosphatase 208 U/L (46-116); Bilirubin, Total 0.2 mg/dL (0.2-1.0); Blood Urea Nitrogen 27 mg/dL (9-23); Glucose 164 mg/dL (74-106); Total Protein 5.5 g/dL (5.7-8.2)
--- NOTE | 2025-07-30 15:45 | MEDREC ---
[facility] Intervention Section I [facility] Intervention: Review courses of therapy (PLEASE CONSIDER REVIEWING COURSE OF THERAPY BASED ON CULTURE RESULTS IF CLINICALLY RELEVANT ) ZOË DEMPSEY PHARMACIST Jul 30, 2025 15:45
[2025-07-30] MEDS: SODIUM PHOSPHATES 20 MEQ in SODIUM CHL 0.9% 100 ML IV ONE (16:15)
[2025-07-30] MEDS: AMINO ACID INFUSION IN D10W 1,000 ML IV SCH (21:34)
[2025-07-31 01:00] VITALS: BP 110/63; PULSE 78; RESP 17; TEMP 97.7; O2SAT 98
[2025-07-31 05:00] VITALS: BP 137/95; PULSE 96; RESP 18; TEMP 97.8; O2SAT 98
[2025-07-31 06:52] LABS: Alanine Aminotransferase 38 U/L (7-40); Anion Gap 12 (5-15); BUN/Creatinine Ratio 49.2 (10.0-20.0); Calcium 9.3 mg/dL (8.7-10.4); Carbon Dioxide 22 mmol/L (20-31); Chloride 106 mmol/L (98-107); Magnesium 2.0 mg/dL (1.6-2.6); Potassium 4.1 mmol/L (3.5-5.1); Sodium 140 mmol/L (136-145)
[2025-07-31 06:55] LABS: Albumin 3.0 g/dL (3.2-4.8); Alkaline Phosphatase 212 U/L (46-116); Bilirubin, Total 0.2 mg/dL (0.2-1.0); Blood Urea Nitrogen 29 mg/dL (9-23); Glucose 116 mg/dL (74-106); Total Protein 5.6 g/dL (5.7-8.2)
[2025-07-31 09:00] VITALS: BP 146/88; PULSE 94; RESP 18; TEMP 98.1; O2SAT 94
--- NOTE | 2025-07-31 11:26 | DVHPN2 ---
Progress Note - Dictate Date Seen: Jul 29, 2025 Medical Necessity Reason Pt with a Central, PICC or Fol: Yes The following are medically ne: Spann Catheter Subjective SSS S/P PPI DIABETES VASCULOPATHY ANTIONE NOW UNDERWENT COLONOSCOPY AT AN OUTSIDE FACILITY COMPLICATED BY PERFORATION REQUIRING COLOSTOMY NOW WITH RECURRENT UTI DECUB ULCER SEVERELY MALNOURISHED CACHECTIC SEVERE VOL DEPLETION AND CLINICAL PRESENTATION FOR SEPSIS ENDOCARDITIS? COLO CUTANEOUS FISTULA I vital signs Vital Sign Date Time Temp Pulse Resp B/P (MAP) Pulse Ox O2 Delivery O2 Flow Rate FiO2 07/31/25 09:00 98.1 94 18 146/88 (107) 94 98.1 07/31/25 08:00 Room Air* 0 21 Total Intake and Output 07/30/25 07/30/25 07/31/25 15:00 23:00 07:00 Intake Total 150 ml 200 ml 500 ml Output Total 500 ml Balance 150 ml 200 ml 0 ml medications Current Medications Medications Dose Ordered Sig/Cristy Route Start Time Stop Time Status Last Admin Dose Admin Fluconazole 100 ml @ 100 mls/hr DAILY IV 07/21/25 10:00 07/30/25 10:23 100 MLS/HR Ceftriaxone Sodium 50 ml @ 100 mls/hr DAILY@09 IV 07/21/25 09:00 07/31/25 09:36 100 MLS/HR Diagnostic Test (Pha) 1 strip Q6HR 07/22/25 00:00 07/31/25 06:43 1 STRIP Insulin Human Regular FOLLOW SLIDING SCALE Q6HR SC 07/22/25 00:00 07/31/25 06:45 2 UNITS Dextrose 50 ml UD IV 07/21/25 22:00 Amino Acids 0 ml @ 0 mls/hr PER PHARMACY IV 07/23/25 11:30 Fat Emulsion Intravenous 50 ml/ Sodium Acetate 20 meq/Potassium Phosphate 20 meq/ Calcium Gluconate 2.3 meq/Magnesium Sulfate 8 meq/ Multivitamins 10 ml/Chromium/ Copper/Manganese/ Zinc 1 ml/Sodium Phosphate 10 meq/ Amino Acids/ Dextrose/Purified Water 784.9917 ml @ 32 mls/hr [id number] IV 07/24/25 22:00 07/25/25 21:59 Cancel Heparin Sodium (Porcine) 500 units BID IV 07/27/25 10:15 07/31/25 09:05 500 UNITS Acetaminophen/ Hydrocodone Bitart 1 tab Q6HP PRN PO 07/27/25 17:30 Acetaminophen 650 mg Q6HP PRN PO 07/27/25 23:15 07/27/25 23:25 650 MG Amino Acids/ Electrolytes/ Dextrose 1,000 ml @ 41 mls/hr DAILY@2200 IV 07/30/25 22:00 07/31/25 21:59 07/30/25 21:34 41 MLS/HR Fat Emulsion Intravenous 50 ml/ Sodium Acetate 20 meq/Potassium Acetate 10 meq/ Potassium Phosphate 22 meq/ Magnesium Sulfate 6 meq/ Multivitamins 10 ml/Chromium/ Copper/Manganese/ Zinc 1 ml/Amino Acids/Dextrose/ Purified Water 1,332.5 ml @ 56 mls/hr [id number] IV 07/31/25 22:00 08/01/25 21:59 laboratory and microbiology Laboratory Tests 07/31/25 05:32 07/24/25 18:46 Test 07/31/25 05:32 Range/Units Serum Glucose 116 H 74-106 mg/dL Problem List SSS S/P PPI DIABETES VASCULOPATHY ANTIONE NOW UNDERWENT COLONOSCOPY AT AN OUTSIDE FACILITY COMPLICATED BY PERFORATION REQUIRING COLOSTOMY NOW WITH RECURRENT UTI DECUB ULCER SEVERELY MALNOURISHED CACHECTIC SEVERE VOL DEPLETION AND CLINICAL PRESENTATION FOR SEPSIS INABILITY TO MOUNT AN WBC RESPONSE/ IMMUNOSUPPRESSED BACTERIAL AND YEAST INFECTION CUTANEOUS COLONIC FISTULA HX OF FUNGAL ENDOCARDITIS Assessment/Plan IV FLUID CONTROL AFIB 'TREAT BOTH BACTERIAL AND YEAST INFECTION CONSIDER TPN FOR MANAGEMENT OF FISTULA PT WOUND CARE/ STAGE [address] ABD PELVIS 1. Removal of right lower quadrant drain. No drainable fluid collection. 2. There is a low left anterior abdominal wall colostomy and a Issa's pouch. No bowel obstruction. 3. Dehiscence of the infraumbilical anterior abdominal wall with defect measuring at least 7.9 cm transverse. 4. Subacute appearing moderate height loss compression fracture of L1 with greater than 50% height loss. Chronic appearing Moderate height loss compression fractures of T9 and T12. 5. Cholelithiasis. 6. Mild cardiomegaly. At least mild aortic valve and coronary artery calcifications. 7. Moderate-sized hiatal hernia. NO CT EVIDENCE FOR FISTULA NUTRITIONAL SUPPOST CX NEGATIVE FAILURE TO THRIVE CONSIDER HORMONE REPLACEMENT THERAPY ECHO TO RULE OUT ENDOCARDITIS ECHO NO VEGETATION NOTED CONSIDER TALHA CENTRAL ACCESS FOR TPN UNABLE TO PLACE PICC LINE SECONDARY TO SMALL CALIBER OF VEINS morris cath insertion Dietary Evaluation Review Comments: Nutrition Recommendation 1) Advance diet as medically feasible 2) Jose 1 pk BID 3) Continue PN supplementation 4) Monitor PO intake, lab values, weight trend, and I/O Expected Outcomes/Goals: Wound to improve FU 2-3 days Plan discussed with: Patient Critical Care Time(min): 35 YASMEEN CAHVEZ MD Jul 31, 2025 11:26
[2025-07-31 12:49] VITALS: BP 126/62; PULSE 108; RESP 14; TEMP 97.2; O2SAT 98
[2025-07-31 16:58] VITALS: BP 26/66; PULSE 98; RESP 16; TEMP 97.4; O2SAT 97
[2025-07-31 21:00] VITALS: BP_SYST 123; BP_SYST 125; BP_DIAS 63; BP_DIAS 65; PULSE 102; PULSE 92; RESP 17; RESP 19; TEMP 97.5; TEMP 98.4; O2SAT 96; O2SAT 98
[2025-07-31] MEDS: TPN PER PHARMACY IV NR (23:20)
[2025-08-01 01:00] VITALS: BP 125/61; PULSE 89; RESP 18; TEMP 97.4; O2SAT 100
[2025-08-01 05:00] VITALS: BP 147/72; PULSE 98; RESP 17; TEMP 97.5; O2SAT 96
[2025-08-01 07:21] LABS: Alanine Aminotransferase 36 U/L (7-40); Anion Gap 9 (5-15); BUN/Creatinine Ratio 45.7 (10.0-20.0); Calcium 9.6 mg/dL (8.7-10.4); Carbon Dioxide 25 mmol/L (20-31); Chloride 104 mmol/L (98-107); Magnesium 1.8 mg/dL (1.6-2.6); Potassium 3.9 mmol/L (3.5-5.1); Sodium 138 mmol/L (136-145); Total Protein 5.9 g/dL (5.7-8.2)
[2025-08-01 07:22] LABS: Albumin 3.2 g/dL (3.2-4.8)
[2025-08-01 07:25] LABS: Alkaline Phosphatase 227 U/L (46-116); Bilirubin, Total 0.2 mg/dL (0.2-1.0); Blood Urea Nitrogen 32 mg/dL (9-23); Glucose 135 mg/dL (74-106)
[2025-08-01 09:00] VITALS: BP 142/87; PULSE 103; RESP 18; TEMP 98.7; O2SAT 100
[2025-08-01 12:58] VITALS: BP 114/77; PULSE 106; RESP 18; TEMP 98.6; O2SAT 98
--- NOTE | 2025-08-01 13:18 | DVHPN2 ---
Progress Note - Dictate Date Seen: Aug 01, 2025 Medical Necessity Reason Pt with a Central, PICC or Fol: Yes The following are medically ne: Spann Catheter Subjective SSS S/P PPI DIABETES VASCULOPATHY ANTIONE NOW UNDERWENT COLONOSCOPY AT AN OUTSIDE FACILITY COMPLICATED BY PERFORATION REQUIRING COLOSTOMY NOW WITH RECURRENT UTI DECUB ULCER SEVERELY MALNOURISHED CACHECTIC SEVERE VOL DEPLETION AND CLINICAL PRESENTATION FOR SEPSIS ENDOCARDITIS? COLO CUTANEOUS FISTULA I vital signs Vital Sign Date Time Temp Pulse Resp B/P (MAP) Pulse Ox O2 Delivery O2 Flow Rate FiO2 08/01/25 12:58 98.6 106 18 114/77 (89) 98 98.6 08/01/25 08:10 Room Air* 0 21 Total Intake and Output 07/31/25 07/31/25 08/01/25 15:00 23:00 07:00 Intake Total 150 ml 300 ml 1602 ml Balance 150 ml 300 ml 1602 ml medications Current Medications Medications Dose Ordered Sig/Cristy Route Start Time Stop Time Status Last Admin Dose Admin Diagnostic Test (Pha) 1 strip Q6HR 07/22/25 00:00 08/01/25 12:13 1 STRIP Insulin Human Regular FOLLOW SLIDING SCALE Q6HR SC 07/22/25 00:00 08/01/25 06:18 2 UNITS Dextrose 50 ml UD IV 07/21/25 22:00 Amino Acids 0 ml @ 0 mls/hr PER PHARMACY IV 07/23/25 11:30 Fat Emulsion Intravenous 50 ml/ Sodium Acetate 20 meq/Potassium Phosphate 20 meq/ Calcium Gluconate 2.3 meq/Magnesium Sulfate 8 meq/ Multivitamins 10 ml/Chromium/ Copper/Manganese/ Zinc 1 ml/Sodium Phosphate 10 meq/ Amino Acids/ Dextrose/Purified Water 784.9917 ml @ 32 mls/hr [id number] IV 07/24/25 22:00 07/25/25 21:59 Cancel Heparin Sodium (Porcine) 500 units BID IV 07/27/25 10:15 07/31/25 23:22 500 UNITS Acetaminophen/ Hydrocodone Bitart 1 tab Q6HP PRN PO 07/27/25 17:30 Acetaminophen 650 mg Q6HP PRN PO 07/27/25 23:15 07/27/25 23:25 650 MG Fat Emulsion Intravenous 50 ml/ Sodium Acetate 20 meq/Potassium Acetate 10 meq/ Potassium Phosphate 22 meq/ Magnesium Sulfate 6 meq/ Multivitamins 10 ml/Chromium/ Copper/Manganese/ Zinc 1 ml/Amino Acids/Dextrose/ Purified Water 1,332.5 ml @ 56 mls/hr [id number] IV 07/31/25 22:00 08/01/25 21:59 07/31/25 23:20 56 MLS/HR Fat Emulsion Intravenous 50 ml/ Sodium Chloride 10 meq/Sodium Acetate 20 meq/ Potassium Acetate 20 meq/Potassium Phosphate 33 meq/ Magnesium Sulfate 10 meq/ Multivitamins 10 ml/Chromium/ Copper/Manganese/ Zinc 1 ml/Amino Acids/Dextrose/ Purified Water 1,443.5 ml @ 60 mls/hr Q24H4M IV 08/01/25 22:00 08/02/25 21:59 laboratory and microbiology Laboratory Tests 08/01/25 05:20 07/24/25 18:46 Test 08/01/25 05:20 Range/Units Serum Glucose 135 H 74-106 mg/dL Problem List SSS S/P PPI DIABETES VASCULOPATHY ANTIONE NOW UNDERWENT COLONOSCOPY AT AN OUTSIDE FACILITY COMPLICATED BY PERFORATION REQUIRING COLOSTOMY NOW WITH RECURRENT UTI DECUB ULCER SEVERELY MALNOURISHED CACHECTIC SEVERE VOL DEPLETION AND CLINICAL PRESENTATION FOR SEPSIS INABILITY TO MOUNT AN WBC RESPONSE/ IMMUNOSUPPRESSED BACTERIAL AND YEAST INFECTION CUTANEOUS COLONIC FISTULA HX OF FUNGAL ENDOCARDITIS Assessment/Plan IV FLUID CONTROL AFIB 'TREAT BOTH BACTERIAL AND YEAST INFECTION CONSIDER TPN FOR MANAGEMENT OF FISTULA PT WOUND CARE/ STAGE [address] ABD PELVIS 1. Removal of right lower quadrant drain. No drainable fluid collection. 2. There is a low left anterior abdominal wall colostomy and a Issa's pouch. No bowel obstruction. 3. Dehiscence of the infraumbilical anterior abdominal wall with defect measuring at least 7.9 cm transverse. 4. Subacute appearing moderate height loss compression fracture of L1 with greater than 50% height loss. Chronic appearing Moderate height loss compression fractures of T9 and T12. 5. Cholelithiasis. 6. Mild cardiomegaly. At least mild aortic valve and coronary artery calcifications. 7. Moderate-sized hiatal hernia. NO CT EVIDENCE FOR FISTULA NUTRITIONAL SUPPOST CX NEGATIVE FAILURE TO THRIVE CONSIDER HORMONE REPLACEMENT THERAPY ECHO TO RULE OUT ENDOCARDITIS ECHO NO VEGETATION NOTED CONSIDER TALHA CENTRAL ACCESS FOR TPN UNABLE TO PLACE PICC LINE SECONDARY TO SMALL CALIBER OF VEINS morris cath insertion CONT TPN PHYSICAL THERAPY Dietary Evaluation Review Comments: Nutrition Recommendation 1) Advance diet as medically feasible 2) Jose 1 pk BID 3) Continue PN supplementation 4) Monitor PO intake, lab values, weight trend, and I/O Expected Outcomes/Goals: Wound to improve FU 2-3 days Plan discussed with: Patient, Daughter Critical Care Time(min): 35 YASMEEN CHAVEZ MD Aug 01, 2025 13:18
[2025-08-01 17:00] VITALS: BP 132/75; PULSE 105; RESP 15; TEMP 97.8; O2SAT 99
[2025-08-01] MEDS: POTASSIUM PHOSPHATE 26.4 MEQ in SODIUM CHL 0.9% 100 ML IV ONE (17:20)
[2025-08-01 21:00] VITALS: BP 120/69; PULSE 104; RESP 19; TEMP 97.8; O2SAT 97
[2025-08-01] MEDS: TPN PER PHARMACY IV NR (23:11)
[2025-08-02] VITALS (7 sets, daily range): BP systolic 109–137; BP diastolic 59–81; PULSE 82–98; RESP 14–16; TEMP 98–98.7; O2SAT 96–100
[2025-08-02 07:02] LABS: Alanine Aminotransferase 36 U/L (7-40); Albumin 3.2 g/dL (3.2-4.8); Anion Gap 10 (5-15); BUN/Creatinine Ratio 56.7 (10.0-20.0); Calcium 9.3 mg/dL (8.7-10.4); Carbon Dioxide 25 mmol/L (20-31); Chloride 105 mmol/L (98-107); Glucose 106 mg/dL (74-106); Magnesium 1.8 mg/dL (1.6-2.6); Potassium 4.4 mmol/L (3.5-5.1); Sodium 140 mmol/L (136-145); Total Protein 5.8 g/dL (5.7-8.2)
[2025-08-02 07:03] LABS: Alkaline Phosphatase 222 U/L (46-116); Bilirubin, Total 0.2 mg/dL (0.2-1.0); Blood Urea Nitrogen 34 mg/dL (9-23)
[2025-08-02] MEDS: diphenhydrAMINE HCL 50 MG/1 ML VL IV PRN (13:59)
--- NOTE | 2025-08-02 15:42 | DVHPN2 ---
Progress Note - Dictate Date Seen: Aug 02, 2025 Medical Necessity Reason Pt with a Central, PICC or Fol: Yes The following are medically ne: Spann Catheter Subjective SSS S/P PPI DIABETES VASCULOPATHY ANTIONE NOW UNDERWENT COLONOSCOPY AT AN OUTSIDE FACILITY COMPLICATED BY PERFORATION REQUIRING COLOSTOMY NOW WITH RECURRENT UTI DECUB ULCER SEVERELY MALNOURISHED CACHECTIC SEVERE VOL DEPLETION AND CLINICAL PRESENTATION FOR SEPSIS ENDOCARDITIS? COLO CUTANEOUS FISTULA I vital signs Vital Sign Date Time Temp Pulse Resp B/P (MAP) Pulse Ox O2 Delivery O2 Flow Rate FiO2 08/02/25 12:39 98.1 94 16 114/81 (92) 99 98.1 08/02/25 08:00 Room Air* 0 21 Total Intake and Output 08/01/25 08/01/25 08/02/25 15:00 23:00 07:00 Intake Total 150 ml 275 ml 300 ml Balance 150 ml 275 ml 300 ml medications Current Medications Medications Dose Ordered Sig/Cristy Route Start Time Stop Time Status Last Admin Dose Admin Diagnostic Test (Pha) 1 strip Q6HR 07/22/25 00:00 08/02/25 12:14 1 STRIP Insulin Human Regular FOLLOW SLIDING SCALE Q6HR SC 07/22/25 00:00 08/02/25 12:19 2 UNITS Dextrose 50 ml UD IV 07/21/25 22:00 Amino Acids 0 ml @ 0 mls/hr PER PHARMACY IV 07/23/25 11:30 Fat Emulsion Intravenous 50 ml/ Sodium Acetate 20 meq/Potassium Phosphate 20 meq/ Calcium Gluconate 2.3 meq/Magnesium Sulfate 8 meq/ Multivitamins 10 ml/Chromium/ Copper/Manganese/ Zinc 1 ml/Sodium Phosphate 10 meq/ Amino Acids/ Dextrose/Purified Water 784.9917 ml @ 32 mls/hr [id number] IV 07/24/25 22:00 07/25/25 21:59 Cancel Heparin Sodium (Porcine) 500 units BID IV 07/27/25 10:15 08/01/25 23:11 500 UNITS Acetaminophen/ Hydrocodone Bitart 1 tab Q6HP PRN PO 07/27/25 17:30 Acetaminophen 650 mg Q6HP PRN PO 07/27/25 23:15 07/27/25 23:25 650 MG Fat Emulsion Intravenous 50 ml/ Sodium Chloride 10 meq/Sodium Acetate 20 meq/ Potassium Acetate 20 meq/Potassium Phosphate 33 meq/ Magnesium Sulfate 10 meq/ Multivitamins 10 ml/Chromium/ Copper/Manganese/ Zinc 1 ml/Amino Acids/Dextrose/ Purified Water 1,443.5 ml @ 60 mls/hr Q24H4M IV 08/01/25 22:00 08/02/25 21:59 08/01/25 23:11 60 MLS/HR Fat Emulsion Intravenous 50 ml/ Sodium Acetate 20 meq/Potassium Acetate 20 meq/ Potassium Phosphate 22 meq/ Magnesium Sulfate 12 meq/ Multivitamins 10 ml/Chromium/ Copper/Manganese/ Zinc 1 ml/Amino Acids/Dextrose/ Purified Water 1,439 ml @ 60 mls/hr [id number] IV 08/02/25 22:00 08/03/25 21:59 Diphenhydramine HCl 25 mg Q6HP PRN IV 08/02/25 13:30 08/02/25 13:59 25 MG Hydrocortisone 1 applic BIDPRN PRN TOP 08/02/25 15:00 laboratory and microbiology Laboratory Tests 08/02/25 05:02 07/24/25 18:46 Test 08/02/25 05:02 Range/Units Serum Glucose 106 74-106 mg/dL Problem List SSS S/P PPI DIABETES VASCULOPATHY ANTIONE NOW UNDERWENT COLONOSCOPY AT AN OUTSIDE FACILITY COMPLICATED BY PERFORATION REQUIRING COLOSTOMY NOW WITH RECURRENT UTI DECUB ULCER SEVERELY MALNOURISHED CACHECTIC SEVERE VOL DEPLETION AND CLINICAL PRESENTATION FOR SEPSIS INABILITY TO MOUNT AN WBC RESPONSE/ IMMUNOSUPPRESSED BACTERIAL AND YEAST INFECTION CUTANEOUS COLONIC FISTULA HX OF FUNGAL ENDOCARDITIS Assessment/Plan IV FLUID CONTROL AFIB 'TREAT BOTH BACTERIAL AND YEAST INFECTION CONSIDER TPN FOR MANAGEMENT OF FISTULA PT WOUND CARE/ STAGE [address] ABD PELVIS 1. Removal of right lower quadrant drain. No drainable fluid collection. 2. There is a low left anterior abdominal wall colostomy and a Issa's pouch. No bowel obstruction. 3. Dehiscence of the infraumbilical anterior abdominal wall with defect measuring at least 7.9 cm transverse. 4. Subacute appearing moderate height loss compression fracture of L1 with greater than 50% height loss. Chronic appearing Moderate height loss compression fractures of T9 and T12. 5. Cholelithiasis. 6. Mild cardiomegaly. At least mild aortic valve and coronary artery calcifications. 7. Moderate-sized hiatal hernia. NO CT EVIDENCE FOR FISTULA NUTRITIONAL SUPPORT CX NEGATIVE FAILURE TO THRIVE CONSIDER HORMONE REPLACEMENT THERAPY ECHO TO RULE OUT ENDOCARDITIS ECHO NO VEGETATION NOTED CONSIDER TALHA CENTRAL ACCESS FOR TPN UNABLE TO PLACE PICC LINE SECONDARY TO SMALL CALIBER OF VEINS morris cath insertion CONT TPN PHYSICAL THERAPY PT WITH RASH/ ECZEMA BENADRYL Dietary Evaluation Review Comments: Nutrition Recommendation 1) Advance diet as medically feasible 2) Ojse 1 pk BID 3) Continue PN supplementation 4) Monitor PO intake, lab values, weight trend, and I/O Expected Outcomes/Goals: Wound to improve FU 2-3 days Plan discussed with: Patient Critical Care Time(min): 35 YASMEEN CHAVEZ MD Aug 02, 2025 15:42
--- NOTE | 2025-08-02 16:26 | DVH ---
AP portable chest CLINICAL INDICATION: PLEURAL EFFUSION Comparison 07/26/2025 FINDINGS: Heart size is enlarged. There are pacer leads in right atrium and right ventricle. The aorta is tortuous. No infiltrates or effusions IMPRESSION: 1. No acute cardiopulmonary pathology.
[2025-08-02] MEDS: CLOTRIMAZOLE W/ BETAMETH TOPICAL CR 15 GM TUBE TOP SCH (22:00)
[2025-08-02] MEDS: LINEZOLID 600MG/300ML 300 ML IV SCH (23:03)
[2025-08-03] VITALS (7 sets, daily range): BP systolic 113–129; BP diastolic 66–78; PULSE 92–104; RESP 12–18; TEMP 96.7–98.2; O2SAT 98–100
[2025-08-03] MEDS: TPN PER PHARMACY IV NR ×2 (01:11→22:57)
[2025-08-03 06:37] LABS: Alanine Aminotransferase 39 U/L (7-40); Anion Gap 10 (5-15); BUN/Creatinine Ratio 52.4 (10.0-20.0); Calcium 9.2 mg/dL (8.7-10.4); Carbon Dioxide 24 mmol/L (20-31); Chloride 104 mmol/L (98-107); Magnesium 1.9 mg/dL (1.6-2.6); Potassium 4.0 mmol/L (3.5-5.1); Sodium 138 mmol/L (136-145)
[2025-08-03 06:39] LABS: Albumin 3.0 g/dL (3.2-4.8); Alkaline Phosphatase 215 U/L (46-116); Bilirubin, Total 0.2 mg/dL (0.2-1.0); Blood Urea Nitrogen 33 mg/dL (9-23); Glucose 159 mg/dL (74-106); Total Protein 5.5 g/dL (5.7-8.2)
[2025-08-03 07:23] LABS: Urine Budding Yeast OCCASIONAL /hpf (None Seen); Urine Protein, UAD Negative (Negative)
[2025-08-03] MEDS: HYDROCORTONE 1% TOPICAL CREAM 30 GM TUBE TOP PRN (18:46)
[2025-08-04] VITALS (7 sets, daily range): BP systolic 112–137; BP diastolic 58–76; PULSE 82–96; RESP 16–18; TEMP 97–98.2; O2SAT 98–100
[2025-08-04 06:05] LABS: Anion Gap 10 (5-15); Calcium 9.4 mg/dL (8.7-10.4); Carbon Dioxide 24 mmol/L (20-31); Chloride 103 mmol/L (98-107); Potassium 3.8 mmol/L (3.5-5.1); Sodium 137 mmol/L (136-145)
[2025-08-04 06:06] LABS: BUN/Creatinine Ratio 50.8 (10.0-20.0); Magnesium 2.1 mg/dL (1.6-2.6); Total Protein 5.8 g/dL (5.7-8.2)
[2025-08-04 06:07] LABS: Albumin 3.3 g/dL (3.2-4.8)
[2025-08-04 06:08] LABS: Alanine Aminotransferase 44 U/L (7-40); Alkaline Phosphatase 221 U/L (46-116); Bilirubin, Total 0.3 mg/dL (0.2-1.0); Blood Urea Nitrogen 31 mg/dL (9-23); Glucose 142 mg/dL (74-106)
[2025-08-04] MEDS: TPN PER PHARMACY IV NR (21:54)
[2025-08-05] VITALS (8 sets, daily range): BP systolic 111–136; BP diastolic 58–85; PULSE 80–107; RESP 16–18; TEMP 97.1–97.9; O2SAT 98–100
[2025-08-05 06:12] LABS: Alanine Aminotransferase 39 U/L (7-40); Anion Gap 10 (5-15); BUN/Creatinine Ratio 62.5 (10.0-20.0); Calcium 8.9 mg/dL (8.7-10.4); Carbon Dioxide 25 mmol/L (20-31); Chloride 102 mmol/L (98-107); Magnesium 2.1 mg/dL (1.6-2.6); Potassium 3.7 mmol/L (3.5-5.1); Sodium 137 mmol/L (136-145)
[2025-08-05 06:14] LABS: Albumin 3.0 g/dL (3.2-4.8); Alkaline Phosphatase 200 U/L (46-116); Bilirubin, Total 0.2 mg/dL (0.2-1.0); Blood Urea Nitrogen 35 mg/dL (9-23); Glucose 136 mg/dL (74-106); Total Protein 5.3 g/dL (5.7-8.2)
[2025-08-05 07:10] LABS: Triglycerides 162 mg/dL (< 150)
[2025-08-05] MEDS: TPN PER PHARMACY IV NR (21:38)
[2025-08-06] VITALS (8 sets, daily range): BP systolic 105–134; BP diastolic 61–70; PULSE 73–103; RESP 15–18; TEMP 97.1–98.1; O2SAT 97–100
[2025-08-06 05:58] LABS: Anion Gap 8 (5-15); BUN/Creatinine Ratio 44.9 (10.0-20.0); Calcium 9.2 mg/dL (8.7-10.4); Carbon Dioxide 26 mmol/L (20-31); Chloride 103 mmol/L (98-107); Magnesium 2.1 mg/dL (1.6-2.6); Potassium 3.6 mmol/L (3.5-5.1); Sodium 137 mmol/L (136-145); Total Protein 5.8 g/dL (5.7-8.2)
[2025-08-06 05:59] LABS: Alanine Aminotransferase 43 U/L (7-40); Albumin 3.3 g/dL (3.2-4.8); Alkaline Phosphatase 223 U/L (46-116); Blood Urea Nitrogen 31 mg/dL (9-23); Glucose 114 mg/dL (74-106)
[2025-08-06 06:03] LABS: Bilirubin, Total 0.2 mg/dL (0.2-1.0)
--- NOTE | 2025-08-06 08:39 | DVHPN2 ---
Progress Note - Dictate Date Seen: Aug 03, 2025 Medical Necessity Reason Pt with a Central, PICC or Fol: Yes The following are medically ne: Spann Catheter Subjective SSS S/P PPI DIABETES VASCULOPATHY ANTIONE NOW UNDERWENT COLONOSCOPY AT AN OUTSIDE FACILITY COMPLICATED BY PERFORATION REQUIRING COLOSTOMY NOW WITH RECURRENT UTI DECUB ULCER SEVERELY MALNOURISHED CACHECTIC SEVERE VOL DEPLETION AND CLINICAL PRESENTATION FOR SEPSIS ENDOCARDITIS? COLO CUTANEOUS FISTULA I vital signs Vital Sign Date Time Temp Pulse Resp B/P (MAP) Pulse Ox O2 Delivery O2 Flow Rate FiO2 08/06/25 05:00 97.1 73 18 112/61 (78) 100 97.1 08/05/25 20:00 Room Air* 0 21 Total Intake and Output 08/05/25 08/05/25 08/06/25 15:00 23:00 07:00 Intake Total 360 ml 400 ml Balance 360 ml 400 ml medications Current Medications Medications Dose Ordered Sig/Cristy Route Start Time Stop Time Status Last Admin Dose Admin Diagnostic Test (Pha) 1 strip Q6HR 07/22/25 00:00 08/06/25 05:47 1 STRIP Insulin Human Regular FOLLOW SLIDING SCALE Q6HR SC 07/22/25 00:00 08/06/25 00:43 2 UNITS Dextrose 50 ml UD IV 07/21/25 22:00 Amino Acids 0 ml @ 0 mls/hr PER PHARMACY IV 07/23/25 11:30 Fat Emulsion Intravenous 50 ml/ Sodium Acetate 20 meq/Potassium Phosphate 20 meq/ Calcium Gluconate 2.3 meq/Magnesium Sulfate 8 meq/ Multivitamins 10 ml/Chromium/ Copper/Manganese/ Zinc 1 ml/Sodium Phosphate 10 meq/ Amino Acids/ Dextrose/Purified Water 784.9917 ml @ 32 mls/hr [id number] IV 07/24/25 22:00 07/25/25 21:59 Cancel Heparin Sodium (Porcine) 500 units BID IV 07/27/25 10:15 08/03/25 09:37 500 UNITS Acetaminophen 650 mg Q6HP PRN PO 07/27/25 23:15 07/27/25 23:25 650 MG Diphenhydramine HCl 25 mg Q6HP PRN IV 08/02/25 13:30 08/06/25 06:36 25 MG Hydrocortisone 1 applic BIDPRN PRN TOP 08/02/25 15:00 08/04/25 21:46 1 APPLIC Betamethasone/ Clotrimazole 1 applic Q12HR TOP 08/02/25 22:00 08/05/25 21:42 1 APPLIC Linezolid 300 ml @ 150 mls/hr Q12HR IV 08/02/25 22:00 08/05/25 21:32 150 MLS/HR Fat Emulsion Intravenous 50 ml/ Sodium Chloride 40 meq/Sodium Phosphate 20 meq/ Potassium Chloride 60 meq/ Calcium Gluconate 2.3 meq/Magnesium Sulfate 10 meq/ Multivitamins 10 ml/Chromium/ Copper/Manganese/ Zinc 1 ml/Amino Acids/Dextrose/ Purified Water 1,463.4462 ml @ 61 mls/hr Q24H IV 08/05/25 22:00 08/06/25 21:59 08/05/25 21:38 61 MLS/HR laboratory and microbiology Laboratory Tests 08/06/25 04:54 07/24/25 18:46 Test 08/06/25 04:54 Range/Units Serum Glucose 114 H 74-106 mg/dL Problem List SSS S/P PPI DIABETES VASCULOPATHY ANTIONE NOW UNDERWENT COLONOSCOPY AT AN OUTSIDE FACILITY COMPLICATED BY PERFORATION REQUIRING COLOSTOMY NOW WITH RECURRENT UTI DECUB ULCER SEVERELY MALNOURISHED CACHECTIC SEVERE VOL DEPLETION AND CLINICAL PRESENTATION FOR SEPSIS INABILITY TO MOUNT AN WBC RESPONSE/ IMMUNOSUPPRESSED BACTERIAL AND YEAST INFECTION CUTANEOUS COLONIC FISTULA HX OF FUNGAL ENDOCARDITIS Assessment/Plan IV FLUID CONTROL AFIB 'TREAT BOTH BACTERIAL AND YEAST INFECTION CONSIDER TPN FOR MANAGEMENT OF FISTULA PT WOUND CARE/ STAGE [address] ABD PELVIS 1. Removal of right lower quadrant drain. No drainable fluid collection. 2. There is a low left anterior abdominal wall colostomy and a Issa's pouch. No bowel obstruction. 3. Dehiscence of the infraumbilical anterior abdominal wall with defect measuring at least 7.9 cm transverse. 4. Subacute appearing moderate height loss compression fracture of L1 with greater than 50% height loss. Chronic appearing Moderate height loss compression fractures of T9 and T12. 5. Cholelithiasis. 6. Mild cardiomegaly. At least mild aortic valve and coronary artery calcifications. 7. Moderate-sized hiatal hernia. NO CT EVIDENCE FOR FISTULA NUTRITIONAL SUPPORT CX NEGATIVE FAILURE TO THRIVE CONSIDER HORMONE REPLACEMENT THERAPY ECHO TO RULE OUT ENDOCARDITIS ECHO NO VEGETATION NOTED CONSIDER TALHA CENTRAL ACCESS FOR TPN UNABLE TO PLACE PICC LINE SECONDARY TO SMALL CALIBER OF VEINS morris cath insertion CONT TPN PHYSICAL THERAPY PT WITH RASH/ ECZEMA BENADRYL Dietary Evaluation Review Comments: Nutrition Recommendation 1) Advance diet as medically feasible 2) Jose 1 pk BID 3) Continue PN supplementation 4) Monitor PO intake, lab values, weight trend, and I/O Expected Outcomes/Goals: Wound to improve FU 2-3 days Plan discussed with: Patient, Daughter Critical Care Time(min): 35 YASMEEN CHAVEZ MD Aug 06, 2025 08:39
--- NOTE | 2025-08-06 08:43 | DVHPN2 ---
Progress Note - Dictate Date Seen: Aug 06, 2025 Medical Necessity Reason Pt with a Central, PICC or Fol: Yes The following are medically ne: Spann Catheter Subjective SSS S/P PPI DIABETES VASCULOPATHY ANTIONE NOW UNDERWENT COLONOSCOPY AT AN OUTSIDE FACILITY COMPLICATED BY PERFORATION REQUIRING COLOSTOMY NOW WITH RECURRENT UTI DECUB ULCER SEVERELY MALNOURISHED CACHECTIC SEVERE VOL DEPLETION AND CLINICAL PRESENTATION FOR SEPSIS ENDOCARDITIS? COLO CUTANEOUS FISTULA I vital signs Vital Sign Date Time Temp Pulse Resp B/P (MAP) Pulse Ox O2 Delivery O2 Flow Rate FiO2 08/06/25 05:00 97.1 73 18 112/61 (78) 100 97.1 08/05/25 20:00 Room Air* 0 21 Total Intake and Output 08/05/25 08/05/25 08/06/25 15:00 23:00 07:00 Intake Total 360 ml 400 ml Balance 360 ml 400 ml medications Current Medications Medications Dose Ordered Sig/Cristy Route Start Time Stop Time Status Last Admin Dose Admin Diagnostic Test (Pha) 1 strip Q6HR 07/22/25 00:00 08/06/25 05:47 1 STRIP Insulin Human Regular FOLLOW SLIDING SCALE Q6HR SC 07/22/25 00:00 08/06/25 00:43 2 UNITS Dextrose 50 ml UD IV 07/21/25 22:00 Amino Acids 0 ml @ 0 mls/hr PER PHARMACY IV 07/23/25 11:30 Fat Emulsion Intravenous 50 ml/ Sodium Acetate 20 meq/Potassium Phosphate 20 meq/ Calcium Gluconate 2.3 meq/Magnesium Sulfate 8 meq/ Multivitamins 10 ml/Chromium/ Copper/Manganese/ Zinc 1 ml/Sodium Phosphate 10 meq/ Amino Acids/ Dextrose/Purified Water 784.9917 ml @ 32 mls/hr [id number] IV 07/24/25 22:00 07/25/25 21:59 Cancel Heparin Sodium (Porcine) 500 units BID IV 07/27/25 10:15 08/03/25 09:37 500 UNITS Acetaminophen 650 mg Q6HP PRN PO 07/27/25 23:15 07/27/25 23:25 650 MG Diphenhydramine HCl 25 mg Q6HP PRN IV 08/02/25 13:30 08/06/25 06:36 25 MG Hydrocortisone 1 applic BIDPRN PRN TOP 08/02/25 15:00 08/04/25 21:46 1 APPLIC Betamethasone/ Clotrimazole 1 applic Q12HR TOP 08/02/25 22:00 08/05/25 21:42 1 APPLIC Linezolid 300 ml @ 150 mls/hr Q12HR IV 08/02/25 22:00 08/05/25 21:32 150 MLS/HR Fat Emulsion Intravenous 50 ml/ Sodium Chloride 40 meq/Sodium Phosphate 20 meq/ Potassium Chloride 60 meq/ Calcium Gluconate 2.3 meq/Magnesium Sulfate 10 meq/ Multivitamins 10 ml/Chromium/ Copper/Manganese/ Zinc 1 ml/Amino Acids/Dextrose/ Purified Water 1,463.4462 ml @ 61 mls/hr Q24H IV 08/05/25 22:00 08/06/25 21:59 08/05/25 21:38 61 MLS/HR laboratory and microbiology Laboratory Tests 08/06/25 04:54 07/24/25 18:46 Test 08/06/25 04:54 Range/Units Serum Glucose 114 H 74-106 mg/dL Problem List SSS S/P PPI DIABETES VASCULOPATHY ANTIONE NOW UNDERWENT COLONOSCOPY AT AN OUTSIDE FACILITY COMPLICATED BY PERFORATION REQUIRING COLOSTOMY NOW WITH RECURRENT UTI DECUB ULCER SEVERELY MALNOURISHED CACHECTIC SEVERE VOL DEPLETION AND CLINICAL PRESENTATION FOR SEPSIS INABILITY TO MOUNT AN WBC RESPONSE/ IMMUNOSUPPRESSED BACTERIAL AND YEAST INFECTION CUTANEOUS COLONIC FISTULA HX OF FUNGAL ENDOCARDITIS Assessment/Plan IV FLUID CONTROL AFIB 'TREAT BOTH BACTERIAL AND YEAST INFECTION CONSIDER TPN FOR MANAGEMENT OF FISTULA PT WOUND CARE/ STAGE [address] ABD PELVIS 1. Removal of right lower quadrant drain. No drainable fluid collection. 2. There is a low left anterior abdominal wall colostomy and a Issa's pouch. No bowel obstruction. 3. Dehiscence of the infraumbilical anterior abdominal wall with defect measuring at least 7.9 cm transverse. 4. Subacute appearing moderate height loss compression fracture of L1 with greater than 50% height loss. Chronic appearing Moderate height loss compression fractures of T9 and T12. 5. Cholelithiasis. 6. Mild cardiomegaly. At least mild aortic valve and coronary artery calcifications. 7. Moderate-sized hiatal hernia. NO CT EVIDENCE FOR FISTULA NUTRITIONAL SUPPORT CX NEGATIVE FAILURE TO THRIVE CONSIDER HORMONE REPLACEMENT THERAPY ECHO TO RULE OUT ENDOCARDITIS ECHO NO VEGETATION NOTED CONSIDER TALHA CENTRAL ACCESS FOR TPN UNABLE TO PLACE PICC LINE SECONDARY TO SMALL CALIBER OF VEINS morris cath insertion CONT TPN PHYSICAL THERAPY PT WITH RASH/ ECZEMA BENADRYL REVIEWED LABS: WBC, MCV AND MCH ARE NORMAL Dietary Evaluation Review Comments: Nutrition Recommendation 1) Advance diet as medically feasible 2) Jose 1 pk BID 3) Continue PN supplementation 4) Monitor PO intake, lab values, weight trend, and I/O Expected Outcomes/Goals: Wound to improve FU 2-3 days Plan discussed with: Patient, Daughter YASMEEN CHAVEZ MD Aug 06, 2025 08:43
[2025-08-06 09:12] LABS: Hematocrit 28.9 % (36.0-46.0); Hemoglobin 9.6 g/dL (12.2-16.2); Mean Corpuscular Hemoglobin 32.0 pg (28.0-32.0); Mean Corpuscular Volume 96.6 fL (80.0-100.0); Nucleated Red Blood Cells % 0.1 %
[2025-08-06] MEDS: TESTOSTERONE CYPIONATE 200 MG/ML 1ML VIAL IM ONE (12:09)
--- NOTE | 2025-08-06 12:14 | DVH ---
CHEST RADIOGRAPH Indication: s/p morris cath Technique: Single frontal view of the chest was obtained COMPARISON: XY CHEST PORTABLE on DOS: 08/02/25, XY CHEST PORTABLE on DOS: 07/26/25, XY CHEST XRAY 1 VIEW on DOS: 07/20/25, XY CHEST XRAY 1 VIEW on DOS: 07/08/25, XY CHEST PORTABLE on DOS: 06/28/25 FINDINGS: Lines and Tubes: Right chest port in satisfactory position. Left chest pacemaker. Lungs: Unchanged to slightly improved mild pulmonary vascular congestion. Pleura: No effusion.No pneumothorax. Cardiomediastinal contours: Cardiomegaly. Bones: Unremarkable IMPRESSION: No acute disease.
[2025-08-06] MEDS: TPN PER PHARMACY IV NR (21:29)
[2025-08-07] VITALS (7 sets, daily range): BP systolic 12–135; BP diastolic 63–69; PULSE 87–96; RESP 16–18; TEMP 97–98.3; O2SAT 97–98
[2025-08-07 06:00] LABS: Alanine Aminotransferase 36 U/L (7-40); Anion Gap 9 (5-15); BUN/Creatinine Ratio 61.0 (10.0-20.0); Calcium 9.1 mg/dL (8.7-10.4); Carbon Dioxide 23 mmol/L (20-31); Chloride 105 mmol/L (98-107); Magnesium 2.1 mg/dL (1.6-2.6); Potassium 3.9 mmol/L (3.5-5.1); Sodium 137 mmol/L (136-145)
[2025-08-07 06:01] LABS: Albumin 3.0 g/dL (3.2-4.8); Alkaline Phosphatase 197 U/L (46-116); Bilirubin, Total 0.2 mg/dL (0.2-1.0); Blood Urea Nitrogen 36 mg/dL (9-23); Glucose 138 mg/dL (74-106); Total Protein 5.5 g/dL (5.7-8.2)
--- NOTE | 2025-08-07 13:15 | DVHPN2 ---
Progress Note - Dictate Date Seen: Aug 05, 2025 Medical Necessity Reason Pt with a Central, PICC or Fol: Yes The following are medically ne: Spann Catheter Subjective SSS S/P PPI DIABETES VASCULOPATHY ANTIONE NOW UNDERWENT COLONOSCOPY AT AN OUTSIDE FACILITY COMPLICATED BY PERFORATION REQUIRING COLOSTOMY NOW WITH RECURRENT UTI DECUB ULCER SEVERELY MALNOURISHED CACHECTIC SEVERE VOL DEPLETION AND CLINICAL PRESENTATION FOR SEPSIS ENDOCARDITIS? COLO CUTANEOUS FISTULA I vital signs Vital Sign Date Time Temp Pulse Resp B/P (MAP) Pulse Ox O2 Delivery O2 Flow Rate FiO2 08/07/25 05:00 97.0 93 17 12/65 (48) 98 97.0 08/06/25 20:00 Room Air* 0 21 Total Intake and Output 08/06/25 08/06/25 08/07/25 15:00 23:00 07:00 Intake Total 0 ml 300 ml Balance 0 ml 300 ml medications Current Medications Medications Dose Ordered Sig/Cristy Route Start Time Stop Time Status Last Admin Dose Admin Diagnostic Test (Pha) 1 strip Q6HR 07/22/25 00:00 08/07/25 12:00 1 STRIP Insulin Human Regular FOLLOW SLIDING SCALE Q6HR SC 07/22/25 00:00 08/07/25 12:00 2 UNITS Dextrose 50 ml UD IV 07/21/25 22:00 Amino Acids 0 ml @ 0 mls/hr PER PHARMACY IV 07/23/25 11:30 Fat Emulsion Intravenous 50 ml/ Sodium Acetate 20 meq/Potassium Phosphate 20 meq/ Calcium Gluconate 2.3 meq/Magnesium Sulfate 8 meq/ Multivitamins 10 ml/Chromium/ Copper/Manganese/ Zinc 1 ml/Sodium Phosphate 10 meq/ Amino Acids/ Dextrose/Purified Water 784.9917 ml @ 32 mls/hr [id number] IV 07/24/25 22:00 07/25/25 21:59 Cancel Heparin Sodium (Porcine) 500 units BID IV 07/27/25 10:15 08/06/25 21:32 500 UNITS Acetaminophen 650 mg Q6HP PRN PO 07/27/25 23:15 07/27/25 23:25 650 MG Diphenhydramine HCl 25 mg Q6HP PRN IV 08/02/25 13:30 08/07/25 00:15 25 MG Hydrocortisone 1 applic BIDPRN PRN TOP 08/02/25 15:00 08/06/25 21:43 1 APPLIC Betamethasone/ Clotrimazole 1 applic Q12HR TOP 08/02/25 22:00 08/06/25 21:43 1 APPLIC Linezolid 300 ml @ 150 mls/hr Q12HR IV 08/02/25 22:00 08/07/25 11:18 150 MLS/HR Fat Emulsion Intravenous 50 ml/ Sodium Chloride 50 meq/Sodium Phosphate 20 meq/ Potassium Chloride 70 meq/ Magnesium Sulfate 10 meq/ Multivitamins 10 ml/Chromium/ Copper/Manganese/ Zinc 1 ml/Amino Acids/Dextrose/ Purified Water 1,466 ml @ 61 mls/hr Q24H2M IV 08/06/25 22:00 08/07/25 21:59 08/06/25 21:29 61 MLS/HR Fat Emulsion Intravenous 50 ml/ Sodium Chloride 40 meq/Sodium Phosphate 40 meq/ Potassium Chloride 50 meq/ Potassium Acetate 20 meq/Magnesium Sulfate 10 meq/ Multivitamins 10 ml/Chromium/ Copper/Manganese/ Zinc 1 ml/Amino Acids/Dextrose/ Purified Water 1,568.5 ml @ 66 mls/hr [id number] IV 08/07/25 22:00 08/08/25 21:59 laboratory and microbiology Laboratory Tests 08/07/25 05:10 08/06/25 04:54 Test 08/07/25 05:10 Range/Units Serum Glucose 138 H 74-106 mg/dL Problem List SSS S/P PPI DIABETES VASCULOPATHY ANTIONE NOW UNDERWENT COLONOSCOPY AT AN OUTSIDE FACILITY COMPLICATED BY PERFORATION REQUIRING COLOSTOMY NOW WITH RECURRENT UTI DECUB ULCER SEVERELY MALNOURISHED CACHECTIC SEVERE VOL DEPLETION AND CLINICAL PRESENTATION FOR SEPSIS INABILITY TO MOUNT AN WBC RESPONSE/ IMMUNOSUPPRESSED BACTERIAL AND YEAST INFECTION CUTANEOUS COLONIC FISTULA HX OF FUNGAL ENDOCARDITIS Assessment/Plan IV FLUID CONTROL AFIB 'TREAT BOTH BACTERIAL AND YEAST INFECTION CONSIDER TPN FOR MANAGEMENT OF FISTULA PT WOUND CARE/ STAGE I DECUB CT ABD PELVIS 1. Removal of right lower quadrant drain. No drainable fluid collection. 2. There is a low left anterior abdominal wall colostomy and a Issa's pouch. No bowel obstruction. 3. Dehiscence of the infraumbilical anterior abdominal wall with defect measuring at least 7.9 cm transverse. 4. Subacute appearing moderate height loss compression fracture of L1 with greater than 50% height loss. Chronic appearing Moderate height loss compression fractures of T9 and T12. 5. Cholelithiasis. 6. Mild cardiomegaly. At least mild aortic valve and coronary artery calcifications. 7. Moderate-sized hiatal hernia. NO CT EVIDENCE FOR FISTULA NUTRITIONAL SUPPORT CX NEGATIVE FAILURE TO THRIVE CONSIDER HORMONE REPLACEMENT THERAPY ECHO TO RULE OUT ENDOCARDITIS ECHO NO VEGETATION NOTED CONSIDER TALHA CENTRAL ACCESS FOR TPN UNABLE TO PLACE PICC LINE SECONDARY TO SMALL CALIBER OF VEINS morris cath insertion CONT TPN PHYSICAL THERAPY PT WITH RASH/ ECZEMA BENADRYL Dietary Evaluation Review Comments: Nutrition Recommendation 1) Advance diet as medically feasible 2) Jose 1 pk BID 3) Continue PN supplementation 4) Monitor PO intake, lab values, weight trend, and I/O Expected Outcomes/Goals: Wound to improve FU 2-3 days Plan discussed with: Patient, Daughter, Son Critical Care Time(min): 35 YASMEEN CHAVEZ MD Aug 07, 2025 13:15
--- NOTE | 2025-08-07 13:18 | DVHPN2 ---
Progress Note - Dictate Date Seen: Aug 07, 2025 Medical Necessity Reason Pt with a Central, PICC or Fol: Yes The following are medically ne: Spann Catheter Subjective SSS S/P PPI DIABETES VASCULOPATHY ANTIONE NOW UNDERWENT COLONOSCOPY AT AN OUTSIDE FACILITY COMPLICATED BY PERFORATION REQUIRING COLOSTOMY NOW WITH RECURRENT UTI DECUB ULCER SEVERELY MALNOURISHED CACHECTIC SEVERE VOL DEPLETION AND CLINICAL PRESENTATION FOR SEPSIS ENDOCARDITIS? COLO CUTANEOUS FISTULA I vital signs Vital Sign Date Time Temp Pulse Resp B/P (MAP) Pulse Ox O2 Delivery O2 Flow Rate FiO2 08/07/25 05:00 97.0 93 17 12/65 (48) 98 97.0 08/06/25 20:00 Room Air* 0 21 Total Intake and Output 08/06/25 08/06/25 08/07/25 15:00 23:00 07:00 Intake Total 0 ml 300 ml Balance 0 ml 300 ml medications Current Medications Medications Dose Ordered Sig/Cristy Route Start Time Stop Time Status Last Admin Dose Admin Diagnostic Test (Pha) 1 strip Q6HR 07/22/25 00:00 08/07/25 12:00 1 STRIP Insulin Human Regular FOLLOW SLIDING SCALE Q6HR SC 07/22/25 00:00 08/07/25 12:00 2 UNITS Dextrose 50 ml UD IV 07/21/25 22:00 Amino Acids 0 ml @ 0 mls/hr PER PHARMACY IV 07/23/25 11:30 Fat Emulsion Intravenous 50 ml/ Sodium Acetate 20 meq/Potassium Phosphate 20 meq/ Calcium Gluconate 2.3 meq/Magnesium Sulfate 8 meq/ Multivitamins 10 ml/Chromium/ Copper/Manganese/ Zinc 1 ml/Sodium Phosphate 10 meq/ Amino Acids/ Dextrose/Purified Water 784.9917 ml @ 32 mls/hr [id number] IV 07/24/25 22:00 07/25/25 21:59 Cancel Heparin Sodium (Porcine) 500 units BID IV 07/27/25 10:15 08/06/25 21:32 500 UNITS Acetaminophen 650 mg Q6HP PRN PO 07/27/25 23:15 07/27/25 23:25 650 MG Diphenhydramine HCl 25 mg Q6HP PRN IV 08/02/25 13:30 08/07/25 00:15 25 MG Hydrocortisone 1 applic BIDPRN PRN TOP 08/02/25 15:00 08/06/25 21:43 1 APPLIC Betamethasone/ Clotrimazole 1 applic Q12HR TOP 08/02/25 22:00 08/06/25 21:43 1 APPLIC Linezolid 300 ml @ 150 mls/hr Q12HR IV 08/02/25 22:00 08/07/25 11:18 150 MLS/HR Fat Emulsion Intravenous 50 ml/ Sodium Chloride 50 meq/Sodium Phosphate 20 meq/ Potassium Chloride 70 meq/ Magnesium Sulfate 10 meq/ Multivitamins 10 ml/Chromium/ Copper/Manganese/ Zinc 1 ml/Amino Acids/Dextrose/ Purified Water 1,466 ml @ 61 mls/hr Q24H2M IV 08/06/25 22:00 08/07/25 21:59 08/06/25 21:29 61 MLS/HR Fat Emulsion Intravenous 50 ml/ Sodium Chloride 40 meq/Sodium Phosphate 40 meq/ Potassium Chloride 50 meq/ Potassium Acetate 20 meq/Magnesium Sulfate 10 meq/ Multivitamins 10 ml/Chromium/ Copper/Manganese/ Zinc 1 ml/Amino Acids/Dextrose/ Purified Water 1,568.5 ml @ 66 mls/hr [id number] IV 08/07/25 22:00 08/08/25 21:59 laboratory and microbiology Laboratory Tests 08/07/25 05:10 08/06/25 04:54 Test 08/07/25 05:10 Range/Units Serum Glucose 138 H 74-106 mg/dL Problem List SSS S/P PPI DIABETES VASCULOPATHY ANTIONE NOW UNDERWENT COLONOSCOPY AT AN OUTSIDE FACILITY COMPLICATED BY PERFORATION REQUIRING COLOSTOMY NOW WITH RECURRENT UTI DECUB ULCER SEVERELY MALNOURISHED CACHECTIC SEVERE VOL DEPLETION AND CLINICAL PRESENTATION FOR SEPSIS INABILITY TO MOUNT AN WBC RESPONSE/ IMMUNOSUPPRESSED BACTERIAL AND YEAST INFECTION CUTANEOUS COLONIC FISTULA HX OF FUNGAL ENDOCARDITIS Assessment/Plan IV FLUID CONTROL AFIB 'TREAT BOTH BACTERIAL AND YEAST INFECTION CONSIDER TPN FOR MANAGEMENT OF FISTULA PT WOUND CARE/ STAGE [address] ABD PELVIS 1. Removal of right lower quadrant drain. No drainable fluid collection. 2. There is a low left anterior abdominal wall colostomy and a Issa's pouch. No bowel obstruction. 3. Dehiscence of the infraumbilical anterior abdominal wall with defect measuring at least 7.9 cm transverse. 4. Subacute appearing moderate height loss compression fracture of L1 with greater than 50% height loss. Chronic appearing Moderate height loss compression fractures of T9 and T12. 5. Cholelithiasis. 6. Mild cardiomegaly. At least mild aortic valve and coronary artery calcifications. 7. Moderate-sized hiatal hernia. NO CT EVIDENCE FOR FISTULA NUTRITIONAL SUPPORT CX NEGATIVE FAILURE TO THRIVE CONSIDER HORMONE REPLACEMENT THERAPY ECHO TO RULE OUT ENDOCARDITIS ECHO NO VEGETATION NOTED CONSIDER TALHA CENTRAL ACCESS FOR TPN UNABLE TO PLACE PICC LINE SECONDARY TO SMALL CALIBER OF VEINS morris cath insertion CONT TPN PHYSICAL THERAPY PT WITH RASH/ ECZEMA BENADRYL anemia START IRON INFUSION RETIC COUNT IRON STUDY HOME IN 1 TO 2 DAYS WITH CONTINUED TPN AT HOME REVIEWED LABS: NA, K, AND CL ARE NORMAL Dietary Evaluation Review Comments: Nutrition Recommendation 1) Advance diet as medically feasible 2) Jose 1 pk BID 3) Continue PN supplementation 4) Monitor PO intake, lab values, weight trend, and I/O Expected Outcomes/Goals: Wound to improve FU 2-3 days Plan discussed with: Patient, Daughter, Son YASMEEN CHAVEZ MD Aug 07, 2025 13:18
[2025-08-07 14:44] LABS: Iron 46.0 ug/dL (50-170); Total Iron Binding Capacity 156.0 ug/dL (250-425)
[2025-08-07] MEDS: TPN PER PHARMACY IV NR (22:29)
[2025-08-08] VITALS (7 sets, daily range): BP systolic 101–151; BP diastolic 59–73; PULSE 80–106; RESP 17–18; TEMP 97.5–98.6; O2SAT 97–100
[2025-08-08 07:08] LABS: Alanine Aminotransferase 35 U/L (7-40); Anion Gap 10 (5-15); BUN/Creatinine Ratio 64.1 (10.0-20.0); Calcium 9.2 mg/dL (8.7-10.4); Carbon Dioxide 21 mmol/L (20-31); Chloride 106 mmol/L (98-107); Magnesium 2.0 mg/dL (1.6-2.6); Potassium 4.2 mmol/L (3.5-5.1); Sodium 137 mmol/L (136-145)
[2025-08-08 07:18] LABS: Albumin 3.2 g/dL (3.2-4.8); Alkaline Phosphatase 202 U/L (46-116); Bilirubin, Total 0.2 mg/dL (0.2-1.0); Blood Urea Nitrogen 41 mg/dL (9-23); Glucose 120 mg/dL (74-106); Total Protein 5.6 g/dL (5.7-8.2)
[2025-08-08] MEDS: IRON SUCROSE COMPLEX 110 ML IV SCH (13:12)
--- NOTE | 2025-08-08 14:10 | DVHPN2 ---
Progress Note - Dictate Date Seen: Aug 08, 2025 Medical Necessity Reason Pt with a Central, PICC or Fol: Yes The following are medically ne: Spann Catheter Subjective SSS S/P PPI DIABETES VASCULOPATHY ANTIONE NOW UNDERWENT COLONOSCOPY AT AN OUTSIDE FACILITY COMPLICATED BY PERFORATION REQUIRING COLOSTOMY NOW WITH RECURRENT UTI DECUB ULCER SEVERELY MALNOURISHED CACHECTIC SEVERE VOL DEPLETION AND CLINICAL PRESENTATION FOR SEPSIS ENDOCARDITIS? COLO CUTANEOUS FISTULA I vital signs Vital Sign Date Time Temp Pulse Resp B/P (MAP) Pulse Ox O2 Delivery O2 Flow Rate FiO2 08/08/25 09:00 98.6 80 17 130/67 (88) 98 98.6 08/08/25 08:00 Room Air* 0 21 Total Intake and Output 08/07/25 08/07/25 08/08/25 15:00 23:00 07:00 Intake Total 300 ml 200 ml 540 ml Output Total 1 ml 200 ml Balance 300 ml 199 ml 340 ml medications Current Medications Medications Dose Ordered Sig/Cristy Route Start Time Stop Time Status Last Admin Dose Admin Diagnostic Test (Pha) 1 strip Q6HR 07/22/25 00:00 08/08/25 12:00 1 STRIP Insulin Human Regular FOLLOW SLIDING SCALE Q6HR SC 07/22/25 00:00 08/08/25 13:17 2 UNITS Dextrose 50 ml UD IV 07/21/25 22:00 Amino Acids 0 ml @ 0 mls/hr PER PHARMACY IV 07/23/25 11:30 Fat Emulsion Intravenous 50 ml/ Sodium Acetate 20 meq/Potassium Phosphate 20 meq/ Calcium Gluconate 2.3 meq/Magnesium Sulfate 8 meq/ Multivitamins 10 ml/Chromium/ Copper/Manganese/ Zinc 1 ml/Sodium Phosphate 10 meq/ Amino Acids/ Dextrose/Purified Water 784.9917 ml @ 32 mls/hr [id number] IV 07/24/25 22:00 07/25/25 21:59 Cancel Heparin Sodium (Porcine) 500 units BID IV 07/27/25 10:15 08/07/25 22:28 500 UNITS Acetaminophen 650 mg Q6HP PRN PO 07/27/25 23:15 07/27/25 23:25 650 MG Diphenhydramine HCl 25 mg Q6HP PRN IV 08/02/25 13:30 08/07/25 22:28 25 MG Hydrocortisone 1 applic BIDPRN PRN TOP 08/02/25 15:00 08/06/25 21:43 1 APPLIC Betamethasone/ Clotrimazole 1 applic Q12HR TOP 08/02/25 22:00 08/08/25 10:00 1 APPLIC Linezolid 300 ml @ 150 mls/hr Q12HR IV 08/02/25 22:00 08/08/25 11:02 150 MLS/HR Fat Emulsion Intravenous 50 ml/ Sodium Chloride 40 meq/Sodium Phosphate 40 meq/ Potassium Chloride 50 meq/ Potassium Acetate 20 meq/Magnesium Sulfate 10 meq/ Multivitamins 10 ml/Chromium/ Copper/Manganese/ Zinc 1 ml/Amino Acids/Dextrose/ Purified Water 1,568.5 ml @ 66 mls/hr [id number] IV 08/07/25 22:00 08/08/25 21:59 08/07/25 22:29 66 MLS/HR Iron Sucrose 110 ml @ 110 mls/hr DAILY@1200 IV 08/08/25 12:00 08/12/25 11:59 08/08/25 13:12 110 MLS/HR Fat Emulsion Intravenous 50 ml/ Sodium Chloride 60 meq/Sodium Phosphate 40 meq/ Potassium Chloride 30 meq/ Potassium Acetate 40 meq/Magnesium Sulfate 12 meq/ Multivitamins 10 ml/Chromium/ Copper/Manganese/ Zinc 1 ml/Amino Acids/Dextrose/ Purified Water 1,574 ml @ 66 mls/hr [id number] IV 08/08/25 22:00 08/09/25 21:59 laboratory and microbiology Laboratory Tests 08/08/25 05:03 08/06/25 04:54 Test 08/08/25 05:03 Range/Units Serum Glucose 120 H 74-106 mg/dL Problem List SSS S/P PPI DIABETES VASCULOPATHY ANTIONE NOW UNDERWENT COLONOSCOPY AT AN OUTSIDE FACILITY COMPLICATED BY PERFORATION REQUIRING COLOSTOMY NOW WITH RECURRENT UTI DECUB ULCER SEVERELY MALNOURISHED CACHECTIC SEVERE VOL DEPLETION AND CLINICAL PRESENTATION FOR SEPSIS INABILITY TO MOUNT AN WBC RESPONSE/ IMMUNOSUPPRESSED BACTERIAL AND YEAST INFECTION CUTANEOUS COLONIC FISTULA HX OF FUNGAL ENDOCARDITIS Assessment/Plan IV FLUID CONTROL AFIB 'TREAT BOTH BACTERIAL AND YEAST INFECTION CONSIDER TPN FOR MANAGEMENT OF FISTULA PT WOUND CARE/ STAGE [address] ABD PELVIS 1. Removal of right lower quadrant drain. No drainable fluid collection. 2. There is a low left anterior abdominal wall colostomy and a Issa's pouch. No bowel obstruction. 3. Dehiscence of the infraumbilical anterior abdominal wall with defect measuring at least 7.9 cm transverse. 4. Subacute appearing moderate height loss compression fracture of L1 with greater than 50% height loss. Chronic appearing Moderate height loss compression fractures of T9 and T12. 5. Cholelithiasis. 6. Mild cardiomegaly. At least mild aortic valve and coronary artery calcifications. 7. Moderate-sized hiatal hernia. NO CT EVIDENCE FOR FISTULA NUTRITIONAL SUPPORT CX NEGATIVE FAILURE TO THRIVE CONSIDER HORMONE REPLACEMENT THERAPY ECHO TO RULE OUT ENDOCARDITIS ECHO NO VEGETATION NOTED CONSIDER TALHA CENTRAL ACCESS FOR TPN UNABLE TO PLACE PICC LINE SECONDARY TO SMALL CALIBER OF VEINS morris cath insertion CONT TPN PHYSICAL THERAPY PT WITH RASH/ ECZEMA BENADRYL anemia START IRON INFUSION RETIC COUNT IRON STUDY HOME IN 1 TO 2 DAYS WITH CONTINUED TPN AT HOME PT HIGH RETIC COUNT LOW IRON STORE THEREFOR IRON REPLACEMENT REVIEWED LABS: NA, K, AND CL ARE NORMAL Dietary Evaluation Review Comments: Nutrition Recommendation 1) Advance diet as medically feasible 2) Jose 1 pk BID 3) Continue PN supplementation 4) Monitor PO intake, lab values, weight trend, and I/O Expected Outcomes/Goals: Wound to improve FU 2-3 days Plan discussed with: Patient, Daughter YASMEEN CHAVEZ MD Aug 08, 2025 14:10
[2025-08-08] MEDS: TPN PER PHARMACY IV NR (21:35)
[2025-08-09] VITALS (8 sets, daily range): BP systolic 106–150; BP diastolic 0–74; PULSE 60–101; RESP 14–20; TEMP 96.6–98.3; O2SAT 9–100
[2025-08-09 07:17] LABS: Alanine Aminotransferase 33 U/L (7-40); Anion Gap 11 (5-15); BUN/Creatinine Ratio 53.1 (10.0-20.0); Calcium 9.0 mg/dL (8.7-10.4); Magnesium 2.0 mg/dL (1.6-2.6); Potassium 4.2 mmol/L (3.5-5.1); Sodium 138 mmol/L (136-145)
[2025-08-09 07:26] LABS: Albumin 3.0 g/dL (3.2-4.8); Alkaline Phosphatase 183 U/L (46-116); Bilirubin, Total 0.2 mg/dL (0.2-1.0); Blood Urea Nitrogen 34 mg/dL (9-23); Carbon Dioxide 20 mmol/L (20-31); Chloride 107 mmol/L (98-107); Glucose 128 mg/dL (74-106); Total Protein 5.5 g/dL (5.7-8.2)
--- NOTE | 2025-08-09 14:06 | DVHPN2 ---
Progress Note - Dictate Date Seen: Aug 09, 2025 Medical Necessity Reason Pt with a Central, PICC or Fol: Yes The following are medically ne: Spann Catheter Subjective SSS S/P PPI DIABETES VASCULOPATHY ANTIONE NOW UNDERWENT COLONOSCOPY AT AN OUTSIDE FACILITY COMPLICATED BY PERFORATION REQUIRING COLOSTOMY NOW WITH RECURRENT UTI DECUB ULCER SEVERELY MALNOURISHED CACHECTIC SEVERE VOL DEPLETION AND CLINICAL PRESENTATION FOR SEPSIS ENDOCARDITIS? COLO CUTANEOUS FISTULA I vital signs Vital Sign Date Time Temp Pulse Resp B/P (MAP) Pulse Ox O2 Delivery O2 Flow Rate FiO2 08/09/25 12:52 98.3 92 16 119/0 (39) 98 98.3 08/09/25 08:00 Room Air* 0 21 Total Intake and Output 08/08/25 08/08/25 08/09/25 15:00 23:00 07:00 Intake Total 300 ml 800 ml 450 ml Balance 300 ml 800 ml 450 ml medications Current Medications Medications Dose Ordered Sig/Cristy Route Start Time Stop Time Status Last Admin Dose Admin Diagnostic Test (Pha) 1 strip Q6HR 07/22/25 00:00 08/09/25 11:33 1 STRIP Insulin Human Regular FOLLOW SLIDING SCALE Q6HR SC 07/22/25 00:00 08/09/25 11:56 2 UNITS Dextrose 50 ml UD IV 07/21/25 22:00 Amino Acids 0 ml @ 0 mls/hr PER PHARMACY IV 07/23/25 11:30 Fat Emulsion Intravenous 50 ml/ Sodium Acetate 20 meq/Potassium Phosphate 20 meq/ Calcium Gluconate 2.3 meq/Magnesium Sulfate 8 meq/ Multivitamins 10 ml/Chromium/ Copper/Manganese/ Zinc 1 ml/Sodium Phosphate 10 meq/ Amino Acids/ Dextrose/Purified Water 784.9917 ml @ 32 mls/hr [id number] IV 07/24/25 22:00 07/25/25 21:59 Cancel Heparin Sodium (Porcine) 500 units BID IV 07/27/25 10:15 08/09/25 09:03 500 UNITS Acetaminophen 650 mg Q6HP PRN PO 07/27/25 23:15 07/27/25 23:25 650 MG Diphenhydramine HCl 25 mg Q6HP PRN IV 08/02/25 13:30 08/07/25 22:28 25 MG Hydrocortisone 1 applic BIDPRN PRN TOP 08/02/25 15:00 08/06/25 21:43 1 APPLIC Betamethasone/ Clotrimazole 1 applic Q12HR TOP 08/02/25 22:00 08/09/25 09:04 1 APPLIC Linezolid 300 ml @ 150 mls/hr Q12HR IV 08/02/25 22:00 08/09/25 09:02 150 MLS/HR Iron Sucrose 110 ml @ 110 mls/hr DAILY@1200 IV 08/08/25 12:00 08/12/25 11:59 08/09/25 11:33 110 MLS/HR Fat Emulsion Intravenous 50 ml/ Sodium Chloride 60 meq/Sodium Phosphate 40 meq/ Potassium Chloride 30 meq/ Potassium Acetate 40 meq/Magnesium Sulfate 12 meq/ Multivitamins 10 ml/Chromium/ Copper/Manganese/ Zinc 1 ml/Amino Acids/Dextrose/ Purified Water 1,574 ml @ 66 mls/hr [id number] IV 08/08/25 22:00 08/09/25 21:59 08/08/25 21:35 66 MLS/HR Fat Emulsion Intravenous 50 ml/ Sodium Chloride 30 meq/Sodium Acetate 40 meq/ Sodium Phosphate 20 meq/Potassium Chloride 20 meq/ Potassium Acetate 40 meq/Magnesium Sulfate 12 meq/ Multivitamins 10 ml/Chromium/ Copper/Manganese/ Zinc 1 ml/Amino Acids/Dextrose/ Purified Water 1,576.5 ml @ 65 mls/hr [id number] IV 08/09/25 22:00 08/10/25 21:59 laboratory and microbiology Laboratory Tests 08/09/25 06:38 08/06/25 04:54 Test 08/09/25 06:38 Range/Units Serum Glucose 128 H 74-106 mg/dL Problem List SSS S/P PPI DIABETES VASCULOPATHY ANTIONE NOW UNDERWENT COLONOSCOPY AT AN OUTSIDE FACILITY COMPLICATED BY PERFORATION REQUIRING COLOSTOMY NOW WITH RECURRENT UTI DECUB ULCER SEVERELY MALNOURISHED CACHECTIC SEVERE VOL DEPLETION AND CLINICAL PRESENTATION FOR SEPSIS INABILITY TO MOUNT AN WBC RESPONSE/ IMMUNOSUPPRESSED BACTERIAL AND YEAST INFECTION CUTANEOUS COLONIC FISTULA HX OF FUNGAL ENDOCARDITIS Assessment/Plan IV FLUID CONTROL AFIB 'TREAT BOTH BACTERIAL AND YEAST INFECTION CONSIDER TPN FOR MANAGEMENT OF FISTULA PT WOUND CARE/ STAGE [address] ABD PELVIS 1. Removal of right lower quadrant drain. No drainable fluid collection. 2. There is a low left anterior abdominal wall colostomy and a Issa's pouch. No bowel obstruction. 3. Dehiscence of the infraumbilical anterior abdominal wall with defect measuring at least 7.9 cm transverse. 4. Subacute appearing moderate height loss compression fracture of L1 with greater than 50% height loss. Chronic appearing Moderate height loss compression fractures of T9 and T12. 5. Cholelithiasis. 6. Mild cardiomegaly. At least mild aortic valve and coronary artery calcifications. 7. Moderate-sized hiatal hernia. NO CT EVIDENCE FOR FISTULA NUTRITIONAL SUPPORT CX NEGATIVE FAILURE TO THRIVE CONSIDER HORMONE REPLACEMENT THERAPY ECHO TO RULE OUT ENDOCARDITIS ECHO NO VEGETATION NOTED CONSIDER TALHA CENTRAL ACCESS FOR TPN UNABLE TO PLACE PICC LINE SECONDARY TO SMALL CALIBER OF VEINS morris cath insertion CONT TPN PHYSICAL THERAPY PT WITH RASH/ ECZEMA BENADRYL anemia START IRON INFUSION RETIC COUNT IRON STUDY HOME IN 1 TO 2 DAYS WITH CONTINUED TPN AT HOME PT HIGH RETIC COUNT LOW IRON STORE THEREFOR IRON REPLACEMENT REVIEWED LABS: NA, K, AND CL ARE NORMAL Dietary Evaluation Review Comments: Nutrition Recommendation 1) Advance diet as medically feasible 2) Jose 1 pk BID 3) Continue PN supplementation 4) Monitor PO intake, lab values, weight trend, and I/O Expected Outcomes/Goals: Wound to improve FU 2-3 days Plan discussed with: Patient YASMEEN CHAVEZ MD Aug 09, 2025 14:06
[2025-08-09] MEDS: TPN PER PHARMACY IV NR (22:43)
[2025-08-10] VITALS (8 sets, daily range): BP systolic 108–128; BP diastolic 59–82; PULSE 89–109; RESP 16–17; TEMP 97–98.3; O2SAT 95–98
[2025-08-10 06:46] LABS: Alanine Aminotransferase 32 U/L (7-40); Anion Gap 12 (5-15); BUN/Creatinine Ratio 53.2 (10.0-20.0); Calcium 9.0 mg/dL (8.7-10.4); Carbon Dioxide 23 mmol/L (20-31); Chloride 104 mmol/L (98-107); Glucose 104 mg/dL (74-106); Magnesium 2.1 mg/dL (1.6-2.6); Potassium 3.8 mmol/L (3.5-5.1); Sodium 139 mmol/L (136-145)
[2025-08-10 06:47] LABS: Albumin 3.2 g/dL (3.2-4.8)
[2025-08-10 06:49] LABS: Alkaline Phosphatase 180 U/L (46-116); Bilirubin, Total 0.3 mg/dL (0.2-1.0); Blood Urea Nitrogen 33 mg/dL (9-23); Total Protein 5.7 g/dL (5.7-8.2)
--- NOTE | 2025-08-10 11:17 | DVHPN2 ---
Progress Note - Dictate Date Seen: Aug 10, 2025 Medical Necessity Reason Pt with a Central, PICC or Fol: Yes The following are medically ne: Spann Catheter Subjective SSS S/P PPI DIABETES VASCULOPATHY ANTIONE NOW UNDERWENT COLONOSCOPY AT AN OUTSIDE FACILITY COMPLICATED BY PERFORATION REQUIRING COLOSTOMY NOW WITH RECURRENT UTI DECUB ULCER SEVERELY MALNOURISHED CACHECTIC SEVERE VOL DEPLETION AND CLINICAL PRESENTATION FOR SEPSIS ENDOCARDITIS? COLO CUTANEOUS FISTULA I vital signs Vital Sign Date Time Temp Pulse Resp B/P (MAP) Pulse Ox O2 Delivery O2 Flow Rate FiO2 08/10/25 08:41 98.1 107 16 110/82 (91) 95 98.1 08/09/25 20:00 Room Air* 0 21 Total Intake and Output 08/09/25 08/09/25 08/10/25 14:59 22:59 06:59 Intake Total 410 ml 240 ml 500 ml Output Total 100 ml Balance 310 ml 240 ml 500 ml medications Current Medications Medications Dose Ordered Sig/Cristy Route Start Time Stop Time Status Last Admin Dose Admin Diagnostic Test (Pha) 1 strip Q6HR 07/22/25 00:00 08/10/25 06:00 1 STRIP Insulin Human Regular FOLLOW SLIDING SCALE Q6HR SC 07/22/25 00:00 08/09/25 11:56 2 UNITS Dextrose 50 ml UD IV 07/21/25 22:00 Amino Acids 0 ml @ 0 mls/hr PER PHARMACY IV 07/23/25 11:30 Fat Emulsion Intravenous 50 ml/ Sodium Acetate 20 meq/Potassium Phosphate 20 meq/ Calcium Gluconate 2.3 meq/Magnesium Sulfate 8 meq/ Multivitamins 10 ml/Chromium/ Copper/Manganese/ Zinc 1 ml/Sodium Phosphate 10 meq/ Amino Acids/ Dextrose/Purified Water 784.9917 ml @ 32 mls/hr [id number] IV 07/24/25 22:00 07/25/25 21:59 Cancel Heparin Sodium (Porcine) 500 units BID IV 07/27/25 10:15 08/10/25 10:23 500 UNITS Acetaminophen 650 mg Q6HP PRN PO 07/27/25 23:15 07/27/25 23:25 650 MG Diphenhydramine HCl 25 mg Q6HP PRN IV 08/02/25 13:30 08/09/25 18:00 25 MG Hydrocortisone 1 applic BIDPRN PRN TOP 08/02/25 15:00 08/09/25 20:17 1 APPLIC Betamethasone/ Clotrimazole 1 applic Q12HR TOP 08/02/25 22:00 08/10/25 10:23 1 APPLIC Linezolid 300 ml @ 150 mls/hr Q12HR IV 08/02/25 22:00 08/10/25 00:32 150 MLS/HR Iron Sucrose 110 ml @ 110 mls/hr DAILY@1200 IV 08/08/25 12:00 08/12/25 11:59 08/09/25 11:33 110 MLS/HR Fat Emulsion Intravenous 50 ml/ Sodium Chloride 30 meq/Sodium Acetate 40 meq/ Sodium Phosphate 20 meq/Potassium Chloride 20 meq/ Potassium Acetate 40 meq/Magnesium Sulfate 12 meq/ Multivitamins 10 ml/Chromium/ Copper/Manganese/ Zinc 1 ml/Amino Acids/Dextrose/ Purified Water 1,576.5 ml @ 65 mls/hr [id number] IV 08/09/25 22:00 08/10/25 21:59 08/09/25 22:43 65 MLS/HR Fat Emulsion Intravenous 50 ml/ Sodium Chloride 30 meq/Sodium Acetate 40 meq/ Sodium Phosphate 20 meq/Potassium Chloride 30 meq/ Potassium Acetate 40 meq/Magnesium Sulfate 10 meq/ Multivitamins 10 ml/Chromium/ Copper/Manganese/ Zinc 1 ml/Amino Acids/Dextrose/ Purified Water 1,581 ml @ 65 mls/hr [id number] IV 08/10/25 22:00 08/11/25 21:59 laboratory and microbiology Laboratory Tests 08/10/25 05:57 08/06/25 04:54 Test 08/10/25 05:57 Range/Units Serum Glucose 104 74-106 mg/dL Problem List SSS S/P PPI DIABETES VASCULOPATHY ANTIONE NOW UNDERWENT COLONOSCOPY AT AN OUTSIDE FACILITY COMPLICATED BY PERFORATION REQUIRING COLOSTOMY NOW WITH RECURRENT UTI DECUB ULCER SEVERELY MALNOURISHED CACHECTIC SEVERE VOL DEPLETION AND CLINICAL PRESENTATION FOR SEPSIS INABILITY TO MOUNT AN WBC RESPONSE/ IMMUNOSUPPRESSED BACTERIAL AND YEAST INFECTION CUTANEOUS COLONIC FISTULA HX OF FUNGAL ENDOCARDITIS Assessment/Plan IV FLUID CONTROL AFIB 'TREAT BOTH BACTERIAL AND YEAST INFECTION CONSIDER TPN FOR MANAGEMENT OF FISTULA PT WOUND CARE/ STAGE I DECUB CT ABD PELVIS 1. Removal of right lower quadrant drain. No drainable fluid collection. 2. There is a low left anterior abdominal wall colostomy and a Issa's pouch. No bowel obstruction. 3. Dehiscence of the infraumbilical anterior abdominal wall with defect measuring at least 7.9 cm transverse. 4. Subacute appearing moderate height loss compression fracture of L1 with greater than 50% height loss. Chronic appearing Moderate height loss compression fractures of T9 and T12. 5. Cholelithiasis. 6. Mild cardiomegaly. At least mild aortic valve and coronary artery calcifications. 7. Moderate-sized hiatal hernia. NO CT EVIDENCE FOR FISTULA NUTRITIONAL SUPPORT CX NEGATIVE FAILURE TO THRIVE CONSIDER HORMONE REPLACEMENT THERAPY ECHO TO RULE OUT ENDOCARDITIS ECHO NO VEGETATION NOTED CONSIDER TALHA CENTRAL ACCESS FOR TPN UNABLE TO PLACE PICC LINE SECONDARY TO SMALL CALIBER OF VEINS morris cath insertion CONT TPN PHYSICAL THERAPY PT WITH RASH/ ECZEMA BENADRYL anemia START IRON INFUSION RETIC COUNT IRON STUDY HOME IN 1 TO 2 DAYS WITH CONTINUED TPN AT HOME PT HIGH RETIC COUNT LOW IRON STORE THEREFOR IRON REPLACEMENT REVIEWED LABS: NA, K, AND CL ARE NORMAL Dietary Evaluation Review Comments: Nutrition Recommendation 1) Advance diet as medically feasible 2) Jose 1 pk BID 3) Continue PN supplementation 4) Monitor PO intake, lab values, weight trend, and I/O Expected Outcomes/Goals: Wound to improve FU 2-3 days Plan discussed with: Patient YASMEEN CHAVEZ MD Aug 10, 2025 11:17
[2025-08-10] MEDS: TPN PER PHARMACY IV NR (22:45)
[2025-08-11 01:00] VITALS: BP 103/58; PULSE 89; RESP 17; TEMP 97.9; O2SAT 98
[2025-08-11 05:00] VITALS: BP 128/72; PULSE 91; RESP 16; TEMP 97.6; O2SAT 99
[2025-08-11 08:44] VITALS: BP 112/58; PULSE 83; RESP 16; TEMP 98.1; O2SAT 98
[2025-08-11 09:11] LABS: Alanine Aminotransferase 28 U/L (7-40); Anion Gap 11 (5-15); BUN/Creatinine Ratio 52.5 (10.0-20.0); Calcium 9.0 mg/dL (8.7-10.4); Carbon Dioxide 25 mmol/L (20-31); Chloride 103 mmol/L (98-107); Glucose 92 mg/dL (74-106); Magnesium 2.0 mg/dL (1.6-2.6); Potassium 4.0 mmol/L (3.5-5.1); Sodium 139 mmol/L (136-145)
[2025-08-11 09:12] LABS: Bilirubin, Total 0.3 mg/dL (0.2-1.0)
[2025-08-11 09:13] LABS: Albumin 3.1 g/dL (3.2-4.8); Alkaline Phosphatase 174 U/L (46-116); Blood Urea Nitrogen 32 mg/dL (9-23); Total Protein 5.4 g/dL (5.7-8.2)
[2025-08-11 12:51] VITALS: BP 135/82; PULSE 95; RESP 16; TEMP 98; O2SAT 98
--- NOTE | 2025-08-11 15:19 | DVHPN2 ---
Progress Note - Dictate Date Seen: Aug 11, 2025 Medical Necessity Reason Pt with a Central, PICC or Fol: Yes The following are medically ne: Spann Catheter Subjective SSS S/P PPI DIABETES VASCULOPATHY ANTIONE NOW UNDERWENT COLONOSCOPY AT AN OUTSIDE FACILITY COMPLICATED BY PERFORATION REQUIRING COLOSTOMY NOW WITH RECURRENT UTI DECUB ULCER SEVERELY MALNOURISHED CACHECTIC SEVERE VOL DEPLETION AND CLINICAL PRESENTATION FOR SEPSIS ENDOCARDITIS? COLO CUTANEOUS FISTULA I vital signs Vital Sign Date Time Temp Pulse Resp B/P (MAP) Pulse Ox O2 Delivery O2 Flow Rate FiO2 08/11/25 12:51 98.0 95 16 135/82 (99) 98 98.0 08/11/25 08:00 Room Air* 0 21 Total Intake and Output 08/10/25 08/10/25 08/11/25 15:00 23:00 07:00 Intake Total 300 ml 110 ml 120 ml Balance 300 ml 110 ml 120 ml medications Current Medications Medications Dose Ordered Sig/Cristy Route Start Time Stop Time Status Last Admin Dose Admin Diagnostic Test (Pha) 1 strip Q6HR 07/22/25 00:00 08/11/25 12:00 1 STRIP Insulin Human Regular FOLLOW SLIDING SCALE Q6HR SC 07/22/25 00:00 08/11/25 06:08 2 UNITS Dextrose 50 ml UD IV 07/21/25 22:00 Amino Acids 0 ml @ 0 mls/hr PER PHARMACY IV 07/23/25 11:30 Fat Emulsion Intravenous 50 ml/ Sodium Acetate 20 meq/Potassium Phosphate 20 meq/ Calcium Gluconate 2.3 meq/Magnesium Sulfate 8 meq/ Multivitamins 10 ml/Chromium/ Copper/Manganese/ Zinc 1 ml/Sodium Phosphate 10 meq/ Amino Acids/ Dextrose/Purified Water 784.9917 ml @ 32 mls/hr [id number] IV 07/24/25 22:00 07/25/25 21:59 Cancel Heparin Sodium (Porcine) 500 units BID IV 07/27/25 10:15 08/11/25 09:38 500 UNITS Acetaminophen 650 mg Q6HP PRN PO 07/27/25 23:15 08/10/25 23:46 650 MG Diphenhydramine HCl 25 mg Q6HP PRN IV 08/02/25 13:30 08/09/25 18:00 25 MG Hydrocortisone 1 applic BIDPRN PRN TOP 08/02/25 15:00 08/11/25 02:16 1 APPLIC Betamethasone/ Clotrimazole 1 applic Q12HR TOP 08/02/25 22:00 08/11/25 10:00 1 APPLIC Linezolid 300 ml @ 150 mls/hr Q12HR IV 08/02/25 22:00 08/11/25 09:32 150 MLS/HR Iron Sucrose 110 ml @ 110 mls/hr DAILY@1200 IV 08/08/25 12:00 08/12/25 11:59 08/11/25 13:58 110 MLS/HR Fat Emulsion Intravenous 50 ml/ Sodium Chloride 30 meq/Sodium Acetate 40 meq/ Sodium Phosphate 20 meq/Potassium Chloride 30 meq/ Potassium Acetate 40 meq/Magnesium Sulfate 10 meq/ Multivitamins 10 ml/Chromium/ Copper/Manganese/ Zinc 1 ml/Amino Acids/Dextrose/ Purified Water 1,581 ml @ 65 mls/hr [id number] IV 08/10/25 22:00 08/11/25 21:59 08/10/25 22:45 65 MLS/HR Fat Emulsion Intravenous 50 ml/ Sodium Chloride 40 meq/Sodium Acetate 30 meq/ Sodium Phosphate 40 meq/Potassium Chloride 30 meq/ Potassium Acetate 40 meq/Magnesium Sulfate 10 meq/ Multivitamins 10 ml/Chromium/ Copper/Manganese/ Zinc 1 ml/Amino Acids/Dextrose/ Purified Water 1,583.5 ml @ 66 mls/hr Q24H IV 08/11/25 22:00 08/12/25 21:59 laboratory and microbiology Laboratory Tests 08/11/25 08:10 08/06/25 04:54 Test 08/11/25 08:10 Range/Units Serum Glucose 92 74-106 mg/dL Problem List SSS S/P PPI DIABETES VASCULOPATHY ANTIONE NOW UNDERWENT COLONOSCOPY AT AN OUTSIDE FACILITY COMPLICATED BY PERFORATION REQUIRING COLOSTOMY NOW WITH RECURRENT UTI DECUB ULCER SEVERELY MALNOURISHED CACHECTIC SEVERE VOL DEPLETION AND CLINICAL PRESENTATION FOR SEPSIS INABILITY TO MOUNT AN WBC RESPONSE/ IMMUNOSUPPRESSED BACTERIAL AND YEAST INFECTION CUTANEOUS COLONIC FISTULA HX OF FUNGAL ENDOCARDITIS Assessment/Plan IV FLUID CONTROL AFIB 'TREAT BOTH BACTERIAL AND YEAST INFECTION CONSIDER TPN FOR MANAGEMENT OF FISTULA PT WOUND CARE/ STAGE [address] ABD PELVIS 1. Removal of right lower quadrant drain. No drainable fluid collection. 2. There is a low left anterior abdominal wall colostomy and a Issa's pouch. No bowel obstruction. 3. Dehiscence of the infraumbilical anterior abdominal wall with defect measuring at least 7.9 cm transverse. 4. Subacute appearing moderate height loss compression fracture of L1 with greater than 50% height loss. Chronic appearing Moderate height loss compression fractures of T9 and T12. 5. Cholelithiasis. 6. Mild cardiomegaly. At least mild aortic valve and coronary artery calcifications. 7. Moderate-sized hiatal hernia. NO CT EVIDENCE FOR FISTULA NUTRITIONAL SUPPORT CX NEGATIVE FAILURE TO THRIVE CONSIDER HORMONE REPLACEMENT THERAPY ECHO TO RULE OUT ENDOCARDITIS ECHO NO VEGETATION NOTED CONSIDER TALHA CENTRAL ACCESS FOR TPN UNABLE TO PLACE PICC LINE SECONDARY TO SMALL CALIBER OF VEINS morris cath insertion CONT TPN PHYSICAL THERAPY PT WITH RASH/ ECZEMA BENADRYL anemia START IRON INFUSION RETIC COUNT IRON STUDY HOME IN 1 TO 2 DAYS WITH CONTINUED TPN AT HOME PT HIGH RETIC COUNT LOW IRON STORE THEREFOR IRON REPLACEMENT NEEDS PT REVIEWED LABS: NA, K, AND CL ARE NORMAL Dietary Evaluation Review Comments: Nutrition Recommendation 1) Advance diet as medically feasible 2) Jose 1 pk BID 3) Continue PN supplementation 4) Monitor PO intake, lab values, weight trend, and I/O Expected Outcomes/Goals: Wound to improve FU 2-3 days Plan discussed with: Patient, Daughter, Son YASMEEN CHAVEZ MD Aug 11, 2025 15:19
[2025-08-11 16:48] VITALS: BP 110/76; PULSE 85; RESP 17; TEMP 98; O2SAT 99
[2025-08-11 20:52] VITALS: BP 125/67; PULSE 97; RESP 17; TEMP 97.7; O2SAT 98
[2025-08-11] MEDS: TPN PER PHARMACY IV NR (21:22)
[2025-08-12] VITALS (8 sets, daily range): BP systolic 92–123; BP diastolic 58–78; PULSE 82–112; RESP 16–19; TEMP 97.7–98.8; O2SAT 9–99
[2025-08-12 06:51] LABS: Alanine Aminotransferase 25 U/L (7-40); Anion Gap 9 (5-15); BUN/Creatinine Ratio 51.7 (10.0-20.0); Bilirubin, Total 0.3 mg/dL (0.2-1.0); Calcium 8.9 mg/dL (8.7-10.4); Carbon Dioxide 26 mmol/L (20-31); Chloride 103 mmol/L (98-107); Magnesium 2.1 mg/dL (1.6-2.6); Potassium 4.3 mmol/L (3.5-5.1); Sodium 138 mmol/L (136-145); Triglycerides 105 mg/dL (< 150)
[2025-08-12 07:11] LABS: Albumin 2.9 g/dL (3.2-4.8); Alkaline Phosphatase 164 U/L (46-116); Blood Urea Nitrogen 31 mg/dL (9-23); Glucose 118 mg/dL (74-106); Total Protein 5.2 g/dL (5.7-8.2)
[2025-08-12] MEDS: TPN PER PHARMACY IV NR (21:03)
[2025-08-13] VITALS (8 sets, daily range): BP systolic 97–121; BP diastolic 45–94; PULSE 78–110; RESP 16–17; TEMP 97.3–98.2; O2SAT 96–99
[2025-08-13 07:22] LABS: Alanine Aminotransferase 22 U/L (7-40); Anion Gap 8 (5-15); BUN/Creatinine Ratio 47.6 (10.0-20.0); Calcium 8.7 mg/dL (8.7-10.4); Carbon Dioxide 24 mmol/L (20-31); Chloride 104 mmol/L (98-107); Glucose 106 mg/dL (74-106); Magnesium 1.9 mg/dL (1.6-2.6); Potassium 3.9 mmol/L (3.5-5.1); Sodium 136 mmol/L (136-145)
[2025-08-13 07:23] LABS: Alkaline Phosphatase 161 U/L (46-116); Blood Urea Nitrogen 30 mg/dL (9-23); Total Protein 5.0 g/dL (5.7-8.2)
[2025-08-13 07:24] LABS: Bilirubin, Total 0.3 mg/dL (0.2-1.0)
[2025-08-13 07:27] LABS: Albumin 2.8 g/dL (3.2-4.8)
--- NOTE | 2025-08-13 10:08 | DVHPN2 ---
Progress Note - Dictate Date Seen: Aug 12, 2025 Medical Necessity Reason Pt with a Central, PICC or Fol: Yes The following are medically ne: Spann Catheter Subjective SSS S/P PPI DIABETES VASCULOPATHY ANTIONE NOW UNDERWENT COLONOSCOPY AT AN OUTSIDE FACILITY COMPLICATED BY PERFORATION REQUIRING COLOSTOMY NOW WITH RECURRENT UTI DECUB ULCER SEVERELY MALNOURISHED CACHECTIC SEVERE VOL DEPLETION AND CLINICAL PRESENTATION FOR SEPSIS ENDOCARDITIS? COLO CUTANEOUS FISTULA I vital signs Vital Sign Date Time Temp Pulse Resp B/P (MAP) Pulse Ox O2 Delivery O2 Flow Rate FiO2 08/13/25 05:00 97.3 87 17 109/58 (75) 99 97.3 08/12/25 20:00 Room Air* 0 21 Total Intake and Output 08/12/25 08/12/25 08/13/25 15:00 23:00 07:00 Intake Total 1390 ml 892 ml 0 ml Balance 1390 ml 892 ml 0 ml medications Current Medications Medications Dose Ordered Sig/Cristy Route Start Time Stop Time Status Last Admin Dose Admin Diagnostic Test (Pha) 1 strip Q6HR 07/22/25 00:00 08/13/25 05:03 1 STRIP Insulin Human Regular FOLLOW SLIDING SCALE Q6HR SC 07/22/25 00:00 08/12/25 12:01 2 UNITS Dextrose 50 ml UD IV 07/21/25 22:00 Amino Acids 0 ml @ 0 mls/hr PER PHARMACY IV 07/23/25 11:30 Fat Emulsion Intravenous 50 ml/ Sodium Acetate 20 meq/Potassium Phosphate 20 meq/ Calcium Gluconate 2.3 meq/Magnesium Sulfate 8 meq/ Multivitamins 10 ml/Chromium/ Copper/Manganese/ Zinc 1 ml/Sodium Phosphate 10 meq/ Amino Acids/ Dextrose/Purified Water 784.9917 ml @ 32 mls/hr [id number] IV 07/24/25 22:00 07/25/25 21:59 Cancel Heparin Sodium (Porcine) 500 units BID IV 07/27/25 10:15 08/12/25 21:03 500 UNITS Acetaminophen 650 mg Q6HP PRN PO 07/27/25 23:15 08/10/25 23:46 650 MG Diphenhydramine HCl 25 mg Q6HP PRN IV 08/02/25 13:30 08/09/25 18:00 25 MG Hydrocortisone 1 applic BIDPRN PRN TOP 08/02/25 15:00 08/12/25 21:23 1 APPLIC Betamethasone/ Clotrimazole 1 applic Q12HR TOP 08/02/25 22:00 08/12/25 22:00 1 APPLIC Linezolid 300 ml @ 150 mls/hr Q12HR IV 08/02/25 22:00 08/12/25 21:04 150 MLS/HR Fat Emulsion Intravenous 100 ml/Sodium Chloride 50 meq/ Sodium Acetate 40 meq/Sodium Phosphate 20 meq/ Potassium Chloride 30 meq/ Potassium Acetate 20 meq/Magnesium Sulfate 8 meq/ Multivitamins 10 ml/Chromium/ Copper/Manganese/ Zinc 1 ml/Amino Acids/Dextrose/ Purified Water 1,675.5 ml @ 70 mls/hr [id number] IV 08/12/25 22:00 08/13/25 21:59 08/12/25 21:03 70 MLS/HR laboratory and microbiology Laboratory Tests 08/13/25 06:23 08/06/25 04:54 Test 08/13/25 06:23 Range/Units Serum Glucose 106 74-106 mg/dL Problem List SSS S/P PPI DIABETES VASCULOPATHY ANTIONE NOW UNDERWENT COLONOSCOPY AT AN OUTSIDE FACILITY COMPLICATED BY PERFORATION REQUIRING COLOSTOMY NOW WITH RECURRENT UTI DECUB ULCER SEVERELY MALNOURISHED CACHECTIC SEVERE VOL DEPLETION AND CLINICAL PRESENTATION FOR SEPSIS INABILITY TO MOUNT AN WBC RESPONSE/ IMMUNOSUPPRESSED BACTERIAL AND YEAST INFECTION CUTANEOUS COLONIC FISTULA HX OF FUNGAL ENDOCARDITIS Assessment/Plan IV FLUID CONTROL AFIB 'TREAT BOTH BACTERIAL AND YEAST INFECTION CONSIDER TPN FOR MANAGEMENT OF FISTULA PT WOUND CARE/ STAGE [address] ABD PELVIS 1. Removal of right lower quadrant drain. No drainable fluid collection. 2. There is a low left anterior abdominal wall colostomy and a Issa's pouch. No bowel obstruction. 3. Dehiscence of the infraumbilical anterior abdominal wall with defect measuring at least 7.9 cm transverse. 4. Subacute appearing moderate height loss compression fracture of L1 with greater than 50% height loss. Chronic appearing Moderate height loss compression fractures of T9 and T12. 5. Cholelithiasis. 6. Mild cardiomegaly. At least mild aortic valve and coronary artery calcifications. 7. Moderate-sized hiatal hernia. NO CT EVIDENCE FOR FISTULA NUTRITIONAL SUPPORT CX NEGATIVE FAILURE TO THRIVE CONSIDER HORMONE REPLACEMENT THERAPY ECHO TO RULE OUT ENDOCARDITIS ECHO NO VEGETATION NOTED CONSIDER TALHA CENTRAL ACCESS FOR TPN UNABLE TO PLACE PICC LINE SECONDARY TO SMALL CALIBER OF VEINS morris cath insertion CONT TPN PHYSICAL THERAPY PT WITH RASH/ ECZEMA BENADRYL anemia START IRON INFUSION RETIC COUNT IRON STUDY HOME IN 1 TO 2 DAYS WITH CONTINUED TPN AT HOME PT HIGH RETIC COUNT LOW IRON STORE THEREFOR IRON REPLACEMENT NEEDS PT REVIEWED LABS: NA, K, AND CL ARE NORMAL Dietary Evaluation Review Comments: Nutrition Recommendation 1) Advance diet as medically feasible 2) Jose 1 pk BID 3) Continue PN supplementation 4) Monitor PO intake, lab values, weight trend, and I/O Expected Outcomes/Goals: Wound to improve FU 2-3 days Plan discussed with: Patient, Daughter YASMEEN CHAVEZ MD Aug 13, 2025 10:08
--- NOTE | 2025-08-13 10:11 | DVHPN2 ---
Progress Note - Dictate Date Seen: Aug 13, 2025 Medical Necessity Reason Pt with a Central, PICC or Fol: Yes The following are medically ne: Spann Catheter Subjective SSS S/P PPI DIABETES VASCULOPATHY ANTIONE NOW UNDERWENT COLONOSCOPY AT AN OUTSIDE FACILITY COMPLICATED BY PERFORATION REQUIRING COLOSTOMY NOW WITH RECURRENT UTI DECUB ULCER SEVERELY MALNOURISHED CACHECTIC SEVERE VOL DEPLETION AND CLINICAL PRESENTATION FOR SEPSIS ENDOCARDITIS? COLO CUTANEOUS FISTULA I vital signs Vital Sign Date Time Temp Pulse Resp B/P (MAP) Pulse Ox O2 Delivery O2 Flow Rate FiO2 08/13/25 05:00 97.3 87 17 109/58 (75) 99 97.3 08/12/25 20:00 Room Air* 0 21 Total Intake and Output 08/12/25 08/12/25 08/13/25 15:00 23:00 07:00 Intake Total 1390 ml 892 ml 0 ml Balance 1390 ml 892 ml 0 ml medications Current Medications Medications Dose Ordered Sig/Cristy Route Start Time Stop Time Status Last Admin Dose Admin Diagnostic Test (Pha) 1 strip Q6HR 07/22/25 00:00 08/13/25 05:03 1 STRIP Insulin Human Regular FOLLOW SLIDING SCALE Q6HR SC 07/22/25 00:00 08/12/25 12:01 2 UNITS Dextrose 50 ml UD IV 07/21/25 22:00 Amino Acids 0 ml @ 0 mls/hr PER PHARMACY IV 07/23/25 11:30 Fat Emulsion Intravenous 50 ml/ Sodium Acetate 20 meq/Potassium Phosphate 20 meq/ Calcium Gluconate 2.3 meq/Magnesium Sulfate 8 meq/ Multivitamins 10 ml/Chromium/ Copper/Manganese/ Zinc 1 ml/Sodium Phosphate 10 meq/ Amino Acids/ Dextrose/Purified Water 784.9917 ml @ 32 mls/hr [id number] IV 07/24/25 22:00 07/25/25 21:59 Cancel Heparin Sodium (Porcine) 500 units BID IV 07/27/25 10:15 08/12/25 21:03 500 UNITS Acetaminophen 650 mg Q6HP PRN PO 07/27/25 23:15 08/10/25 23:46 650 MG Diphenhydramine HCl 25 mg Q6HP PRN IV 08/02/25 13:30 08/09/25 18:00 25 MG Hydrocortisone 1 applic BIDPRN PRN TOP 08/02/25 15:00 08/12/25 21:23 1 APPLIC Betamethasone/ Clotrimazole 1 applic Q12HR TOP 08/02/25 22:00 08/12/25 22:00 1 APPLIC Linezolid 300 ml @ 150 mls/hr Q12HR IV 08/02/25 22:00 08/12/25 21:04 150 MLS/HR Fat Emulsion Intravenous 100 ml/Sodium Chloride 50 meq/ Sodium Acetate 40 meq/Sodium Phosphate 20 meq/ Potassium Chloride 30 meq/ Potassium Acetate 20 meq/Magnesium Sulfate 8 meq/ Multivitamins 10 ml/Chromium/ Copper/Manganese/ Zinc 1 ml/Amino Acids/Dextrose/ Purified Water 1,675.5 ml @ 70 mls/hr [id number] IV 08/12/25 22:00 08/13/25 21:59 08/12/25 21:03 70 MLS/HR laboratory and microbiology Laboratory Tests 08/13/25 06:23 08/06/25 04:54 Test 08/13/25 06:23 Range/Units Serum Glucose 106 74-106 mg/dL Problem List SSS S/P PPI DIABETES VASCULOPATHY ANTIONE NOW UNDERWENT COLONOSCOPY AT AN OUTSIDE FACILITY COMPLICATED BY PERFORATION REQUIRING COLOSTOMY NOW WITH RECURRENT UTI DECUB ULCER SEVERELY MALNOURISHED CACHECTIC SEVERE VOL DEPLETION AND CLINICAL PRESENTATION FOR SEPSIS INABILITY TO MOUNT AN WBC RESPONSE/ IMMUNOSUPPRESSED BACTERIAL AND YEAST INFECTION CUTANEOUS COLONIC FISTULA HX OF FUNGAL ENDOCARDITIS Assessment/Plan IV FLUID CONTROL AFIB 'TREAT BOTH BACTERIAL AND YEAST INFECTION CONSIDER TPN FOR MANAGEMENT OF FISTULA PT WOUND CARE/ STAGE [address] ABD PELVIS 1. Removal of right lower quadrant drain. No drainable fluid collection. 2. There is a low left anterior abdominal wall colostomy and a Issa's pouch. No bowel obstruction. 3. Dehiscence of the infraumbilical anterior abdominal wall with defect measuring at least 7.9 cm transverse. 4. Subacute appearing moderate height loss compression fracture of L1 with greater than 50% height loss. Chronic appearing Moderate height loss compression fractures of T9 and T12. 5. Cholelithiasis. 6. Mild cardiomegaly. At least mild aortic valve and coronary artery calcifications. 7. Moderate-sized hiatal hernia. 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
--- NOTE | 2025-08-13 10:18 | DVHHP2 ---
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 COLO CUTANEOUS FISTULA PT WITH RASH/ ECZEMA BENADRYL anemia START IRON INFUSION RETIC COUNT IRON STUDY HOME IN 1 TO 2 DAYS WITH CONTINUED TPN AT HOME PT HIGH RETIC COUNT LOW IRON STORE THEREFOR IRON REPLACEMENT Past Medical History ABOVE Past Surgical History S/P HEMICOLECTOMY S/P PERSISTENT COLOCUTANEOUS FISTULA Family History ABOVE Social History NEGATIVE Patient Family History: FH: heart attack G8 SISTER FH: heart attack G8 SISTER Allergies: Coded Allergies: Levofloxacin (Verified Allergy, Unknown, 06/28/25) Home Meds Active Scripts Mirtazapine (Remeron) 15 Mg Tab, 1 TAB PO QPM for 30 Days, #30 TAB 2 [facility] Metoprolol Succinate (Metoprolol Succinate Er) 50 Mg Tab, 1 TAB PO DAILY for 30 Days, #30 TAB 3 [facility]ills [facility] 07/13/25 Olanzapine (OLANZAPINE) 5 Mg Tab, 2.5 TAB PO DAILY for 30 Days, #15 TAB 2 Refills Prov[facility] 07/13/25 Fluconazole (Fluconazole) 200 Mg Tab, 200 MG PO HS for 30 Days, #30 TAB Prov:[facility] 07/13/25 Reported Medications Aspirin Buffered (Quinten Carb-Mag (Aspirin 325 mg) 1 Tab Tab, 1 TAB PO, TAB 06/24/21 Ferrous Sulfate (FERROUS SULFATE) 325 Mg Tb, 325 MG PO, TAB 06/20/21 Folic Sove-Yntdlxejhk-Vrxlaklp (Folbic) Tab, 1 TAB PO DAILY, #90 TAB 3 Refills 06/20/21 Multiple Vitamins W/ Minerals (Centrum Silver 50+Women) 1 Tab Tab, 1 TAB PO, TAB 06/20/21 Discontinued Scripts Famotidine (PEPCID TABLET) 20 Mg Tb, 1 TAB PO BID for 30 Days, #60 TAB [facility] Current Medications Current Medications Medications (Trade) Dose Ordered Sig/Cristy Route PRN Reason Start Time Stop Time Status Last Admin Fat Emulsion Intravenous 100 ml/Sodium Chloride 50 meq/ Sodium Acetate 40 meq/Sodium Phosphate 20 meq/ Potassium Chloride 30 meq/ Potassium Acetate 20 meq/Magnesium Sulfate 8 meq/ Multivitamins 10 ml/Chromium/ Copper/Manganese/ Zinc 1 ml/Amino Acids/Dextrose/ Purified Water 1,675.5 ml @ 70 mls/hr [id number] IV 08/12/25 22:00 08/13/25 21:59 08/12/25 21:03 Review of Systems Vital Signs Vital Signs Date Time Temp Pulse Resp B/P (MAP) Pulse Ox O2 Delivery O2 Flow Rate FiO2 08/13/25 05:00 97.3 87 17 109/58 (75) 99 97.3 08/12/25 20:00 Room Air* 0 21 SEPSIS Sepsis Screen Physician Orders Chest Xray 1 View (07/20/25 18:33) Echo 2d Mode Cardiac Dop (07/21/25 07:00) * Wound Consult (07/20/25 ) * Picc Line Consult (07/21/25 08:00) Apply/Change Dressing BID (07/21/25 10:35) Clinimix Per Pharmacy (07/21/25 18:38) Glucose Blood (Accu-Chek Comfort Curve T (07/22/25 00:00) Insulin R (Human) (Insulin R) (07/22/25 00:00) Dextrose 50% Syringe (07/21/25 22:00) Clinimix Per Pharmacy (07/22/25 22:00) Tpn Per Pharmacy (07/23/25 11:30) Clinimix Per Pharmacy (07/23/25 22:00) Insert Midline (07/23/25 18:21) * Surgical Consult (07/24/25 ) Npo After Midnight (07/25/25 11:09) Obtain Consent For: (07/25/25 11:09) * Radiologist Consult (07/25/25 14:04) Oxygen By Face Mask (07/26/25 14:05) Spot Welder Body Assembly (07/26/25 14:05) Notify Anesth. For Changes: (07/26/25 14:05) Pulse Ox Assessment (07/26/25 14:05) Bear Hugger For Temp <94.5f (07/26/25 14:05) May Have Head Of Bed Up (07/26/25 14:05) Follow Iv With Surgeon Orders (07/26/25 14:05) Discharge To Room Per Criteria (07/26/25 14:05) Chest Portable (07/26/25 15:07) Communication Order (07/26/25 15:07) Communication Order (07/26/25 15:07) Heparin Sodium (Porcine) (07/27/25 10:15) Communication Order (07/27/25 10:33) Communication Order (07/27/25 14:00) Acetaminophen Tablet (Tylenol Tablet) (07/27/25 23:15) Pt Request For Service (07/31/25 11:27) Diphenhydramine Injection (Benadryl Inje (08/02/25 13:30) Hydrocortone 1% Topical Cream (Hydrocort (08/02/25 15:00) Chest Portable (08/02/25 15:39) Lotrisone Topical Cream (Lotrisone) (08/02/25 22:00) Clear Liq Diet (08/02/25 Dinner) Linezolid 600mg/300ml (Zyvox) (08/02/25 22:00) Chest Portable (08/06/25 08:40) Tpn Per Pharmacy (08/06/25 09:33) Tpn Per Pharmacy (08/07/25 09:03) * Auto Polisher Consult (08/07/25 ) Tpn Per Pharmacy (08/08/25 09:12) Tpn Per Pharmacy (08/09/25 22:00) Tpn Per Pharmacy (08/10/25 22:00) * Dietary Consult (08/10/25 14:15) Tpn Per Pharmacy (08/11/25 22:00) Amino Acid Infusion... W/Fat Emulsion... (08/12/25 22:00) Tpn Per Pharmacy (08/12/25 22:00) Complete Blood Count (08/13/25 10:09) Urinalysis (08/13/25 10:09) Chest Portable (08/13/25 10:09) Amino Acid Infusion... W/Fat Emulsion... (08/13/25 22:00) * Auto Polisher Consult (08/13/25 ) Vital Signs Date Time Temp Pulse Resp B/P (MAP) Pulse Ox O2 Delivery O2 Flow Rate FiO2 08/13/25 05:00 97.3 87 17 109/58 (75) 99 97.3 08/13/25 01:00 97.5 98 17 121/63 (82) 96 97.5 08/12/25 21:00 97.8 112 19 92/60 (71) 97 97.8 08/12/25 20:00 98 17 96 Room Air* 0 21 08/12/25 16:52 98.0 97 17 109/58 (75) 99 98.0 08/12/25 12:53 98.8 82 17 111/60 (77) 99 98.8 08/12/25 09:00 97.7 89 16 113/66 (82) 98 97.7 08/12/25 08:00 18 Room Air* 0 08/12/25 04:37 97.8 93 16 123/78 (93) 97 97.8 08/12/25 01:00 98.6 86 17 111/73 (86) 9 98.6 08/11/25 20:52 97.7 97 17 125/67 (86) 98 97.7 08/11/25 20:00 Room Air* 0 08/11/25 16:48 98.0 85 17 110/76 (87) 99 98.0 08/11/25 12:51 98.0 95 16 135/82 (99) 98 98.0 08/11/25 08:44 98.1 83 16 112/58 (76) 98 98.1 08/11/25 08:00 Room Air* 0 21 Laboratory Tests Test 07/20/25 19:08 07/24/25 18:46 08/06/25 04:54 White Blood Count 5.7 10^3/uL (4.4-10.8) 5.5 10^3/uL (4.4-10.8) 5.5 10^3/uL (4.4-10.8) Results Labs Test 08/13/25 06:23 08/13/25 04:56 08/12/25 05:07 08/07/25 05:10 Range/Units Sodium Level 136 136-145 mmol/L Potassium Level 3.9 3.5-5.1 mmol/L Chloride Level 104 98-107 mmol/L Carbon Dioxide Level 24 20-31 mmol/L Anion Gap 8 5-15 Blood Urea Nitrogen 30 H 9-23 mg/dL Creatinine 0.63 0.550-1.02 mg/dL Glomerular Filtration Rate Calc 85 >90 mL/min BUN/Creatinine Ratio 47.6 H 10.0-20.0 Serum Glucose 106 74-106 mg/dL Calcium Level 8.7 8.7-10.4 mg/dL Phosphorus Level 3.1 2.4-5.1 mg/dL Magnesium Level 1.9 1.6-2.6 mg/dL Total Bilirubin 0.3 0.2-1.0 mg/dL Aspartate Amino Transferase (AST) 22 13-40 U/L Alanine Aminotransferase (ALT) 22 7-40 U/L Alkaline Phosphatase 161 H 46-116 U/L Total Protein 5.0 L 5.7-8.2 g/dL Albumin 2.8 L 3.2-4.8 g/dL POC Glucose 110 H 70-106 mg/dl Triglycerides Level 105 < 150 mg/dL Reticulocyte Count (auto) 2.10 H 0.5-1.5 % Iron Level 46 L 50-170 ug/dL Total Iron Binding Capacity 156 L 250-425 ug/dL Percent Iron Saturation 29.5 15-50 % Test 08/06/25 04:54 08/03/25 05:50 07/24/25 18:46 Range/Units White Blood Count 5.5 4.4-10.8 10^3/uL Red Blood Count 2.99 L 4.0-5.20 10^6/uL Hemoglobin 9.6 L 12.2-16.2 g/dL Hematocrit 28.9 L 36.0-46.0 % Mean Corpuscular Volume 96.6 80.0-100.0 fL Mean Corpuscular Hemoglobin 32.0 28.0-32.0 pg Mean Corpuscular Hemoglobin Concent 33.2 32.0-36.0 g/dL Red Cell Distribution Width 16.2 H 11.8-14.3 % Platelet Count 261 140-450 10^3/uL Mean Platelet Volume 7.5 6.9-10.8 fL Neutrophils (%) (Auto) 63.6 37.0-80.0 % Lymphocytes (%) (Auto) 17.5 10.0-50.0 % Monocytes (%) (Auto) 5.2 0.0-12.0 % Eosinophils (%) (Auto) 13.2 H 0.0-7.0 % Basophils (%) (Auto) 0.5 0.0-2.0 % Neutrophils # (Auto) 3.5 1.6-8.6 10 ^3/uL Lymphocytes # (Auto) 1.0 0.4-5.4 10 ^3/uL Monocytes # (Auto) 0.3 0-1.3 10 ^3/uL Eosinophils # (Auto) 0.7 0-0.8 10 ^3/uL Basophils # (Auto) 0 0-0.2 10 ^3/uL Nucleated Red Blood Cells 0.1 % Urine Color Light-yellow Yellow Urine Clarity Clear Clear Urine pH 6.0 5.0-9.0 Urine Specific [place] 1.008 1.001-1.035 Urine Protein Negative Negative Urine Ketones Negative Negative Urine Blood Negative Negative /uL Urine Nitrite Negative Negative Urine Bilirubin Negative Negative Urine Urobilinogen Normal Negative mg/dL Urine Leukocyte Esterase Negative Negative /uL Urine RBC <1 0 - 4 /hpf Urine Microscopic WBC 1 0-5 /HPF Urine Squamous Epithelial Cells Few <5 /hpf Urine Bacteria None seen None Seen /hpf Urine Yeast (Budding) Occasional None Seen /hpf Urine Glucose Trace Normal mg/dL Prothrombin Time 10.2 9.3-11.8 sec Prothrombin Time INR 0.96 0.9-1.15 Activated Partial Thromboplast Time 27.3 24.5-34.5 SEC Microbiology Date/Time Source Procedure Growth Status 07/28/25 14:51 Abdomen Gram Stain - Final Complete 07/28/25 14:51 Wound Culture - Final Pseudomonas aeruginosa Escherichia coli Enterococcus faecium - VRE Complete Admitting Diagnosis: SSS S/P PPI DIABETES VASCULOPATHY ANTIONE NOW UNDERWENT COLONOSCOPY AT AN OUTSIDE FACILITY COMPLICATED BY PERFORATION REQUIRING COLOSTOMY NOW WITH RECURRENT UTI DECUB ULCER SEVERELY MALNOURISHED CACHECTIC SEVERE VOL DEPLETION AND CLINICAL PRESENTATION FOR SEPSIS INABILITY TO MOUNT AN WBC RESPONSE/ IMMUNOSUPPRESSED BACTERIAL AND YEAST INFECTION CUTANEOUS COLONIC FISTULA HX OF FUNGAL ENDOCARDITIS Assessment/Plan IV FLUID CONTROL AFIB 'TREAT BOTH BACTERIAL AND YEAST INFECTION CONSIDER TPN FOR MANAGEMENT OF FISTULA PT Plan WOUND CARE/ STAGE I DECUB CT ABD PELVIS 1. Removal of right lower quadrant drain. No drainable fluid collection. 2. There is a low left anterior abdominal wall colostomy and a Issa's pouch. No bowel obstruction. 3. Dehiscence of the infraumbilical anterior abdominal wall with defect measuring at least 7.9 cm transverse. 4. Subacute appearing moderate height loss compression fracture of L1 with greater than 50% height loss. Chronic appearing Moderate height loss compression fractures of T9 and T12. 5. Cholelithiasis. 6. Mild cardiomegaly. At least mild aortic valve and coronary artery calcifications. 7. Moderate-sized hiatal hernia. NO CT EVIDENCE FOR FISTULA NUTRITIONAL SUPPORT CX NEGATIVE FAILURE TO THRIVE CONSIDER HORMONE REPLACEMENT THERAPY ECHO TO RULE OUT ENDOCARDITIS ECHO NO VEGETATION NOTED CONSIDER TALHA CENTRAL ACCESS FOR TPN UNABLE TO PLACE PICC LINE SECONDARY TO SMALL CALIBER OF VEINS morris cath insertion CONT TPN PHYSICAL THERAPY Plan discussed with: Patient, Daughter YASMEEN CHAVEZ MD Aug 13, 2025 10:18
[2025-08-13 10:36] LABS: Hematocrit 25.2 % (36.0-46.0); Hemoglobin 8.4 g/dL (12.2-16.2); Mean Corpuscular Hemoglobin 32.6 pg (28.0-32.0); Mean Corpuscular Volume 98.4 fL (80.0-100.0); Nucleated Red Blood Cells % 0.1 %
--- NOTE | 2025-08-13 12:02 | DVH ---
CHEST RADIOGRAPH Indication: WHEEZING Technique: Single frontal view of the chest was obtained COMPARISON: XY CHEST PORTABLE on DOS: 08/06/25, XY CHEST PORTABLE on DOS: 08/02/25, XY CHEST PORTABLE on DOS: 07/26/25, XY CHEST XRAY 1 VIEW on DOS: 07/20/25, XY CHEST XRAY 1 VIEW on DOS: 07/08/25 FINDINGS: Lines and Tubes: Right port in satisfactory position. Left chest wall pacemaker. Lungs: Mild pulmonary vascular congestion slightly increased. Pleura: No effusion.No pneumothorax. Cardiomediastinal contours: Cardiomegaly. Bones: Unremarkable IMPRESSION: Mild pulmonary vascular congestion, slightly increased.
[2025-08-13] MEDS: METOCLOPRAMIDE HCL 5MG/ml INJ 2ml VIAL IV PRN (18:50)
[2025-08-13] MEDS: TPN PER PHARMACY IV NR (21:12)
[2025-08-14] VITALS (8 sets, daily range): BP systolic 97–138; BP diastolic 54–92; PULSE 95–108; RESP 16–19; TEMP 97.3–98.2; O2SAT 96–99
[2025-08-14 06:22] LABS: Alanine Aminotransferase 23 U/L (7-40); Anion Gap 11 (5-15); Carbon Dioxide 26 mmol/L (20-31); Chloride 101 mmol/L (98-107); Potassium 3.7 mmol/L (3.5-5.1); Sodium 138 mmol/L (136-145)
[2025-08-14 06:23] LABS: BUN/Creatinine Ratio 56.9 (10.0-20.0)
[2025-08-14 06:24] LABS: Magnesium 1.8 mg/dL (1.6-2.6)
[2025-08-14 06:26] LABS: Albumin 2.8 g/dL (3.2-4.8); Alkaline Phosphatase 161 U/L (46-116); Bilirubin, Total 0.4 mg/dL (0.2-1.0); Blood Urea Nitrogen 33 mg/dL (9-23); Calcium 8.5 mg/dL (8.7-10.4); Glucose 115 mg/dL (74-106); Total Protein 5.0 g/dL (5.7-8.2)
--- NOTE | 2025-08-14 16:48 | DVHPN2 ---
Progress Note - Dictate Date Seen: Aug 14, 2025 Medical Necessity Reason Pt with a Central, PICC or Fol: Yes The following are medically ne: Spann Catheter Subjective SSS S/P PPI DIABETES VASCULOPATHY ANTIONE NOW UNDERWENT COLONOSCOPY AT AN OUTSIDE FACILITY COMPLICATED BY PERFORATION REQUIRING COLOSTOMY NOW WITH RECURRENT UTI DECUB ULCER SEVERELY MALNOURISHED CACHECTIC SEVERE VOL DEPLETION AND CLINICAL PRESENTATION FOR SEPSIS ENDOCARDITIS? COLO CUTANEOUS FISTULA I vital signs Vital Sign Date Time Temp Pulse Resp B/P (MAP) Pulse Ox O2 Delivery O2 Flow Rate FiO2 08/14/25 13:06 98.2 95 18 105/59 (74) 96 98.2 08/13/25 20:00 Room Air* 0 21 Total Intake and Output 08/13/25 08/13/25 08/14/25 15:00 23:00 07:00 Intake Total 300 ml 120 ml Balance 300 ml 120 ml medications Current Medications Medications Dose Ordered Sig/Cristy Route Start Time Stop Time Status Last Admin Dose Admin Diagnostic Test (Pha) 1 strip Q6HR 07/22/25 00:00 08/14/25 12:00 1 STRIP Insulin Human Regular FOLLOW SLIDING SCALE Q6HR SC 07/22/25 00:00 08/13/25 12:22 2 UNITS Dextrose 50 ml UD IV 07/21/25 22:00 Amino Acids 0 ml @ 0 mls/hr PER PHARMACY IV 07/23/25 11:30 Fat Emulsion Intravenous 50 ml/ Sodium Acetate 20 meq/Potassium Phosphate 20 meq/ Calcium Gluconate 2.3 meq/Magnesium Sulfate 8 meq/ Multivitamins 10 ml/Chromium/ Copper/Manganese/ Zinc 1 ml/Sodium Phosphate 10 meq/ Amino Acids/ Dextrose/Purified Water 784.9917 ml @ 32 mls/hr [id number] IV 07/24/25 22:00 07/25/25 21:59 Cancel Heparin Sodium (Porcine) 500 units BID IV 07/27/25 10:15 08/13/25 21:26 500 UNITS Acetaminophen 650 mg Q6HP PRN PO 07/27/25 23:15 08/10/25 23:46 650 MG Diphenhydramine HCl 25 mg Q6HP PRN IV 08/02/25 13:30 08/09/25 18:00 25 MG Hydrocortisone 1 applic BIDPRN PRN TOP 08/02/25 15:00 08/12/25 21:23 1 APPLIC Fat Emulsion Intravenous 100 ml/Sodium Chloride 50 meq/ Sodium Acetate 50 meq/Sodium Phosphate 20 meq/ Potassium Chloride 50 meq/ Potassium Acetate 20 meq/Magnesium Sulfate 12 meq/ Multivitamins 10 ml/Chromium/ Copper/Manganese/ Zinc 1 ml/Amino Acids/Dextrose/ Purified Water 1,691.5 ml @ 71 mls/hr [id number] IV 08/13/25 22:00 08/14/25 21:59 08/13/25 21:12 71 MLS/HR Metoclopramide HCl 10 mg Q8HPRN PRN IV 08/13/25 18:30 08/14/25 12:35 10 MG Fat Emulsion Intravenous 100 ml/Sodium Chloride 50 meq/ Sodium Acetate 50 meq/Sodium Phosphate 20 meq/ Potassium Chloride 50 meq/ Potassium Acetate 20 meq/Potassium Phosphate 22 meq/ Magnesium Sulfate 16 meq/ Multivitamins 10 ml/Chromium/ Copper/Manganese/ Zinc 1 ml/Amino Acids/Dextro... 1,697.5 ml @ 71 mls/hr [id number] IV 08/14/25 22:00 08/15/25 21:59 laboratory and microbiology Laboratory Tests 08/14/25 04:38 08/13/25 06:23 Test 08/14/25 04:38 Range/Units Serum Glucose 115 H 74-106 mg/dL Problem List SSS S/P PPI DIABETES VASCULOPATHY ANTIONE NOW UNDERWENT COLONOSCOPY AT AN OUTSIDE FACILITY COMPLICATED BY PERFORATION REQUIRING COLOSTOMY NOW WITH RECURRENT UTI DECUB ULCER SEVERELY MALNOURISHED CACHECTIC SEVERE VOL DEPLETION AND CLINICAL PRESENTATION FOR SEPSIS INABILITY TO MOUNT AN WBC RESPONSE/ IMMUNOSUPPRESSED BACTERIAL AND YEAST INFECTION CUTANEOUS COLONIC FISTULA HX OF FUNGAL ENDOCARDITIS Assessment/Plan IV FLUID CONTROL AFIB 'TREAT BOTH BACTERIAL AND YEAST INFECTION CONSIDER TPN FOR MANAGEMENT OF FISTULA PT WOUND CARE/ STAGE [address] ABD PELVIS 1. Removal of right lower quadrant drain. No drainable fluid collection. 2. There is a low left anterior abdominal wall colostomy and a Issa's pouch. No bowel obstruction. 3. Dehiscence of the infraumbilical anterior abdominal wall with defect measuring at least 7.9 cm transverse. 4. Subacute appearing moderate height loss compression fracture of L1 with greater than 50% height loss. Chronic appearing Moderate height loss compression fractures of T9 and T12. 5. Cholelithiasis. 6. Mild cardiomegaly. At least mild aortic valve and coronary artery calcifications. 7. Moderate-sized hiatal hernia. 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 CANNOT BE ON ANY ORAL INTAKE TPN X 90 DAYS TPN PER PHARMACY SEVERELY MALNOURISHED SURGICAL REPAIR OF FISTULA UPON PT PHYSICALLY TOLERATE SURGERY WHEN MEDICALLY STABLE AND ADEQUATE GAIN IN NUTRITIONAL STATE REVIEWED LABS: NA, K, AND CL ARE NORMAL PT NEEDS TPN FOR GREATER THAN 90 DAYS BECAUSE NOT A CANDIDATE FOR TUBE FEEDING BECAUSE OF COLOCUTANEOUS FISTULA TPN PER PHARMACY INSULIN PER PHARMACY Dietary Evaluation Review Comments: Nutrition Recommendation 1) Advance diet as medically feasible 2) Jose 1 pk BID 3) Continue PN supplementation 4) Monitor PO intake, lab values, weight trend, and I/O Expected Outcomes/Goals: Wound to improve FU 2-3 days Plan discussed with: Patient Critical Care Time(min): 35 YASMEEN CHAVEZ MD Aug 14, 2025 16:48
--- NOTE | 2025-08-14 16:52 | DVHDS2 ---
Discharge Summary Date of Admission Jul 20, 2025 at 16:00 Date of Discharge: Aug 18, 2025 Admitting Diagnosis CACHEXIA COLOCUTANEOUS FISTULA SEPSIS VRE Wounds: COLOCUTANEOUS FISTULA SEPSIS Labs/Diagnostic Data: Laboratory Results Test 08/14/25 11:22 08/14/25 04:38 08/13/25 06:23 08/12/25 05:07 POC Glucose 89 mg/dl (70-106) Sodium Level 138 mmol/L (136-145) Potassium Level 3.7 mmol/L (3.5-5.1) Chloride Level 101 mmol/L (98-107) Carbon Dioxide Level 26 mmol/L (20-31) Anion Gap 11 (5-15) Blood Urea Nitrogen 33 mg/dL (9-23) Creatinine 0.58 mg/dL (0.550-1.02) Glomerular Filtration Rate Calc 87 mL/min (>90) BUN/Creatinine Ratio 56.9 (10.0-20.0) Serum Glucose 115 mg/dL (74-106) Calcium Level 8.5 mg/dL (8.7-10.4) Phosphorus Level 2.6 mg/dL (2.4-5.1) Magnesium Level 1.8 mg/dL (1.6-2.6) Total Bilirubin 0.4 mg/dL (0.2-1.0) Aspartate Amino Transferase (AST) 24 U/L (13-40) Alanine Aminotransferase (ALT) 23 U/L (7-40) Alkaline Phosphatase 161 U/L (46-116) Total Protein 5.0 g/dL (5.7-8.2) Albumin 2.8 g/dL (3.2-4.8) White Blood Count 5.2 10^3/uL (4.4-10.8) Red Blood Count 2.56 10^6/uL (4.0-5.20) Hemoglobin 8.4 g/dL (12.2-16.2) Hematocrit 25.2 % (36.0-46.0) Mean Corpuscular Volume 98.4 fL (80.0-100.0) Mean Corpuscular Hemoglobin 32.6 pg (28.0-32.0) Mean Corpuscular Hemoglobin Concent 33.2 g/dL (32.0-36.0) Red Cell Distribution Width 16.5 % (11.8-14.3) Platelet Count 166 10^3/uL (140-450) Mean Platelet Volume 7.4 fL (6.9-10.8) Neutrophils (%) (Auto) 69.9 % (37.0-80.0) Lymphocytes (%) (Auto) 15.4 % (10.0-50.0) Monocytes (%) (Auto) 4.5 % (0.0-12.0) Eosinophils (%) (Auto) 9.7 % (0.0-7.0) Basophils (%) (Auto) 0.5 % (0.0-2.0) Neutrophils # (Auto) 3.7 10 ^3/uL (1.6-8.6) Lymphocytes # (Auto) 0.8 10 ^3/uL (0.4-5.4) Monocytes # (Auto) 0.2 10 ^3/uL (0-1.3) Eosinophils # (Auto) 0.5 10 ^3/uL (0-0.8) Basophils # (Auto) 0 10 ^3/uL (0-0.2) Nucleated Red Blood Cells 0.1 % Triglycerides Level 105 mg/dL (< 150) Test 08/07/25 05:10 08/03/25 05:50 07/24/25 18:46 Reticulocyte Count (auto) 2.10 % (0.5-1.5) Iron Level 46 ug/dL (50-170) Total Iron Binding Capacity 156 ug/dL (250-425) Percent Iron Saturation 29.5 % (15-50) Urine Color Light-yellow (Yellow) Urine Clarity Clear (Clear) Urine pH 6.0 (5.0-9.0) Urine Specific [place] 1.008 (1.001-1.035) Urine Protein Negative (Negative) Urine Ketones Negative (Negative) Urine Blood Negative /uL (Negative) Urine Nitrite Negative (Negative) Urine Bilirubin Negative (Negative) Urine Urobilinogen Normal mg/dL (Negative) Urine Leukocyte Esterase Negative /uL (Negative) Urine RBC <1 /hpf (0 - 4) Urine Microscopic WBC 1 /HPF (0-5) Urine Squamous Epithelial Cells Few /hpf (<5) Urine Bacteria None seen /hpf (None Seen) Urine Yeast (Budding) Occasional /hpf (None Urine Glucose Trace mg/dL (Normal) Prothrombin Time 10.2 sec (9.3-11.8) Prothrombin Time INR 0.96 (0.9-1.15) Activated Partial Thromboplast Time 27.3 SEC (24.5-34.5) Other Laboratory Tests 08/14/25 04:38 08/13/25 06:23 Brief Hx & Hospital Course: SSS S/P PPI DIABETES VASCULOPATHY ANTIONE NOW UNDERWENT COLONOSCOPY AT AN OUTSIDE FACILITY COMPLICATED BY PERFORATION REQUIRING COLOSTOMY NOW WITH RECURRENT UTI DECUB ULCER SEVERELY MALNOURISHED CACHECTIC SEVERE VOL DEPLETION AND CLINICAL PRESENTATION FOR SEPSIS INABILITY TO MOUNT AN WBC RESPONSE/ IMMUNOSUPPRESSED BACTERIAL AND YEAST INFECTION CUTANEOUS COLONIC FISTULA HX OF FUNGAL ENDOCARDITIS Assessment/Plan IV FLUID CONTROL AFIB 'TREAT BOTH BACTERIAL AND YEAST INFECTION CONSIDER TPN FOR MANAGEMENT OF FISTULA PT WOUND CARE/ STAGE [address] ABD PELVIS 1. Removal of right lower quadrant drain. No drainable fluid collection. 2. There is a low left anterior abdominal wall colostomy and a Issa's pouch. No bowel obstruction. 3. Dehiscence of the infraumbilical anterior abdominal wall with defect measuring at least 7.9 cm transverse. 4. Subacute appearing moderate height loss compression fracture of L1 with greater than 50% height loss. Chronic appearing Moderate height loss compression fractures of T9 and T12. 5. Cholelithiasis. 6. Mild cardiomegaly. At least mild aortic valve and coronary artery calcifications. 7. Moderate-sized hiatal hernia. NO CT EVIDENCE FOR FISTULA NUTRITIONAL SUPPORT CX NEGATIVE FAILURE TO THRIVE CONSIDER HORMONE REPLACEMENT THERAPY ECHO TO RULE OUT ENDOCARDITIS ECHO NO VEGETATION NOTED CONSIDER TALHA CENTRAL ACCESS FOR TPN UNABLE TO PLACE PICC LINE SECONDARY TO SMALL CALIBER OF VEINS roxana cath insertion CONT TPN PHYSICAL THERAPY PT WITH RASH/ ECZEMA BENADRYL anemia START IRON INFUSION RETIC COUNT IRON STUDY HOME IN 1 TO 2 DAYS WITH CONTINUED TPN AT HOME PT HIGH RETIC COUNT LOW IRON STORE THEREFOR IRON REPLACEMENT NEEDS PT DC IN AM WITH HOME HEALTH HOME TPN BECAUSE OF PERSISTENT COLOCUTANEOUS FISTULA CANNOT BE ON ANY ORAL INTAKE TPN X 90 DAYS TPN PER PHARMACY SEVERELY MALNOURISHED SURGICAL REPAIR OF FISTULA UPON PT PHYSICALLY TOLERATE SURGERY WHEN MEDICALLY STABLE AND ADEQUATE GAIN IN NUTRITIONAL STATE Consults/Reason for consult SURGICAL CONSULT Operations or Procedures ROXANA CATH Condition at Discharge: Poor Final Diagnosis/Problems List SSS S/P PPI DIABETES VASCULOPATHY ANTIONE NOW UNDERWENT COLONOSCOPY AT AN OUTSIDE FACILITY COMPLICATED BY PERFORATION REQUIRING COLOSTOMY NOW WITH RECURRENT UTI DECUB ULCER SEVERELY MALNOURISHED CACHECTIC SEVERE VOL DEPLETION AND CLINICAL PRESENTATION FOR SEPSIS INABILITY TO MOUNT AN WBC RESPONSE/ IMMUNOSUPPRESSED BACTERIAL AND YEAST INFECTION CUTANEOUS COLONIC FISTULA HX OF FUNGAL ENDOCARDITIS Assessment/Plan Discharge Disposition: Home Discharge Instruct/Medications Diet: See Comment Diet comment: TPN WITH INSULIN Activity: Light activity Follow Up/Referral: 2 WEEKS Medications: SEE LIST Scheduled Fluconazole (Fluconazole), 200 MG PO HS Folic Exyz-Pdstbcziwy-Crqqyhqg (Folbic), 1 TAB PO DAILY, (Reported) Metoprolol Succinate (Metoprolol Succinate Er), 1 TAB PO DAILY Mirtazapine (Remeron), 1 TAB PO QPM Olanzapine (Olanzapine), 2.5 TAB PO DAILY Miscellaneous Medications Aspirin Buffered (Quinten Carb-Mag (Aspirin 325 mg), 1 TAB PO, (Reported) Ferrous Sulfate (Ferrous Sulfate), 325 MG PO, (Reported) Multiple Vitamins W/ Minerals (Centrum Silver 50+Women), 1 TAB PO, (Reported) Discontinued Medications Famotidine (Pepcid Tablet), 1 TAB PO BID Discontinued Reason: Auto Discontinued Discharge Statement: "Patient was advised to return to the ER or call 911 if any headaches, dizziness, shortness of breath, chest pain, abdominal pain, bleeding, fevers, or worsening of medical condition. Patient was counseled about treatment plan, medications, possible side effects, patientverbalized understanding. All questions were answered to the best of my ability. This discharge took greater then 30 minutes in planning, reviewing documentation, counseling the patient, and discussing with other team members." ASSESSMENT ASSESSMENT Assessment YASMEEN CHAVEZ MD Aug 14, 2025 16:52
[2025-08-15] VITALS (7 sets, daily range): BP systolic 121–139; BP diastolic 48–67; PULSE 79–102; RESP 16–18; TEMP 97.9–98.6; O2SAT 98–100
[2025-08-15 07:50] LABS: Alanine Aminotransferase 22 U/L (7-40); Carbon Dioxide 26 mmol/L (20-31); Magnesium 2.1 mg/dL (1.6-2.6); Potassium 4.2 mmol/L (3.5-5.1); Sodium 141 mmol/L (136-145)
[2025-08-15 07:51] LABS: Anion Gap 7 (5-15); BUN/Creatinine Ratio 69.1 (10.0-20.0); Bilirubin, Total 0.3 mg/dL (0.2-1.0)
[2025-08-15 07:55] LABS: Albumin 3.0 g/dL (3.2-4.8); Alkaline Phosphatase 162 U/L (46-116); Blood Urea Nitrogen 38 mg/dL (9-23); Calcium 8.6 mg/dL (8.7-10.4); Chloride 108 mmol/L (98-107); Glucose 115 mg/dL (74-106); Total Protein 5.0 g/dL (5.7-8.2)
[2025-08-15] MEDS: TPN PER PHARMACY IV NR (21:51)
[2025-08-16 01:00] VITALS: BP 120/81; PULSE 98; RESP 16; TEMP 98.4; O2SAT 97
[2025-08-16 05:00] VITALS: BP 115/64; PULSE 89; RESP 17; TEMP 98.2; O2SAT 98
[2025-08-16 07:09] LABS: Anion Gap 8.0 (5-15); Carbon Dioxide 26.0 mmol/L (20-31); Potassium 4.2 mmol/L (3.5-5.1); Sodium 142.0 mmol/L (136-145)
[2025-08-16 07:10] LABS: Calcium 8.7 mg/dL (8.7-10.4)
[2025-08-16 07:13] LABS: Chloride 108.0 mmol/L (98-107)
[2025-08-16 07:15] LABS: BUN/Creatinine Ratio 60.7 (10.0-20.0)
[2025-08-16 07:16] LABS: Magnesium 2.2 mg/dL (1.6-2.6)
[2025-08-16 07:17] LABS: Albumin 2.9 g/dL (3.2-4.8); Blood Urea Nitrogen 34.0 mg/dL (9-23); Glucose 117.0 mg/dL (74-106)
[2025-08-16 09:00] VITALS: BP 137/69; PULSE 104; RESP 17; TEMP 98.1; O2SAT 98
[2025-08-16 13:00] VITALS: BP 115/64; PULSE 96; RESP 17; TEMP 98.3; O2SAT 96
--- NOTE | 2025-08-16 13:55 | DVHPN2 ---
Progress Note - Dictate Date Seen: Aug 15, 2025 Medical Necessity Reason Pt with a Central, PICC or Fol: Yes The following are medically ne: Spann Catheter Subjective SSS S/P PPI DIABETES VASCULOPATHY ANTIONE NOW UNDERWENT COLONOSCOPY AT AN OUTSIDE FACILITY COMPLICATED BY PERFORATION REQUIRING COLOSTOMY NOW WITH RECURRENT UTI DECUB ULCER SEVERELY MALNOURISHED CACHECTIC SEVERE VOL DEPLETION AND CLINICAL PRESENTATION FOR SEPSIS ENDOCARDITIS? COLO CUTANEOUS FISTULA I vital signs Vital Sign Date Time Temp Pulse Resp B/P (MAP) Pulse Ox O2 Delivery O2 Flow Rate FiO2 08/16/25 09:00 98.1 104 17 137/69 (91) 98 98.1 08/16/25 08:00 Room Air* 0 21 Total Intake and Output 08/15/25 08/15/25 08/16/25 14:59 22:59 06:59 Intake Total 987.5 ml 850 ml Balance 987.5 ml 850 ml medications Current Medications Medications Dose Ordered Sig/Cristy Route Start Time Stop Time Status Last Admin Dose Admin Diagnostic Test (Pha) 1 strip Q6HR 07/22/25 00:00 08/16/25 11:49 1 STRIP Insulin Human Regular FOLLOW SLIDING SCALE Q6HR SC 07/22/25 00:00 08/16/25 12:44 2 UNITS Dextrose 50 ml UD IV 07/21/25 22:00 Amino Acids 0 ml @ 0 mls/hr PER PHARMACY IV 07/23/25 11:30 Fat Emulsion Intravenous 50 ml/ Sodium Acetate 20 meq/Potassium Phosphate 20 meq/ Calcium Gluconate 2.3 meq/Magnesium Sulfate 8 meq/ Multivitamins 10 ml/Chromium/ Copper/Manganese/ Zinc 1 ml/Sodium Phosphate 10 meq/ Amino Acids/ Dextrose/Purified Water 784.9917 ml @ 32 mls/hr [id number] IV 07/24/25 22:00 07/25/25 21:59 Cancel Heparin Sodium (Porcine) 500 units BID IV 07/27/25 10:15 08/16/25 11:48 500 UNITS Acetaminophen 650 mg Q6HP PRN PO 07/27/25 23:15 08/10/25 23:46 650 MG Diphenhydramine HCl 25 mg Q6HP PRN IV 08/02/25 13:30 08/09/25 18:00 25 MG Hydrocortisone 1 applic BIDPRN PRN TOP 08/02/25 15:00 08/12/25 21:23 1 APPLIC Metoclopramide HCl 10 mg Q8HPRN PRN IV 08/13/25 18:30 08/14/25 12:35 10 MG Fat Emulsion Intravenous 100 ml/Sodium Acetate 60 meq/Sodium Phosphate 35 meq/ Potassium Chloride 30 meq/ Potassium Acetate 20 meq/Calcium Gluconate 2.3 meq/ Magnesium Sulfate 16 meq/ Multivitamins 10 ml/Chromium/ Copper/Manganese/ Zinc 1 ml/Amino Acids/Dextrose/ Purified Water 1,683.6962 ml @ 70 mls/hr [id number] IV 08/15/25 22:00 08/16/25 21:59 08/15/25 21:51 70 MLS/HR Fat Emulsion Intravenous 100 ml/Sodium Acetate 50 meq/Sodium Phosphate 35 meq/ Potassium Chloride 20 meq/ Potassium Acetate 30 meq/Calcium Gluconate 1.65 meq/Magnesium Sulfate 16 meq/ Multivitamins 10 ml/Chromium/ Copper/Manganese/ Zinc 1 ml/Amino Acids/Dextrose/ Purified Water 1,677.2983 ml @ 69 mls/hr [id number] IV 08/16/25 22:00 08/17/25 21:59 laboratory and microbiology Laboratory Tests 08/16/25 04:57 08/13/25 06:23 Test 08/16/25 04:57 Range/Units Serum Glucose 117 H 74-106 mg/dL Problem List SSS S/P PPI DIABETES VASCULOPATHY ANTIONE NOW UNDERWENT COLONOSCOPY AT AN OUTSIDE FACILITY COMPLICATED BY PERFORATION REQUIRING COLOSTOMY NOW WITH RECURRENT UTI DECUB ULCER SEVERELY MALNOURISHED CACHECTIC SEVERE VOL DEPLETION AND CLINICAL PRESENTATION FOR SEPSIS INABILITY TO MOUNT AN WBC RESPONSE/ IMMUNOSUPPRESSED BACTERIAL AND YEAST INFECTION CUTANEOUS COLONIC FISTULA HX OF FUNGAL ENDOCARDITIS Assessment/Plan IV FLUID CONTROL AFIB 'TREAT BOTH BACTERIAL AND YEAST INFECTION CONSIDER TPN FOR MANAGEMENT OF FISTULA PT WOUND CARE/ STAGE I DECUB CT ABD PELVIS 1. Removal of right lower quadrant drain. No drainable fluid collection. 2. There is a low left anterior abdominal wall colostomy and a Issa's pouch. No bowel obstruction. 3. Dehiscence of the infraumbilical anterior abdominal wall with defect measuring at least 7.9 cm transverse. 4. Subacute appearing moderate height loss compression fracture of L1 with greater than 50% height loss. Chronic appearing Moderate height loss compression fractures of T9 and T12. 5. Cholelithiasis. 6. Mild cardiomegaly. At least mild aortic valve and coronary artery calcifications. 7. Moderate-sized hiatal hernia. 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 CANNOT BE ON ANY ORAL INTAKE TPN X 90 DAYS TPN PER PHARMACY SEVERELY MALNOURISHED SURGICAL REPAIR OF FISTULA UPON PT PHYSICALLY TOLERATE SURGERY WHEN MEDICALLY STABLE AND ADEQUATE GAIN IN NUTRITIONAL STATE PT NEEDS TPN FOR GREATER THAN 90 DAYS BECAUSE NOT A CANDIDATE FOR TUBE FEEDING BECAUSE OF COLOCUTANEOUS FISTULA TPN PER PHARMACY INSULIN PER PHARMACY Dietary Evaluation Review Comments: Nutrition Recommendation 1) Advance diet as medically feasible 2) Jose 1 pk BID 3) Continue PN supplementation 4) Monitor PO intake, lab values, weight trend, and I/O Expected Outcomes/Goals: Wound to improve FU 2-3 days Plan discussed with: Patient YASMEEN CHAVEZ MD Aug 16, 2025 13:55
[2025-08-16] MEDS ORDERED: TPN PER PHARMACY 0 ML IV SCH (14:00)
[2025-08-16 16:48] VITALS: BP 128/75; PULSE 102; RESP 17; TEMP 98.3; O2SAT 95
[2025-08-16 21:00] VITALS: BP 116/65; PULSE 108; RESP 20; TEMP 98.5; O2SAT 97
[2025-08-16] MEDS: TPN PER PHARMACY IV NR (21:02)
[2025-08-17 01:00] VITALS: BP 108/64; PULSE 87; RESP 20; TEMP 97.8; O2SAT 97
[2025-08-17 05:00] VITALS: BP 116/46; PULSE 94; RESP 20; TEMP 97.8; O2SAT 95
[2025-08-17 06:17] LABS: Anion Gap 10.0 (5-15); Carbon Dioxide 26.0 mmol/L (20-31); Chloride 105.0 mmol/L (98-107); Potassium 4.0 mmol/L (3.5-5.1); Sodium 141.0 mmol/L (136-145)
[2025-08-17 06:23] LABS: BUN/Creatinine Ratio 88.0 (10.0-20.0); Calcium 8.5 mg/dL (8.7-10.4)
[2025-08-17 06:24] LABS: Magnesium 2.2 mg/dL (1.6-2.6)
[2025-08-17 06:25] LABS: Albumin 2.8 g/dL (3.2-4.8); Blood Urea Nitrogen 44.0 mg/dL (9-23); Glucose 128.0 mg/dL (74-106)
[2025-08-17 08:24] VITALS: BP 108/67; PULSE 101; RESP 16; TEMP 97.2; O2SAT 95
[2025-08-17 13:00] VITALS: BP 112/57; PULSE 83; RESP 17; TEMP 97.4; O2SAT 97
--- NOTE | 2025-08-17 13:12 | DVHPN2 ---
Progress Note - Dictate Date Seen: Aug 17, 2025 Medical Necessity Reason Pt with a Central, PICC or Fol: Yes The following are medically ne: Spann Catheter Subjective SSS S/P PPI DIABETES VASCULOPATHY ANTIONE NOW UNDERWENT COLONOSCOPY AT AN OUTSIDE FACILITY COMPLICATED BY PERFORATION REQUIRING COLOSTOMY NOW WITH RECURRENT UTI DECUB ULCER SEVERELY MALNOURISHED CACHECTIC SEVERE VOL DEPLETION AND CLINICAL PRESENTATION FOR SEPSIS ENDOCARDITIS? COLO CUTANEOUS FISTULA I vital signs Vital Sign Date Time Temp Pulse Resp B/P (MAP) Pulse Ox O2 Delivery O2 Flow Rate FiO2 08/17/25 08:24 97.2 101 16 108/67 (81) 95 97.2 08/17/25 08:00 Room Air* 0 21 Total Intake and Output 08/16/25 08/16/25 08/17/25 14:59 22:59 06:59 Intake Total 120 ml 200 ml Balance 120 ml 200 ml medications Current Medications Medications Dose Ordered Sig/Cristy Route Start Time Stop Time Status Last Admin Dose Admin Diagnostic Test (Pha) 1 strip Q6HR 07/22/25 00:00 08/17/25 12:06 1 STRIP Insulin Human Regular FOLLOW SLIDING SCALE Q6HR SC 07/22/25 00:00 08/17/25 12:08 2 UNITS Dextrose 50 ml UD IV 07/21/25 22:00 Amino Acids 0 ml @ 0 mls/hr PER PHARMACY IV 07/23/25 11:30 Fat Emulsion Intravenous 50 ml/ Sodium Acetate 20 meq/Potassium Phosphate 20 meq/ Calcium Gluconate 2.3 meq/Magnesium Sulfate 8 meq/ Multivitamins 10 ml/Chromium/ Copper/Manganese/ Zinc 1 ml/Sodium Phosphate 10 meq/ Amino Acids/ Dextrose/Purified Water 784.9917 ml @ 32 mls/hr [id number] IV 07/24/25 22:00 07/25/25 21:59 Cancel Heparin Sodium (Porcine) 500 units BID IV 07/27/25 10:15 08/17/25 10:00 500 UNITS Acetaminophen 650 mg Q6HP PRN PO 07/27/25 23:15 08/10/25 23:46 650 MG Diphenhydramine HCl 25 mg Q6HP PRN IV 08/02/25 13:30 08/09/25 18:00 25 MG Hydrocortisone 1 applic BIDPRN PRN TOP 08/02/25 15:00 08/12/25 21:23 1 APPLIC Metoclopramide HCl 10 mg Q8HPRN PRN IV 08/13/25 18:30 08/14/25 12:35 10 MG Fat Emulsion Intravenous 100 ml/Sodium Acetate 50 meq/Sodium Phosphate 35 meq/ Potassium Chloride 20 meq/ Potassium Acetate 30 meq/Calcium Gluconate 1.65 meq/Magnesium Sulfate 16 meq/ Multivitamins 10 ml/Chromium/ Copper/Manganese/ Zinc 1 ml/Amino Acids/Dextrose/ Purified Water 1,677.2983 ml @ 69 mls/hr [id number] IV 08/16/25 22:00 08/17/25 21:59 08/16/25 21:02 69 MLS/HR Amino Acids 0 ml @ 0 mls/hr PER PHARMACY IV 08/16/25 14:00 UNV Fat Emulsion Intravenous 100 ml/Sodium Acetate 40 meq/Sodium Phosphate 45 meq/ Potassium Chloride 20 meq/ Potassium Acetate 30 meq/Calcium Gluconate 1.65 meq/Magnesium Sulfate 16 meq/ Multivitamins 10 ml/Chromium/ Copper/Manganese/ Zinc 1 ml/Amino Acids/Dextrose/ Purified Water 1,674.7983 ml @ 70 mls/hr [id number] IV 08/17/25 22:00 08/18/25 21:59 laboratory and microbiology Laboratory Tests 08/17/25 05:04 08/13/25 06:23 Test 08/17/25 05:04 Range/Units Serum Glucose 128 H 74-106 mg/dL Problem List SSS S/P PPI DIABETES VASCULOPATHY ANTIONE NOW UNDERWENT COLONOSCOPY AT AN OUTSIDE FACILITY COMPLICATED BY PERFORATION REQUIRING COLOSTOMY NOW WITH RECURRENT UTI DECUB ULCER SEVERELY MALNOURISHED CACHECTIC SEVERE VOL DEPLETION AND CLINICAL PRESENTATION FOR SEPSIS INABILITY TO MOUNT AN WBC RESPONSE/ IMMUNOSUPPRESSED BACTERIAL AND YEAST INFECTION CUTANEOUS COLONIC FISTULA HX OF FUNGAL ENDOCARDITIS Assessment/Plan IV FLUID CONTROL AFIB 'TREAT BOTH BACTERIAL AND YEAST INFECTION CONSIDER TPN FOR MANAGEMENT OF FISTULA PT WOUND CARE/ STAGE [address] ABD PELVIS 1. Removal of right lower quadrant drain. No drainable fluid collection. 2. There is a low left anterior abdominal wall colostomy and a Issa's pouch. No bowel obstruction. 3. Dehiscence of the infraumbilical anterior abdominal wall with defect measuring at least 7.9 cm transverse. 4. Subacute appearing moderate height loss compression fracture of L1 with greater than 50% height loss. Chronic appearing Moderate height loss compression fractures of T9 and T12. 5. Cholelithiasis. 6. Mild cardiomegaly. At least mild aortic valve and coronary artery calcifications. 7. Moderate-sized hiatal hernia. 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 CANNOT BE ON ANY ORAL INTAKE TPN X 90 DAYS TPN PER PHARMACY SEVERELY MALNOURISHED SURGICAL REPAIR OF FISTULA UPON PT PHYSICALLY TOLERATE SURGERY WHEN MEDICALLY STABLE AND ADEQUATE GAIN IN NUTRITIONAL STATE PT NEEDS TPN FOR GREATER THAN 90 DAYS BECAUSE NOT A CANDIDATE FOR TUBE FEEDING BECAUSE OF COLOCUTANEOUS FISTULA TPN PER PHARMACY INSULIN PER PHARMACY Dietary Evaluation Review Comments: Nutrition Recommendation 1) Advance diet as medically feasible 2) Jose 1 pk BID 3) Continue PN supplementation 4) Monitor PO intake, lab values, weight trend, and I/O Expected Outcomes/Goals: Wound to improve FU 2-3 days Plan discussed with: Patient, Daughter YASMEEN CHAVEZ MD Aug 17, 2025 13:11
[2025-08-17 17:18] VITALS: BP 99/58; PULSE 97; RESP 18; TEMP 97.8; O2SAT 96
[2025-08-17 21:00] VITALS: BP 131/51; PULSE 97; RESP 14; TEMP 98.6; O2SAT 96
[2025-08-18 01:00] VITALS: BP 122/60; PULSE 97; RESP 16; TEMP 98.7; O2SAT 95
[2025-08-18 05:00] VITALS: BP 112/68; PULSE 93; RESP 14; TEMP 97.4; O2SAT 96
[2025-08-18 06:09] LABS: Chloride 106.0 mmol/L (98-107); Potassium 3.8 mmol/L (3.5-5.1); Sodium 141.0 mmol/L (136-145)
[2025-08-18 06:11] LABS: Anion Gap 9.0 (5-15); Carbon Dioxide 26.0 mmol/L (20-31)
[2025-08-18 06:16] LABS: BUN/Creatinine Ratio 75.0 (10.0-20.0); Magnesium 2.3 mg/dL (1.6-2.6)
[2025-08-18 06:24] LABS: Albumin 2.9 g/dL (3.2-4.8); Blood Urea Nitrogen 39.0 mg/dL (9-23); Calcium 8.6 mg/dL (8.7-10.4); Glucose 120.0 mg/dL (74-106)
== END 2025-08-18 06:53 | disposition home or self-care (01) | DRG 871 ==
LOC: WEST WING 16:00 → CENTRAL 08-02 23:30
PROVIDERS: ADMIT Internal Medicine Cardiovascular Disease; ATTEND Internal Medicine Cardiovascular Disease
PROC: 05HB33Z Insertion of Infusion Device into Right Basilic Vein, Percutaneous Approach (ICD-10-PCS; principal; 2025-07-23)
PROC: B54MZZA Ultrasonography of Right Upper Extremity Veins, Guidance (ICD-10-PCS; 2025-07-23)
PROC: 0JH63WZ Insertion of Totally Implantable Vascular Access Device into Chest Subcutaneous Tissue and Fascia, Percutaneous Approach (ICD-10-PCS; 2025-07-26)
PROC: 02HV33Z Insertion of Infusion Device into Superior Vena Cava, Percutaneous Approach (ICD-10-PCS; 2025-07-26)
DX: A41.9 Sepsis, unspecified organism (principal); E43 Unspecified severe protein-calorie malnutrition; R64 Cachexia; M48.54XA Collapsed vertebra, not elsewhere classified, thoracic region, initial encounter for fracture; R58 Hemorrhage, not elsewhere classified; I49.5 Sick sinus syndrome; L89.91 Pressure ulcer of unspecified site, stage 1; E86.9 Volume depletion, unspecified; N39.0 Urinary tract infection, site not specified; E11.9 Type 2 diabetes mellitus without complications; T81.31XA Disruption of external operation (surgical) wound, not elsewhere classified, initial encounter; M48.56XA Collapsed vertebra, not elsewhere classified, lumbar region, initial encounter for fracture; B37.9 Candidiasis, unspecified; D64.9 Anemia, unspecified; I48.91 Unspecified atrial fibrillation; K80.20 Calculus of gallbladder without cholecystitis without obstruction; K44.9 Diaphragmatic hernia without obstruction or gangrene; I25.10 Atherosclerotic heart disease of native coronary artery without angina pectoris; R62.7 Adult failure to thrive; Y83.8 Other surgical procedures as the cause of abnormal reaction of the patient, or of later complication, without mention of misadventure at the time of the procedure; G47.33 Obstructive sleep apnea (adult) (pediatric); Z93.3 Colostomy status; Z68.29 Body mass index [BMI] 29.0-29.9, adult; Z79.890 Hormone replacement therapy; Z88.1 Allergy status to other antibiotic agents; Z82.49 Family history of ischemic heart disease and other diseases of the circulatory system; Z90.49 Acquired absence of other specified parts of digestive tract; Y92.89 Other specified places as the place of occurrence of the external cause
CPT/HCPCS: 36415; 71045; 80053; 80069; 81001; 82962; 83540; 83550; 83735; 84100; 84478; 85025; 85045; 85610; 85730; 87077; 87081; 87186; 87205; 93306; 97110; 97163; 97530; G0378; J0690; J1071; J1450; J1642; J1756; J1815; J2250; J2405; J2704; J3480; J3490; J7060; J7131

== ENCOUNTER 2025-08-25 07:01 | Day surgery (SDC) | payer MEDICARE, MEDICAID ==
[~2025-08-25] VITALS: Ht 147.3 cm; Wt 54.4 kg
[2025-08-25] VITALS (10 sets, daily range): BP systolic 110–126; BP diastolic 46–78; PULSE 75–82; RESP 14–18; TEMP 97.8–98.1; O2SAT 97–100
[~2025-08-25 07:01] MED LIST changes: -FAMO20TA10 PO
[2025-08-25] MEDS: diphenhydrAMINE HCL 50 MG/1 ML VL IV ONE (14:31)
[2025-08-25] MEDS: methylPREDNISolone SOD SUCC 125 MG/2 ML VL IV ONE (14:32)
[2025-08-25] MEDS: diphenhydrAMINE HCL 50 MG/1 ML VL ONE (14:33)
[2025-08-25] MEDS: methylPREDNISolone SOD SUCC 125 MG/2 ML VL ONE (14:33)
== END 2025-08-25 16:30 | disposition home or self-care (01) ==
LOC: CATH 07:01
PROVIDERS: ATTEND Internal Medicine Cardiovascular Disease
DX: D64.9 Anemia, unspecified (principal); I11.0 Hypertensive heart disease with heart failure; I50.42 Chronic combined systolic (congestive) and diastolic (congestive) heart failure; E11.65 Type 2 diabetes mellitus with hyperglycemia; E11.42 Type 2 diabetes mellitus with diabetic polyneuropathy; M17.0 Bilateral primary osteoarthritis of knee; E78.5 Hyperlipidemia, unspecified; I25.10 Atherosclerotic heart disease of native coronary artery without angina pectoris; I48.0 Paroxysmal atrial fibrillation; G47.33 Obstructive sleep apnea (adult) (pediatric); Z95.0 Presence of cardiac pacemaker; Z79.899 Other long term (current) drug therapy; Z79.01 Long term (current) use of anticoagulants; Z90.49 Acquired absence of other specified parts of digestive tract; Z87.440 Personal history of urinary (tract) infections; Z88.1 Allergy status to other antibiotic agents
CPT/HCPCS: 36430; 82962; 86850; 86900; 86901; 86920; 96374; 96375; J1200; J2919; P9016